=== PATIENT | male | born 2000 | race African-American/Black ===

== ENCOUNTER 2022-04-20 00:29 | Inpatient (IN) ==
[2022-04-20] MEDS ORDERED: ONDANSETRON INJ 2 MG/ML 2 ML VIAL IV STA (01:14)
[2022-04-20] MEDS ORDERED: SODIUM CHLORIDE 0.9% 1000ML 1,000 ML IV ONE (01:14)
[2022-04-20] MEDS ORDERED: MoRPHine SULFATE 4 MG/ML 1 ML CARP\\VIAL IV STA (01:14)
--- NOTE | 2022-04-20 01:20 | Emergency Department Note ---
Impression & Plan Sickle cell anemia with crisis Admit to the [facility] ED Provider Note NAME: SEAN RUVALCABA AGE: 21 SEX: M ARRIVES VIA: Walk-In INFORMANT: Patient ED PROVIDER(S): Radha Montgomery DO CHIEF COMPLAINT: Leg pain PLAN: Disposition: Admit to the [facility] Condition: Fair MEDICAL DECISION MAKING: This is a 21-year-old male patient with a history of sickle cell disease who presents to the emergency department with pain in his anterior thighs, back, and arms. Patient believes that he is having a sickle cell crisis. Patient tried t aking ibuprofen as well as his home morphine dose with no relief of his pain. The patient was drinking alcohol today but the pain seemed to worsen throughout the day. Patient is anemic with a hemoglobin of 8.8. He has no significant leukocytosis. He is afebrile. He does have an alcohol level greater than 75. Patient was given a dose of IV morphine and IV Zofran which did give him moderate relief of his discomfort. He was started on IV normal saline drip. Initially I was cautious with opioid administration because of the patient's alcohol use this evening and the oral morphine he had taken. The patient continued to complain of pain and he was given a dose of IV Dilaudid. I reevaluated and he was concerned he would not be able to go home because of his persistent pain. I discussed the case with the [facility] and they will evaluate for further management. Triage Nursing notes reviewed and agree with them. Vital Signs: reviewed and unremarkable Differential diagnosis: Sickle cell crisis, musculoskeletal pain, alcohol intoxication, dehydration ER treatment provided: IV morphine IV Zofran IV saline IV Dilaudid Diagnostics interpreted by me: Laboratory studies: See below HPI: 21/M arrives for evaluation of leg pain. Patient has a history of sickle cell disease who presents to the emergency department with pain in his legs, arms and back. His last sickle crisis was in the summer 2021. 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 He admits to drinking alcohol today at the [employer] football game. He tried taking his usual ibuprofen and oral morphine with no relief. He typically received IV morphine in the emergency department and gets relief. ROS: See above HPI for pertinent positives & negatives. A total of 10 systems reviewed and were otherwise negative. PAST MEDICAL HISTORY:Sickle cell disease; asthma PAST SURGICAL HISTORY:See Below FAMILY HISTORY:See Below SOCIAL HISTORY:Patient is a student at [employer]. He does admit to alcohol use. HOME MEDICATIONS:See list ALLERGIES:None VITALS:See Below PHYSICAL EXAMINATION: HEENT: Head - normocephalic and atraumatic Pupils are equal, round, and reactive to light. Extraocular eye muscles are intact, and sclera are anicteric. Nose - moist nasal mucosa without discharge. Mouth - moist buccal mucosa. Oropharynx is nonerythematous and there is no tonsillar exudate or edema noted. Neck: Supple; no cervical lymphadenopathy Heart: Regular rate and rhythm. There is a normal S1 and S2 with no murmurs, clicks, or gallops appreciated. Lungs: Clear to auscultation bilaterally with no wheezes, rales, or rhonchi. Abdomen: Soft, completely nontender, nondistended, with good bowel sounds. There are no palpable pulsatile masses or hepatosplenomegaly. There is no guarding, rigidity, or rebound noted. Extremities: No evidence of cyanosis, clubbing, or edema. There are easily palpable peripheral pulses. Skin: warm and dry with good turgor and no rashes. ED COURSE: Times/Reassessments: 0100: Patient was evaluated in room B7. A complete history and physical was performed. An IV lock was initiated and labs are drawn as above. Patient was given a liter normal saline solution wide open along with 4 mg of IV Zofran and 4 mg of IV m orphine. Upon reevaluation, the patient continued to complain of some discomfort and was given a dose of IV Dilaudid. Radha Montgomery DO Past Med/Surg History Social History Smoking Status: Never smoker Tobacco Type: E-cigarettes / Vaping Hx Alcohol Use: Yes Alcohol type: beer Hx Substance Use: Yes Last Used Substance: Days (ago) Last Used Substance Other:: yesterday Substance Use Type Other:: Vapes nicotine Preferred Language: Macedonian Communication Ability: Effective Data Analyst Etl Developer Required: No Current Living Situation: Other Current Living Situation Comment: Apartment with one roommate Other Information That Helps Us Care for You: No Feels Safe at Home: Yes Safety Concerns: Feels Safe At This Time Assistive Devices: None Allergies Allergies Allergy/AdvReac Type Severity Reaction Status Date / Time No Known Allergies Allergy Unverified 04/20/22 04:35 Results & Data (ED) Vital Signs Vital Signs - 24 hr 04/20/22 00:32 Temperature 36.8 C Temperature Source Temporal Artery Scan Pulse Rate 82 Respiratory Rate 18 Respiratory Effort / Characteristics Non-Labored Spontaneous Respiratory Depth Normal Respiratory Pattern Regular Blood Pressure 131/88 Blood Pressure Mean 102 Pulse Oximetry 99 Oxygen Delivery Method Room Air Sepsis Recent Fever Within 48 Hours No Sepsis New/Unexplained Change in Mental Status N/A Sepsis Action Taken by Nursing No Action Required Laboratory Data Result diagrams: 04/21/22 05:13 04/21/22 05:13 Lab Results 04/20/22 04/20/22 04/20/22 Range/Units 01:27 01:27 01:27 WBC 8.45 (4.8-10.8) K/ul RBC 2.78 L (4.63-6.08) M/uL Hgb 8.8 L (14.0-18.0) g/dl Hct 24.8 L (40.1-51.0) % MCV 89.2 (80.0-100.0) fL MCH 31.7 (25.0-34.0) pg MCHC 35.5 (32.0-36.0) g/dL RDW Std Deviation 71.5 H (36.4-46.3) fL RDW Coeff of Terrell 22.4 H (11.5-14.5) % Plt Count 338 (130-400) K/uL MPV 9.1 L (9.4-12.4) fL Immature Gran % (Auto) 7.7 % Neut % (Auto) 60.3 % Lymph % (Auto) 22.0 % [place] % (Auto) 9.3 % Eos % (Auto) 0.2 % Baso % (Auto) 0.5 % Reticulocyte % (Auto) (0.5-2.0) % Neut # (Auto) 5.09 (1.4-6.5) K/uL Lymph # (Auto) 1.86 (1.2-3.4) K/uL [place] # (Auto) 0.79 (0.24-0.82) K/uL Eos # (Auto) 0.02 (0-0.50) K/uL Baso # (Auto) 0.04 (0-0.2) K/uL Reticulocyte # (0.02-0.10) 10^6/uL Immature Gran # (Auto) 0.65 H (0.00-0.02) K/uL Absolute Nucleated RBC 0.29 H (0-0) K/uL Nucleated RBC % (auto) 3.4 % Anisocytosis Present Target Cells 2+ Tear Drop Cells 1+ Schistocytes 1+ Sodium 140 (136-145) mmol/L Potassium 3.9 (3.5-5.1) mmol/L Chloride 107 (98-107) mmol/L Carbon Dioxide 25 (21-32) mmol/L Anion Gap 8 (3-11) BUN 7 (6-23) mg/dl Creatinine 0.49 L (0.6-1.4) mg/dl Est Cr Clr Drug Dosing 231.2 ml/min Est GFR ( Amer) > 150.0 ml/min Est GFR (Non-Af Amer) > 150.0 ml/min BUN/Creatinine Ratio 14.3 (10-20) Glucose 101 H (70-99(Fasting)) mg/dl Calcium 8.8 (8.5-10.1) mg/dl Total Bilirubin 1.9 H (0.2-1.0) mg/dl AST 22 (13-39) U/L ALT 17 (7-52) U/L Alkaline Phosphatase 82 (34-104) U/L Total Creatine Kinase 66 (30-223) U/L Total Protein 7.4 (6.0-8.3) gm/dl Albumin 4.2 (3.4-5.0) gm/dl Globulin 3.2 (2.5-4.0) gm/dl Albumin/Globulin Ratio 1.3 (0.9-2) Ethyl Alcohol mg/dL 77.8 H (<10.0) mg/dl 04/20/22 Range/Units 01:27 WBC (4.8-10.8) K/ul RBC (4.63-6.08) M/uL Hgb (14.0-18.0) g/dl Hct (40.1-51.0) % MCV (80.0-100.0) fL MCH (25.0-34.0) pg MCHC (32.0-36.0) g/dL RDW Std Deviation (36.4-46.3) fL RDW Coeff of Terrell (11.5-14.5) % Plt Count (130-400) K/uL MPV (9.4-12.4) fL Immature Gran % (Auto) % Neut % (Auto) % Lymph % (Auto) % [place] % (Auto) % Eos % (Auto) % Baso % (Auto) % Reticulocyte % (Auto) 7.2 H (0.5-2.0) % Neut # (Auto) (1.4-6.5) K/uL Lymph # (Auto) (1.2-3.4) K/uL [place] # (Auto) (0.24-0.82) K/uL Eos # (Auto) (0-0.50) K/uL Baso # (Auto) (0-0.2) K/uL Reticulocyte # 0.20 H (0.02-0.10) 10^6/uL Immature Gran # (Auto) (0.00-0.02) K/uL Absolute Nucleated RBC (0-0) K/uL Nucleated RBC % (auto) % Anisocytosis Target Cells Tear Drop Cells Schistocytes Sodium (136-145) mmol/L Potassium (3.5-5.1) mmol/L Chloride (98-107) mmol/L Carbon Dioxide (21-32) mmol/L Anion Gap (3-11) BUN (6-23) mg/dl Creatinine (0.6-1.4) mg/dl Est Cr Clr Drug Dosing ml/min Est GFR ( Amer) ml/min Est GFR (Non-Af Amer) ml/min BUN/Creatinine Ratio (10-20) Glucose (70-99(Fasting)) mg/dl Calcium (8.5-10.1) mg/dl Total Bilirubin (0.2-1.0) mg/dl AST (13-39) U/L ALT (7-52) U/L Alkaline Phosphatase (34-104) U/L Total Creatine Kinase (30-223) U/L Total Protein (6.0-8.3) gm/dl Albumin (3.4-5.0) gm/dl Globulin (2.5-4.0) gm/dl Albumin/Globulin Ratio (0.9-2) Ethyl Alcohol mg/dL (<10.0) mg/dl Administered Medications Acetaminophen (Acetaminophen 500 Mg Tab) 1,000 mg PO Q8H [facility] Stop: 05/20/22 07:59 Last Admin: 04/21/22 10:35 Dose: 1,000 mg Documented By: [id number] Admin: 04/21/22 00:28 Dose: 1,000 mg Documented By: Admin: 04/20/22 17:07 Dose: 1,000 mg Documented By: Admin: 04/20/22 09:10 Dose: 1,000 mg Documented By: VISHAL Amoxicillin (Amoxicillin 250 Mg Cap) 250 mg PO BID [facility] Stop: 05/20/22 08:59 Last Admin: 04/20/22 09:10 Dose: 250 mg Documented By: VISHAL Folic Acid (Folic Acid 1 Mg Tab) 1 mg PO QAM [facility] Stop: 05/20/22 12:29 Last Admin: 04/21/22 10:35 Dose: 1 mg Documented By: [id number] Admin: 04/20/22 14:04 Dose: 1 mg Documented By: VISHAL Hydromorphone HCl (Hydromorphone Mechanical Engineering Draftsperson 30 Mg/30 Ml) 30 mg IV PRN PRN; Protocol PRN Reason: CABIN EQUIPMENT SUPERVISOR Pain Titration Stop: 05/04/22 11:46 Last Admin: 04/20/22 12:24 Dose: 30 mg Documented By: VISHAL Co-signed By: [facility] Hydroxyurea (Hydroxyurea 500 Mg Cap) 2,000 mg PO DAILY [facility] Stop: 05/20/22 08:59 Last Admin: 04/21/22 10:35 Dose: 2,000 mg Documented By: [id number] Co-signed By: SRIRAM Admin: 04/20/22 09:10 Dose: 2,000 mg Documented By: VISHAL Co-signed By: Chidi Sodium Chloride (1/2 Nss) 1,000 mls @ 150 mls/hr IV .Q6H40M [facility] Stop: 05/20/22 07:14 Last Admin: 04/21/22 10:40 Dose: 150 mls/hr Documented By: [id number] Infusion: 04/21/22 10:40 Dose: 150 mls/hr Documented By: [id number] Admin: 04/21/22 04:00 Dose: 150 mls/hr Documented By: Infusion: 04/21/22 04:00 Dose: 150 mls/hr Documented By: Admin: 04/20/22 21:53 Dose: 150 mls/hr Documented By: Infusion: 04/20/22 21:53 Dose: 150 mls/hr Documented By: Admin: 04/20/22 15:50 Dose: 150 mls/hr Documented By: Infusion: 04/20/22 15:50 Dose: 0 mls/hr Documented By: Admin: 04/20/22 09:09 Dose: 150 mls/hr Documented By: VISHAL Sodium Chloride (Nss 1000ml) 1,000 mls @ 15 mls/hr IV .Q24H [facility] Stop: 05/04/22 11:47 Last Admin: 04/21/22 10:46 Dose: Not Given Documented By: [id number] Admin: 04/20/22 12:35 Dose: Not Given Documented By: VISHAL Ceftriaxone Sodium 1,000 mg/ (Dextrose) 60 mls @ 100 mls/hr IV Q24H [facility]; Protocol Stop: 04/27/22 17:59 Last Infusion: 04/20/22 21:37 Dose: 0 mls/hr Documented By: Admin: 04/20/22 20:42 Dose: 100 mls/hr Documented By: LYRIC Sennosides (Senna 8.6 Mg Tab) 8.6 mg PO BID [facility] Stop: 05/20/22 08:59 Last Admin: 04/21/22 10:35 Dose: 8.6 mg Documented By: [id number] Admin: 04/20/22 20:44 Dose: 8.6 mg Documented By: Admin: 04/20/22 09:10 Dose: 8.6 mg Documented By: VISHAL Discontinued Medications Acetaminophen (Acetaminophen 1000 Mg/100 Ml Iv) Confirm Administered Dose 1,000 mg IV .STK-MED ONE Stop: 04/20/22 03:57 Last Admin: 04/20/22 04:01 Dose: Not Given Documented By: ADDY Hydromorphone HCl (Hydromorphone Inj 0.5 Mg/0.5 Ml Syr) 0.5 mg IV NOW STA Stop: 04/20/22 02:10 Last Admin: 04/20/22 02:13 Dose: 0.5 mg Documented By: ADDY Hydromorphone HCl (Hydromorphone Inj 0.5 Mg/0.5 Ml Syr) 0.5 mg IV NOW STA Stop: 04/20/22 04:08 Last Admin: 04/20/22 05:40 Dose: Not Given Documented By: LYRIC Hydromorphone HCl (Hydromorphone Inj 0.5 Mg/0.5 Ml Syr) 0.5 mg IV NOW STA Stop: 04/20/22 04:24 Last Admin: 04/20/22 04:43 Dose: 0.5 mg Documented By: ADDY Hydromorphone HCl (Hydromorphone Inj 0.5 Mg/0.5 Ml Syr) Confirm Administered Dose 0.5 mg .ROUTE .STK-MED ONE Stop: 04/20/22 04:38 Last Admin: 04/20/22 04:44 Dose: Not Given Documented By: ADDY Hydromorphone HCl (Hydromorphone Inj 0.5 Mg/0.5 Ml Syr) 0.5 mg IV NOW STA Stop: 04/20/22 06:09 Last Admin: 04/20/22 06:35 Dose: 0.5 mg Documented By: LYRIC Hydromorphone HCl (Hydromorphone Inj 1 Mg/Ml Syringe) 1 mg IV NOW STA Stop: 04/20/22 11:52 Last Admin: 04/20/22 11:59 Dose: 1 mg Documented By: VISHAL Hydromorphone HCl (Hydromorphone Inj 0.5 Mg/0.5 Ml Syr) 0.5 mg IV NOW STA Stop: 04/21/22 00:28 Last Admin: 04/21/22 00:32 Dose: 0.5 mg Documented By: LYRIC Sodium Chloride (Nss 1000ml) 1,000 mls @ 999 mls/hr IV .Q1H1M ONE Stop: 04/20/22 02:14 Last Infusion: 04/20/22 04:20 Dose: 0 mls/hr Documented By: Admin: 04/20/22 01:23 Dose: 999 mls/hr Documented By: ADDY Acetaminophen (Ofirmev) 1,000 mg in 100 mls @ 400 mls/hr IV NOW STA Stop: 04/20/22 04:14 Last Infusion: 04/20/22 04:20 Dose: 0 mls/hr Documented By: Admin: 04/20/22 04:01 Dose: 400 mls/hr Documented By: ADDY Sodium Chloride (Nss 1000ml) 1,000 mls @ 150 mls/hr IV .Q6H40M [facility] Stop: 04/20/22 18:57 Last Infusion: 04/20/22 19:01 Dose: 0 mls/hr Documented By: Infusion: 04/20/22 10:02 Dose: 0 mls/hr Documented By: Admin: 04/20/22 05:50 Dose: 125 mls/hr Documented By: LYRIC Azithromycin 500 mg/ Dextrose 255 mls @ 127.5 mls/hr IV NOW STA Stop: 04/20/22 19:34 Last Infusion: 04/20/22 20:38 Dose: 0 mls/hr Documented By: Admin: 04/20/22 18:23 Dose: 127.5 mls/hr Documented By: VISHAL Miscellaneous Information (Patient's Allergy Info Needs Entered) 1 each N/A NOW STA Stop: 04/20/22 04:29 Last Admin: 04/20/22 04:44 Dose: 1 each Documented By: ADDY Morphine Sulfate (Morphine Sulfate 4 Mg/Ml 1 Ml Carp\Vial) 4 mg IV NOW STA Stop: 04/20/22 01:15 Last Admin: 04/20/22 01:23 Dose: 4 mg Documented By: ADDY Morphine Sulfate (Morphine Sulfate Cr 15 Mg Tabcr) 15 mg PO Q12H [facility] Stop: 05/04/22 06:29 Last Admin: 04/20/22 08:09 Dose: 15 mg Documented By: VISHAL Morphine Sulfate (Morphine Sulfate 4 Mg/Ml 1 Ml Carp\Vial) 4 mg IV Q3H PRN PRN Reason: Pain Stop: 05/04/22 05:37 Last Admin: 04/20/22 09:09 Dose: 4 mg Documented By: VISHAL Ondansetron HCl (Ondansetron Inj 2 Mg/Ml 2 Ml Vial) 4 mg IV NOW STA Stop: 04/20/22 01:15 Last Admin: 04/20/22 01:23 Dose: 4 mg Documented By: ADDY Oxycodone HCl (Oxycodone Hcl Ir 5 Mg Tab (Immediate Release)) 5 mg PO Q6H [facility] Stop: 05/04/22 05:59 Last Admin: 04/20/22 05:50 Dose: 5 mg Documented By: LYRIC Discharge Plan Visit Data Chief Complaint: Pain (Generalized) Stated Complaint: SICKLE CELL PAIN CRISIS IN LEGS,BACK,ARMS ED Provider: Radha Montgomery Discharge Problem: Sickle cell anemia with crisis Patient Disposition: Admitted As Inpatient Discharge Instructions Interventions: ED Discharge Assessment Last Done: 04/20/22 05:20
[2022-04-20 01:35] LABS: Hematocrit (blood only) 24.8 % (40.1-51.0); Hemoglobin 8.8 g/dl (14.0-18.0); Mean Corpuscular Hemoglobin 31.7 pg (25.0-34.0); Mean Corpuscular Hgb Conc 35.5 g/dL (32.0-36.0); Mean Corpuscular Volume 89.2 fL (80.0-100.0); Mean Platelet Volume 9.1 fL (9.4-12.4); Nucleated RBC # (auto) 0.29 K/uL (0-0); Nucleated RBC % (auto) 3.4 %; Platelet Count 338 K/uL (130-400); RDW Coefficient of Variation 22.4 % (11.5-14.5); RDW Standard Deviation 71.5 fL (36.4-46.3); Red Blood Count 2.78 M/uL (4.63-6.08); White Blood Count 8.45 K/ul (4.8-10.8)
[2022-04-20 01:54] LABS: Alanine Aminotransferase 17 U/L (7-52); Albumin Globulin Ratio 1.3 (0.9-2); Albumin Level 4.2 gm/dl (3.4-5.0); Alkaline Phosphatase 82 U/L (34-104); Anion Gap 8 (3-11); Aspartate Aminotransferase 22 U/L (13-39); BUN Creatinine Ratio 14.3 (10-20); Bilirubin,Total 1.9 mg/dl (0.2-1.0); Blood Urea Nitrogen 7 mg/dl (6-23); Calcium 8.8 mg/dl (8.5-10.1); Carbon Dioxide 25 mmol/L (21-32); Chloride 107 mmol/L (98-107); Creatinine Clr Calc Pharmacy 231.2 ml/min; Est GFR (African American) > 150.0 ml/min; Est GFR (Non-African American) > 150.0 ml/min; Globulin 3.2 gm/dl (2.5-4.0); Glucose 101 mg/dl (70-99(Fasting)); Potassium 3.9 mmol/L (3.5-5.1); Sodium 140 mmol/L (136-145); Total Protein 7.4 gm/dl (6.0-8.3)
[2022-04-20 01:58] LABS: Anisocytosis Present; Basophils # (auto) 0.04 K/uL (0-0.2); Basophils % (auto) 0.5 %; Eosinophils # (auto) 0.02 K/uL (0-0.50); Eosinophils % (auto) 0.2 %; Immature Granulocytes # (auto) 0.65 K/uL (0.00-0.02); Immature Granulocytes % (auto) 7.7 %; Lymphocytes # (auto) 1.86 K/uL (1.2-3.4); Monocytes # (auto) 0.79 K/uL (0.24-0.82); Monocytes % (auto) 9.3 %; Neutrophils # (auto) 5.09 K/uL (1.4-6.5); Neutrophils % (auto) 60.3 %; Schistocytes 1+; Target Cells 2+; Tear Drop Cells 1+
[2022-04-20] MEDS ORDERED: HYDROmorphone INJ 0.5 MG/0.5 ML SYR IV STA ×4 (02:09→06:08)
--- NOTE | 2022-04-20 03:51 | History & Physical Report ---
Date of Service April 20, 2022 Assessment & Plan (1) Sickle cell crisis: Plan: Mat is a 21-year-old male with a history of sickle cell disease and intermittent asthma who presents to [facility] for generalized pain in his back, thighs, and arms - combined with his labs, his presentation is concerning for a sickle cell pain crisis. Sickle Cell Crisis - Patient with history of SCD requiring hospitalization at [facility] in Summer 2021 for similar pain in his arms/legs/back; no findings at present for acute chest syndrome - Admission labs demonstrating Hgb 8.8 (no baseline available) with +target, tear drop, and schistocyte cells - Pain management: Per patient's report, he did require escalation to GROUND SOURCE HEAT PUMP TECHNICIAN during his [facility] hospitalization in Summer 2021 -- Schedule APAP 1000mg q8h -- Schedule oxycodone 5mg q6h -- Dilaudid 0.5mg IV q2h PRN for breakthrough pain - Continue IVF @ 125cc/hr - Continue hydroxyurea (2000mg daily) - Will attempt to obtain [facility] files to see if he has a transfusion threshold / pain management plan set in place ; he denies knowing of either - Monitor CBC and obtain type and screen with next draw - Will check CPK given generalized pain - though no overt findings of rhabdo (2) Asthma: Plan: Intermittent Asthma - Stable. Not in exacerbation. Albuterol PRN Plan Code: Full Diet: regular PPX: SCDs Dispo: MS History of Present Illness Primary Care Provider: [facility] Mat is a 21-year-old male with a history of sickle cell disease and asthma who presents to [facility] for generalized pain in his back, thighs, and arms. Patient said that over the last 2 weeks, he was otherwise in his normal health but was having some vague left arm pain. He denies any injuries. Denies exercising on a regular basis. Then, [facility] he began experiencing bilateral upper arm pain, bilateral leg pain, and low back pain. At first it was moderate in character, so he continued tailgating. However, as the day went on, his pain progressively got worse. He did take one of his home 15 mg of morphine p.o., which did not help (he reports rarely ever having to take this). As such, he reported to the emergency room for further evaluation. He says that today he consumes around 6-9 drinks while tailgating. Denies other recreational substance use. Denies any recent fevers, chills, sweats. He denies any cough, shortness of breath, numbness tingling, motor weakness. He denies any new fitness/working out on a regular basis. Denies any new swelling in his arms or legs. Denies any discolored urine. He reports to me that he is followed at [facility] for his sickle cell disease, and takes hydroxyurea 500 mg q.i.d. His last crisis was in Summer 2021, he reports being hospitalized at [facility] for this and requiring a GROUND SOURCE HEAT PUMP TECHNICIAN of morphine, which worked well for him. On arrival in the ED, patient was found to have normal heart rate, blood pressure, and SaO2 over 99%.Labs demonstrated normocytic anemia at 8.8 with platelets 338, and 1+ schistocytes/1+ teardrop cells/2+ target cells. His chemistries noted BUN 7/creatinine 0.49, total bilirubin 1.9.He was given 1 L of normal saline, morphine, and hydromorphone. Medical alcohol level obtained given reports of >6 drinks today PHARMACY TECHNICIAN. Allergies Allergy/AdvReac Type Severity Reaction Status Date / Time No Known Allergies Allergy Unverified 04/20/22 04:35 Past Med/Surg History Social History Smoking Status: Never smoker Tobacco Type: E-cigarettes / Vaping Hx Alcohol Use: Yes Alcohol type: beer Hx Substance Use: Yes Last Used Substance: Days (ago) Last Used Substance Other:: yesterday Substance Use Type Other:: Vapes nicotine Preferred Language: Paraguayan Communication Ability: Effective Binder Operator Required: No Current Living Situation: Other Current Living Situation Comment: Apartment with one roommate Other Information That Helps Us Care for You: No Feels Safe at Home: Yes Safety Concerns: Feels Safe At This Time Assistive Devices: Glasses Review of Systems Review of Systems: as per HPI Physical Exam Physical Exam: General: 21-year old male who is alert, oriented, but appears in significant distress secondary to generalized pain HEENT: NCAT. - Eyes - Sclera are white, anicteric, and without injection. - Mouth - MMM - Neck - supple, no appreciable JVD Cardiac: Normal rate and regular rhythm; S1 and S2 present with no murmurs, rubs, or gallops. Pulmonary: Good respiratory effort with symmetric expansion of the chest. No use of accessory muscles. Lungs were clear to auscultation bilaterally with no crackles or wheezes. Abdominal: Normoactive bowel sounds. Abdomen was soft, nondistended, and non- tender to palpation. Extremities: Upper and lower extremities are warm and well perfused. No peripheral edema in the lower extremities bilaterally Back: No point tenderness along the spine. Generalized pain in the paraspinal muscles. Neuro: CN2-12 grossly intact. UE, LE strength 5/5 bilaterally. Psych: Well-developed, well-nourished, appropriately dressed for occasion. Behavior is cooperative and appropriate. Affect is distressed secondary to pain. Insight is appropriate. Results & Data Results & Data ([facility]) Vital Signs (Past 12 Hours) Vital Signs Temp Pulse Pulse Resp BP BP Pulse Ox 04/20/22 01:30 90 14 134/100 96 04/20/22 00:32 36.8 C 82 18 131/88 99 O2 Del Method 04/20/22 01:30 Room Air 04/20/22 00:32 Room Air Supervising Physician Co-Signing Physician Notes Attending addendum: I have physically seen this patient, have supervised the medical residents activities, and agree with the H&P unless as otherwise noted. Assessment and Plan: Sickle cell crisis- Patient received from the ED the following: Zofran 4 mg IV, NSS 1 L, morphine sulfate 4 mg IV, Dilaudid 0.5 mg IV Most recent hospitalization at [facility] was Summer 2021 Patient having similar pain in arms, legs and back today, without any direct precipitating symptoms at this time Lactated Ringer's at 125 mils per hour Continue hydroxyurea 2000 mg daily Attempt to get files from [facility] to verify his pain management protocol Asthma- No acute issues at this time Resident Activity Tracking Resident Involvement: Resident Care Provided Care Provided: Adult Hospital Medicine
[2022-04-20] MEDS ORDERED: ONDANSETRON INJ 2 MG/ML 2 ML VIAL IV PRN (03:53)
[2022-04-20] MEDS ORDERED: ACETAMINOPHEN 1000 MG/100 ML IV IV ONE (03:56)
[2022-04-20] MEDS ORDERED: ACETAMINOPHEN 1,000 MG/100 ML VIAL IV STA (04:00)
[2022-04-20 04:07] LABS: Creatine Kinase 66 U/L (30-223)
[2022-04-20] MEDS ORDERED: Patient's ALLERGY Info needs ENTERED STA (04:28)
[2022-04-20] MEDS ORDERED: HYDROmorphone INJ 0.5 MG/0.5 ML SYR ONE (04:37)
[2022-04-20] MEDS ORDERED: ALBUTEROL HFA 8 GM INHALER INH PRN (05:38)
[2022-04-20] MEDS ORDERED: MoRPHine SULFATE 4 MG/ML 1 ML CARP\\VIAL IV PRN ×2 (05:38→06:11)
[2022-04-20] MEDS ORDERED: SODIUM CHLORIDE 0.9% 1000ML 1,000 ML IV SCH (05:38)
[2022-04-20] MEDS ORDERED: oxyCODONE HCL IR 5 MG TAB (IMMEDIATE RELEASE) PO SCH (06:00)
[2022-04-20] MEDS ORDERED: MoRPHine SULFATE CR 15 MG TABCR PO SCH (06:30)
[2022-04-20 06:36] LABS: Reticulocyte % 7.2 % (0.5-2.0); Reticulocytes # 0.2 10^6/uL (0.02-0.10)
--- NOTE | 2022-04-20 08:12 | Hospitalist Progress Note ---
Date of Service April 20, 2022 Assessment & Plan (1) Sickle cell crisis: Plan: Mat is a 21-year-old male with a history of sickle cell disease and intermittent asthma who presents to [facility] for generalized pain in his back, thighs, and arms - combined with his labs, his presentation is concerning for a sickle cell pain crisis. Sickle Cell Crisis - Patient with h/o SCD requiring hospitalization at [facility] in Summer 2021 for similar pain in his arms/legs/back. - Limited records obtained from [facility]. One inpatient progress note reports following pain regimen: intermittent IV morphine 7mg q3h PRN, morphine ER 30mg b.i.d. Reportedly has h/o iron overload from chronic transfusions. He reports being on an "iron pill", which would seem consistent with chelation agent mentioned in files, though neither reports a specific drug name. Unable to locate in external files with pharmacy's help. Consider speaking with [facility] to clarify this information and if a plan exists for him should repeat crises occur. - Admission labs demonstrating Hgb 8.8 (no baseline available) with +target, tear drop, and schistocyte cells - Chest XR: linear left hilar/suprahilar airspace opacity - suggests pneumonia vs atelectasis vs acute chest; repeat XR later today, will consider abx - WBC on admission wnl. Repeat elevated 14. - Pain management: Per patient's report, he did require escalation to [employer] during his [facility] hospitalization in Summer 2021 -- Schedule APAP 1000mg q8h -- [employer] 0.3 mg dilaudid q15min --> pt appears more comfortable and no respiratory distress s/p [employer] initiation, denies chest pain/sob - Continue 1/2NSS IVF @ 150cc/hr - Continue hydroxyurea (2000mg daily), folic acid, incentive spirometer - consider heme consult - Monitor CBC Intermittent Asthma - Stable. Not in exacerbation. Albuterol PRN Code status: Full Diet: regular DVT ppx: SCDs Dispo: med surg (2) Asthma: Admission and Anticipated Discharge Date Admission Date: April 20, 2022 Supervising Physician Co-Signing Physician Notes I personally examined the patient and verified all worthy points of history and exam, discussed case, and agree with decision making with Dr Carpenter. Feeling better than this morningpain under better control, but still not quite good enough control. Notes that the [employer] helps, but probably wears off a little bit too soon, question if it helps enough. In discussing where his pain is, seems to be predominantly in his legs. I do note that his breathing appears shallowbut he clearly denies any chest pain or shortness of breath (I accidentally made the misunderstanding that he was splinting his breathing cathy use of chest painand when asking him to describe the chest pain he corrected me noting that he really does not have any chest pain, its more that even deep breathing affects the pain in his legsbut has no chest pain and no shortness of breath). He does note that things feel better than they did earlier, but still quite Bad. Vitals noted, in general he is awake and alert pleasant but does appear to be a bit uncomfortable. When he is awake he has rather shallow splinted breathingbut again he adamantly denies any chest pain or shortness of breathwhen I go to get him a drink and return, he has drifted off to sleepwhen he is asleep, his breathing is smooth, even, unlabored, and not at all tachypneic. Lungs show slightly diminished air entry on the right with a question of mild egophony left is clear. No adventitious soundsno rales rhonchi or wheezesand at rest no accessory muscle useagain he does show splinted breathing when he is awake but it goes away with rest. Skin shows no rashes no pallor or icterus. Neuro without any focal deficits/lateralizing signs Sickle cell disease with acute pain crisisescalated to Dilaudid [employer] with improvement in pain, but pain control still somewhat lackingincrease [employer] dosing, continue to titrate as needed. Continue Tylenol [id number]. Ongoing IV fluids, ongoing supportive care and reassessment Questionable infiltrate on chest x-raychest x-ray obtained due to splinted breathinginterestingly again, patient denies any chest pain shortness of breath cough etc.but his chest x-ray does have a bit of a linear density. His overall picture makes me suspicious for atelectasis, but his white count being a bit higher, while possibly demargination, does raise concern that he might be developing a pneumoniacovering with Zithromax and Rocephin until the situation becomes more clear, continue to trend inflammatory markers. Low threshold for chest CT if necessary. While maintaining vigilance, for now low likelihood for acute chest syndrome, given his lack of chest pain or shortness of breath, no fever, no rales/rhonchi/wheezes on exam, no cough, no tachypnea at rest, also has reassuring findings with normal renal function and normal LFTs. Obviously continue to follow closely though. Escalating pain control, but no clear indication for transfer for exchange transfusion etc. at this time. No overt indications for simple transfusion either, again continue to follow closely Subjective Seen at bedside this morning. Still in alot of pain despite current pain regim en. Breathing fast with visible sweat on forehead. States he increases his breathing to help with pain. Some sob. Denies N/V. Review of Systems Review of Systems: All systems reviewed & are unremarkable except as noted in HPI & below Physical Exam Physical Exam: General:AOx3, but appears in significant distress secondary to generalized pain HEENT: NCAT. Sclera anicteric. MMM. Supple. Cardiac: RRR; S1 and S2 present with no murmurs, rubs, or gallops. Pulmonary: Diminished lung sounds R>L. Tachypneic with visible retractions. No crackles or wheezes. Abdominal: soft, nondistended, and non-tender to palpation. Extremities: warm and well perfused. No peripheral edema in the lower extremities bilaterally Neuro: no focal deficits Psych: Behavior is cooperative and appropriate. Affect is distressed secondary to pain. Insight is appropriate. Results & Data Results & Data ([facility]) Vital Signs (Past 12 Hours) Vital Signs Temp Pulse Pulse Pulse Resp BP BP 04/20/22 07:49 36.5 C 70 16 127/77 04/20/22 06:13 36.5 C 81 16 04/20/22 05:00 68 16 04/20/22 03:34 88 16 04/20/22 01:30 90 14 04/20/22 00:32 36.8 C 82 18 131/88 BP Pulse Ox O2 Del Method 04/20/22 07:49 99 Room Air 04/20/22 06:13 147/98 H 98 Room Air 04/20/22 05:00 114/82 97 Room Air 04/20/22 03:34 140/100 97 04/20/22 01:30 134/100 96 Room Air 04/20/22 00:32 99 Room Air Laboratory Results 04/20/22 04/20/22 04/20/22 Range/Units 12:15 12:15 12:15 WBC 14.87 H (4.8-10.8) K/ul RBC 2.94 L (4.63-6.08) M/uL Hgb 9.3 L (14.0-18.0) g/dl Hct 25.9 L (40.1-51.0) % MCV 88.1 (80.0-100.0) fL MCH 31.6 (25.0-34.0) pg MCHC 35.9 (32.0-36.0) g/dL RDW Std Deviation 71.5 H (36.4-46.3) fL RDW Coeff of Terrell 22.7 H (11.5-14.5) % Plt Count 267 (130-400) K/uL MPV 9.3 L (9.4-12.4) fL Immature Gran % (Auto) 3.4 % Neut % (Auto) 73.4 % Lymph % (Auto) 9.8 % [place]att % (Auto) 13.0 % Eos % (Auto) 0.1 % Baso % (Auto) 0.3 % Reticulocyte % (Auto) (0.5-2.0) % Neut # (Auto) 10.93 H (1.4-6.5) K/uL Lymph # (Auto) 1.45 (1.2-3.4) K/uL [place] # (Auto) 1.93 H (0.24-0.82) K/uL Eos # (Auto) 0.01 (0-0.50) K/uL Baso # (Auto) 0.05 (0-0.2) K/uL Reticulocyte # (0.02-0.10) 10^6/uL Immature Gran # (Auto) 0.50 H (0.00-0.02) K/uL Absolute Nucleated RBC 1.14 H (0-0) K/uL Nucleated RBC % (auto) 7.7 % Polychromasia 1+ Anisocytosis Present Target Cells 1+ Tear Drop Cells Schistocytes Sodium (136-145) mmol/L Potassium (3.5-5.1) mmol/L Chloride (98-107) mmol/L Carbon Dioxide (21-32) mmol/L Anion Gap (3-11) BUN (6-23) mg/dl Creatinine (0.6-1.4) mg/dl Est Cr Clr Drug Dosing ml/min Est GFR ( Amer) ml/min Est GFR (Non-Af Amer) ml/min BUN/Creatinine Ratio (10-20) Glucose (70-99(Fasting)) mg/dl Calcium (8.5-10.1) mg/dl Total Bilirubin (0.2-1.0) mg/dl AST (13-39) U/L ALT (7-52) U/L Alkaline Phosphatase (34-104) U/L Total Creatine Kinase (30-223) U/L C-Reactive Protein 2.17 H (0-0.5) mg/dl Total Protein (6.0-8.3) gm/dl Albumin (3.4-5.0) gm/dl Globulin (2.5-4.0) gm/dl Albumin/Globulin Ratio (0.9-2) Procalcitonin 0.12 (0-0.5) ng/ml Ethyl Alcohol mg/dL (<10.0) mg/dl SARS-CoV-2, RNA, NAAT (NEGATIVE) 04/20/22 04/20/22 04/20/22 Range/Units 04:07 01:27 01:27 WBC (4.8-10.8) K/ul RBC (4.63-6.08) M/uL Hgb (14.0-18.0) g/dl Hct (40.1-51.0) % MCV (80.0-100.0) fL MCH (25.0-34.0) pg MCHC (32.0-36.0) g/dL RDW Std Deviation (36.4-46.3) fL RDW Coeff of Terrell (11.5-14.5) % Plt Count (130-400) K/uL MPV (9.4-12.4) fL Immature Gran % (Auto) % Neut % (Auto) % Lymph % (Auto) % [place]att % (Auto) % Eos % (Auto) % Baso % (Auto) % Reticulocyte % (Auto) 7.2 H (0.5-2.0) % Neut # (Auto) (1.4-6.5) K/uL Lymph # (Auto) (1.2-3.4) K/uL [place]att # (Auto) (0.24-0.82) K/uL Eos # (Auto) (0-0.50) K/uL Baso # (Auto) (0-0.2) K/uL Reticulocyte # 0.20 H (0.02-0.10) 10^6/uL Immature Gran # (Auto) (0.00-0.02) K/uL Absolute Nucleated RBC (0-0) K/uL Nucleated RBC % (auto) % Polychromasia Anisocytosis Target Cells Tear Drop Cells Schistocytes Sodium (136-145) mmol/L Potassium (3.5-5.1) mmol/L Chloride (98-107) mmol/L Carbon Dioxide (21-32) mmol/L Anion Gap (3-11) BUN (6-23) mg/dl Creatinine (0.6-1.4) mg/dl Est Cr Clr Drug Dosing ml/min Est GFR ( Amer) ml/min Est GFR (Non-Af Amer) ml/min BUN/Creatinine Ratio (10-20) Glucose (70-99(Fasting)) mg/dl Calcium (8.5-10.1) mg/dl Total Bilirubin (0.2-1.0) mg/dl AST (13-39) U/L ALT (7-52) U/L Alkaline Phosphatase (34-104) U/L Total Creatine Kinase (30-223) U/L C-Reactive Protein (0-0.5) mg/dl Total Protein (6.0-8.3) gm/dl Albumin (3.4-5.0) gm/dl Globulin (2.5-4.0) gm/dl Albumin/Globulin Ratio (0.9-2) Procalcitonin (0-0.5) ng/ml Ethyl Alcohol mg/dL 77.8 H (<10.0) mg/dl SARS-CoV-2, RNA, NAAT NEGATIVE (NEGATIVE) 04/20/22 04/20/22 Range/Units 01:27 01:27 WBC 8.45 (4.8-10.8) K/ul RBC 2.78 L (4.63-6.08) M/uL Hgb 8.8 L (14.0-18.0) g/dl Hct 24.8 L (40.1-51.0) % MCV 89.2 (80.0-100.0) fL MCH 31.7 (25.0-34.0) pg MCHC 35.5 (32.0-36.0) g/dL RDW Std Deviation 71.5 H (36.4-46.3) fL RDW Coeff of Terrell 22.4 H (11.5-14.5) % Plt Count 338 (130-400) K/uL MPV 9.1 L (9.4-12.4) fL Immature Gran % (Auto) 7.7 % Neut % (Auto) 60.3 % Lymph % (Auto) 22.0 % Piatt % (Auto) 9.3 % Eos % (Auto) 0.2 % Baso % (Auto) 0.5 % Reticulocyte % (Auto) (0.5-2.0) % Neut # (Auto) 5.09 (1.4-6.5) K/uL Lymph # (Auto) 1.86 (1.2-3.4) K/uL Piatt # (Auto) 0.79 (0.24-0.82) K/uL Eos # (Auto) 0.02 (0-0.50) K/uL Baso # (Auto) 0.04 (0-0.2) K/uL Reticulocyte # (0.02-0.10) 10^6/uL Immature Gran # (Auto) 0.65 H (0.00-0.02) K/uL Absolute Nucleated RBC 0.29 H (0-0) K/uL Nucleated RBC % (auto) 3.4 % Polychromasia Anisocytosis Present Target Cells 2+ Tear Drop Cells 1+ Schistocytes 1+ Sodium 140 (136-145) mmol/L Potassium 3.9 (3.5-5.1) mmol/L Chloride 107 (98-107) mmol/L Carbon Dioxide 25 (21-32) mmol/L Anion Gap 8 (3-11) BUN 7 (6-23) mg/dl Creatinine 0.49 L (0.6-1.4) mg/dl Est Cr Clr Drug Dosing 231.2 ml/min Est GFR ( Amer) > 150.0 ml/min Est GFR (Non-Af Amer) > 150.0 ml/min BUN/Creatinine Ratio 14.3 (10-20) Glucose 101 H (70-99(Fasting)) mg/dl Calcium 8.8 (8.5-10.1) mg/dl Total Bilirubin 1.9 H (0.2-1.0) mg/dl AST 22 (13-39) U/L ALT 17 (7-52) U/L Alkaline Phosphatase 82 (34-104) U/L Total Creatine Kinase 66 (30-223) U/L C-Reactive Protein (0-0.5) mg/dl Total Protein 7.4 (6.0-8.3) gm/dl Albumin 4.2 (3.4-5.0) gm/dl Globulin 3.2 (2.5-4.0) gm/dl Albumin/Globulin Ratio 1.3 (0.9-2) Procalcitonin (0-0.5) ng/ml Ethyl Alcohol mg/dL (<10.0) mg/dl SARS-CoV-2, RNA, NAAT (NEGATIVE) Resident Activity Tracking Resident Involvement: Resident Care Provided Care Provided: [facility]
[2022-04-20] MEDS ORDERED: AMOXICILLIN 250 MG CAP PO SCH (09:00)
[2022-04-20] MEDS: SODIUM CHLORIDE 0.45 % 1,000 ML IV SCH ×3 (09:09→21:53)
[2022-04-20] MEDS: SENNA 8.6 MG TAB PO SCH ×2 (09:10→20:44)
[2022-04-20] MEDS: ACETAMINOPHEN 500 MG TAB PO SCH ×2 (09:10→17:07)
[2022-04-20] MEDS: HYDROXYUREA 500 MG CAP PO SCH (09:10)
--- NOTE | 2022-04-20 11:31 | XRay Report ---
XR chest 1V portable HISTORY: 21 years-old Male r/o acute chest acute chest pain COMPARISON: None TECHNIQUE: AP view of the chest FINDINGS: Cardiac silhouette is upper limits of normal in size. No pneumothorax, pleural effusion or overt pulm onary edema. Surgical clips project over the upper abdomen. Small linear left hilar/suprahilar airspa ce opacity. H shaped vertebral bodies are suggestive of sickle cell disease. Possible avascular necro sis of the right humeral head without articular collapse. IMPRESSION: 1. Linear left hilar/suprahilar airspace opacity may represent pneumonia or atelectasis/scarring. 2. Evidence of sickle cell disease. ACT 112: Negative or not required by law. The above report was generated using voice recognition software. It may contain grammatical, syntax o r spelling errors. Electronically signed by: Sammy Garcia M.D. 04/20/2022 11:30 AM
[2022-04-20] MEDS ORDERED: NALOXONE HCL 0.4 MG/1 ML VIAL/CARP IV PRN (11:47)
[2022-04-20] MEDS ORDERED: HYDROmorphone INJ 1 MG/ML SYRINGE IV STA (11:51)
[2022-04-20] MEDS: HYDROmorphone PCA 30 MG/30 ML IV PRN (12:24)
[2022-04-20] MEDS: SODIUM CHLORIDE 0.9% 1000ML 1,000 ML IV SCH (12:35)
[2022-04-20 13:01] LABS: Hematocrit (blood only) 25.9 % (40.1-51.0); Hemoglobin 9.3 g/dl (14.0-18.0); Mean Corpuscular Hemoglobin 31.6 pg (25.0-34.0); Mean Corpuscular Hgb Conc 35.9 g/dL (32.0-36.0); Mean Corpuscular Volume 88.1 fL (80.0-100.0); Mean Platelet Volume 9.3 fL (9.4-12.4); Nucleated RBC # (auto) 1.14 K/uL (0-0); Nucleated RBC % (auto) 7.7 %; Platelet Count 267 K/uL (130-400); RDW Coefficient of Variation 22.7 % (11.5-14.5); RDW Standard Deviation 71.5 fL (36.4-46.3); Red Blood Count 2.94 M/uL (4.63-6.08); White Blood Count 14.87 K/ul (4.8-10.8)
[2022-04-20 13:02] LABS: Anisocytosis Present; Basophils # (auto) 0.05 K/uL (0-0.2); Basophils % (auto) 0.3 %; Eosinophils # (auto) 0.01 K/uL (0-0.50); Eosinophils % (auto) 0.1 %; Immature Granulocytes % (auto) 3.4 %; Lymphocytes # (auto) 1.45 K/uL (1.2-3.4); Lymphocytes % (auto) 9.8 %; Monocytes # (auto) 1.93 K/uL (0.24-0.82); Neutrophils # (auto) 10.93 K/uL (1.4-6.5); Neutrophils % (auto) 73.4 %; Polychromasia 1+; Target Cells 1+
[2022-04-20] MEDS: FOLIC ACID 1 MG TAB PO SCH (14:04)
--- NOTE | 2022-04-20 17:11 | XRay Report ---
XR chest 2V PA/lateral HISTORY: 21 years-old Male r/o acute chest chest pain COMPARISON: Chest radiographs of same day at 10:52 AM TECHNIQUE: PA and lateral views of the chest FINDINGS: Cardiac silhouette is upper limits of normal in size. No pneumothorax, pleural effusion or overt pulm onary edema. Surgical clips project over the upper abdomen. Mildly progressed left perihilar/superior segment left lower lobe airspace opacities. H shaped vertebral bodies are suggestive of sickle cell disease. 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 IMPRESSION: 1. Mildly progressed left hilar/superior segment left lower lobe airspace opacities. Correlate clinic ally to exclude pneumonia. 2. Evidence of sickle cell disease. ACT 112: Negative or not required by law. The above report was generated using voice recognition software. It may contain grammatical, syntax o r spelling errors. Electronically signed by: Sammy Garcia M.D. 04/20/2022 5:10 PM
[2022-04-20] MEDS ORDERED: AZITHROMYCIN 500 MG in DEXTROSE 5% 250 ML IV STA (17:35)
[2022-04-20] MEDS ORDERED: SODIUM CHLORIDE 0.9% 250 ML IV PRN (19:06)
[2022-04-20] MEDS: cefTRIAXone SODIUM 1,000 MG in DEXTROSE 5% 50 ML IV SCH (20:42)
--- NOTE | 2022-04-20 21:34 | Billing Data ---
Date of Service April 20, 2022 Coding Level of Care Code 18505 Initial Inpt Care Lvl 2
[2022-04-21] MEDS ORDERED: HYDROmorphone INJ 0.5 MG/0.5 ML SYR IV STA (00:27)
[2022-04-21] MEDS: ACETAMINOPHEN 500 MG TAB PO SCH ×4 (00:28→23:52)
[2022-04-21] MEDS: SODIUM CHLORIDE 0.45 % 1,000 ML IV SCH ×4 (04:00→23:52)
[2022-04-21 05:49] LABS: Basophils # (auto) 0.03 K/uL (0-0.2); Basophils % (auto) 0.2 %; Eosinophils # (auto) 0.01 K/uL (0-0.50); Eosinophils % (auto) 0.1 %; Hematocrit (blood only) 25.8 % (40.1-51.0); Hemoglobin 9.2 g/dl (14.0-18.0); Immature Granulocytes # (auto) 0.32 K/uL (0.00-0.02); Immature Granulocytes % (auto) 2.3 %; Lymphocytes # (auto) 1.14 K/uL (1.2-3.4); Lymphocytes % (auto) 8.2 %; Mean Corpuscular Hemoglobin 31.7 pg (25.0-34.0); Mean Corpuscular Hgb Conc 35.7 g/dL (32.0-36.0); Mean Platelet Volume 9.4 fL (9.4-12.4); Monocytes # (auto) 1.61 K/uL (0.24-0.82); Monocytes % (auto) 11.6 %; Neutrophils # (auto) 10.81 K/uL (1.4-6.5); Neutrophils % (auto) 77.6 %; Nucleated RBC # (auto) 1.74 K/uL (0-0); Nucleated RBC % (auto) 12.5 %; Platelet Count 259 K/uL (130-400); RDW Coefficient of Variation 22.3 % (11.5-14.5); RDW Standard Deviation 72.2 fL (36.4-46.3); White Blood Count 13.92 K/ul (4.8-10.8)
[2022-04-21 06:15] LABS: Anion Gap 8 (3-11); BUN Creatinine Ratio 21.7 (10-20); Blood Urea Nitrogen 10 mg/dl (6-23); C Reactive Protein 14.45 mg/dl (0-0.5); Calcium 9.3 mg/dl (8.5-10.1); Carbon Dioxide 26 mmol/L (21-32); Chloride 100 mmol/L (98-107); Creatinine Clr Calc Pharmacy 237.1 ml/min; Est GFR (African American) > 150.0 ml/min; Est GFR (Non-African American) > 150.0 ml/min; Glucose 108 mg/dl (70-99(Fasting)); Potassium 3.9 mmol/L (3.5-5.1); Sodium 134 mmol/L (136-145)
[2022-04-21 06:22] LABS: Polychromasia 1+; Target Cells 2+
--- NOTE | 2022-04-21 07:03 | Hospitalist Progress Note ---
Date of Service April 21, 2022 Assessment & Plan (1) Sickle cell crisis: Plan: Mat is a 21-year-old male with a history of sickle cell disease and intermittent asthma who presents to [facility] for generalized pain in his back, thighs, and arms - combined with his labs, his presentation is concerning for a sickle cell pain crisis. Sickle Cell Crisis - Patient with h/o SCD requiring hospitalization at [facility] in Summer 2021 for similar pain in his arms/legs/back. - Limited records obtained from [facility]. One inpatient progress note reports following pain regimen: intermittent IV morphine 7mg q3h PRN, morphine ER 30mg b.i.d. Reportedly has h/o iron overload from chronic transfusions. He reports being on an "iron pill", which would seem consistent with chelation agent mentioned in files, though neither reports a specific drug name. Unable to locate in external files with pharmacy's help. Consider speaking with [facility] to clarify this information and if a plan exists for him should repeat crises occur. - Admission labs demonstrating Hgb 8.8 (no baseline available) with +target, tear drop, and schistocyte cells - Chest XR: linear left hilar/suprahilar airspace opacity - suggests pneumonia vs atelectasis vs acute chest; repeat XR showed worsening findings, started on azithromycin and Rocephin for pneumonia coverage, cont. - WBC on admission wnl. Repeat elevated 14, now downtrending. - Pain management: Per patient's report, he did require escalation to [employer] during his [facility] hospitalization in Summer 2021 -- Schedule APAP 1000mg q8h -- [employer] 0.3 mg dilaudid q15min - Continue 1/2NSS IVF @ 150cc/hr - Continue hydroxyurea (2000mg daily), folic acid, incentive spirometer - consider heme consult outpatient - Monitor CBC Intermittent Asthma - Stable. Not in exacerbation. Albuterol PRN Code status: Full Diet: regular DVT ppx: SCDs Dispo: med surg (2) Asthma: Admission and Anticipated Discharge Date Admission Date: April 20, 2022 Supervising Physician Co-Signing Physician Notes Attending attestation Pt seen and examined in concert with Dr. Carpenter. In agreement with the documented findings as noted in the resident documentation with any exceptions or additions as noted here. Reports adequate pain control on present regimen now, though was having some issues earlier in admission. Sx predominantly back, thighs/legs. Reports no acute cough, chest pain, SOB, n/v/d/c, GARCÍA, vision/hearing changes. Has had 2 previous episodes of similar flare though he reports usually controlling any similar symptoms at home with available medication. VS, nursing notes, labs, imaging reviewed. On examination, S1/S2 nl RRR no MCG. CTAB. Abd NT/ND BS+ve Mat is a 21-year-old male with a history of sickle cell disease and intermittent asthma who presents to [facility] for generalized pain in his back, thighs, and arms - combined with his labs, his presentation is concerning for a sickle cell pain crisis. SCC with acute pain crisis - tolerating hydromorphone [employer] at present dose in addition to APAP. Continue hydroxyurea. Left hilar/superior segment LLL opacity - no clinical presentation of PNA, but elevated WBC, chronic abx use so may be atypical presentation. Continue azithromycin, consider repeat XR tomorrow based on clinical status. Else see resident documentation as noted. Subjective Seen at bedside this morning. Additional spot dose of dilaudid overnight on top of [employer]. Rates pain a 5/10, overall improved from prior. Denies chest pain, sob, N/V. Review of Systems Review of Systems: All systems reviewed & are unremarkable except as noted in HPI & below Physical Exam Physical Exam: General:AOx3, appears in no significant distress HEENT: NCAT. Sclera anicteric. MMM. Supple. Cardiac: RRR; S1 and S2 present with no murmurs, rubs, or gallops. Pulmonary: Diminished lung sounds R>L. No crackles or wheezes. Abdominal: soft, nondistended, and non-tender to palpation. Extremities: warm and well perfused. No peripheral edema in the lower extremities bilaterally Neuro: no focal deficits Psych: Behavior is cooperative and appropriate. Affect is distressed secondary to pain. Insight is appropriate. Results & Data Results & Data ([facility]) Vital Signs (Past 12 Hours) Vital Signs Temp Pulse Resp BP Pulse Ox O2 Del Method 04/21/22 06:11 95 Room Air 04/21/22 06:09 106 H 04/21/22 05:35 94 H 04/21/22 03:33 37.3 C 103 H 20 135/82 93 Room Air 04/20/22 21:53 36.9 C 97 H 18 130/87 97 Room Air 04/20/22 19:21 37.2 C 61 20 150/66 H 97 Room Air Laboratory Results 04/21/22 04/21/22 04/21/22 Range/Units 05:13 05:13 05:13 WBC 13.92 H (4.8-10.8) K/ul RBC 2.90 L (4.63-6.08) M/uL Hgb 9.2 L (14.0-18.0) g/dl Hct 25.8 L (40.1-51.0) % MCV 89.0 (80.0-100.0) fL MCH 31.7 (25.0-34.0) pg MCHC 35.7 (32.0-36.0) g/dL RDW Std Deviation 72.2 H (36.4-46.3) fL RDW Coeff of Terrell 22.3 H (11.5-14.5) % Plt Count 259 (130-400) K/uL MPV 9.4 (9.4-12.4) fL Immature Gran % (Auto) 2.3 % Neut % (Auto) 77.6 % Lymph % (Auto) 8.2 % [place] % (Auto) 11.6 % Eos % (Auto) 0.1 % Baso % (Auto) 0.2 % Neut # (Auto) 10.81 H (1.4-6.5) K/uL Lymph # (Auto) 1.14 L (1.2-3.4) K/uL [place] # (Auto) 1.61 H (0.24-0.82) K/uL Eos # (Auto) 0.01 (0-0.50) K/uL Baso # (Auto) 0.03 (0-0.2) K/uL Immature Gran # (Auto) 0.32 H (0.00-0.02) K/uL Absolute Nucleated RBC 1.74 H (0-0) K/uL Nucleated RBC % (auto) 12.5 % Polychromasia 1+ Target Cells 2+ Sodium 134 L (136-145) mmol/L Potassium 3.9 (3.5-5.1) mmol/L Chloride 100 (98-107) mmol/L Carbon Dioxide 26 (21-32) mmol/L Anion Gap 8 (3-11) BUN 10 (6-23) mg/dl Creatinine 0.46 L (0.6-1.4) mg/dl Est Cr Clr Drug Dosing 237.1 ml/min Est GFR ( Amer) > 150.0 ml/min Est GFR (Non-Af Amer) > 150.0 ml/min BUN/Creatinine Ratio 21.7 H (10-20) Glucose 108 H (70-99(Fasting)) mg/dl Calcium 9.3 (8.5-10.1) mg/dl C-Reactive Protein 14.45 H (0-0.5) mg/dl Procalcitonin 0.38 (0-0.5) ng/ml Blood Type Blood Type Recheck Antibody Screen Antigen Identification Crossmatch 04/21/22 04/20/22 Range/Units 05:13 12:15 WBC (4.8-10.8) K/ul RBC (4.63-6.08) M/uL Hgb (14.0-18.0) g/dl Hct (40.1-51.0) % MCV (80.0-100.0) fL MCH (25.0-34.0) pg MCHC (32.0-36.0) g/dL RDW Std Deviation (36.4-46.3) fL RDW Coeff of Terrell (11.5-14.5) % Plt Count (130-400) K/uL MPV (9.4-12.4) fL Immature Gran % (Auto) % Neut % (Auto) % Lymph % (Auto) % [place] % (Auto) % Eos % (Auto) % Baso % (Auto) % Neut # (Auto) (1.4-6.5) K/uL Lymph # (Auto) (1.2-3.4) K/uL [place] # (Auto) (0.24-0.82) K/uL Eos # (Auto) (0-0.50) K/uL Baso # (Auto) (0-0.2) K/uL Immature Gran # (Auto) (0.00-0.02) K/uL Absolute Nucleated RBC (0-0) K/uL Nucleated RBC % (auto) % Polychromasia Target Cells Sodium (136-145) mmol/L Potassium (3.5-5.1) mmol/L Chloride (98-107) mmol/L Carbon Dioxide (21-32) mmol/L Anion Gap (3-11) BUN (6-23) mg/dl Creatinine (0.6-1.4) mg/dl Est Cr Clr Drug Dosing ml/min Est GFR ( Amer) ml/min Est GFR (Non-Af Amer) ml/min BUN/Creatinine Ratio (10-20) Glucose (70-99(Fasting)) mg/dl Calcium (8.5-10.1) mg/dl C-Reactive Protein (0-0.5) mg/dl Procalcitonin (0-0.5) ng/ml Blood Type A Positive Blood Type Recheck A Positive Antibody Screen NEGATIVE Antigen Identification K Antigen - NEGATIVE Crossmatch See Detail Resident Activity Tracking Resident Involvement: Resident Care Provided Care Provided: Adult Hospital Medicine
[2022-04-21] MEDS: HYDROXYUREA 500 MG CAP PO SCH (10:35)
[2022-04-21] MEDS: SENNA 8.6 MG TAB PO SCH ×2 (10:35→21:43)
[2022-04-21] MEDS: FOLIC ACID 1 MG TAB PO SCH (10:35)
[2022-04-21] MEDS: SODIUM CHLORIDE 0.9% 1000ML 1,000 ML IV SCH (10:46)
[2022-04-21] MEDS: cefTRIAXone SODIUM 1,000 MG in DEXTROSE 5% 50 ML IV SCH (18:18)
[2022-04-21] MEDS: AZITHROMYCIN 250 MG in DEXTROSE 5% 250 ML IV SCH (19:18)
[2022-04-22] MEDS: SODIUM CHLORIDE 0.45 % 1,000 ML IV SCH ×3 (06:13→17:47)
--- NOTE | 2022-04-22 06:59 | Hospitalist Progress Note ---
Date of Service April 22, 2022 Assessment & Plan (1) Sickle cell crisis: Plan: Mat is a 21-year-old male with a history of sickle cell disease and intermittent asthma who presents to [facility] for generalized pain in his back, thighs, and arms - combined with his labs, his presentation is concerning for a sickle cell pain crisis. Sickle Cell Crisis - Patient with h/o SCD requiring hospitalization at [facility] in Summer 2021 for similar pain in his arms/legs/back. - Limited records obtained from [facility]. One inpatient progress note reports following pain regimen: intermittent IV morphine 7mg q3h PRN, morphine ER 30mg b.i.d. Reportedly has h/o iron overload from chronic transfusions. He reports being on an "iron pill", which would seem consistent with chelation agent mentioned in files, though neither reports a specific drug name. Unable to locate in external files with pharmacy's help. Consider speaking with [facility] to clarify this information and if a plan exists for him should repeat crises occur. - Admission labs demonstrating Hgb 8.8 (no baseline available) with +target, tear drop, and schistocyte cells - Chest XR: linear left hilar/suprahilar airspace opacity - suggests pneumonia vs atelectasis vs acute chest; repeat XR showed worsening findings, started on azithromycin and Rocephin for pneumonia coverage, cont. - WBC on admission wnl. Repeat elevated 14, now downtrending. - Pain management: Per patient's report, he did require escalation to ROLLED MATERIALS WORKER during his [facility] hospitalization in Summer 2021 -- Schedule APAP 1000mg q8h -- ROLLED MATERIALS WORKER 0.3 mg dilaudid q15min --> inc. to 0.35mg q15min - Continue 1/2NSS IVF @ 150cc/hr - Continue hydroxyurea (2000mg daily), folic acid, incentive spirometer - consider heme consult outpatient - Monitor cbc, bmp, crp Intermittent Asthma - Stable. Not in exacerbation. Albuterol PRN Asplenia, chronic -on amoxicillin bid for ppx Code status: Full Diet: regular DVT ppx: SCDs Dispo: med surg (2) Asthma: (3) Asplenia: Admission and Anticipated Discharge Date Admission Date: April 20, 2022 Supervising Physician Co-Signing Physician Notes Attending attestation Pt seen and examined in concert with Dr. Carpenter. In agreement with the documented findings as noted in the resident documentation with any exceptions or additions as noted here. Current pain reported at 5/10, but patient won't even move his arms (now the focus of his pain, along with back/shoulders) to check his phone. States that his pain is more significant than previously stated and on direct questioning would like better pain control. VS, nursing notes, labs, imaging reviewed. On examination, S1/S2 nl RRR no MCG. CTAB. Abd NT/ND BS+ve SCC with acute pain crisis - increase dose of hydromorphone ROLLED MATERIALS WORKER at present dose in addition to APAP. Continue hydroxyurea. Reassess in PM and consider further titration. Left hilar/superior segment LLL opacity - no clinical presentation of PNA, but elevated WBC, chronic abx use so may be atypical presentation. Continue azithromycin. Else see resident documentation as noted. Subjective Seen at bedside this morning. Rates pain a 5/10, not as controlled as he'd like. Pain has migrated from lower extremities to shoulders/neck region. Denies chest pain, sob, N/V. Review of Systems Review of Systems: All systems reviewed & are unremarkable except as noted in HPI & below Physical Exam Physical Exam: General:AOx3, appears in no significant distress HEENT: NCAT. Sclera anicteric. MMM. Supple. Cardiac: RRR; S1 and S2 present with no murmurs, rubs, or gallops. Pulmonary: CTAB. No crackles or wheezes. Abdominal: soft, nondistended, and non-tender to palpation. Extremities: warm and well perfused. No peripheral edema in the lower extremities bilaterally Neuro: no focal deficits Psych: Behavior is cooperative and appropriate. Affect is distressed secondary to pain. Insight is appropriate. Results & Data Results & Data ([facility]) Vital Signs (Past 12 Hours) Vital Signs Temp Pulse Resp BP BP Pulse Ox O2 Del Method 04/22/22 03:01 37.2 C 102 H 17 135/86 99 Room Air 04/21/22 21:43 Room Air 04/21/22 23:17 37.2 C 105 H 16 145/93 H 100 Room Air 04/21/22 20:00 37.0 C 101 H 16 116/76 99 Room Air Laboratory Results 04/22/22 04/22/22 04/21/22 Range/Units 09:57 09:57 05:13 WBC 11.71 H (4.8-10.8) K/ul RBC 2.90 L (4.63-6.08) M/uL Hgb 9.1 L (14.0-18.0) g/dl Hct 25.2 L (40.1-51.0) % MCV 86.9 (80.0-100.0) fL MCH 31.4 (25.0-34.0) pg MCHC 36.1 H (32.0-36.0) g/dL RDW Std Deviation 68.6 H (36.4-46.3) fL RDW Coeff of Terrell 21.9 H (11.5-14.5) % Plt Count 186 (130-400) K/uL MPV 9.6 (9.4-12.4) fL Immature Gran % (Auto) 1.1 % Neut % (Auto) 78.1 % Lymph % (Auto) 10.5 % [place] % (Auto) 9.8 % Eos % (Auto) 0.3 % Baso % (Auto) 0.2 % Neut # (Auto) 9.14 H (1.4-6.5) K/uL Lymph # (Auto) 1.23 (1.2-3.4) K/uL [place] # (Auto) 1.15 H (0.24-0.82) K/uL Eos # (Auto) 0.04 (0-0.50) K/uL Baso # (Auto) 0.02 (0-0.2) K/uL Immature Gran # (Auto) 0.13 H (0.00-0.02) K/uL Absolute Nucleated RBC 1.22 H (0-0) K/uL Nucleated RBC % (auto) 10.4 % Polychromasia 2+ Anisocytosis Present Target Cells 2+ Sodium 133 L (136-145) mmol/L Potassium 4.3 (3.5-5.1) mmol/L Chloride 98 (98-107) mmol/L Carbon Dioxide 27 (21-32) mmol/L Anion Gap 8 (3-11) BUN 10 (6-23) mg/dl Creatinine 0.44 L (0.6-1.4) mg/dl Est Cr Clr Drug Dosing 247.9 ml/min Est GFR ( Amer) > 150.0 ml/min Est GFR (Non-Af Amer) > 150.0 ml/min BUN/Creatinine Ratio 22.7 H (10-20) Glucose 97 (70-99(Fasting)) mg/dl Calcium 9.3 (8.5-10.1) mg/dl C-Reactive Protein 32.06 H (0-0.5) mg/dl Blood Type A Positive Antibody Screen NEGATIVE Antigen Identification K Antigen - NEGATIVE Crossmatch See Detail Resident Activity Tracking Resident Involvement: Resident Care Provided Care Provided: Adult [facility]
[2022-04-22] MEDS: HYDROmorphone PCA 30 MG/30 ML IV PRN ×2 (07:02→11:55)
[2022-04-22] MEDS: ACETAMINOPHEN 500 MG TAB PO SCH ×3 (08:01→23:38)
[2022-04-22] MEDS: SENNA 8.6 MG TAB PO SCH ×2 (08:01→19:54)
[2022-04-22] MEDS: HYDROXYUREA 500 MG CAP PO SCH (08:02)
[2022-04-22] MEDS: FOLIC ACID 1 MG TAB PO SCH (08:02)
[2022-04-22 10:18] LABS: Basophils # (auto) 0.02 K/uL (0-0.2); Basophils % (auto) 0.2 %; Eosinophils # (auto) 0.04 K/uL (0-0.50); Eosinophils % (auto) 0.3 %; Hematocrit (blood only) 25.2 % (40.1-51.0); Hemoglobin 9.1 g/dl (14.0-18.0); Immature Granulocytes # (auto) 0.13 K/uL (0.00-0.02); Immature Granulocytes % (auto) 1.1 %; Lymphocytes # (auto) 1.23 K/uL (1.2-3.4); Lymphocytes % (auto) 10.5 %; Mean Corpuscular Hemoglobin 31.4 pg (25.0-34.0); Mean Corpuscular Hgb Conc 36.1 g/dL (32.0-36.0); Mean Corpuscular Volume 86.9 fL (80.0-100.0); Mean Platelet Volume 9.6 fL (9.4-12.4); Monocytes # (auto) 1.15 K/uL (0.24-0.82); Monocytes % (auto) 9.8 %; Neutrophils # (auto) 9.14 K/uL (1.4-6.5); Neutrophils % (auto) 78.1 %; Nucleated RBC # (auto) 1.22 K/uL (0-0); Nucleated RBC % (auto) 10.4 %; Platelet Count 186 K/uL (130-400); RDW Coefficient of Variation 21.9 % (11.5-14.5); RDW Standard Deviation 68.6 fL (36.4-46.3); White Blood Count 11.71 K/ul (4.8-10.8)
[2022-04-22 10:40] LABS: Anion Gap 8 (3-11); BUN Creatinine Ratio 22.7 (10-20); Blood Urea Nitrogen 10 mg/dl (6-23); Calcium 9.3 mg/dl (8.5-10.1); Carbon Dioxide 27 mmol/L (21-32); Chloride 98 mmol/L (98-107); Creatinine Clr Calc Pharmacy 247.9 ml/min; Est GFR (African American) > 150.0 ml/min; Est GFR (Non-African American) > 150.0 ml/min; Glucose 97 mg/dl (70-99(Fasting)); Potassium 4.3 mmol/L (3.5-5.1); Sodium 133 mmol/L (136-145)
[2022-04-22 10:49] LABS: Anisocytosis Present; Polychromasia 2+; Target Cells 2+
[2022-04-22 10:57] LABS: C Reactive Protein 32.06 mg/dl (0-0.5)
[2022-04-22] MEDS: SODIUM CHLORIDE 0.9% 1000ML 1,000 ML IV SCH (12:06)
[2022-04-22] MEDS: POLYETHYLENE (MIRALAX) 17 GM PACK PO SCH (12:36)
[2022-04-22] MEDS: cefTRIAXone SODIUM 1,000 MG in DEXTROSE 5% 50 ML IV SCH (16:58)
[2022-04-22] MEDS: AZITHROMYCIN 250 MG in DEXTROSE 5% 250 ML IV SCH (17:48)
[2022-04-23] MEDS: SODIUM CHLORIDE 0.45 % 1,000 ML IV SCH ×4 (00:59→21:44)
[2022-04-23 07:12] LABS: Basophils # (auto) 0.02 K/uL (0-0.2); Basophils % (auto) 0.2 %; Eosinophils % (auto) 0.9 %; Hematocrit (blood only) 22.2 % (40.1-51.0); Immature Granulocytes % (auto) 0.9 %; Lymphocytes # (auto) 0.91 K/uL (1.2-3.4); Lymphocytes % (auto) 7.9 %; Mean Corpuscular Hemoglobin 31.7 pg (25.0-34.0); Mean Corpuscular Volume 88.1 fL (80.0-100.0); Mean Platelet Volume 9.4 fL (9.4-12.4); Monocytes # (auto) 0.98 K/uL (0.24-0.82); Monocytes % (auto) 8.5 %; Neutrophils # (auto) 9.38 K/uL (1.4-6.5); Neutrophils % (auto) 81.6 %; Nucleated RBC # (auto) 1.21 K/uL (0-0); Nucleated RBC % (auto) 10.5 %; Platelet Count 191 K/uL (130-400); RDW Coefficient of Variation 21.5 % (11.5-14.5); RDW Standard Deviation 67.7 fL (36.4-46.3); Red Blood Count 2.52 M/uL (4.63-6.08); White Blood Count 11.49 K/ul (4.8-10.8)
[2022-04-23 07:38] LABS: Anion Gap 8 (3-11); BUN Creatinine Ratio 28.6 (10-20); Blood Urea Nitrogen 12 mg/dl (6-23); Calcium 8.9 mg/dl (8.5-10.1); Carbon Dioxide 28 mmol/L (21-32); Chloride 96 mmol/L (98-107); Creatinine Clr Calc Pharmacy 259.7 ml/min; Est GFR (African American) > 150.0 ml/min; Est GFR (Non-African American) > 150.0 ml/min; Glucose 98 mg/dl (70-99(Fasting)); Potassium 3.8 mmol/L (3.5-5.1); Sodium 132 mmol/L (136-145)
--- NOTE | 2022-04-23 07:50 | Hospitalist Progress Note ---
Date of Service April 23, 2022 Assessment & Plan (1) Sickle cell crisis: Plan: Mat is a 21-year-old male with a history of sickle cell disease and intermittent asthma who presents to [facility] for generalized pain in his back, thighs, and arms - combined with his labs, his presentation is concerning for a sickle cell pain crisis. Sickle Cell Crisis - Patient with h/o SCD requiring hospitalization at [facility] in Summer 2021 for similar pain in his arms/legs/back. - Limited records obtained from [facility]. One inpatient progress note reports following pain regimen: intermittent IV morphine 7mg q3h PRN, morphine ER 30mg b.i.d. Reportedly has h/o iron overload from chronic transfusions. He reports being on an "iron pill", which would seem consistent with chelation agent mentioned in files, though neither reports a specific drug name. Unable to locate in external files with pharmacy's help. Consider speaking with [facility] to clarify this information and if a plan exists for him should repeat crises occur. - Admission labs demonstrating Hgb 8.8 (no baseline available) with +target, tear drop, and schistocyte cells - Pain management: Per patient's report, he did require escalation to HR ANALYST during his [facility] hospitalization in Summer 2021 -- Scheduled APAP 1000mg q8h -- HR ANALYST 0.3 mg dilaudid q15min --> inc. to 0.4mg q15min - Continue 1/2NSS IVF @ 150cc/hr - Continue hydroxyurea (2000mg daily), folic acid, incentive spirometer - consider heme consult outpatient - Monitor cbc, bmp, crp ?RUL pneumonia - Chest XR: linear left hilar/suprahilar airspace opacity - suggests pneumonia vs atelectasis vs acute chest; repeat XR showed worsening findings, started on azithromycin and Rocephin for pneumonia coverage, cont. - WBC on admission wnl. Repeat elevated 14, downtrending. Intermittent Asthma - Stable. Not in exacerbation. Albuterol PRN Asplenia, chronic -on amoxicillin bid for ppx, holding for now Code status: Full Diet: regular DVT ppx: SCDs Dispo: med surg (2) Asthma: (3) Asplenia: Admission and Anticipated Discharge Date Admission Date: April 20, 2022 Supervising Physician Co-Signing Physician Notes Attending attestation Pt seen and examined in concert with Dr. Carpenter. In agreement with the documented findings as noted in the resident documentation with any exceptions or additions as noted here. Current pain reported at 4/10, improved function in the bed and appetite. Still in back and shoulders. Does request increased pain control on active inquiry only. VS, nursing notes, labs, imaging reviewed. On examination, S1/S2 nl RRR no MCG. CTAB. Abd NT/ND BS+ve SCD with acute pain crisis - increase dose of hydromorphone HR ANALYST at present dose in addition to APAP. Continue hydroxyurea. Monitor closely Acute on chronic anemia in the setting of SCD - continue daily CBC and consider txf with symptoms or with continued downtrending Left hilar/superior segment LLL opacity - community acquired pneumonia - no symptoms, stably improved elevated WBC, Continue azithromycin to complete course. Repeat XR tomorrow Else see resident documentation as noted. Subjective Seen at bedside this morning. Rates pain a 4/10, better but still not as controlled as he'd like. Pain primarily still at shoulders/neck region but able to move more. Starting to eat more. Denies chest pain, sob, N/V. Review of Systems Review of Systems: All systems reviewed & are unremarkable except as noted in HPI & below Physical Exam Physical Exam: General:AOx3, appears in no significant distress HEENT: NCAT. Sclera anicteric. MMM. Supple. Cardiac: RRR; S1 and S2 present with no murmurs, rubs, or gallops. Pulmonary: CTAB. No crackles or wheezes. Abdominal: soft, nondistended, and non-tender to palpation. Extremities: warm and well perfused. No peripheral edema in the lower extremities bilaterally Neuro: no focal deficits Psych: Cooperative. Insight is appropriate. Results & Data Results & Data ([facility]) Vital Signs (Past 12 Hours) Vital Signs Temp Pulse Resp BP Pulse Ox O2 Del Method 04/23/22 02:59 37.2 C 96 H 16 110/73 95 Room Air 04/22/22 22:22 37.3 C 112 H 18 123/81 98 Room Air Laboratory Results 04/23/22 04/23/22 Range/Units 06:59 06:59 WBC 11.49 H (4.8-10.8) K/ul RBC 2.52 L (4.63-6.08) M/uL Hgb 8.0 L (14.0-18.0) g/dl Hct 22.2 L (40.1-51.0) % MCV 88.1 (80.0-100.0) fL MCH 31.7 (25.0-34.0) pg MCHC 36.0 (32.0-36.0) g/dL RDW Std Deviation 67.7 H (36.4-46.3) fL RDW Coeff of Terrell 21.5 H (11.5-14.5) % Plt Count 191 (130-400) K/uL MPV 9.4 (9.4-12.4) fL Immature Gran % (Auto) 0.9 % Neut % (Auto) 81.6 % Lymph % (Auto) 7.9 % [place] % (Auto) 8.5 % Eos % (Auto) 0.9 % Baso % (Auto) 0.2 % Neut # (Auto) 9.38 H (1.4-6.5) K/uL Lymph # (Auto) 0.91 L (1.2-3.4) K/uL [place] # (Auto) 0.98 H (0.24-0.82) K/uL Eos # (Auto) 0.10 (0-0.50) K/uL Baso # (Auto) 0.02 (0-0.2) K/uL Immature Gran # (Auto) 0.10 H (0.00-0.02) K/uL Absolute Nucleated RBC 1.21 H (0-0) K/uL Nucleated RBC % (auto) 10.5 % Polychromasia 1+ Target Cells 2+ Sodium 132 L (136-145) mmol/L Potassium 3.8 (3.5-5.1) mmol/L Chloride 96 L (98-107) mmol/L Carbon Dioxide 28 (21-32) mmol/L Anion Gap 8 (3-11) BUN 12 (6-23) mg/dl Creatinine 0.42 L (0.6-1.4) mg/dl Est Cr Clr Drug Dosing 259.7 ml/min Est GFR ( Amer) > 150.0 ml/min Est GFR (Non-Af Amer) > 150.0 ml/min BUN/Creatinine Ratio 28.6 H (10-20) Glucose 98 (70-99(Fasting)) mg/dl Calcium 8.9 (8.5-10.1) mg/dl C-Reactive Protein 26.10 H (0-0.5) mg/dl Resident Activity Tracking Resident Involvement: Resident Care Provided Care Provided: Adult [facility]
[2022-04-23 08:03] LABS: Polychromasia 1+; Target Cells 2+
[2022-04-23] MEDS: FOLIC ACID 1 MG TAB PO SCH ×2 (08:12→20:10)
[2022-04-23] MEDS: SENNA 8.6 MG TAB PO SCH ×2 (08:12→20:08)
[2022-04-23] MEDS: ACETAMINOPHEN 500 MG TAB PO SCH ×3 (08:12→23:15)
[2022-04-23] MEDS: HYDROXYUREA 500 MG CAP PO SCH ×2 (08:12→20:10)
[2022-04-23] MEDS: POLYETHYLENE (MIRALAX) 17 GM PACK PO SCH (08:13)
[2022-04-23] MEDS: SODIUM CHLORIDE 0.9% 1000ML 1,000 ML IV SCH (12:56)
[2022-04-23] MEDS: cefTRIAXone SODIUM 1,000 MG in DEXTROSE 5% 50 ML IV SCH (17:46)
[2022-04-23] MEDS: AZITHROMYCIN 250 MG in DEXTROSE 5% 250 ML IV SCH (18:24)
[2022-04-23] MEDS: HYDROmorphone PCA 30 MG/30 ML IV PRN (19:19)
[2022-04-24] MEDS: SODIUM CHLORIDE 0.45 % 1,000 ML IV SCH ×3 (04:19→17:36)
--- NOTE | 2022-04-24 06:55 | Hospitalist Progress Note ---
Date of Service April 24, 2022 Assessment & Plan (1) Sickle cell crisis: Plan: Mat is a 21-year-old male with a history of sickle cell disease and intermittent asthma who presents to [facility] for generalized pain in his back, thighs, and arms - combined with his labs, his presentation is concerning for a sickle cell pain crisis. Sickle Cell Crisis - Patient with h/o SCD requiring hospitalization at [facility] in Summer 2021 for similar pain in his arms/legs/back. - Limited records obtained from [facility]. One inpatient progress note reports following pain regimen: intermittent IV morphine 7mg q3h PRN, morphine ER 30mg b .i.d. Reportedly has h/o iron overload from chronic transfusions. He reports being on an "iron pill", which would seem consistent with chelation agent mentioned in files, though neither reports a specific drug name. Unable to locate in external files with pharmacy's help. Consider speaking with [facility] to clarify this information and if a plan exists for him should repeat crises occur. - Admission labs demonstrating Hgb 8.8 (no baseline available) with +target, tear drop, and schistocyte cells - Pain management: Per patient's report, he did require escalation to CARE COORDINATOR during his [facility] hospitalization in Summer 2021 -- Scheduled APAP 1000mg q8h -- Initially CARE COORDINATOR 0.3 mg dilaudid q15min --> inc. to 0.45mg q15min - Hgb (04/23) 7.3 am, 7.2 afternoon; will repeat in am, pt hesitant for blood transfusion; transfusion threshold of 7 - Continue 1/2NSS IVF @ 150cc/hr - Continue hydroxyurea (2000mg daily), folic acid, incentive spirometer - consider heme consult outpatient - Monitor cbc, bmp, crp ?RUL pneumonia - Chest XR: linear left hilar/suprahilar airspace opacity - suggests pneumonia vs atelectasis vs acute chest; repeat XR showed worsening findings, started on azithromycin and Rocephin for pneumonia coverage, cont. - repeat CXR (04/24): no changes - WBC on admission wnl. Initial repeat elevated 14, downtrending, now wnl. Intermittent Asthma - Stable. Not in exacerbation. Albuterol PRN Asplenia, chronic -on amoxicillin bid for ppx, holding for now Code status: Full Diet: regular DVT ppx: SCDs Dispo: med surg (2) Asthma: (3) Asplenia: Admission and Anticipated Discharge Date Admission Date: April 20, 2022 Supervising Physician Co-Signing Physician Notes Attending attestation Pt seen and examined in concert with Dr. Carpenter. In agreement with the documented findings as noted in the resident documentation with any exceptions or additions as noted here. Reports pain at 6/10, but continues to have improved function in the bed with upper extremity movement and improved appetite. Still in back and shoulders. Does request increased pain control on active inquiry only. VS, nursing notes, labs, imaging reviewed. On examination, S1/S2 nl RRR no MCG. CTAB. Abd NT/ND BS+ve SCD with acute pain crisis - again increase dose of hydromorphone CARE COORDINATOR by 0.05 at present dose in addition to APAP. Continue hydroxyurea. Monitor closely Acute on chronic anemia in the setting of SCD - continue daily CBC and consider txf with symptoms or with continued downtrending. h/o chronic transfusion w/ iron overload, patient hesitant to agree to transfusion. Left hilar/superior segment LLL opacity - community acquired pneumonia - no symptoms, stably improved elevated WBC, Continue azithromycin to complete course. Repeat XR stable today. Else see resident documentation as noted. Subjective Seen at bedside this morning. Rates pain a 6/10, better but still could be cont rolled better. Pain primarily still at shoulders/neck region but able to move more. Starting to eat more. Denies chest pain, sob, N/V. Review of Systems Review of Systems: All systems reviewed & are unremarkable except as noted in HPI & below Physical Exam Physical Exam: General:AOx3, appears in no significant distress HEENT: NCAT. Sclera anicteric. MMM. Supple. Cardiac: RRR; S1 and S2 present with no murmurs, rubs, or gallops. Pulmonary: CTAB. No crackles or wheezes. Abdominal: soft, nondistended, and non-tender to palpation. Extremities: warm and well perfused. No peripheral edema in the lower extremities bilaterally Neuro: no focal deficits Psych: Cooperative. Insight is appropriate. Results & Data Results & Data ([facility]) Vital Signs (Past 12 Hours) Vital Signs Temp Pulse Resp BP Pulse Ox O2 Del Method 04/24/22 03:05 36.6 C 104 H 16 119/70 96 Room Air 04/23/22 23:51 37.0 C 101 H 16 109/65 99 Room Air 04/23/22 19:07 37.8 C H 106 H 14 109/67 96 Room Air Laboratory Results 04/24/22 04/24/22 04/24/22 Range/Units 13:49 08:44 06:51 WBC (4.8-10.8) K/ul RBC (4.63-6.08) M/uL Hgb 7.2 L (14.0-18.0) g/dl Hct 20.5 L* (40.1-51.0) % MCV (80.0-100.0) fL MCH (25.0-34.0) pg MCHC (32.0-36.0) g/dL RDW Std Deviation (36.4-46.3) fL RDW Coeff of Terrell (11.5-14.5) % Plt Count (130-400) K/uL MPV (9.4-12.4) fL Immature Gran % (Auto) % Neut % (Auto) % Lymph % (Auto) % [place] % (Auto) % Eos % (Auto) % Baso % (Auto) % Neut # (Auto) (1.4-6.5) K/uL Lymph # (Auto) (1.2-3.4) K/uL [place] # (Auto) (0.24-0.82) K/uL Eos # (Auto) (0-0.50) K/uL Baso # (Auto) (0-0.2) K/uL Immature Gran # (Auto) (0.00-0.02) K/uL Absolute Nucleated RBC (0-0) K/uL Nucleated RBC % (auto) % Polychromasia Target Cells Sodium 132 L (136-145) mmol/L Potassium 3.6 (3.5-5.1) mmol/L Chloride 97 L (98-107) mmol/L Carbon Dioxide 29 (21-32) mmol/L Anion Gap 6 (3-11) BUN 12 (6-23) mg/dl Creatinine 0.36 L (0.6-1.4) mg/dl Est Cr Clr Drug Dosing 303.0 ml/min Est GFR ( Amer) > 150.0 ml/min Est GFR (Non-Af Amer) > 150.0 ml/min BUN/Creatinine Ratio 33.3 H (10-20) Glucose 97 (70-99(Fasting)) mg/dl Calcium 8.9 (8.5-10.1) mg/dl C-Reactive Protein 23.81 H (0-0.5) mg/dl Blood Type A Positive Antibody Screen NEGATIVE Crossmatch 04/24/22 04/21/22 Range/Units 06:51 05:13 WBC 9.65 (4.8-10.8) K/ul RBC 2.31 L (4.63-6.08) M/uL Hgb 7.3 L (14.0-18.0) g/dl Hct 20.3 L* (40.1-51.0) % MCV 87.9 (80.0-100.0) fL MCH 31.6 (25.0-34.0) pg MCHC 36.0 (32.0-36.0) g/dL RDW Std Deviation 67.1 H (36.4-46.3) fL RDW Coeff of Terrell 21.2 H (11.5-14.5) % Plt Count 246 (130-400) K/uL MPV 9.9 (9.4-12.4) fL Immature Gran % (Auto) 1.0 % Neut % (Auto) 74.4 % Lymph % (Auto) 10.7 % [place] % (Auto) 12.3 % Eos % (Auto) 1.3 % Baso % (Auto) 0.3 % Neut # (Auto) 7.17 H (1.4-6.5) K/uL Lymph # (Auto) 1.03 L (1.2-3.4) K/uL [place] # (Auto) 1.19 H (0.24-0.82) K/uL Eos # (Auto) 0.13 (0-0.50) K/uL Baso # (Auto) 0.03 (0-0.2) K/uL Immature Gran # (Auto) 0.10 H (0.00-0.02) K/uL Absolute Nucleated RBC 2.14 H (0-0) K/uL Nucleated RBC % (auto) 22.2 % Polychromasia 1+ Target Cells 2+ Sodium (136-145) mmol/L Potassium (3.5-5.1) mmol/L Chloride (98-107) mmol/L Carbon Dioxide (21-32) mmol/L Anion Gap (3-11) BUN (6-23) mg/dl Creatinine (0.6-1.4) mg/dl Est Cr Clr Drug Dosing ml/min Est GFR ( Amer) ml/min Est GFR (Non-Af Amer) ml/min BUN/Creatinine Ratio (10-20) Glucose (70-99(Fasting)) mg/dl Calcium (8.5-10.1) mg/dl C-Reactive Protein (0-0.5) mg/dl Blood Type Antibody Screen Crossmatch See Detail Resident Activity Tracking Resident Involvement: Resident Care Provided Care Provided: Adult Hospital Medicine
[2022-04-24 07:44] LABS: Hematocrit (blood only) 20.3 % (40.1-51.0); Hemoglobin 7.3 g/dl (14.0-18.0); Mean Corpuscular Hemoglobin 31.6 pg (25.0-34.0); Mean Corpuscular Volume 87.9 fL (80.0-100.0); Mean Platelet Volume 9.9 fL (9.4-12.4); Nucleated RBC # (auto) 2.14 K/uL (0-0); Nucleated RBC % (auto) 22.2 %; Platelet Count 246 K/uL (130-400); RDW Coefficient of Variation 21.2 % (11.5-14.5); RDW Standard Deviation 67.1 fL (36.4-46.3); Red Blood Count 2.31 M/uL (4.63-6.08); White Blood Count 9.65 K/ul (4.8-10.8)
[2022-04-24] MEDS: HYDROmorphone PCA 30 MG/30 ML IV PRN (07:51)
[2022-04-24 07:53] LABS: Anion Gap 6 (3-11); BUN Creatinine Ratio 33.3 (10-20); Blood Urea Nitrogen 12 mg/dl (6-23); C Reactive Protein 23.81 mg/dl (0-0.5); Calcium 8.9 mg/dl (8.5-10.1); Carbon Dioxide 29 mmol/L (21-32); Chloride 97 mmol/L (98-107); Est GFR (African American) > 150.0 ml/min; Est GFR (Non-African American) > 150.0 ml/min; Glucose 97 mg/dl (70-99(Fasting)); Potassium 3.6 mmol/L (3.5-5.1); Sodium 132 mmol/L (136-145)
[2022-04-24 07:57] LABS: Basophils # (auto) 0.03 K/uL (0-0.2); Basophils % (auto) 0.3 %; Eosinophils # (auto) 0.13 K/uL (0-0.50); Eosinophils % (auto) 1.3 %; Lymphocytes # (auto) 1.03 K/uL (1.2-3.4); Lymphocytes % (auto) 10.7 %; Monocytes # (auto) 1.19 K/uL (0.24-0.82); Monocytes % (auto) 12.3 %; Neutrophils # (auto) 7.17 K/uL (1.4-6.5); Neutrophils % (auto) 74.4 %; Polychromasia 1+; Target Cells 2+
[2022-04-24] MEDS: POLYETHYLENE (MIRALAX) 17 GM PACK PO SCH (09:34)
[2022-04-24] MEDS: HYDROXYUREA 500 MG CAP PO SCH (09:34)
[2022-04-24] MEDS: ACETAMINOPHEN 500 MG TAB PO SCH ×3 (09:34→23:23)
[2022-04-24] MEDS: FOLIC ACID 1 MG TAB PO SCH (09:34)
[2022-04-24] MEDS: SENNA 8.6 MG TAB PO SCH ×2 (10:51→20:26)
[2022-04-24] MEDS: SODIUM CHLORIDE 0.9% 1000ML 1,000 ML IV SCH (12:43)
--- NOTE | 2022-04-24 14:36 | XRay Report ---
TWO VIEW CHEST CLINICAL HISTORY: Pneumonia. FINDINGS: PA and lateral chest radiographs are compared to study dated 04/20/2022. The cardiomediasti nal silhouette is unremarkable. Airspace consolidation is again seen within the superior segment of t he left lower lobe. The right lung appears clear. No pleural effusion is identified. Surgical clips a re noted in the left upper quadrant. There is no pneumothorax. The bony thorax appears intact. IMPRESSION: Left lower lobe pneumonia is unchanged. ACT 112: Negative or not required by law. Electronically signed by: Po Franco M.D. 04/24/2022 2:35 PM
[2022-04-24 14:57] LABS: Hematocrit (blood only) 20.5 % (40.1-51.0); Hemoglobin 7.2 g/dl (14.0-18.0)
[2022-04-24] MEDS: cefTRIAXone SODIUM 1,000 MG in DEXTROSE 5% 50 ML IV SCH (17:32)
[2022-04-25] MEDS: SODIUM CHLORIDE 0.45 % 1,000 ML IV SCH ×4 (00:39→19:34)
--- NOTE | 2022-04-25 07:22 | Hospitalist Progress Note ---
Date of Service April 25, 2022 Assessment & Plan (1) Sickle cell crisis: Plan: Mat is a 21-year-old male with a history of sickle cell disease and intermittent asthma who presents to [facility] for generalized pain in his back, thighs, and arms - combined with his labs, his presentation is concerning for a sickle cell pain crisis. Sickle Cell Crisis - Patient with h/o SCD requiring hospitalization at [facility] in Summer 2021 for similar pain in his arms/legs/back. - Limited records obtained from [facility]. One inpatient progress note reports following pain regimen: intermittent IV morphine 7mg q3h PRN, morphine ER 30mg b .i.d. Reportedly has h/o iron overload from chronic transfusions. He reports being on an "iron pill", which would seem consistent with chelation agent mentioned in files, though neither reports a specific drug name. Unable to locate in external files with pharmacy's help. Consider speaking with [facility] to clarify this information and if a plan exists for him should repeat crises occur. - Admission labs demonstrating Hgb 8.8 (no baseline available) with +target, tear drop, and schistocyte cells - Pain management: Per patient's report, he did require escalation to CLINICAL PRODUCT SPECIALIST during his [facility] hospitalization in Summer 2021 -- Scheduled APAP 1000mg q8h -- Initially CLINICAL PRODUCT SPECIALIST 0.3 mg dilaudid q15min --> inc. 0.45mg q15min, cont. - Hgb (04/25) 7.0; will cont. to monitor, pt hesitant for blood transfusion at this time; transfusion threshold of 7 - Continue 1/2NSS IVF @ 150cc/hr - Continue hydroxyurea (2000mg daily), folic acid, incentive spirometer - consider heme consult outpatient - Monitor cbc, bmp, crp ?RUL pneumonia - Chest XR: linear left hilar/suprahilar airspace opacity - suggests pneumonia vs atelectasis vs acute chest; repeat XR showed worsening findings. Abx treatment for suspected pneumonia. Azithromycin course completed (04/25). Rocephin x7 days complete on 04/26. - repeat CXR (04/24): no changes - WBC on admission wnl. Initial repeat elevated 14, downtrending, now wnl. Intermittent Asthma - Stable. Not in exacerbation. Albuterol PRN Asplenia, chronic -on amoxicillin bid for ppx, holding for now Code status: Full Diet: regular DVT ppx: SCDs Dispo: med surg (2) Asthma: (3) Asplenia: Admission and Anticipated Discharge Date Admission Date: April 20, 2022 Supervising Physician Co-Signing Physician Notes Attending Attestation Also saw the patient along with the resident physician and confirmed worthy portions of the history and physical examination. Agree the impression and plan as noted the resident documentation. Upon our midmorning exam, patient is sleeping but awakens to voice. Pain is improved, but still present. Patient reports that he was hospitalized in [place] for a sickle cell crisis over the summer; he reports that this current crisis is not as bad as the one over the summer. We discussed the idea of a blood transfusion -he thinks he had received a blood transfusion when he is in [place], but he was can review his online records to confirm. He was somewhat hesitant today to consent to a transfusion, and we discussed that since he is clinically improving, would also be reasonable to continue to trend his hemoglobin and hold off on a transfusion today. If he would have clinically worse, or is hemoglobin would be lower tomorrow, would then proceed with transfusion. Exam 113/69, 98, 18, 37.2, 100% on room air Heart regular Respirations nonlabored Abdomen generally soft and nontender Data Hemoglobin 7, this is down from 7.2 yesterday Sodium 132, potassium 3.8, BUN 11, creatinine 0.33 CRP 20.57, down from 23.81 Imaging Chest x-ray dated 04/24/2022 shows a left lower lobe pneumonia, unchanged when compared to 04/20/2022 Impression and plan SCD with acute pain crisis Continue hydromorphone CLINICAL PRODUCT SPECIALIST Continue hydroxyurea Consider transfusion if hemoglobin less than 7 tomorrow or clinically worsening otherwise (see discussion above) Left lower lobe pneumonia Continue azithromycin Else see resident documentation as noted. Subjective Seen at bedside this morning. Pain same as yesterday but appears to be getting more sleep. Pain still primarily at shoulders/neck region, able to move more. Continues to eat more. Denies chest pain, sob, N/V, abdominal pain. Review of Systems Review of Systems: All systems reviewed & are unremarkable except as noted in HPI & below Physical Exam Physical Exam: General: AOx3, appears in no significant distress HEENT: NCAT. Sclera anicteric. MMM. Supple. Cardiac: RRR; S1 and S2 present with no murmurs, rubs, or gallops. Pulmonary: CTAB. No crackles or wheezes. Abdominal: soft, nondistended, and non-tender to palpation. Extremities: warm and well perfused. No peripheral edema in the lower extremities bilaterally Neuro: no focal deficits Psych: Cooperative. Insight is appropriate. Results & Data Results & Data ([facility]) Vital Signs (Past 12 Hours) Vital Signs Temp Pulse Resp BP Pulse Ox O2 Del Method 04/25/22 07:10 37.0 C 94 H 18 111/64 97 Room Air 04/25/22 06:38 37.0 C 98 H 18 118/68 97 Room Air 04/25/22 02:27 37.0 C 89 16 113/65 96 Room Air 04/24/22 23:27 37.2 C 105 H 18 118/69 98 Room Air 04/24/22 19:45 36.9 C 100 H 16 116/72 96 Room Air Laboratory Results 04/25/22 04/25/22 04/24/22 Range/Units 07:32 07:32 13:49 WBC 7.79 (4.8-10.8) K/ul RBC 2.29 L (4.63-6.08) M/uL Hgb 7.0 L 7.2 L (14.0-18.0) g/dl Hct 20.1 L* 20.5 L* (40.1-51.0) % MCV 87.8 (80.0-100.0) fL MCH 30.6 (25.0-34.0) pg MCHC 34.8 (32.0-36.0) g/dL RDW Std Deviation 67.0 H (36.4-46.3) fL RDW Coeff of Terrell 21.4 H (11.5-14.5) % Plt Count 277 (130-400) K/uL MPV 10.0 (9.4-12.4) fL Immature Gran % (Auto) 0.6 % Neut % (Auto) 63.7 % Lymph % (Auto) 22.5 % [place] % (Auto) 11.2 % Eos % (Auto) 1.7 % Baso % (Auto) 0.3 % Neut # (Auto) 4.97 (1.4-6.5) K/uL Lymph # (Auto) 1.75 (1.2-3.4) K/uL [place] # (Auto) 0.87 H (0.24-0.82) K/uL Eos # (Auto) 0.13 (0-0.50) K/uL Baso # (Auto) 0.02 (0-0.2) K/uL Immature Gran # (Auto) 0.05 H (0.00-0.02) K/uL Absolute Nucleated RBC 1.90 H (0-0) K/uL Nucleated RBC % (auto) 24.4 % Polychromasia 1+ Target Cells 2+ Sodium 132 L (136-145) mmol/L Potassium 3.8 (3.5-5.1) mmol/L Chloride 98 (98-107) mmol/L Carbon Dioxide 28 (21-32) mmol/L Anion Gap 6 (3-11) BUN 11 (6-23) mg/dl Creatinine 0.33 L (0.6-1.4) mg/dl Est Cr Clr Drug Dosing 330.5 ml/min Est GFR ( Amer) > 150.0 ml/min Est GFR (Non-Af Amer) > 150.0 ml/min BUN/Creatinine Ratio 33.3 H (10-20) Glucose 93 (70-99(Fasting)) mg/dl Calcium 9.1 (8.5-10.1) mg/dl C-Reactive Protein 20.57 H (0-0.5) mg/dl Resident Activity Tracking Resident Involvement: Resident Care Provided Care Provided: Adult [place] [facility]
[2022-04-25 08:24] LABS: Hematocrit (blood only) 20.1 % (40.1-51.0); Mean Corpuscular Hemoglobin 30.6 pg (25.0-34.0); Mean Corpuscular Hgb Conc 34.8 g/dL (32.0-36.0); Mean Corpuscular Volume 87.8 fL (80.0-100.0); Nucleated RBC % (auto) 24.4 %; Platelet Count 277 K/uL (130-400); RDW Coefficient of Variation 21.4 % (11.5-14.5); Red Blood Count 2.29 M/uL (4.63-6.08); White Blood Count 7.79 K/ul (4.8-10.8)
[2022-04-25 08:45] LABS: Basophils # (auto) 0.02 K/uL (0-0.2); Basophils % (auto) 0.3 %; Eosinophils # (auto) 0.13 K/uL (0-0.50); Eosinophils % (auto) 1.7 %; Immature Granulocytes # (auto) 0.05 K/uL (0.00-0.02); Immature Granulocytes % (auto) 0.6 %; Lymphocytes # (auto) 1.75 K/uL (1.2-3.4); Lymphocytes % (auto) 22.5 %; Monocytes # (auto) 0.87 K/uL (0.24-0.82); Monocytes % (auto) 11.2 %; Neutrophils # (auto) 4.97 K/uL (1.4-6.5); Neutrophils % (auto) 63.7 %; Polychromasia 1+; Target Cells 2+
[2022-04-25 08:54] LABS: Anion Gap 6 (3-11); BUN Creatinine Ratio 33.3 (10-20); Blood Urea Nitrogen 11 mg/dl (6-23); C Reactive Protein 20.57 mg/dl (0-0.5); Calcium 9.1 mg/dl (8.5-10.1); Carbon Dioxide 28 mmol/L (21-32); Chloride 98 mmol/L (98-107); Creatinine Clr Calc Pharmacy 330.5 ml/min; Est GFR (African American) > 150.0 ml/min; Est GFR (Non-African American) > 150.0 ml/min; Glucose 93 mg/dl (70-99(Fasting)); Potassium 3.8 mmol/L (3.5-5.1); Sodium 132 mmol/L (136-145)
[2022-04-25] MEDS: POLYETHYLENE (MIRALAX) 17 GM PACK PO SCH (09:13)
[2022-04-25] MEDS: ACETAMINOPHEN 500 MG TAB PO SCH ×2 (09:14→16:05)
[2022-04-25] MEDS: HYDROXYUREA 500 MG CAP PO SCH (09:14)
[2022-04-25] MEDS: FOLIC ACID 1 MG TAB PO SCH (09:14)
[2022-04-25] MEDS: SENNA 8.6 MG TAB PO SCH ×2 (09:14→19:36)
[2022-04-25] MEDS: SODIUM CHLORIDE 0.9% 1000ML 1,000 ML IV SCH (10:51)
[2022-04-25] MEDS ORDERED: AZITHROMYCIN 250 MG in DEXTROSE 5% 250 ML IV ONE (14:00)
[2022-04-25] MEDS ORDERED: AZITHROMYCIN 250 MG TAB PO ONE (15:45)
[2022-04-25] MEDS: cefTRIAXone SODIUM 1,000 MG in DEXTROSE 5% 50 ML IV SCH (16:02)
[2022-04-25] MEDS: HYDROmorphone PCA 30 MG/30 ML IV PRN ×2 (17:25→19:40)
[2022-04-26] MEDS: ACETAMINOPHEN 500 MG TAB PO SCH ×3 (00:01→15:47)
[2022-04-26] MEDS: SODIUM CHLORIDE 0.45 % 1,000 ML IV SCH ×4 (02:08→21:50)
[2022-04-26 06:51] LABS: Hematocrit (blood only) 19.9 % (40.1-51.0); Mean Corpuscular Hemoglobin 30.6 pg (25.0-34.0); Mean Corpuscular Hgb Conc 35.2 g/dL (32.0-36.0); Mean Corpuscular Volume 86.9 fL (80.0-100.0); Mean Platelet Volume 10.2 fL (9.4-12.4); Nucleated RBC # (auto) 1.06 K/uL (0-0); Nucleated RBC % (auto) 14.9 %; Platelet Count 316 K/uL (130-400); RDW Coefficient of Variation 21.5 % (11.5-14.5); RDW Standard Deviation 67.3 fL (36.4-46.3); Red Blood Count 2.29 M/uL (4.63-6.08); White Blood Count 7.12 K/ul (4.8-10.8)
[2022-04-26 07:02] LABS: Anisocytosis Present; Basophils # (auto) 0.02 K/uL (0-0.2); Basophils % (auto) 0.3 %; Eosinophils # (auto) 0.13 K/uL (0-0.50); Eosinophils % (auto) 1.8 %; Immature Granulocytes # (auto) 0.05 K/uL (0.00-0.02); Immature Granulocytes % (auto) 0.7 %; Lymphocytes # (auto) 1.76 K/uL (1.2-3.4); Lymphocytes % (auto) 24.7 %; Monocytes # (auto) 0.87 K/uL (0.24-0.82); Monocytes % (auto) 12.2 %; Neutrophils # (auto) 4.29 K/uL (1.4-6.5); Neutrophils % (auto) 60.3 %; Polychromasia 2+; Target Cells 2+
[2022-04-26 07:13] LABS: Anion Gap 5 (3-11); Blood Urea Nitrogen 9 mg/dl (6-23); Carbon Dioxide 30 mmol/L (21-32); Chloride 99 mmol/L (98-107); Est GFR (African American) > 150.0 ml/min; Est GFR (Non-African American) > 150.0 ml/min; Potassium 4.3 mmol/L (3.5-5.1); Sodium 134 mmol/L (136-145)
[2022-04-26 07:14] LABS: C Reactive Protein 16.51 mg/dl (0-0.5); Calcium 9.5 mg/dl (8.5-10.1); Glucose 87 mg/dl (70-99(Fasting))
[2022-04-26] MEDS: HYDROXYUREA 500 MG CAP PO SCH (09:10)
[2022-04-26] MEDS: FOLIC ACID 1 MG TAB PO SCH (09:10)
[2022-04-26] MEDS: SENNA 8.6 MG TAB PO SCH ×2 (09:11→21:51)
[2022-04-26] MEDS: POLYETHYLENE (MIRALAX) 17 GM PACK PO SCH (09:11)
--- NOTE | 2022-04-26 09:48 | Hospitalist Progress Note ---
Date of Service April 26, 2022 Assessment & Plan (1) Sickle cell crisis: Plan: Mat is a 21-year-old male with a history of sickle cell disease and intermittent asthma who presents to [facility] for generalized pain in his back, thighs, and arms - combined with his labs, his presentation is concerning for a sickle cell pain crisis. Sickle Cell Crisis - Patient with h/o SCD requiring hospitalization at [facility] in Summer 2021 for similar pain in his arms/legs/back. - Limited records obtained from [facility]. One inpatient progress note reports following pain regimen: intermittent IV morphine 7mg q3h PRN, morphine ER 30mg b .i.d. Reportedly has h/o iron overload from chronic transfusions. He reports being on an "iron pill", which would seem consistent with chelation agent mentioned in files, though neither reports a specific drug name. Unable to locate in external files with pharmacy's help. Consider speaking with [facility] to clarify this information and if a plan exists for him should repeat crises occur. - Admission labs demonstrating Hgb 8.8 (no baseline available) with +target, tear drop, and schistocyte cells - Pain management: Per patient's report, he did require escalation to CLINICAL PROJECT MANAGER during his [facility] hospitalization in Summer 2021 -- Scheduled APAP 1000mg q8h -- Initially CLINICAL PROJECT MANAGER dilaudid continuous pump, 0.45mg q15min PRN. -- Plan to transition to oral tomorrow possibly per patient. - Hgb (04/25) 7.0; stable 7.0 this AM will cont. to monitor, pt hesitant for blood transfusion at this time; transfusion threshold of 7 - Continue 1/2NSS IVF @ 150cc/hr - Continue hydroxyurea (2000mg daily), folic acid, incentive spirometer - consider heme consult outpatient - Monitor cbc, bmp, crp ?RUL pneumonia - Chest XR: linear left hilar/suprahilar airspace opacity - suggests pneumonia vs atelectasis vs acute chest; repeat XR showed worsening findings. Abx treatment for suspected pneumonia. Azithromycin course completed (04/25). Rocephin x7 days complete on 04/26. - repeat CXR (04/24): no changes - WBC on admission wnl. Initial repeat elevated 14, downtrending, now wnl. Intermittent Asthma - Stable. Not in exacerbation. Albuterol PRN Asplenia, chronic -on amoxicillin bid for ppx, holding for now Code status: Full Diet: regular DVT ppx: SCDs Dispo: med surg (2) Asthma: (3) Asplenia: Admission and Anticipated Discharge Date Admission Date: April 20, 2022 Supervising Physician Co-Signing Physician Notes Attending Attestation I also saw the patient with the resident physician and confirmed worthy portions of the history and physical examination. Agree with the impression and plan as noted in the resident documentation. Upon our morning exam, the patient was lying in bed watching the [employer] soccer match; he states that his pain is better controlled since we switched to the continuous infusion yesterday. Exam 125/75, 79, 18, 36.6, 90% room air Heart regular Respirations nonlabored Abdomen generally soft and nontender Data Hemoglobin remains at 7.0. Sodium 134, potassium 4.3, BUN 9, creatinine 0.36 CRP 16.51, down from 20.57 yesterday Imaging Chest x-ray dated 04/24/2022 shows a left lower lobe pneumonia, unchanged when compared to 04/20/2022 Impression and plan SCD with acute pain crisis Continue hydromorphone CLINICAL PROJECT MANAGER Continue hydroxyurea Discussed transfusion, he has concerns due to previous history of iron overload. Clinically, he is improving so we will continue to monitor. If continues to improve, consider switching from IV pain pump to oral opioid based on his preceding 24-hour opioid use If he can maintain adequate analgesia on oral regimen, may be ready for discharge early next week We will discuss establishing with a local carbon paper coating machine setter given that he will be here at [facility] for at least 4 years. Left lower lobe pneumonia Clinically improving Continue azithromycin Else see resident documentation as noted. Subjective Patient states that his pain is more controlled today and yesterday since starting the continuous pump for pain. He states when he had to click he would fall asleep and wake up with 6/10 pain most prominently at the shoulders, however since having the continuous pain has been at about a 2/10. Denies nausea, vomiting, chest pain, shortness of breath. He states he has not had a bowel movement in a week or since last thursday but is still passing gas. Review of Systems Review of Systems: as per HPI Physical Exam Constitutional: WD/WN, vitals as above Eyes: PERRL, conjunctivae normal, anicteric sclerae Respiratory: normal respiratory effort, lungs clear to auscultation Cardiovascular: RRR, no murmur, no edema Gastrointestinal (Abdomen): normal bowel sounds, soft, nontender, no hepatosplenomegaly Psychiatric: A+Ox3, euthymic affect Results & Data Results & Data ([facility]) Vital Signs (Past 12 Hours) Vital Signs Temp Pulse Resp BP Pulse Ox O2 Del Method 04/26/22 03:19 36.6 C 79 18 125/75 99 Room Air 04/25/22 23:04 37.3 C 95 H 18 118/71 98 Room Air Resident Activity Tracking Resident Involvement: Resident Care Provided Care Provided: Adult Hospital Medicine
[2022-04-26] MEDS: SODIUM CHLORIDE 0.9% 1000ML 1,000 ML IV SCH (10:42)
[2022-04-26] MEDS: cefTRIAXone SODIUM 1,000 MG in DEXTROSE 5% 50 ML IV SCH (15:46)
[2022-04-26] MEDS ORDERED: cefTRIAXone SODIUM 1,000 MG in DEXTROSE 5% AD-VAN 50 ML IV SCH (16:00)
[2022-04-26] MEDS: HYDROmorphone PCA 30 MG/30 ML IV PRN (22:18)
[2022-04-27] MEDS: ACETAMINOPHEN 500 MG TAB PO SCH ×3 (02:11→16:07)
[2022-04-27] MEDS: SODIUM CHLORIDE 0.45 % 1,000 ML IV SCH ×2 (04:36→14:51)
--- NOTE | 2022-04-27 06:57 | Hospitalist Progress Note ---
Date of Service April 27, 2022 Assessment & Plan (1) Sickle cell crisis: Plan: Mat is a 21-year-old male with a history of sickle cell disease and intermittent asthma who presents to [facility] for generalized pain in his back, thighs, and arms - combined with his labs, his presentation is concerning for a sickle cell pain crisis. Sickle Cell Crisis - Patient with h/o SCD requiring hospitalization at [facility] in Summer 2021 for similar pain in his arms/legs/back. - Limited records obtained from [facility]. One inpatient progress note reports following pain regimen: intermittent IV morphine 7mg q3h PRN, morphine ER 30mg b .i.d. Reportedly has h/o iron overload from chronic transfusions. He reports being on an "iron pill", which would seem consistent with chelation agent mentioned in files, though neither reports a specific drug name. Unable to locate in external files with pharmacy's help. Consider speaking with [facility] to clarify this information and if a plan exists for him should repeat crises occur. - Admission labs demonstrating Hgb 8.8 (no baseline available) with +target, tear drop, and schistocyte cells - Pain management: Per patient's report, he did require escalation to ARABIC TEACHER during his [facility] hospitalization in Summer 2021 -- Scheduled APAP 1000mg q8h -- Initially on ARABIC TEACHER dilaudid continuous pump, 0.45mg q15min PRN. -- Transitioned to Ms Contin 30mg Q12h, morphine sulfate IR 15mg q6h PRN. - Hgb (04/25) 7.0; stable 7.2 this AM will cont. to monitor, pt hesitant for blood transfusion at this time; transfusion threshold of 7 - IV went bad 04/27, patient would declined another IV as he is transitioning to oral pain medications. IV fluids stopped. - Continue hydroxyurea (2000mg daily), folic acid, incentive spirometer - consider heme consult outpatient since patient staying for 4 years. - Monitor cbc, bmp. ?RUL pneumonia - Chest XR: linear left hilar/suprahilar airspace opacity - suggests pneumonia vs atelectasis vs acute chest; repeat XR showed worsening findings. Abx treatment for suspected pneumonia. Azithromycin course completed (04/25). Rocephin x7 days complete on 04/26. - repeat CXR (04/24): no changes - WBC on admission wnl. Initial repeat elevated 14, downtrending, now wnl. Intermittent Asthma - Stable. Not in exacerbation. Albuterol PRN Asplenia, chronic -on amoxicillin bid for ppx, holding for now Code status: Full Diet: regular DVT ppx: SCDs Dispo: med surg (2) Asthma: (3) Asplenia: Admission and Anticipated Discharge Date Admission Date: April 20, 2022 Supervising Physician Co-Signing Physician Notes Attending Attestation I also saw the patient with the resident physician and confirmed worthy portions of the history and physical examination. Agree with the impression and plan as noted in the resident documentation. He is feeling better overall. We discussed his previous admissions for sickle cell crisis and how his pain was managed post discharge. He feels that he is at the point where we can transition from IV pain medications to an oral trial. Hopefully, should be able to control his pain on oral opiates, he may be ready for discharge tomorrow. Exam 102/62, 84, 16, 37.1, 90% room air Heart regular Respirations nonlabored Abdomen generally soft and nontender Data Hemoglobin remains at 7.2. Sodium 134, potassium 4.2, BUN 10, creatinine 0.44 Imaging Chest x-ray dated 04/24/2022 shows a left lower lobe pneumonia, unchanged when compared to 04/20/2022 Impression and plan SCD with acute pain crisis Discontinue ARABIC TEACHER MS Contin 30 mg p.o. every 12 MS IR 15 p.o. every 6 prn Continue hydroxyurea If he can maintain adequate analgesia on oral regimen, may be ready for discharge tomorrow We discussed establishing with a local PCP ([facility] would be reasonable given convenience of on campus location); also discussed establishing with a local engineering technology instructor given that he will be here at [facility] for at least 4 years. Left lower lobe pneumonia Clinically improving Complete 5-day course of azithromycin Else see resident documentation as noted. Subjective Patient seen at the bedside this morning saying he feels he is ready to transition onto the oral pain medications. He states that in times of sickle cell crisis prior to this he was transitioned and discharged on 30mg BID of MS contin, and 15mg q4h of morphine sulfate IR. He denies any chest pain, shortness of breath, fevers, chills. No overnight events. Patient states he will need excuse for his school for the time he was in the hospital due to him not being ready for final exams in a week or two given he has been in the hospital. Review of Systems Review of Systems: as per HPI Physical Exam Constitutional: WD/WN, vitals as above Eyes: PERRL, conjunctivae normal, anicteric sclerae Respiratory: normal respiratory effort, lungs clear to auscultation Cardiovascular: RRR, no murmur, no edema Gastrointestinal (Abdomen): normal bowel sounds, soft, nontender, no hepatosplenomegaly Psychiatric: A+Ox3, euthymic affect Results & Data Results & Data ([facility]) Vital Signs (Past 12 Hours) Vital Signs Temp Pulse Resp BP Pulse Ox O2 Del Method 04/27/22 06:38 37.1 C 89 18 105/62 99 Room Air 04/27/22 03:23 37.4 C 94 H 16 106/62 100 Room Air 04/26/22 22:57 36.8 C 96 H 18 123/75 99 Room Air 04/26/22 19:13 37.0 C 79 18 112/69 99 Room Air Resident Activity Tracking Resident Involvement: Resident Care Provided Care Provided: Adult Hospital Medicine
[2022-04-27] MEDS: HYDROXYUREA 500 MG CAP PO SCH (08:04)
[2022-04-27] MEDS: FOLIC ACID 1 MG TAB PO SCH (08:05)
[2022-04-27] MEDS: POLYETHYLENE (MIRALAX) 17 GM PACK PO SCH (08:06)
[2022-04-27 08:40] LABS: Anion Gap 8 (3-11); BUN Creatinine Ratio 22.7 (10-20); Blood Urea Nitrogen 10 mg/dl (6-23); C Reactive Protein 16.28 mg/dl (0-0.5); Calcium 9.8 mg/dl (8.5-10.1); Carbon Dioxide 30 mmol/L (21-32); Chloride 96 mmol/L (98-107); Creatinine Clr Calc Pharmacy 247.9 ml/min; Est GFR (African American) > 150.0 ml/min; Est GFR (Non-African American) > 150.0 ml/min; Glucose 89 mg/dl (70-99(Fasting)); Potassium 4.2 mmol/L (3.5-5.1); Sodium 134 mmol/L (136-145)
[2022-04-27 08:43] LABS: Basophils # (auto) 0.03 K/uL (0-0.2); Basophils % (auto) 0.4 %; Eosinophils # (auto) 0.09 K/uL (0-0.50); Eosinophils % (auto) 1.2 %; Hematocrit (blood only) 21.3 % (40.1-51.0); Hemoglobin 7.2 g/dl (14.0-18.0); Howell-Jolly Bodies 1+; Immature Granulocytes # (auto) 0.04 K/uL (0.00-0.02); Immature Granulocytes % (auto) 0.5 %; Lymphocytes # (auto) 2.34 K/uL (1.2-3.4); Lymphocytes % (auto) 31.3 %; Mean Corpuscular Hemoglobin 30.3 pg (25.0-34.0); Mean Corpuscular Hgb Conc 33.8 g/dL (32.0-36.0); Mean Corpuscular Volume 89.5 fL (80.0-100.0); Monocytes # (auto) 0.87 K/uL (0.24-0.82); Monocytes % (auto) 11.6 %; Nucleated RBC # (auto) 1.26 K/uL (0-0); Nucleated RBC % (auto) 16.9 %; Pappenheimer Bodies 1+; Platelet Count 430 K/uL (130-400); Polychromasia 2+; RDW Coefficient of Variation 22.4 % (11.5-14.5); RDW Standard Deviation 69.6 fL (36.4-46.3); Red Blood Count 2.38 M/uL (4.63-6.08); Target Cells 2+; White Blood Count 7.47 K/ul (4.8-10.8)
[2022-04-27] MEDS: SENNA 8.6 MG TAB PO SCH ×2 (09:22→20:23)
[2022-04-27] MEDS: SODIUM CHLORIDE 0.9% 1000ML 1,000 ML IV SCH (11:29)
[2022-04-27] MEDS ORDERED: POLYETHYLENE (MIRALAX) 17 GM PACK PO ONE (13:46)
[2022-04-27] MEDS: MoRPHine SULFATE IR 15 MG TAB (IMMEDIATE RELEASE) PO PRN ×2 (14:45→20:46)
[2022-04-27] MEDS ORDERED: MoRPHine SULFATE CR 15 MG TABCR PO SCH (18:00)
[2022-04-27] MEDS: MoRPHine SULFATE CR 15 MG TABCR PO SCH (18:03)
[2022-04-28] MEDS: ACETAMINOPHEN 500 MG TAB PO SCH ×2 (00:09→08:19)
[2022-04-28] MEDS: MoRPHine SULFATE IR 15 MG TAB (IMMEDIATE RELEASE) PO PRN ×3 (04:30→16:04)
[2022-04-28] MEDS: MoRPHine SULFATE CR 15 MG TABCR PO SCH (05:48)
[2022-04-28 06:40] LABS: Anion Gap 5 (3-11); BUN Creatinine Ratio 29.5 (10-20); Basophils # (auto) 0.03 K/uL (0-0.2); Basophils % (auto) 0.4 %; Blood Urea Nitrogen 13 mg/dl (6-23); C Reactive Protein 13.52 mg/dl (0-0.5); Calcium 10.1 mg/dl (8.5-10.1); Carbon Dioxide 32 mmol/L (21-32); Chloride 97 mmol/L (98-107); Creatinine Clr Calc Pharmacy 247.9 ml/min; Eosinophils # (auto) 0.06 K/uL (0-0.50); Eosinophils % (auto) 0.8 %; Est GFR (African American) > 150.0 ml/min; Est GFR (Non-African American) > 150.0 ml/min; Glucose 106 mg/dl (70-99(Fasting)); Hematocrit (blood only) 22.2 % (40.1-51.0); Hemoglobin 7.7 g/dl (14.0-18.0); Immature Granulocytes # (auto) 0.03 K/uL (0.00-0.02); Immature Granulocytes % (auto) 0.4 %; Lymphocytes # (auto) 2.23 K/uL (1.2-3.4); Lymphocytes % (auto) 31.6 %; Mean Corpuscular Hemoglobin 30.7 pg (25.0-34.0); Mean Corpuscular Hgb Conc 34.7 g/dL (32.0-36.0); Mean Corpuscular Volume 88.4 fL (80.0-100.0); Mean Platelet Volume 9.7 fL (9.4-12.4); Monocytes # (auto) 0.64 K/uL (0.24-0.82); Monocytes % (auto) 9.1 %; Neutrophils # (auto) 4.07 K/uL (1.4-6.5); Neutrophils % (auto) 57.7 %; Nucleated RBC # (auto) 1.41 K/uL (0-0); Platelet Count 493 K/uL (130-400); Polychromasia 1+; Potassium 4.3 mmol/L (3.5-5.1); RDW Coefficient of Variation 22.1 % (11.5-14.5); RDW Standard Deviation 69.9 fL (36.4-46.3); Red Blood Count 2.51 M/uL (4.63-6.08); Sodium 134 mmol/L (136-145); Stomatocytes 1+; Target Cells 2+; White Blood Count 7.06 K/ul (4.8-10.8)
[2022-04-28] MEDS: SODIUM CHLORIDE 0.45 % 1,000 ML IV SCH (07:45)
[2022-04-28] MEDS: HYDROXYUREA 500 MG CAP PO SCH (08:18)
[2022-04-28] MEDS: SENNA 8.6 MG TAB PO SCH (08:18)
[2022-04-28] MEDS: FOLIC ACID 1 MG TAB PO SCH (08:19)
[2022-04-28] MEDS ORDERED: POLYETHYLENE (MIRALAX) 17 GM PACK PO SCH (09:00)
--- NOTE | 2022-04-28 14:17 | Discharge Summary ---
Date of Service April 28, 2022 Admission HPI Per Admitting Provider Mat is a 21-year-old male with a history of sickle cell disease and asthma who presents to [facility] for generalized pain in his back, thighs, and arms. Patient said that over the last 2 weeks, he was otherwise in his normal health but was having some vague left arm pain. He denies any injuries. Denies exercising on a regular basis. Then, [facility] he began experiencing bilateral upper arm pain, bilateral leg pain, and low back pain. At first it was moderate in character, so he continued tailgating. However, as the day went on, his pain progressively got worse. He did take one of his home 15 mg of morphine p.o., which did not help (he reports rarely ever having to take this). As such, he reported to the emergency room for further evaluation. He says that today he consumes around 6-9 drinks while tailgating. Denies other recreational substance use. Denies any recent fevers, chills, sweats. He denies any cough, shortness of breath, numbness tingling, motor weakness. He denies any new fitness/working out on a regular basis. Denies any new swelling in his arms or legs. Denies any discolored urine. He reports to me that he is followed at [facility] for his sickle cell disease, and takes hydroxyurea 500 mg q.i.d. His last crisis was in Summer 2021, he reports being hospitalized at [facility] for this and requiring a [facility] of morphine, which worked well for him. On arrival in the ED, patient was found to have normal heart rate, blood pressure, and SaO2 over 99%.Labs demonstrated normocytic anemia at 8.8 with platelets 338, and 1+ schistocytes/1+ teardrop cells/2+ target cells. His chemistries noted BUN 7/creatinine 0.49, total bilirubin 1.9.He was given 1 L of normal saline, morphine, and hydromorphone. Medical alcohol level obtained given reports of >6 drinks today [employer]. Admission Exam Per Admitting Provider General: 21-year old male who is alert, oriented, but appears in significant distress secondary to generalized pain HEENT: NCAT. - Eyes - Sclera are white, anicteric, and without injection. - Mouth - MMM - Neck - supple, no appreciable JVD Cardiac: Normal rate and regular rhythm; S1 and S2 present with no murmurs, rubs, or gallops. Pulmonary: Good respiratory effort with symmetric expansion of the chest. No use of accessory muscles. Lungs were clear to auscultation bilaterally with no crackles or wheezes. Abdominal: Normoactive bowel sounds. Abdomen was soft, nondistended, and non- tender to palpation. Extremities: Upper and lower extremities are warm and well perfused. No peripheral edema in the lower extremities bilaterally Back: No point tenderness along the spine. Generalized pain in the paraspinal muscles. Neuro: CN2-12 grossly intact. UE, LE strength 5/5 bilaterally. Psych: Well-developed, well-nourished, appropriately dressed for occasion. Behavior is cooperative and appropriate. Affect is distressed secondary to pain. Insight is appropriate. Principal Diagnosis Sickle cell crisis Discharge Exam General: Well-appearing, alert, interactive, and in no acute distress. HEENT: Normocephalic, atraumatic. EOM intact. Good conjugate gaze. Nares patent. Moist mucosal membranes. Neck: Supple. No lymphadenopathy. Normal ROM. CV: Regular rate and rhythm. Normal S1 and S2. No murmurs gallops or rubs. Respiratory: Normal respiratory effort. Lungs clear to auscultation bilaterally. No crackles, rhonchi, or wheezes. Abdomen: Soft, nondistended abdomen. No bruits heard on auscultation. No tenderness to deep palpation. No guarding or rebound. Extremities: Capillary refill <2 sec. 2+ dp equal bilaterally. No pedal edema. Neuro: Alert and oriented x3. Skin: Clean, dry, and intact. No rashes, bruises, or erythema. Discharge Data Allergies Allergy/AdvReac Type Severity Reaction Status Date / Time No Known Allergies Allergy Unverified 04/20/22 04:35 Consultations 04/20/22 03:51 ED Decision to Admit Stat Hospital Course (1) Sickle cell crisis: Mat is a 21-year-old male with a history of sickle cell disease and intermittent asthma who presents to [facility] for generalized pain in his back, thighs, and arms - combined with his labs, his presentation is concerning for a sickle cell pain crisis. Sickle Cell Crisis - Patient with h/o SCD requiring hospitalization at [facility] in Summer 2021 for similar pain in his arms/legs/back. - Limited records obtained from [facility]. One inpatient progress note reports following pain regimen: intermittent IV morphine 7mg q3h PRN, morphine ER 30mg b.i.d. Reportedly has h/o iron overload from chronic transfusions. He reports being on an "iron pill", which would seem consistent with chelation agent mentioned in files, though neither reports a specific drug name. Unable to locate in external files with pharmacy's help. Consider speaking with [facility] to clarify this information and if a plan exists for him should repeat crises occur. - Admission labs demonstrating Hgb 8.8 (no baseline available) with +target, tear drop, and schistocyte cells - Pain management: Per patient's report, he did require escalation to [facility] during his [facility] hospitalization in Summer 2021 -- Scheduled APAP 1000mg q8h -- Initially on [facility] Dilaudid continuous pump, 0.45mg q15min PRN. -- Transitioned to MS Contin 30mg Q12h, morphine sulfate IR 15mg q6h PRN. - Hgb (04/25) 7.0; stable 7.2 this AM will cont. to monitor, pt hesitant for blood transfusion at this time; transfusion threshold of 7 - IV went bad 04/27, patient would declined another IV as he is transitioning to oral pain medications. IV fluids stopped. - Continue hydroxyurea (2000mg daily), folic acid, incentive spirometer - consider heme consult outpatient since patient staying for 4 years. RUL consolidation - Chest XR: linear left hilar/suprahilar airspace opacity - suggests pneumonia vs atelectasis vs acute chest; repeat XR showed worsening findings. Abx treatment for suspected pneumonia. Azithromycin course completed (04/25). Rocephin x7 days complete on 04/26. - repeat CXR (04/24): no changes - WBC on admission wnl. Initial repeat elevated 14, downtrending, now wnl. Intermittent Asthma - Stable. Not in exacerbation. Albuterol PRN Asplenia, chronic -on amoxicillin bid for prophylaxis, holding for now (2) Asthma: (3) Asplenia: Total Time Total Time Spent Total Time Spent (In Minutes): <30 Discharge Plan Discharge Items Patient Disposition: Home - Self-Care Reason For Visit: SICKLE CELL CRISIS Discharge Diagnosis: Sickle cell crisis Activity: Per Instructions section Non-emergency contact: Primary Care Provider Call non-emergency contact if: you have any medication questions, your symptoms worsen, your pain is not controlled, your pain is worsening, your pain is concerning for you and your temperature is above 101.5 Follow-up/Referrals: [facility] [Primary Care Provider] - Mustapha Lim DO [Resident] - 05/02/22 1:45 pm (Patient scheduled for Wednesday 05/02, at 1:45 PM.) Diet: Regular Addtl Attending Provider Instructions: Dear Mat, You came to the hospital with worsening pain, typical of sickle cell crisis. You were admitted to the hospital and treated with IV fluids to control the root cause of your symptoms and IV analgesics to control your pain. Over the following days, your pain improved to the point until you are able to tolerate oral pain medicines. We also monitored your hemoglobin levels, which remained stable enough to not require transfusion. Therefore, we feel that you are ready to be safely discharged home. We are sending the following medications to your pharmacy: * Morphine immediate release 15 mg, to be taken every 4 hours as needed for pain. * Polyethylene glycol, also known as MiraLAX 34 mg daily as needed for constipation. Otherwise, continue taking your home medicines as prescribed. Do not stop taking them unless otherwise instructed to by your primary care physician. We scheduled you for outpatient follow-up with Dr. Lim, of [facility], on May 02 at 1:45 PM. We strongly recommend that you attend this appointment. If you are unable to, please call the clinic at [phone]. In the meantime, we recommend the following for optimal care while at home: * Drink plenty of fluids, especially when exercising * Avoid swimming in cold water * Limit alcohol intake and stop smoking If you experience the following, please contact primary care provider: * Swollen hands and/or swollen feet * Sudden chest pain, stomach pain, joint pain, or muscle pain * Fever * Headache that does not improve with pain medicine * Swelling in your belly It has been a pleasure caring for you here at [facility]. If you have any questions or concerns about your care, please do not hesitate to reach out to us ([phone]). We wish you all the best in your recovery. Obviously take your time and get better, but once you're feeling up to it, we love to have pre-medical students come shadow on our residency teaching service. it takes a little bit of bureaucracy to clear hurdles as far as HIPPA and the medical staff office, but typically that only takes a month or so as far as getting things rolling with the med-staff office - email [email or web address], and to keep me in the loop Pavan Welch DO [email or web address] P.S. use me - Pavan Welch DO - as the "contact/puttying and calking supervisor" for shadowing. Pending Studies at Discharge: No Stand-Alone Forms: [facility] [employer], Pain - Opioid Pain Management, Smoking Cessation Medications and DC Order Prescriptions: New polyethylene glycol 3350 17 gram/dose powder 34 g PO DAILY 4 Days Qty: 136 0RF morphine 15 mg tablet 15 mg PO Q4H PRN (Reason: pain) Qty: 20 0RF morphine 15 mg tablet extended release 15 mg PO Q12H Qty: 10 0RF Discharge Orders: Discharge Order (Routine); Ordered 04/28/22 Ordered By: Brian Hale Admission Data Admit Date/Time: 04/20/22 03:52 Attending Provider: Pavan Welch Admit Provider: Pavan Genao Primary Care Provider: [facility] Other Providers: Ray Zaidi ; Kevin Rodriguez Other Interventions: Discharge Summary Assessment (RN) Last Done: 04/28/22 15:23 Supervising Physician Co-Signing Physician Notes I personally examined the patient and verified all worthy points of history and exam, discussed case, and agree with decision making with Dr Hale Feeling better enough to go home. Definitely still needs ongoing pain medicinesfamiliar with the usage. Had to send prescription/cancel prescription a few times until finding a pharmacy that had it. In the ER and sent prescriptions for long-acting morphine twice daily and short acting morphine every 4 hours as needed to [facility]. Set up for close follow-up locally. Discussed stress management/lifestyle considerations in addition to medications. Wrote letter for him to give to professoravila noted he needed 1 with detail (discussed that we are only obligated to do that if he wanted me to give and havethat he is under no obligation to disclose PHI to a professor, but he was okay with this so I put a good bit of detail in outlining his hospitalization and sickle cell). Vitals noted, in general he is awake and alert pleasant no distress. HEENT normocephalic atraumatic mucous membranes moist. Breathing unlabored no accessory muscle use good effort. Skin shows no rashes no pallor or icterus. Neuro without focal deficits. Impression and plan SCD with acute pain crisis Safe for hometitrate pain regimen slowly down as an outpatient as tolerated, for now continue: MS Contin 30 mg p.o. every 12 MS IR 15 p.o. every 6 prn Continue hydroxyurea Set up with local PCP, working on setting up local hematology as well Left lower lobe pneumonia Clinically improving Completed a course of antibiotics Else see resident documentation as noted. Resident Activity Tracking Resident Involvement: Resident Care Provided Care Provided: Adult Hospital Medicine
--- NOTE | 2022-04-28 20:01 | Billing Data ---
Date of Service April 28, 2022 Coding Level of Care Code D/C DAY MANAGEMENT <30 MINS
== END 2022-04-28 18:54 | disposition home or self-care (01) | DRG 811 ==
LOC: ED 00:29 → 3N 03:52 → SUATTDRO 03:52 → 3N 05:20

== ENCOUNTER 2022-07-20 18:37 | Observation (INO) ==
[2022-07-20] MEDS ORDERED: SODIUM CHLORIDE 0.9% 1000ML 1,000 ML IV SCH ×2 (19:00→19:15)
[2022-07-20] MEDS ORDERED: HYDROmorphone INJ 0.5 MG/0.5 ML SYR IV PRN (19:00)
[2022-07-20] MEDS ORDERED: cefTRIAXone SODIUM 2,000 MG/70 ML BAG IV STA (19:01)
[2022-07-20] MEDS ORDERED: ACETAMINOPHEN 500 MG TAB PO STA (19:01)
[2022-07-20] MEDS: HYDROmorphone INJ 1 MG/ML SYRINGE IV PRN ×3 (19:08→20:07)
--- NOTE | 2022-07-20 19:10 | Emergency Department Note ---
Impression & Plan Fever, Productive cough, History of sickle cell disease, Right-sided chest pain, Pneumonia ED Provider Note INFORMANT: Patient ED PROVIDER(S): Kavon Oquendo MD CHIEF COMPLAINT: Chest pain PLAN: Disposition: Admitted Condition: Good Outpatient prescription management: none Referral: None MEDICAL DECISION MAKING: Patient presented to emergency room because of right-sided chest pain. He has a history of sickle cell. Prior records reviewed. The patient was started on IV hydration with normal saline and ordered IV Dilaudid for pain control. Blood cultures and IV Rocephin ordered as the patient has a history of asplenia and is febrile. The patient was given oral Tylenol. Chest imaging was concerning for right middle lobe infiltrate. This is concerning given the fever for pneumonia versus acute chest. Patient was feeling better after several doses of IV Dil audid. His labs showed a significant leukocytosis. Remainder of labs unremarkable. He has a stable anemia. Good reticulocyte count. The patient's case was discussed with Dr. Smith of hematology. She agreed with the treatment of IV antibiotics and hydration and pain control. She felt that this was more likely related to the pneumonia issue as opposed to true acute chest. No transfusion recommended. Patient is acceptable for admission here and she will follow. Consultation was made with Dr. Mcgrath of the [facility] service. Case was discussed and diagnostics were reviewed. Patient was evaluated in the hospital for further management Discussed with complex manager. After review of the information above and other included data, I feel the patient requires admission and further treatment in the hospital. Triage Nursing notes reviewed and agree them. Vital Signs: reviewed and remarkable for tachycardia Prior /Outside records reviewed: Prior hospitalization record reviewed. Patient was admitted for sickle cell crisis. Treated with Dilaudid and morphine. H emoglobin was 8.8 at the time. Differential diagnosis: Acute chest syndrome, sickle cell crisis, viral syndrome, bacteremia, cardiac ischemia, aortic dissection, pulmonary embolism, pneumothorax, pneumonia, pericarditis, myocarditis, esophageal rupture, cholecystitis, pancreatitis, musculoskeletal, as well as other pathologies. Diagnostics, as interpreted by me: EC Lead ECG performed and revealed sinus tachycardic rhythm at 120 bpm, rig ht [place], QRS normal. No elevation or depression. No PACs or PVCs Cardiac Monitoring: Cardiac monitoring ordered by me: The patient was placed on continuous cardiac monitoring and observed. It revealed a normal sinus rhythm at 113 beats per minute without ectopy or evidence of dysrhythmia. Medical decision rules: none Imaging studies: Chest x-ray concerning for right lower lobe infiltrate. Scarri ng versus atelectasis in the left upper lobe noted. I refer you to the EMR for further details. HPI: The patient is a 21 year old male with history of sickle cell disease who presents to the Emergency Room with complaints of right-sided chest pain. This started yesterday morning and is worsening. The patient also notes the following associated symptoms, shortness of breath, fever and productive cough. The patient has tried ibuprofen for relieving factors. Current pain is rated as 5/10. Patient notes last sickle cell crisis was in March 2022. He was admitted here. Pt denies LOC, headache, fevers, chills, diaphoresis, visual changes, neck pain, nausea, vomiting, abdominal pain, back pain, melena, hematochezia, urinary symptoms, numbness, weakness, lymphadenopathy, rash, or other complaints. PAST MEDICAL HISTORY: See Below, sickle cell disease, asplenia PAST SURGICAL HISTORY: See Below, SOCIAL HISTORY: See Below, [employer] student. Vapes. HOME MEDICATIONS: See Below ALLERGIES: See Below VITALS: See Below PHYSICAL EXAMINATION: GENERAL: Awake, alert, mildly uncomfortable-appearing, in no distress HENT: Normocephalic, atraumatic. Oropharynx unremarkable. EYES: Normal conjunctiva. Sclera non-icteric. NECK: Inspection normal. Non-tender. Supple. No nuchal rigidity. FROM. No masses. RESPIRATORY: Clear to auscultation. No wheezes. No rales. Normal respiratory effort. CARDIAC: Tachycardic rate. Normal rhythm. No murmurs. No rubs. Extremities warm and well perfused. Pulses equal. No JVD. GI: Soft, non-distended. No tenderness to palpation. No rebound or guarding. No masses. MUSCULOSKELETAL: Atraumatic. Chest examination reveals no tenderness. The back is symmetrical on inspection without obvious abnormality. There is no CVA tenderness to palpation. No joint edema. LOWER EXTREMITIES: Calves are equal size bilaterally and non-tender. No edema. No discoloration. NEURO: Normal sensorium. No sensory or motor deficits noted. SKIN: No rash or jaundice noted. Past Med/Surg History Medical History (Updated 07/21/22 @ 00:32 by Kavon Oquendo MD) Asplenia Asthma History of sickle cell disease Surgical History (Updated 07/20/22 @ 21:00 by Marti Mcgrath DO) History of appendectomy History of cholecystectomy History of splenectomy History of tonsillectomy Family History (Updated 07/20/22 @ 21:00 by Marti Mcgrath DO) Other Hypertension Social History Smoking Status: Current every day smoker Tobacco Type: E-cigarettes / Vaping Hx Alcohol Use: Yes Alcohol type: beer Hx Substance Use: Yes Last Used Substance: Days (ago) Last Used Substance Other:: 07/11/22 Substance Use Type Other:: vapes nicotine Preferred Language: Bhutanese Communication Ability: Effective Video Arcade Manager Required: No Beliefs That Will Affect Care: None marital status: Single Current Living Situation: Other Current Living Situation Comment: Apartment with one roomate Feels Safe at Home: Yes Assistive Devices: Glasses Allergies Allergies Allergy/AdvReac Type Severity Reaction Status Date / Time No Known Allergies Allergy Unverified 04/20/22 04:35 Home Meds Previous Rx's Medication Instructions Recorded morphine 15 mg immediate release 15 mg PO Q4H PRN pain #20 tabs 04/28/22 tablet morphine 15 mg tablet,extended 15 mg PO Q12H #10 tabs 04/28/22 release Results & Data (ED) Vital Signs Vital Signs - 24 hr 07/20/22 18:41 07/20/22 18:50 07/20/22 19:10 Temperature 38.1 C H Temperature Source Temporal Artery Scan Pulse Rate 124 H 115 H Pulse Rate from SpO2 Sensor Pulse Rhythm Regular Pulse Strength Normal Respiratory Rate 24 Respiratory Effort / Characteristics Labored Non-Labored Spontaneous Respiratory Depth Normal Normal Respiratory Pattern Regular Regular Blood Pressure 127/72 Blood Pressure Mean 90 Blood Pressure Position Sitting Pulse Oximetry 96 Oxygen Delivery Method Room Air Room Air Oxygen Flow Rate Sepsis Recent Fever Within 48 Hours No Sepsis New/Unexplained Change in Mental Status No Sepsis Action Taken by Nursing No Action Required 07/20/22 20:00 07/20/22 19:48 07/20/22 20:00 Temperature Temperature Source Pulse Rate 107 H 107 H Pulse Rate from SpO2 Sensor 107 H 107 H Pulse Rhythm Pulse Strength Respiratory Rate 29 H 24 Respiratory Effort / Characteristics Respiratory Depth Respiratory Pattern Blood Pressure 108/59 L 122/64 Blood Pressure Mean 75 83 Blood Pressure Position Pulse Oximetry 98 97 Oxygen Delivery Method Nasal Cannula Nasal Cannula Nasal Cannula Oxygen Flow Rate 2 2 2 Sepsis Recent Fever Within 48 Hours Sepsis New/Unexplained Change in Mental Status Sepsis Action Taken by Nursing 07/20/22 20:30 Temperature Temperature Source Pulse Rate 105 H Pulse Rate from SpO2 Sensor 103 H Pulse Rhythm Pulse Strength Respiratory Rate 24 Respiratory Effort / Characteristics Respiratory Depth Respiratory Pattern Blood Pressure 126/64 Blood Pressure Mean 84 Blood Pressure Position Pulse Oximetry 98 Oxygen Delivery Method Nasal Cannula Oxygen Flow Rate 2 Sepsis Recent Fever Within 48 Hours Sepsis New/Unexplained Change in Mental Status Sepsis Action Taken by Nursing Laboratory Data 07/20/22 18:56 07/20/22 18:56 Lab Results 07/20/22 07/20/22 07/20/22 Range/Units 18:11 18:56 18:56 WBC 24.14 H (4.8-10.8) K/ul RBC 2.61 L (4.70-6.10) M/uL Hgb 8.9 L (14.0-18.0) g/dl Hct 24.6 L (42.0-52.0) % MCV 94.3 (80.0-100.0) fL MCH 34.1 H (25.0-34.0) pg MCHC 36.2 H (32.0-36.0) g/dL RDW Std Deviation 63.1 H (36.4-46.3) fL RDW Coeff of Terrell 18.6 H (11.5-14.5) % Plt Count 465 H (130-400) K/uL MPV 9.8 (9.4-12.4) fL Immature Gran % (Auto) 1.0 % Neut % (Auto) 81.2 % Lymph % (Auto) 5.5 % Rooks % (Auto) 12.1 % Eos % (Auto) 0.0 % Baso % (Auto) 0.2 % Reticulocyte % (Auto) 9.7 H (0.5-2.0) % Neut # (Auto) 19.58 H (1.40-6.50) K/uL Lymph # (Auto) 1.32 (1.2-3.4) K/uL Rooks # (Auto) 2.93 H (0.11-0.59) K/uL Eos # (Auto) 0.01 (0-0.50) K/uL Baso # (Auto) 0.06 (0-0.2) K/uL Reticulocyte # 0.25 H (0.02-0.10) 10^6/uL Immature Gran # (Auto) 0.24 H (0.01-0.20) K/uL Absolute Nucleated RBC 0.32 H (0-0.12) K/uL Nucleated RBC % (auto) 1.3 % Sodium 129 L (136-145) mmol/L Potassium 4.0 (3.5-5.1) mmol/L Chloride 96 L (98-107) mmol/L Carbon Dioxide 24 (21-32) mmol/L Anion Gap 9 (3-11) BUN 8 (6-23) mg/dl Creatinine 0.64 (0.6-1.4) mg/dl Est Cr Clr Drug Dosing 169.9 ml/min Est GFR ( Amer) > 150.0 ml/min Est GFR (Non-Af Amer) 141.9 ml/min BUN/Creatinine Ratio 12.5 (10-20) Glucose 102 H (70-99(Fasting)) mg/dl Calcium 9.4 (8.5-10.1) mg/dl Total Bilirubin 4.3 H (0.2-1.0) mg/dl AST 17 (13-39) U/L ALT 10 (7-52) U/L Alkaline Phosphatase 89 (34-104) U/L Troponin I High Sens 9.6 (0-20) pg/ml Total Protein 7.9 (6.0-8.3) gm/dl Albumin 4.3 (3.4-5.0) gm/dl Globulin 3.6 (2.5-4.0) gm/dl Albumin/Globulin Ratio 1.2 (0.9-2) Procalcitonin (0-0.5) ng/ml SARS-CoV-2 (PCR) NEGATIVE (Negative) Influenza Type A (PCR) Negative (Neg) Influenza Type B (PCR) Negative (Neg) RSV (RT-PCR) Negative (Neg) 07/20/22 07/20/22 Range/Units 18:56 18:56 WBC (4.8-10.8) K/ul RBC (4.70-6.10) M/uL Hgb (14.0-18.0) g/dl Hct (42.0-52.0) % MCV (80.0-100.0) fL MCH (25.0-34.0) pg MCHC (32.0-36.0) g/dL RDW Std Deviation (36.4-46.3) fL RDW Coeff of Terrell (11.5-14.5) % Plt Count (130-400) K/uL MPV (9.4-12.4) fL Immature Gran % (Auto) % Neut % (Auto) % Lymph % (Auto) % Rooks % (Auto) % Eos % (Auto) % Baso % (Auto) % Reticulocyte % (Auto) Cancelled (0.5-2.0) % Neut # (Auto) (1.40-6.50) K/uL Lymph # (Auto) (1.2-3.4) K/uL Rooks # (Auto) (0.11-0.59) K/uL Eos # (Auto) (0-0.50) K/uL Baso # (Auto) (0-0.2) K/uL Reticulocyte # Cancelled (0.02-0.10) 10^6/uL Immature Gran # (Auto) (0.01-0.20) K/uL Absolute Nucleated RBC (0-0.12) K/uL Nucleated RBC % (auto) % Sodium (136-145) mmol/L Potassium (3.5-5.1) mmol/L Chloride (98-107) mmol/L Carbon Dioxide (21-32) mmol/L Anion Gap (3-11) BUN (6-23) mg/dl Creatinine (0.6-1.4) mg/dl Est Cr Clr Drug Dosing ml/min Est GFR ( Amer) ml/min Est GFR (Non-Af Amer) ml/min BUN/Creatinine Ratio (10-20) Glucose (70-99(Fasting)) mg/dl Calcium (8.5-10.1) mg/dl Total Bilirubin (0.2-1.0) mg/dl AST (13-39) U/L ALT (7-52) U/L Alkaline Phosphatase (34-104) U/L Troponin I High Sens (0-20) pg/ml Total Protein (6.0-8.3) gm/dl Albumin (3.4-5.0) gm/dl Globulin (2.5-4.0) gm/dl Albumin/Globulin Ratio (0.9-2) Procalcitonin 1.90 H (0-0.5) ng/ml SARS-CoV-2 (PCR) (Negative) Influenza Type A (PCR) (Neg) Influenza Type B (PCR) (Neg) RSV (RT-PCR) (Neg) Administered Medications Hydromorphone HCl (Hydromorphone Inj 0.5 Mg/0.5 Ml Syr) 0.5 mg IV Q3H PRN PRN Reason: Pain (1,2,3,4,5) & Pre PT Stop: 08/03/22 21:51 Last Admin: 07/20/22 22:36 Dose: 0.5 mg Documented By: ABIEL Sodium Chloride (1/2 Nss) 1,000 mls @ 80 mls/hr IV .[id number] KHURRAM Stop: 07/21/22 22:51 Last Admin: 07/20/22 22:26 Dose: 80 mls/hr Documented By: ABIEL Ondansetron HCl (Ondansetron Inj 2 Mg/Ml 2 Ml Vial) 4 mg IV Q6H PRN PRN Reason: Nausea And Vomiting Stop: 08/19/22 21:58 Last Admin: 07/20/22 22:25 Dose: 4 mg Documented By: ABIEL Discontinued Medications Acetaminophen (Acetaminophen 500 Mg Tab) 1,000 mg PO NOW STA Stop: 07/20/22 19:02 Last Admin: 07/20/22 19:08 Dose: 1,000 mg Documented By: NAA Hydromorphone HCl (Hydromorphone Inj 1 Mg/Ml Syringe) 1 mg IV Q15M PRN PRN Reason: Pain Stop: 08/03/22 19:02 Last Admin: 07/20/22 20:07 Dose: 1 mg Documented By: Admin: 07/20/22 19:45 Dose: 1 mg Documented By: Admin: 07/20/22 19:08 Dose: 1 mg Documented By: NAA Sodium Chloride (Nss 1000ml) 1,000 mls @ 999 mls/hr IV .[id number] KHURRAM Stop: 07/20/22 20:00 Last Infusion: 07/20/22 20:11 Dose: 0 mls/hr Documented By: Admin: 07/20/22 19:07 Dose: 999 mls/hr Documented By: NAA Sodium Chloride (Nss 1000ml) 1,000 mls @ 150 mls/hr IV .[id number] KHURRAM Stop: 08/19/22 19:14 Last Infusion: 07/20/22 21:54 Dose: 0 mls/hr Documented By: Admin: 07/20/22 20:07 Dose: 150 mls/hr Documented By: NAA Ceftriaxone Sodium (Rocephin) 2,000 mg in 70 mls @ 140 mls/hr IV NOW STA Stop: 07/20/22 19:30 Last Infusion: 07/20/22 20:15 Dose: 0 mls/hr Documented By: Admin: 07/20/22 19:45 Dose: 140 mls/hr Documented By: NAA Doxycycline Hyclate 100 mg/ (Dextrose) 110 mls @ 50 mls/hr IV NOW STA Stop: 07/20/22 21:34 Last Infusion: 07/20/22 22:28 Dose: 0 mls/hr Documented By: Admin: 07/20/22 20:15 Dose: 50 mls/hr Documented By: NAA Imaging Data Radiologist's Impression: Chest X-Ray 07/20/22 18:48 XR chest 1V portable HISTORY: fever, sob, Sickle cell COMPARISON: Chest 04/24/2022. FINDINGS: No pneumothorax. No pleural effusions. The cardiac silhouette remains mildly enlarged. Left midlung zone airspace opacity has improved. There is a new right middle lobe airspace opacity. There are surgical clips within the left upper quadrant. Patchy sclerotic areas within the bones likely due to the patient's history of sickle cell disease. IMPRESSION: 1. Interval development of right middle lobe airspace opacity. This favors a pneumonia. 2. The left midlung zone airspace opacity has improved in the interval. ACT 112: Negative or not required by law. Electronically signed by: Andrew Mendoza M.D. 07/20/2022 7:22 PM Discharge Plan Visit Data Chief Complaint: Shortness of Breath/Dyspnea Stated Complaint: CHEST PAIN, COUGH ED Provider: Kavon Oquendo Discharge Problem: Fever, Productive cough, History of sickle cell disease, Right-sided chest pain, Pneumonia Patient Disposition: Admitted As Inpatient Discharge Instructions Interventions: ED Discharge Assessment Last Done: 07/20/22 21:30
[2022-07-20 19:21] LABS: Basophils # (auto) 0.06 K/uL (0-0.2); Basophils % (auto) 0.2 %; Eosinophils # (auto) 0.01 K/uL (0-0.50); Hematocrit (blood only) 24.6 % (42.0-52.0); Hemoglobin 8.9 g/dl (14.0-18.0); Immature Granulocytes # (auto) 0.24 K/uL (0.01-0.20); Lymphocytes # (auto) 1.32 K/uL (1.2-3.4); Lymphocytes % (auto) 5.5 %; Mean Corpuscular Hemoglobin 34.1 pg (25.0-34.0); Mean Corpuscular Hgb Conc 36.2 g/dL (32.0-36.0); Mean Corpuscular Volume 94.3 fL (80.0-100.0); Mean Platelet Volume 9.8 fL (9.4-12.4); Monocytes # (auto) 2.93 K/uL (0.11-0.59); Monocytes % (auto) 12.1 %; Neutrophils # (auto) 19.58 K/uL (1.40-6.50); Neutrophils % (auto) 81.2 %; Nucleated RBC # (auto) 0.32 K/uL (0-0.12); Nucleated RBC % (auto) 1.3 %; Platelet Count 465 K/uL (130-400); RDW Coefficient of Variation 18.6 % (11.5-14.5); RDW Standard Deviation 63.1 fL (36.4-46.3); Red Blood Count 2.61 M/uL (4.70-6.10); Reticulocyte % 9.7 % (0.5-2.0); Reticulocytes # 0.25 10^6/uL (0.02-0.10); White Blood Count 24.14 K/ul (4.8-10.8)
[2022-07-20] MEDS ORDERED: DOXYCYCLINE HYCLATE 100 MG in DEXTROSE 5% 100 ML IV STA (19:23)
--- NOTE | 2022-07-20 19:23 | XRay Report ---
XR chest 1V portable HISTORY: fever, sob, Sickle cell COMPARISON: Chest 04/24/2022. FINDINGS: No pneumothorax. No pleural effusions. The cardiac silhouette remains mildly enlarged. Left midlung zone airspace opacity has improved. There is a new right middle lobe airspace opacity. There are surgical clips within the left upper quadrant. Patchy sclerotic areas within the bones likely du e to the patient's history of sickle cell disease. IMPRESSION: 1. Interval development of right middle lobe airspace opacity. This favors a pneumonia. 2. The left midlung zone airspace opacity has improved in the interval. ACT 112: Negative or not required by law. Electronically signed by: Andrew Mendoza M.D. 07/20/2022 7:22 PM
[2022-07-20 19:41] LABS: Alanine Aminotransferase 10 U/L (7-52); Albumin Globulin Ratio 1.2 (0.9-2); Albumin Level 4.3 gm/dl (3.4-5.0); Alkaline Phosphatase 89 U/L (34-104); Anion Gap 9 (3-11); Aspartate Aminotransferase 17 U/L (13-39); BUN Creatinine Ratio 12.5 (10-20); Bilirubin,Total 4.3 mg/dl (0.2-1.0); Blood Urea Nitrogen 8 mg/dl (6-23); Calcium 9.4 mg/dl (8.5-10.1); Carbon Dioxide 24 mmol/L (21-32); Chloride 96 mmol/L (98-107); Creatinine Clr Calc Pharmacy 169.9 ml/min; Est GFR (African American) > 150.0 ml/min; Est GFR (Non-African American) 141.9 ml/min; Globulin 3.6 gm/dl (2.5-4.0); Glucose 102 mg/dl (70-99(Fasting)); Sodium 129 mmol/L (136-145); Total Protein 7.9 gm/dl (6.0-8.3)
[2022-07-20 19:46] LABS: Troponin I High Sensitivity 9.6 pg/ml (0-20)
[2022-07-20 20:02] LABS: Influenza A virus by PCR Negative (Neg); Influenza B virus by PCR Negative (Neg); RSV by PCR Negative (Neg); SARS CoV2 RNA(COVID-19) Ceph NEGATIVE (Negative)
--- NOTE | 2022-07-20 20:43 | History & Physical Report ---
Date of Service July 20, 2022 Assessment & Plan (1) Pneumonia: Plan: 21-year-old male with history of sickle cell anemia presenting with 2 days of cough, shortness of breath and right-sided pleuritic chest pain. Patient is febrile, tachycardic, leukocytosis with WBC = 24.14. Chest x-ray with right middle lobe airspace opacity favoring pneumonia. Viral panel to include COVID- 19/influenza AMB/RSV is negative. Concern for pneumonia versus acute chest syndrome. Patient with history of acute chest syndrome, last episode several years ago. He is presently in no respiratory distress. Tachypneic with ongoing pleuritic pain he is speaking in complete sentences. Adequate oxygenation on room air. Admit to medical with telemetry Follow blood cultures sent from the ER Check procalcitonin Ceftriaxone 1 g IV daily, doxycycline 1 g IV twice daily for community- acquired pneumonia. Robitussin as needed for cough Tylenol as needed for fever Incentive spirometry every hour while awake Chest x-ray PA and lateral ordered for tomorrow morning to assess for progression of infiltrates Supplemental oxygen as needed. Patient with adequate oxygenation on room air. He was placed on 2 L of nasal cannula in the ER after receiving IV Dilaudid. However, was never hypoxic. Should patient develop worsening respiratory distress or oxygen demand will need to transfer to a tertiary care center for management of acute chest syndrome with possible exchange transfusion. (2) History of sickle cell disease: Plan: Patient with history of sickle cell disease. Presently he does not feel that he is in acute sickle cell pain crisis. Hemoglobin = 8.9, hematocrit = 24.6. Near baseline values. He does have elevated reticulocytes = 9.7% as well as elevated total bilirubin = 4.3 which suggests at least some degree of sickling Repeat CBC and LFTs in the morning As needed pain medication available. Dilaudid 0.5 to 1 mg as needed, adjust as needed Colace and MiraLAX as needed for bowel management Hematology consultation appreciated (3) Asplenia: Plan: Patient status post splenectomy. He reports he is up-to-date on all his age- appropriate vaccinations. Presumed pneumonia as above with sepsis (fever, tachycardia, elevated heart rate) Ceftriaxone and doxycycline for treatment of presumed community-acquired pneumonia Low threshold to broaden antibiotics should patient worsen or fail to improve F/E/Nhalf-normal saline at 80 mL/h x 2 L, monitor electrolytes and replete as needed, regular diet as tolerated Prophylaxislow risk for DVT. 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 Patient reports early Thursday morning 07/19/2022 patient began developing right anterior pleuritic chest pain. He has had a cough productive for dark green/yellow mucus. He reports feeling short of breath and needing to take fast, shallow breaths due to the pain. He has had an elevated heart rate at home. Fever yesterday to 100.4. Patient continued to feel poorly today. With worsening chest discomfort which prompted him to come to the ER. Patient denies viral prodrome, sick contacts or recent travel. He does not feel as though he is in sickle cell pain crisis at this time. During his typical crises and he will have pain in the legs and arms as well as in his back. He does report some slight arm pain at this time but again, does not feel that he is in an acute pain crisis. Patient is s/p splenectomy. Reports that he is up-to-date on all appropriate immunizations. He is seen at [facility] for his sickle cell disease. He has prescriptions for hydroxyurea and folic acid at home but does not typically take these medications. He does have a history of acute chest syndrome, more frequently during childhood. He believes his last episode of ACS was several years ago. He has had transfusion therapy as well as chelation therapy in the past. In the ER patient is febrile with Tmax = 38.1, sinus tachycardia with heart rate of 124 bpm, blood pressure stable. He is tachypneic with respiratory rate of 24. Adequate oxygenation on room air. He was placed on 2 L of oxygen by nasal cannula after administration of IV Dilaudid. No hypoxia. ER course: Doxycycline 100 mg IV Ceftriaxone 2 g IV Normal saline x2 L Tylenol x1 g Dilaudid 1 mg IV +1 mg IV +1 mg IV l Allergies Allergy/AdvReac Type Severity Reaction Status Date / Time No Known Allergies Allergy Unverified 04/20/22 04:35 Home Medications Medication Instructions Recorded Confirmed Type morphine 15 mg immediate release 15 mg PO Q4H PRN pain #20 tabs 04/28/22 Rx tablet morphine 15 mg tablet,extended 15 mg PO Q12H #10 tabs 04/28/22 Rx release Past Med/Surg History Medical History (Updated 07/20/22 @ 20:59 by Marti Mcgrath DO) Asplenia Asthma History of sickle cell disease Surgical History (Updated 07/20/22 @ 21:00 by Marti Mcgrath DO) History of appendectomy History of cholecystectomy History of splenectomy History of tonsillectomy Family History (Updated 07/20/22 @ 21:00 by Marti Mcgrath DO) Other Hypertension Social History Smoking Status: Current every day smoker Tobacco Type: E-cigarettes / Vaping Hx Alcohol Use: Yes Alcohol type: beer Hx Substance Use: Yes Last Used Substance: Days (ago) Last Used Substance Other:: yesterday Substance Use Type Other:: Vapes nicotine Preferred Language: Trinidadian Communication Ability: Effective Utilization Review Rn Required: No marital status: Single Current Living Situation: Other Current Living Situation Comment: Apartment with one roommate Feels Safe at Home: Yes Assistive Devices: None Review of Systems Review of Systems: All systems reviewed & are unremarkable except as noted in HPI & below Physical Exam Physical Exam: General: patient resting comfortably, NAD, non-toxic in appearance, AA&O x 4 Skin: warm, dry, intact, no rashes or lesions HEENT: NC/AT, PERRL, EOMI, anicteric sclera, conjunctiva without injection, e xternal ear normal to inspection and nontender, nares patent, moist mucus membranes, dentition intact, no oropharyngeal lesions, neck supple, trachea midline, no LAD, no thyromegaly, no JVD Heart: +S1/S2, regular, tachycardic, no m/r/g Lungs: equal air entry bilaterally, patient mildly tachypneic with shallow breaths, pleuritic pain elicited with deep breaths, end inspiratory crackles appreciated right anterior lung field, no rhonchi/wheezes Abd: +BS, soft, NT/ND, no masses/organomegaly/ascites Ext: warm, 2+ pulses in UE/LE bilaterally, no clubbing/cyanosis or edema Neuro: nonfocal, patient AA&O x 4, speech intact, no facial droop, moving all extremities on command with equal strength 5/5 Results & Data Results & Data ([facility]) Vital Signs (Past 12 Hours) Vital Signs Temp Pulse Resp BP Pulse Ox O2 Del Method O2 Flow Rate 07/20/22 20:00 Nasal Cannula 2 07/20/22 19:10 115 H 07/20/22 18:50 Room Air 07/20/22 18:41 38.1 C H 124 H 24 127/72 96 Room Air Laboratory Results Laboratory Results WBC 24.14 K/ul (4.8-10.8) H 07/20/22 18:56 RBC 2.61 M/uL (4.70-6.10) L 07/20/22 18:56 Hgb 8.9 g/dl (14.0-18.0) L 07/20/22 18:56 Hct 24.6 % (42.0-52.0) L 07/20/22 18:56 MCV 94.3 fL (80.0-100.0) 07/20/22 18:56 MCH 34.1 pg (25.0-34.0) H 07/20/22 18:56 MCHC 36.2 g/dL (32.0-36.0) H 07/20/22 18:56 RDW Std Deviation 63.1 fL (36.4-46.3) H 07/20/22 18:56 RDW Coeff of Terrell 18.6 % (11.5-14.5) H 07/20/22 18:56 Plt Count 465 K/uL (130-400) H 07/20/22 18:56 MPV 9.8 fL (9.4-12.4) 07/20/22 18:56 Immature Gran % (Auto) 1.0 % 07/20/22 18:56 Neut % (Auto) 81.2 % 07/20/22 18:56 Lymph % (Auto) 5.5 % 07/20/22 18:56 Pershing % (Auto) 12.1 % 07/20/22 18:56 Eos % (Auto) 0.0 % 07/20/22 18:56 Baso % (Auto) 0.2 % 07/20/22 18:56 Reticulocyte % (Auto) 9.7 % (0.5-2.0) H 07/20/22 18:56 Reticulocyte % (Auto) Cancelled 07/20/22 18:56 Neut # (Auto) 19.58 K/uL (1.40-6.50) H 07/20/22 18:56 Lymph # (Auto) 1.32 K/uL (1.2-3.4) 07/20/22 18:56 Pershing # (Auto) 2.93 K/uL (0.11-0.59) H 07/20/22 18:56 Eos # (Auto) 0.01 K/uL (0-0.50) 07/20/22 18:56 Baso # (Auto) 0.06 K/uL (0-0.2) 07/20/22 18:56 Reticulocyte # 0.25 10^6/uL (0.02-0.10) H 07/20/22 18:56 Reticulocyte # Cancelled 07/20/22 18:56 Immature Gran # (Auto) 0.24 K/uL (0.01-0.20) H 07/20/22 18:56 Absolute Nucleated RBC 0.32 K/uL (0-0.12) H 07/20/22 18:56 Nucleated RBC % (auto) 1.3 % 07/20/22 18:56 Sodium 129 mmol/L (136-145) L 07/20/22 18:56 Potassium 4.0 mmol/L (3.5-5.1) 07/20/22 18:56 Chloride 96 mmol/L (98-107) L 07/20/22 18:56 Carbon Dioxide 24 mmol/L (21-32) 07/20/22 18:56 Anion Gap 9 (3-11) 07/20/22 18:56 BUN 8 mg/dl (6-23) 07/20/22 18:56 Creatinine 0.64 mg/dl (0.6-1.4) 07/20/22 18:56 Est Cr Clr Drug Dosing 169.9 ml/min 07/20/22 18:56 Est GFR ( Amer) > 150.0 ml/min 07/20/22 18:56 Est GFR (Non-Af Amer) 141.9 ml/min 07/20/22 18:56 BUN/Creatinine Ratio 12.5 (10-20) 07/20/22 18:56 Glucose 102 mg/dl (70-99(Fasting)) H 07/20/22 18:56 Calcium 9.4 mg/dl (8.5-10.1) 07/20/22 18:56 Total Bilirubin 4.3 mg/dl (0.2-1.0) H 07/20/22 18:56 AST 17 U/L (13-39) 07/20/22 18:56 ALT 10 U/L (7-52) 07/20/22 18:56 Alkaline Phosphatase 89 U/L (34-104) 07/20/22 18:56 Troponin I High Sens 9.6 pg/ml (0-20) 07/20/22 18:56 Total Protein 7.9 gm/dl (6.0-8.3) 07/20/22 18:56 Albumin 4.3 gm/dl (3.4-5.0) 07/20/22 18:56 Globulin 3.6 gm/dl (2.5-4.0) 07/20/22 18:56 Albumin/Globulin Ratio 1.2 (0.9-2) 07/20/22 18:56 SARS-CoV-2 (PCR) NEGATIVE (Negative) 07/20/22 18:11 Influenza Type A (PCR) Negative (Neg) 07/20/22 18:11 Influenza Type B (PCR) Negative (Neg) 07/20/22 18:11 RSV (RT-PCR) Negative (Neg) 07/20/22 18:11 Impressions Chest X-Ray 07/20/22 18:48 XR chest 1V portable HISTORY: fever, sob, Sickle cell COMPARISON: Chest 04/24/2022. FINDINGS: No pneumothorax. No pleural effusions. The cardiac silhouette remains mildly enlarged. Left midlung zone airspace opacity has improved. There is a new right middle lobe airspace opacity. There are surgical clips within the left upper quadrant. Patchy sclerotic areas within the bones likely due to the patient's history of sickle cell disease. IMPRESSION: 1. Interval development of right middle lobe airspace opacity. This favors a pneumonia. 2. The left midlung zone airspace opacity has improved in the interval. ACT 112: Negative or not required by law. Electronically signed by: Andrew Mendoza M.D. 07/20/2022 7:22 PM PG Care Time/CCT Total # of Minutes Spent Total Time Spent with Patient: Total time spent is greater than 50% in coordination of care (as documented) at patient's floor/unit and/or counseling patient: Coding Level of Care Code 73705 INT INP/OBS CARE 2/55MIN Diagnoses Pneumonia J18.9 History of sickle cell disease Z86.2 Asplenia Q89.01
[2022-07-20] MEDS ORDERED: POLYETHYLENE (MIRALAX) 17 GM PACK PO PRN (21:52)
[2022-07-20] MEDS ORDERED: guaiFENesin/DEXTROM SYRUP 100MG/10MG 5ML UDC PO PRN (21:52)
[2022-07-20] MEDS ORDERED: DOCUSATE SODIUM 100 MG CAP PO PRN (21:52)
[2022-07-20] MEDS ORDERED: ONDANSETRON INJ 2 MG/ML 2 ML VIAL IV PRN (21:59)
[2022-07-20] MEDS: SODIUM CHLORIDE 0.45 % 1,000 ML IV SCH (22:26)
[2022-07-20] MEDS: HYDROmorphone INJ 0.5 MG/0.5 ML SYR IV PRN (22:36)
[2022-07-21] MEDS: HYDROmorphone INJ 1 MG/ML SYRINGE IV PRN ×3 (01:14→16:58)
[2022-07-21] MEDS: ACETAMINOPHEN 325 MG TAB PO PRN ×3 (01:14→13:06)
[2022-07-21 01:21] LABS: Appearance Urine Clear (Clear); Bacteria Urine Automated Negative (Negative); Bilirubin Urine Negative (Negative); Blood Urine Negative (Negative); Color Urine Orange; Glucose Urine UA Negative (Negative); Ketones Urine 3+ (Negative); Leukocyte Esterase Urine Trace (Negative); Nitrite Urine Positive (Negative); Protein Urine 1+ (Negative); RBC Urine Automated 0-4 /hpf (0-4); Specific Gravity Urine 1.015 (1.000-1.030); Urobilinogen Urine Negative (Negative); pH Urine 5.5 (4.5-7.5)
[2022-07-21] MEDS: HYDROmorphone INJ 0.5 MG/0.5 ML SYR IV PRN ×3 (04:47→09:36)
[2022-07-21 06:19] LABS: Hematocrit (blood only) 21.5 % (42.0-52.0); Hemoglobin 7.8 g/dl (14.0-18.0); Mean Corpuscular Hemoglobin 33.9 pg (25.0-34.0); Mean Corpuscular Hgb Conc 36.3 g/dL (32.0-36.0); Mean Corpuscular Volume 93.5 fL (80.0-100.0); Mean Platelet Volume 9.5 fL (9.4-12.4); Nucleated RBC # (auto) 0.32 K/uL (0-0.12); Nucleated RBC % (auto) 1.4 %; Platelet Count 391 K/uL (130-400); RDW Coefficient of Variation 18.6 % (11.5-14.5); RDW Standard Deviation 62.5 fL (36.4-46.3); White Blood Count 22.13 K/ul (4.8-10.8)
[2022-07-21 06:34] LABS: Alanine Aminotransferase 8 U/L (7-52); Albumin Level 3.6 gm/dl (3.4-5.0); Alkaline Phosphatase 77 U/L (34-104); Anion Gap 6 (3-11); Aspartate Aminotransferase 15 U/L (13-39); BUN Creatinine Ratio 12.3 (10-20); Bilirubin Direct 1.8 mg/dl (0-0.2); Bilirubin,Total 5.8 mg/dl (0.2-1.0); Blood Urea Nitrogen 7 mg/dl (6-23); Calcium 8.9 mg/dl (8.5-10.1); Carbon Dioxide 26 mmol/L (21-32); Chloride 97 mmol/L (98-107); Creatinine Clr Calc Pharmacy 191.9 ml/min; Est GFR (African American) > 150.0 ml/min; Est GFR (Non-African American) 148.9 ml/min; Glucose 96 mg/dl (70-99(Fasting)); Potassium 4.1 mmol/L (3.5-5.1); Sodium 129 mmol/L (136-145); Total Protein 6.8 gm/dl (6.0-8.3)
[2022-07-21] MEDS: SODIUM CHLORIDE 0.45 % 1,000 ML IV SCH (07:58)
[2022-07-21] MEDS ORDERED: DOXYCYCLINE HYCLATE 100 MG in DEXTROSE 5% 100 ML IV SCH (08:00)
--- NOTE | 2022-07-21 11:06 | XRay Report ---
XR chest 2V PA/lateral CLINICAL HISTORY: Pneumonia. COMPARISON STUDY: Chest radiograph July 20, 2022. FINDINGS: There is no pneumothorax. A right pleural effusion has developed since chest radiograph of July 20, 2022. This is likely moderate in size. Extensive right middle lobe consolidation has pro gressed. There may also be right lower lobe airspace opacity. Left upper lung opacity favors scarring . There is no left pleural fusion. Left upper quadrant surgical clips are noted. H-shaped vertebrae a re noted as well as increased sclerosis of visualized skeletal structures consistent with known sickl e cell. IMPRESSION: 1. Significant progression since prior chest radiograph with extensive right middle lobe and possible right lower lobe consolidation. This is highly suggestive of pneumonia. Acute chest syndrome is cons idered less likely. 2. Interval development of a right pleural effusion, likely moderate in size. ACT 112: Negative or not required by law. Electronically signed by: Rico Buckner M.D. 07/21/2022 11:03 AM
--- NOTE | 2022-07-21 12:11 | Oncology Consultation ---
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 Based on clinical symptoms, laboratory testing and imaging, he appears to have sickle cell crisis likely triggered by pneumonia and UTI. His respiratory status appears to have worsened since yesterday with worsening tachypnea, productive cough and worsening chest x-ray findings. Clinically, it is always pretty difficult to differentiate between pneumonia and acute chest syndrome. However, given patient's past history of acute chest syndrome x4 would recommend he be evaluated at tertiary center where exchange b lood transfusion is available. I will discuss with his administrative associate at [facility] to see if he can be transferred there. If he cannot, would recommend evaluation at [facility] at [facility]. He was given the opportunity to ask questions which indicated were answered to his satisfaction. 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 Symptoms were initially noted a day prior to presentation and progressively worsened. On arrival to the ER, he was noted to have a temperature of 38.1, was tachycardic with heart rate in the 120s, tachypneic with respiratory rate in the high 20s with oxygen saturations ranging from. Labs revealed leukocytosis with white cell count of 24,000, hemoglobin of 8.9, hematocrit of 24.6, platelet count of 4 65,000. Bilirubin was noted to be 5.8. While in the ER, chest x-ray was obtained which interval development of right middle lobe airspace opacity favoring pneumonia.Urinalysis was positive for nitrites, protein and acetone. He was started on antibiotics with ceftriaxone/doxycycline, IV antibiotics, IV Dilaudid every 6 hours as needed. Repeat chest x-ray obtained today revealed significant progression with extensive right middle lobe and possible right lower lobe consolidation highly suggestive of pneumonia He states that [facility]. States that he was on hydroxyurea 2000 mg p.o. daily which he was compliant with as well as daily folic acid. Continues to endorse worsening shortness of breath, chest pain, difficulty breathing and cough productive of orange sputum Allergies Allergy/AdvReac Type Severity Reaction Status Date / Time No Known Allergies Allergy Unverified 04/20/22 04:35 Home Medications Medication Instructions Recorded Confirmed Type morphine 15 mg immediate release 15 mg PO Q4H PRN pain #20 tabs 04/28/22 Rx tablet morphine 15 mg tablet,extended 15 mg PO Q12H #10 tabs 04/28/22 Rx release Patient History Medical History (Updated 07/21/22 @ 14:07 by Marybel Smith MD) Asplenia Asthma History of sickle cell disease Surgical History (Updated 07/20/22 @ 21:00 by Marti Mcgrath DO) History of appendectomy History of cholecystectomy History of splenectomy History of tonsillectomy Family History (Updated 07/20/22 @ 21:00 by Marti Mcgrath DO) Other Hypertension Social History Smoking Status: Current every day smoker Tobacco Type: E-cigarettes / Vaping Hx Alcohol Use: Yes Alcohol type: beer Hx Substance Use: Yes Last Used Substance: Days (ago) Last Used Substance Other:: 07/11/22 Substance Use Type Other:: vapes nicotine Preferred Language: Nepali Communication Ability: Effective Family Service Worker Required: No Beliefs That Will Affect Care: None marital status: Single Current Living Situation: Other Current Living Situation Comment: Apartment with one roomate Feels Safe at Home: Yes Assistive Devices: None Review of Systems Review of Systems: All systems reviewed & are unremarkable except as noted in HPI & below Physical Exam Constitutional: WD/WN, vitals as above Eyes: Icteric Respiratory: + uses accessory muscles, + cough and + tachypneic Cardiovascular: Rate/Rhythm: + tachycardic Gastrointestinal (Abdomen): normal bowel sounds, soft, nontender, no hepatosplenomegaly Results & Data ([facility]) Vital Signs (Past 12 Hours) Vital Signs Temp Pulse Resp BP Pulse Ox O2 Del Method O2 Flow Rate 07/21/22 10:59 37.5 C 97 H 20 97/59 L 97 Room Air 07/21/22 08:03 38.9 C H 113 H 18 114/75 95 Room Air 07/21/22 03:40 37.8 C H 95 H 16 112/68 97 Nasal Cannula 2 07/21/22 01:00 38.0 C H 98 H 20 120/74 99 Nasal Cannula 2
--- NOTE | 2022-07-21 12:34 | Electrocardiogram Report ---
Test Reason : Blood Pressure : / mmHG Vent. Rate : 120 BPM Atrial Rate : 120 BPM P-R Int : 182 ms QRS Dur : 088 ms QT Int : 306 ms P-R-T Axes : 009 177 047 degrees QTc Int : 432 ms Suspect arm lead reversal, interpretation assumes no reversal Sinus tachycardia Left atrial enlargement Right axis deviation Abnormal ECG No previous ECGs available Confirmed by Nawaf Iglesias ([id number]) on 07/21/2022 12:34:07 PM Referred By: REFERRED SELF Confirmed By:Nawaf Iglesias
[2022-07-21] MEDS ORDERED: AZITHROMYCIN 500 MG in DEXTROSE 5% 250 ML IV SCH (14:00)
[2022-07-21] MEDS ORDERED: AMPICILLIN 1,000 MG in SODIUM CHLOR 0.9% AD-VAN 50 ML IV SCH (14:30)
--- NOTE | 2022-07-21 15:29 | Hospitalist Progress Note ---
Date of Service July 21, 2022 Assessment & Plan (1) 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: Plan: Patient with a history of SS, non compliant with hydroxyuria and folate, admitted on account of pleuritic chest pain WBC was elevated, 24K Chest x ray showed evidence of Lobar PNA He was started on IV fluids and empiric antibiotics However, repeat chest x ray showed worsening consolidation Hematology consulted and recommend transfer to a higher center on account of acute chest syndrom and possible need for exchange transfusion He has been accepted at [facility], where he has his regular assistant scientist Antibiotics changed to Ampiccilin and Azithromycin at the recommendation of [facility] assistant scientist (2) Pneumonia: Plan: see 1 jake (3) History of sickle cell disease: Plan: Patient with history of sickle cell disease. Presently he does not feel that he is in acute sickle cell pain crisis. Hemoglobin = 8.9, hematocrit = 24.6. Near baseline values. He does have elevated reticulocytes = 9.7% as well as elevated total bilirubin = 4.3 which suggests at least some degree of sickling Repeat CBC and LFTs in the morning As needed pain medication available. Dilaudid 0.5 to 1 mg as needed, adjust as needed Colace and MiraLAX as needed for bowel management Hematology consultation appreciated (4) Asplenia: Plan: Patient status post splenectomy. He reports he is up-to-date on all his age- appropriate vaccinations. Presumed pneumonia as above with sepsis (fever, tachycardia, elevated heart rate) Ceftriaxone and doxycycline for treatment of presumed community-acquired pneumonia Low threshold to broaden antibiotics should patient worsen or fail to improve F/E/Nhalf-normal saline at 80 mL/h x 2 L, monitor electrolytes and replete as needed, regular diet as tolerated Prophylaxislow risk for DVT. Encourage ambulation as tolerated Codefull Dispositionadmit to medical telemetry Plan Has been accepted at [facility] Admission and Anticipated Discharge Date Admission Date: July 20, 2022 Subjective patient seen and examined, worsening chest pain Review of Systems Review of Systems: All systems reviewed are negative, apart from the ones contained in the history. Physical Exam Physical Exam: The patient is awake, alert and oriented 3, well developed and well nourished, normocephalic and atraumatic, lying in bed and in no acute distress. HEENT--PERRL, EOMI, mucous membranes and oropharynx mildly dry Neck--supple. No JVD. No bruits. Thyroid normal, trachea midline, no adenopathy. Heart--normal S1 and S2. No murmurs, rubs or gallops. Lungs--Reduced air entry Abdomen--normal bowel sounds and soft. Mild epigastric and left sided abdominal pain Extremities--no cyanosis or clubbing. No edema. Dermatologic--normal skin turgor, normal color, no abnormal lymph nodes, no rash. Neurologic--cranial nerves II through XII grossly intact. Rheumatologic--normal range of motion. Psychiatric--normal affect. Results & Data Results & Data ([facility]) Vital Signs (Past 12 Hours) Vital Signs Temp Pulse Resp BP Pulse Ox O2 Del Method O2 Flow Rate 07/21/22 15:17 98.4 F 105 H 18 118/71 95 Nasal Cannula 2 07/21/22 13:06 99.5 F 07/21/22 10:59 99.5 F 97 H 20 97/59 L 97 Room Air 07/21/22 08:03 102.0 F H 113 H 18 114/75 95 Room Air 07/21/22 03:40 100.0 F H 95 H 16 112/68 97 Nasal Cannula 2 PG Care Time/CCT Total # of Minutes Spent Total Time Spent with Patient: Total time spent is greater than 50% in coordination of care (as documented) at patient's floor/unit and/or counseling patient: Coding Level of Care Code 60993 SUB INP/OBS CARE 235MIN Diagnoses 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
[2022-07-21] MEDS ORDERED: HYDROmorphone INJ 1 MG/ML SYRINGE IV STA (18:44)
[2022-07-21] MEDS ORDERED: cefTRIAXone SODIUM 1,000 MG in DEXTROSE 5% AD-VAN 50 ML IV SCH (19:00)
--- NOTE | 2022-07-22 07:51 | Discharge Summary ---
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 Patient reports early Thursday morning 07/19/2022 patient began developing right anterior pleuritic chest pain. He has had a cough productive for dark green/yellow mucus. He reports feeling short of breath and needing to take fast, shallow breaths due to the pain. He has had an elevated heart rate at home. Fever yesterday to 100.4. Patient continued to feel poorly today. With worsening chest discomfort which prompted him to come to the ER. Patient denies viral prodrome, sick contacts or recent travel. He does not feel as though he is in sickle cell pain crisis at this time. During his typical crises and he will have pain in the legs and arms as well as in his back. He does report some slight arm pain at this time but again, does not feel that he is in an acute pain crisis. Patient is s/p splenectomy. Reports that he is up-to-date on all appropriate immunizations. He is seen at [facility] for his sickle cell disease. He has prescriptions for hydroxyurea and folic acid at home but does not typically take these medications. He does have a history of acute chest syndrome, more frequently during childhood. He believes his last episode of ACS was several years ago. He has had transfusion therapy as well as chelation therapy in the past. In the ER patient is febrile with Tmax = 38.1, sinus tachycardia with heart rate of 124 bpm, blood pressure stable. He is tachypneic with respiratory rate of 24. Adequate oxygenation on room air. He was placed on 2 L of oxygen by nasal cannula after administration of IV Dilaudid. No hypoxia. ER course: Doxycycline 100 mg IV Ceftriaxone 2 g IV Normal saline x2 L Tylenol x1 g Dilaudid 1 mg IV +1 mg IV +1 mg IV l Principal Diagnosis acute chest syndrome Discharge Exam The patient is awake, alert and oriented 3, well developed and well nourished, normocephalic and atraumatic, lying in bed and in no acute distress. HEENT--PERRL, EOMI, mucous membranes and oropharynx mildly dry Neck--supple. No JVD. No bruits. Thyroid normal, trachea midline, no adenopathy. Heart--normal S1 and S2. No murmurs, rubs or gallops. Lungs--Reduced air entry Abdomen--normal bowel sounds and soft. Mild epigastric and left sided abdominal pain Extremities--no cyanosis or clubbing. No edema. Dermatologic--normal skin turgor, normal color, no abnormal lymph nodes, no rash. Neurologic--cranial nerves II through XII grossly intact. Rheumatologic--normal range of motion. Psychiatric--normal affect. 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: Patient with a history of SS, non compliant with hydroxyuria and folate, admitted on account of pleuritic chest pain WBC was elevated, 24K Chest x ray showed evidence of Lobar PNA He was started on IV fluids and empiric antibiotics However, repeat chest x ray showed worsening consolidation Hematology consulted and recommend transfer to a higher center on account of acute chest syndrom and possible need for exchange transfusion He has been accepted at [facility], where he has his regular sports physiologist Antibiotics changed to Ampiccilin and Azithromycin at the recommendation of [facility] sports physiologist (2) Pneumonia: see 1 jake (3) History of sickle cell disease: Patient with history of sickle cell disease. Presently he does not feel that he is in acute sickle cell pain crisis. Hemoglobin = 8.9, hematocrit = 24.6. Near baseline values. He does have elevated reticulocytes = 9.7% as well as elevated total bilirubin = 4.3 which suggests at least some degree of sickling Repeat CBC and LFTs in the morning As needed pain medication available. Dilaudid 0.5 to 1 mg as needed, adjust as needed Colace and MiraLAX as needed for bowel management Hematology consultation appreciated (4) Asplenia: Patient status post splenectomy. He reports he is up-to-date on all his age- appropriate vaccinations. Presumed pneumonia as above with sepsis (fever, tachycardia, elevated heart rate) Ceftriaxone and doxycycline for treatment of presumed community-acquired pneumonia Low threshold to broaden antibiotics should patient worsen or fail to improve F/E/Nhalf-normal saline at 80 mL/h x 2 L, monitor electrolytes and replete as needed, regular diet as tolerated Prophylaxislow risk for DVT. Encourage ambulation as tolerated Codefull Dispositionadmit to medical telemetry Plan Has been accepted at [facility] Total Time Total Time Spent Total Time Spent (In Minutes): 35 Discharge Plan Discharge Items Patient Disposition: Transfer Acute Care Hospital Reason For Visit: PNEUMONIA Discharge Diagnosis: acute chest syndrome Activity: Resume your previous activity Non-emergency contact: Primary Care Provider and Oncologist Call non-emergency contact if: you have any medication questions Follow-up/Referrals: [facility] [Primary Care Provider] - Diet: Regular Addtl Attending Provider Instructions: 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 (1) 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: Plan: Patient with a history of SS, non compliant with hydroxyuria and folate, admitted on account of pleuritic chest pain WBC was elevated, 24K Chest x ray showed evidence of Lobar PNA He was started on IV fluids and empiric antibiotics However, repeat chest x ray showed worsening consolidation Hematology consulted and recommend transfer to a higher center on account of acute chest syndrom and possible need for exchange transfusion He has been accepted at [facility], where he has his regular sports physiologist Antibiotics changed to Ampiccilin and Azithromycin at the recommendation of [facility] sports physiologist (2) Pneumonia: Plan: see 1 jake (3) History of sickle cell disease: Plan: Patient with history of sickle cell disease. Presently he does not feel that he is in acute sickle cell pain crisis. Hemoglobin = 8.9, hematocrit = 24.6. Near baseline values. He does have elevated reticulocytes = 9.7% as well as elevated total bilirubin = 4.3 which suggests at least some degree of sickling Repeat CBC and LFTs in the morning As needed pain medication available. Dilaudid 0.5 to 1 mg as needed, adjust as needed Colace and MiraLAX as needed for bowel management Hematology consultation appreciated (4) Asplenia: Plan: Patient status post splenectomy. He reports he is up-to-date on all his age- appropriate vaccinations. Presumed pneumonia as above with sepsis (fever, tachycardia, elevated heart rate) Ceftriaxone and doxycycline for treatment of presumed community-acquired pneumonia Low threshold to broaden antibiotics should patient worsen or fail to improve F/E/Nhalf-normal saline at 80 mL/h x 2 L, monitor electrolytes and replete as needed, regular diet as tolerated Prophylaxislow risk for DVT. Encourage ambulation as tolerated Codefull Dispositionadmit to medical telemetry Plan Has been accepted at [facility] Pending Studies at Discharge: No Stand-Alone Forms: My [facility] Skilled Items Patient informed of condition?: Yes DNR: No Discharge Level of Care: Other Communicable Disease: No Discharge Prognosis: Stable Lines: None Urinary Catheter: No Medications and DC Order Prescriptions: Continued morphine 15 mg tablet 15 mg PO Q4H PRN (Reason: pain) Qty: 20 0RF morphine 15 mg tablet extended release 15 mg PO Q12H Qty: 10 0RF Discharge Orders: Discharge Order (Routine); Ordered 07/21/22 Ordered By: Gary Ellington Admission Data Admit Date/Time: 07/20/22 20:42 Attending Provider: Ellie Foote Admit Provider: Marti Mcgrath Primary Care Provider: [place] Other Providers: Marti Mcgrath ; Marybel Smith Other Interventions: Discharge Summary Assessment (RN) Last Done: 07/21/22 19:37 Coding Level of Care Code HOSP INP/OBS DISCH >30 MIN Diagnoses 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
== END 2022-07-21 20:37 | disposition short-term general hospital (02) | DRG 193 ==
LOC: ED 18:37 → SUATTDRO 20:42 → INTOOBSV 20:42 → 2W 20:42

== ENCOUNTER 2023-06-08 10:03 | Inpatient (IN) ==
[2023-06-08] MEDS ORDERED: ONDANSETRON INJ 2 MG/ML 2 ML VIAL IV STA (10:41)
[2023-06-08] MEDS ORDERED: HYDROmorphone INJ 1 MG/ML SYRINGE IV STA ×2 (10:41→11:39)
[2023-06-08] MEDS ORDERED: SODIUM CHLORIDE 0.9% 500 ML IV ONE (10:41)
--- NOTE | 2023-06-08 11:07 | Emergency Department Note ---
Impression & Plan Generalized pain, Sickle cell crisis, Leukocytosis ED Provider Note NAME: SEAN RUVALCABA AGE: 22 SEX: M : 2000 ARRIVES VIA: Walk-In INFORMANT: [Patient] ED PROVIDER(S): [Po Graham MD] CHIEF COMPLAINT: Pain HISTORY OF PRESENT ILLNESS: The patient is a 22-year-old male with a history of sickle cell disease. He presents to the ER with complaints of back, neck and jaw pain that has been ongoing since earlier this morning despite using oxycodone. He states this is a typical flare of his sickle cell disease. He believes he is having a sickle cell crisis. There has been no cough or congestion. No fever. He has not fallen or suffered trauma. PMHx/PSHx/Social Hx: See Below PHYSICAL EXAM: GENERAL: Patient is in significant distress from pain, having a hard time talking because of pain. HEENT: No acute trauma, normocephalic atraumatic, mucous membranes moist, no nasal congestion. NECK: No stridor, no adenopathy, no meningismus, trachea is midline. LUNGS: Clear to auscultation bilaterally, no wheeze, no rhonchi, breath sounds equal. HEART: Subtle systolic murmur, regular rate and rhythm. ABDOMEN: Soft, nontender, no peritonitis. EXTREMITIES: No cyanosis, full range of motion of all the joints without pain or difficulty. NEUROLOGIC: Oriented x 3, no acute motor or sensory deficits, no focal weakness. SKIN: No jaundice, no diaphoresis. DIFFERENTIAL DIAGNOSIS: Sickle cell crisis, dehydration, acute chest syndrome, infection, pneumonia, among others. EMERGENCY DEPARTMENT PROCEDURES: MEDICAL DECISION MAKING: There is a moderate leukocytosis, this could be consistent with infection or just his pain and presentation. The patient is anemic but this is baseline looking back at previous testing. There is a normal platelet count. Reticulocyte count is elevated and at baseline looking back at previous testing. No renal failure or significant electrolyte abnormality. No concerning liver enzyme elevation. Chest film does not show mediastinal widening, pneumonia or pneumothorax. On exam, the patient was clearly uncomfortable. He described pain primarily in his back, neck and teeth. He has a history of similar presentations from sickle cell flares. The patient received IV Dilaudid as needed for pain control. He was given 500 cc of IV saline. He received IV Tylenol and IV Zofran. The patient requested Toradol, he was given 15 mg IV. He received additional IV fluid, 1 L. The patient is requiring more medication for pain than can be provided as an outpatient. I do think a hospital stay is warranted. He appears to be having a severe sickle cell crisis/flare. The patient has been hospitalized before for similar complaints. He does feel somewhat improved though since treatment here in the ED. I did speak with case management, the on-call hospitalist was consulted. Prior/Outside records/notes reviewed: ED visit note from 05/04/2023 discussing his presentation for a sickle cell crisis and discussing the treatment provided Imaging/x-ray results per my interpretation: Chest x-ray does not show mediastinal widening, pneumonia or pneumothorax. Chronic Medical/Social conditions affecting care: Sickle cell disease. Care/Management discussed with: Case management, the on-call hospitalist. Level of care consideration(s): After review of the information above and other included data: --I believe the patient requires escalation of care to admission DISPOSITION: Admission Past Med/Surg History Medical History History of sickle cell disease Asplenia Asthma Surgical History History of tonsillectomy History of appendectomy History of splenectomy History of cholecystectomy Family History Other Hypertension Social History Smoking Status: Never smoker Tobacco Type: E-cigarettes / Vaping Hx Alcohol Use: Yes Alcohol type: beer Hx Substance Use: Yes Last Used Substance: Days (ago) Last Used Substance Other:: 07/11/22 Substance Use Type Other:: vapes nicotine Preferred Language: Frisian Communication Ability: Effective 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: No Beliefs That Will Affect Care: None marital status: Single Current Living Situation: Other Current Living Situation Comment: Apartment with one roomate Feels Safe at Home: Yes Assistive Devices: None Allergies Allergies Allergy/AdvReac Type Severity Reaction Status Date / Time No Known Allergies Allergy Unverified 06/08/23 13:01 Home Meds Home Medications Medication Instructions Recorded Confirmed folic acid 1 mg tablet 1 mg PO QAM 02/08/23 06/08/23 ibuprofen 600 mg tablet 600 mg PO Q6 PRN Pain 02/08/23 06/08/23 hydroxyurea 500 mg capsule 2,000 mg PO QAM 03/16/23 06/08/23 oxycodone 5 mg tablet 5 mg PO Q4H PRN Pain 06/08/23 06/08/23 Results & Data (ED) Vital Signs Vital Signs - 24 hr 06/08/23 10:20 06/08/23 12:04 Temperature 36.7 C Temperature Source Temporal Artery Scan Pulse Rate 91 H Pulse Rate [Right Finger] 65 Pulse Rhythm [Right Finger] Regular Pulse Strength [Right Finger] Normal Respiratory Rate 20 17 Respiratory Effort / Characteristics Non-Labored Spontaneous Non-Labored Spontaneous Respiratory Depth Normal Normal Respiratory Pattern Regular Blood Pressure 114/78 Blood Pressure [Right Arm] 117/67 Blood Pressure Mean 90 Blood Pressure Mean [Right Arm] 83 Blood Pressure Position Sitting Blood Pressure Position [Right Arm] Lying Pulse Oximetry 98 95 Oxygen Delivery Method Room Air Room Air Sepsis Recent Fever Within 48 Hours No Sepsis New/Unexplained Change in Mental Status No Sepsis Action Taken by Nursing No Action Required Home Medications Current Medication List: was personally reviewed by me Laboratory Data Attestation: I reviewed the patient's lab results. 06/08/23 11:30 06/08/23 11:30 Lab Results 06/08/23 Range/Units 11:30 WBC 16.99 H (4.8-10.8) K/ul RBC 2.81 L (4.70-6.10) M/uL Hgb 9.6 L (14.0-18.0) g/dl Hct 26.1 L (42.0-52.0) % MCV 92.9 (80.0-100.0) fL MCH 34.2 H (25.0-34.0) pg MCHC 36.8 H (32.0-36.0) g/dL RDW Std Deviation 65.4 H (36.4-46.3) fL RDW Coeff of Terrell 20.6 H (11.5-14.5) % Plt Count 365 (130-400) K/uL MPV 10.1 (9.4-12.4) fL Immature Gran % (Auto) 3.8 % Neut % (Auto) 79.2 % Lymph % (Auto) 9.4 % [place] % (Auto) 6.7 % Eos % (Auto) 0.4 % Baso % (Auto) 0.5 % Reticulocyte % (Auto) 13.50 H (0.50-2.00) % Neut # (Auto) 13.46 H (1.40-6.50) K/uL Lymph # (Auto) 1.59 (1.20-3.40) K/uL [place] # (Auto) 1.14 H (0.11-0.59) K/uL Eos # (Auto) 0.06 (0.00-0.50) K/uL Baso # (Auto) 0.09 (0.00-0.20) K/uL Reticulocyte # 0.380 H (0.020-0.100) 10^6/uL Immature Gran # (Auto) 0.65 H (0.01-0.20) K/uL Absolute Nucleated RBC 0.57 H (0.00-0.12) K/uL Nucleated RBC % (auto) 3.4 % Polychromasia 2+ Basophilic Stippling 1+ Anisocytosis Present Pappenheimer Bodies 1+ Target Cells 2+ Sodium 140 (136-145) mmol/L Potassium 3.8 (3.5-5.1) mmol/L Chloride 108 H (98-107) mmol/L Carbon Dioxide 24 (21-32) mmol/L Anion Gap 8 (3-11) BUN 9 (6-23) mg/dl Creatinine 0.57 L (0.6-1.4) mg/dl Est Cr Clr Drug Dosing Not Reportable Est GFR ( Amer) > 150.0 ml/min Est GFR (Non-Af Amer) 147.8 ml/min BUN/Creatinine Ratio 15.8 (10-20) Glucose 106 H (70-99(Fasting)) mg/dl Calcium 8.7 (8.6-10.3) mg/dl Magnesium 1.9 (1.7-2.4) mg/dl Total Bilirubin 4.3 H (0.2-1.0) mg/dl AST 15 (13-39) U/L ALT 8 (7-52) U/L Alkaline Phosphatase 87 (34-104) U/L Total Protein 7.6 (6.0-8.3) gm/dl Albumin 4.7 (3.4-5.0) gm/dl Globulin 2.9 (2.5-4.0) gm/dl Albumin/Globulin Ratio 1.6 (0.9-2) Administered Medications Acetaminophen (Acetaminophen 500 Mg Tab) 1,000 mg PO TID KHURRAM Stop: 07/08/23 13:59 Last Admin: 06/08/23 14:13 Dose: Not Given Documented By: ROBERT Sodium Chloride (Nss) 1,000 mls @ 15 mls/hr IV .Q24H KHURRAM Stop: 06/22/23 13:30 Last Admin: 06/08/23 15:01 Dose: 15 mls/hr Documented By: AICHA Ketorolac Tromethamine (Ketorolac 30 Mg/Ml Vial) 30 mg IV Q6H KHURRAM Stop: 06/10/23 13:30 Last Admin: 06/08/23 14:19 Dose: 30 mg Documented By: ROBERT Morphine Sulfate (Morphine Sulfate Hand Packager 30 Mg/30 Ml) 30 mg IV PRN PRN; Protocol PRN Reason: LEGUILLON DEBEADER Pain Titration Stop: 06/22/23 13:29 Last Admin: 06/08/23 15:00 Dose: 30 mg Documented By: AICHA Co-signed By: DAVINA Discontinued Medications Hydromorphone HCl (Hydromorphone Inj 1 Mg/Ml Syringe) 1 mg IV NOW STA Stop: 06/08/23 10:42 Last Admin: 06/08/23 10:48 Dose: 1 mg Documented By: BERT Hydromorphone HCl (Hydromorphone Inj 1 Mg/Ml Syringe) 1 mg IV NOW STA Stop: 06/08/23 11:40 Last Admin: 06/08/23 11:47 Dose: 1 mg Documented By: BERT Sodium Chloride (Nss) 500 mls @ 999 mls/hr IV .Q31M ONE Stop: 06/08/23 11:11 Last Infusion: 06/08/23 11:52 Dose: Infused Documented By: Admin: 06/08/23 10:50 Dose: 999 mls/hr Documented By: BERT Acetaminophen (Ofirmev) 1,000 mg in 100 mls @ 400 mls/hr IV NOW STA Stop: 06/08/23 11:53 Last Infusion: 06/08/23 13:01 Dose: Infused Documented By: Admin: 06/08/23 11:47 Dose: 400 mls/hr Documented By: BERT Sodium Chloride (Nss) 1,000 mls @ 999 mls/hr IV .Q1H1M ONE Stop: 06/08/23 13:49 Last Infusion: 06/08/23 14:12 Dose: Infused Documented By: Admin: 06/08/23 12:55 Dose: 999 mls/hr Documented By: BERT Lactated Ringer's (Lr) 1,000 mls @ 999 mls/hr IV .Q1H1M ONE Stop: 06/08/23 14:24 Last Admin: 06/08/23 14:19 Dose: 999 mls/hr Documented By: ROBERT Ketorolac Tromethamine (Ketorolac Tromethamine 15 Mg/Ml Vial) 15 mg IV NOW STA Stop: 06/08/23 12:50 Last Admin: 06/08/23 12:59 Dose: 15 mg Documented By: BERT Morphine Sulfate (Morphine Sulfate 10 Mg/Ml Carp/Vial) 6 mg IV NOW STA Stop: 06/08/23 13:30 Last Admin: 06/08/23 13:42 Dose: 6 mg Documented By: BERT Ondansetron HCl (Ondansetron Inj 2 Mg/Ml 2 Ml Vial) 4 mg IV NOW STA Stop: 06/08/23 10:42 Last Admin: 06/08/23 10:48 Dose: 4 mg Documented By: BERT Polyethylene Glycol (Polyethylene (Miralax) 17 Gm Pack) 17 gm PO DAILY KHURRAM Stop: 07/08/23 13:44 Last Admin: 06/08/23 14:45 Dose: Not Given Documented By: ROBERT Imaging Data Radiologist's Impression: Chest X-Ray 06/08/23 10:42 XR chest 1V portable HISTORY: Chest pain. History of sickle cell disease. COMPARISON: Chest 04/20/2022 and 07/21/2022. FINDINGS: Stable linear scar like density within the left upper lobe. Otherwise, lungs are clear. Surgical clips within the right upper quadrant. The heart is mildly enlarged. No pleural effusions. No pneumothorax. H shaped vertebral bodies again noted consistent with patient's history of sickle cell disease. IMPRESSION: 1. Stable linear scarlike density within the left upper lobe. No new focal lung consolidations. 2. Stable mild cardiomegaly. ACT 112: Negative or not required by law. Electronically signed by: Andrew Mendoza M.D. 06/08/2023 11:12 AM Discharge Plan Visit Data Chief Complaint: Pain (Generalized) Stated Complaint: SICKEL CELL ED Provider: Po Graham Discharge Problem: Generalized pain, Sickle cell crisis, Leukocytosis Patient Disposition: Admitted As Inpatient Condition: Fair Discharge Instructions Interventions: ED Discharge Assessment Last Done: 06/08/23 13:32 Discharge Problem: Leukocytosis Qualifiers: Leukocytosis type: unspecified Qualified Code(s): D72.829 - Elevated white blood cell count, unspecified
--- NOTE | 2023-06-08 11:13 | XRay Report ---
XR chest 1V portable HISTORY: Chest pain. History of sickle cell disease. COMPARISON: Chest 04/20/2022 and 07/21/2022. FINDINGS: Stable linear scar like density within the left upper lobe. Otherwise, lungs are clear. Levi gical clips within the right upper quadrant. The heart is mildly enlarged. No pleural effusions. No p neumothorax. H shaped vertebral bodies again noted consistent with patient's history of sickle cell d isease. IMPRESSION: 1. Stable linear scarlike density within the left upper lobe. No new focal lung consolidations. 2. Stable mild cardiomegaly. ACT 112: Negative or not required by law. Electronically signed by: Andrew Mendoza M.D. 06/08/2023 11:12 AM
[2023-06-08] MEDS ORDERED: ACETAMINOPHEN 1,000 MG/100 ML VIAL IV STA (11:39)
[2023-06-08] MEDS ORDERED: HYDROmorphone INJ 0.5 MG/0.5 ML SYR IV PRN (11:39)
[2023-06-08 11:59] LABS: Basophils # (auto) 0.09 K/uL (0.00-0.20); Basophils % (auto) 0.5 %; Eosinophils # (auto) 0.06 K/uL (0.00-0.50); Eosinophils % (auto) 0.4 %; Hematocrit (blood only) 26.1 % (42.0-52.0); Hemoglobin 9.6 g/dl (14.0-18.0); Immature Granulocytes # (auto) 0.65 K/uL (0.01-0.20); Immature Granulocytes % (auto) 3.8 %; Lymphocytes # (auto) 1.59 K/uL (1.20-3.40); Lymphocytes % (auto) 9.4 %; Mean Corpuscular Hemoglobin 34.2 pg (25.0-34.0); Mean Corpuscular Hgb Conc 36.8 g/dL (32.0-36.0); Mean Corpuscular Volume 92.9 fL (80.0-100.0); Mean Platelet Volume 10.1 fL (9.4-12.4); Monocytes # (auto) 1.14 K/uL (0.11-0.59); Monocytes % (auto) 6.7 %; Neutrophils # (auto) 13.46 K/uL (1.40-6.50); Neutrophils % (auto) 79.2 %; Nucleated RBC # (auto) 0.57 K/uL (0.00-0.12); Nucleated RBC % (auto) 3.4 %; Platelet Count 365 K/uL (130-400); RDW Coefficient of Variation 20.6 % (11.5-14.5); RDW Standard Deviation 65.4 fL (36.4-46.3); Red Blood Count 2.81 M/uL (4.70-6.10); White Blood Count 16.99 K/ul (4.8-10.8)
[2023-06-08 12:11] LABS: Alanine Aminotransferase 8 U/L (7-52); Albumin Globulin Ratio 1.6 (0.9-2); Albumin Level 4.7 gm/dl (3.4-5.0); Alkaline Phosphatase 87 U/L (34-104); Anion Gap 8 (3-11); Aspartate Aminotransferase 15 U/L (13-39); BUN Creatinine Ratio 15.8 (10-20); Bilirubin,Total 4.3 mg/dl (0.2-1.0); Blood Urea Nitrogen 9 mg/dl (6-23); Calcium 8.7 mg/dl (8.6-10.3); Carbon Dioxide 24 mmol/L (21-32); Chloride 108 mmol/L (98-107); Est GFR (African American) > 150.0 ml/min; Est GFR (Non-African American) 147.8 ml/min; Globulin 2.9 gm/dl (2.5-4.0); Glucose 106 mg/dl (70-99(Fasting)); Magnesium 1.9 mg/dl (1.7-2.4); Potassium 3.8 mmol/L (3.5-5.1); Sodium 140 mmol/L (136-145); Total Protein 7.6 gm/dl (6.0-8.3)
[2023-06-08 12:43] LABS: Anisocytosis Present; Basophilic Stippling 1+; Pappenheimer Bodies 1+; Polychromasia 2+; Target Cells 2+
[2023-06-08] MEDS ORDERED: KETOROLAC TROMETHAMINE 15 MG/ML VIAL IV STA (12:49)
[2023-06-08] MEDS ORDERED: SODIUM CHLORIDE 0.9% 1,000 ML IV ONE (12:49)
--- NOTE | 2023-06-08 13:00 | History & Physical Report ---
Date of Service June 08, 2023 Assessment & Plan (1) Sickle cell crisis: Plan: Pain in back, neck, teeth. Feels similar to her previous sickle cell crisis. Acetaminophen 1 g p.o. TID, Toradol 30 mg IV q.6 hourly for 2 days, PASTRY FINISHER pump morphine 2 mg IV with 20-minute lockout, will add continuous dose depending on how much of this he uses. Incentive spirometer Heating pad as needed Will use docusate plus Senna while on higher dose opiates Aim O2 sats greater than 94% (2) Leukocytosis: Plan: No current symptoms/signs of infection. Empiric treatment recommended with blood cultures if febrile. (3) Asplenia: Plan VTE Prophylaxis - deferred pending stability in hemoglobin Diet - regular Disposition - admit to med/tele Admission and Anticipated Discharge Date Admission Date: June 08, 2023 History of Present Illness Chief Complaint: Generalized pain Primary Care Provider: NO PCP Mat Keith is a 22-year-old male with who presents to the ER with severe back, neck pain starting this morning. Multiple previous similar episodes due to sickle cell crisis. No recent tooth surgery on infection suspected. No fever or chills. No respiratory, gastrointestinal or urinary symptoms concerning for infection. Current pain severity 8/10 despite x2 Dialudid 1mg IV. No chest pain. Allergies Allergy/AdvReac Type Severity Reaction Status Date / Time No Known Allergies Allergy Unverified 06/08/23 13:01 Home Medications Medication Instructions Recorded Confirmed Type folic acid 1 mg tablet 1 mg PO QAM 02/08/23 06/08/23 History ibuprofen 600 mg tablet 600 mg PO Q6 PRN Pain 02/08/23 06/08/23 History hydroxyurea 500 mg capsule 2,000 mg PO QAM 03/16/23 06/08/23 History oxycodone 5 mg tablet 5 mg PO Q4H PRN Pain 06/08/23 06/08/23 History Past Med/Surg History Medical History History of sickle cell disease Asplenia Asthma Surgical History History of tonsillectomy History of appendectomy History of splenectomy History of cholecystectomy Family History Other Hypertension Social History Smoking Status: Current every day smoker Tobacco Type: E-cigarettes / Vaping Hx Alcohol Use: Yes Alcohol type: beer Hx Substance Use: Yes Last Used Substance: Days (ago) Last Used Substance Other:: 07/11/22 Substance Use Type Other:: vapes nicotine Preferred Language: Mongolian Communication Ability: Effective Postage Machine Operator Required: No Beliefs That Will Affect Care: None marital status: Single Current Living Situation: Alone Current Living Situation Comment: Apartment with one roomate Feels Safe at Home: Yes Safety Concerns: Feels Safe At This Time Assistive Devices: None Review of Systems Review of Systems: All systems reviewed & are unremarkable except as noted in HPI & below Physical Exam Constitutional: + acute distress (severe 8/10 pain) Eyes: PERRL, conjunctivae normal, anicteric sclerae ENMT: Mouth: + dry oral mucous membranes Respiratory: normal respiratory effort, lungs clear to auscultation Cardiovascular: RRR, no murmur, no edema Gastrointestinal (Abdomen): normal bowel sounds, soft, nontender, no hepatosplenomegaly Musculoskeletal: no cyanosis or clubbing, extremities motor strength 5/5 Skin: no rashes, warm and dry (no areas of cellulitis seen) Neurologic: moves all extremities and awake; not confused Psychiatric: A+Ox3, euthymic affect Results & Data Results & Data Vital Signs (Past 12 Hours) Vital Signs Temp Pulse Pulse Resp BP BP Pulse Ox 06/08/23 12:04 65 17 117/67 95 06/08/23 10:20 36.7 C 91 H 20 114/78 98 O2 Del Method 06/08/23 12:04 Room Air 06/08/23 10:20 Room Air Laboratory Results Abnormal lab results 06/08/23 Range/Units 11:30 WBC 16.99 H (4.8-10.8) K/ul RBC 2.81 L (4.70-6.10) M/uL Hgb 9.6 L (14.0-18.0) g/dl Hct 26.1 L (42.0-52.0) % MCH 34.2 H (25.0-34.0) pg MCHC 36.8 H (32.0-36.0) g/dL RDW Std Deviation 65.4 H (36.4-46.3) fL RDW Coeff of [place]rell 20.6 H (11.5-14.5) % Reticulocyte % (Auto) 13.50 H (0.50-2.00) % Neut # (Auto) 13.46 H (1.40-6.50) K/uL [place] # (Auto) 1.14 H (0.11-0.59) K/uL Reticulocyte # 0.380 H (0.020-0.100) 10^6/uL Immature Gran # (Auto) 0.65 H (0.01-0.20) K/uL Absolute Nucleated RBC 0.57 H (0.00-0.12) K/uL Chloride 108 H (98-107) mmol/L Creatinine 0.57 L (0.6-1.4) mg/dl Glucose 106 H (70-99(Fasting)) mg/dl Total Bilirubin 4.3 H (0.2-1.0) mg/dl Diagnostic Findings XR chest 1V portable HISTORY: Chest pain. History of sickle cell disease. COMPARISON: Chest 04/20/2022 and 07/21/2022. FINDINGS: Stable linear scar like density within the left upper lobe. Otherwise, lungs are clear. Surgical clips within the right upper quadrant. The heart is mildly enlarged. No pleural effusions. No pneumothorax. H shaped vertebral bodies again noted consistent with patient's history of sickle cell disease. IMPRESSION: 1. Stable linear scarlike density within the left upper lobe. No new focal lung consolidations. 2. Stable mild cardiomegaly. Medications Administered ER medications given: Normal saline 500 mL bolus Dilaudid 1 mg IV Ondansetron 4 mg IV Dilaudid 1 mg IV Acetaminophen 1 g IV Toradol 15 mg IV Code Status & VTE Plan Code Status Full VTE Prophylaxis Plan VTE Prophylaxis will be ordered: No PG Care Time/CCT Total # of Minutes Spent Total Time Spent with Patient: Total time spent is greater than 50% in coordination of care (as documented) at patient's floor/unit and/or counseling patient: Coding Level of Care Code 85264 INT INP/OBS CARE 3/75MIN Diagnoses Sickle cell crisis D57.00 Leukocytosis D72.829 Leukocytosis type: unspecified Asplenia Q89.01 (2) Leukocytosis Leukocytosis type: unspecified Qualified Code(s): D72.829 - Elevated white blood cell count, unspecified
[2023-06-08] MEDS ORDERED: LACTATED RINGER'S 1,000 ML IV ONE (13:24)
[2023-06-08] MEDS ORDERED: MoRPHine SULFATE 10 MG/ML CARP/VIAL IV STA (13:29)
[2023-06-08] MEDS ORDERED: NALOXONE HCL 0.4 MG/1 ML VIAL/CARP IV PRN (13:30)
[2023-06-08] MEDS ORDERED: POLYETHYLENE (MIRALAX) 17 GM PACK PO SCH (13:45)
[2023-06-08] MEDS: ACETAMINOPHEN 500 MG TAB PO SCH ×2 (14:13→20:36)
[2023-06-08] MEDS: KETOROLAC 30 MG/ML VIAL IV SCH ×2 (14:19→20:35)
[2023-06-08] MEDS: MoRPHine SULFATE PCA 30 MG/30 ML IV PRN ×3 (15:00→20:50)
[2023-06-08] MEDS: SODIUM CHLORIDE 0.9% 1,000 ML IV SCH (15:01)
[2023-06-08] MEDS: LACTATED RINGER'S 1,000 ML IV SCH ×2 (18:15→21:36)
[2023-06-08] MEDS: ONDANSETRON INJ 2 MG/ML 2 ML VIAL IV PRN (18:53)
[2023-06-08] MEDS: DOCUSATE SODIUM 100 MG CAP PO SCH (20:35)
[2023-06-08] MEDS: DOCUSATE SODIUM/SENNA 50/8.6MG TAB PO SCH (21:03)
[2023-06-08 21:12] LABS: Appearance Urine Clear (Clear); Bilirubin Urine Negative (Negative); Blood Urine Negative (Negative); Color Urine Orange; Glucose Urine UA Negative (Negative); Ketones Urine 1+ (Negative); Leukocyte Esterase Urine Negative (Negative); Nitrite Urine Negative (Negative); Protein Urine Negative (Negative); Specific Gravity Urine 1.013 (1.000-1.030); Urobilinogen Urine Negative (Negative)
[2023-06-09] MEDS: KETOROLAC 30 MG/ML VIAL IV SCH ×4 (02:05→20:42)
[2023-06-09] MEDS: MoRPHine SULFATE PCA 30 MG/30 ML IV PRN ×5 (03:56→21:31)
[2023-06-09] MEDS: LACTATED RINGER'S 1,000 ML IV SCH ×3 (04:12→22:49)
--- NOTE | 2023-06-09 07:55 | Hospitalist Progress Note ---
Date of Service June 09, 2023 Assessment & Plan (1) Sickle cell crisis: (2) Leukocytosis: (3) Asplenia: Plan Sickle cell crisis: Pain in back, neck, teeth Pain: 7/10 Pain control: -Acetaminophen 1 g p.o. TID, -Toradol 30 mg IV q.6 hourly for 2 days, - Continuous AMMONIUM HYDROXIDE OPERATOR pump morphine 4 mg/ hr Incentive spirometer Heating pad as needed docusate plus Senna IVF LR 125 ml/hr Hypoxia Keep O saturation above 94% Low concern of pneumonia, no fever low concern of acute chest syndrome- No chest pain, no fever CXR: negative Will follow Leukocytosis: No current symptoms/signs of infection. Decreasing down. No fever Follow am cbc Asplenia: splenectomy Plan VTE Prophylaxis - Lovenox 40 mg sq Diet - regular Disposition - med/tele Admission and Anticipated Discharge Date Admission Date: June 08, 2023 Supervising Physician Co-Signing Physician Notes I personally examined the patient and verified all worthy points of history and exam, discussed case, and agree with decision making with Dr Fitz Seals feeling better pain under better control - especially chest and back pain improving. tooth and jaw still fairly bad. AMMONIUM HYDROXIDE OPERATOR click helping some but not enough. vitals noted nad heent mmm lungs cta b/l no r/r/w good effort skin no rashes no pallor or icterus neuro no focal deficits sickle cell acute pain crisis -likely precipitated by cold weather (no other clear precipitating factors/infections/etc identified) -IV fluids -pain control (with pain improving will stop continuous portion of AMMONIUM HYDROXIDE OPERATOR to prevent against sedation, but will increase patient controlled "click dose" to 4mg) -serial exams otherwise as above Subjective 22 y/o male here due to sickle cell crisis. Evaluated this morning, found resting. He refers still back pain, neck pain and mouth pain. Not much appetite this morning. Refers he's more comfortable but the pain still is around 6-7/10. Encouraged to drink plenty of fluids. Denied chest pain, nausea, vomiting or abdominal pain. Review of Systems Review of Systems: as per HPI Physical Exam Constitutional: well developed Respiratory: normal respiratory effort, lungs clear to auscultation Cardiovascular: RRR, no murmur, no edema Musculoskeletal: no cyanosis or clubbing, extremities motor strength 5/5 Results & Data Results & Data Vital Signs (Past 12 Hours) Vital Signs Temp Pulse Pulse Resp BP Pulse Ox O2 Del Method 06/09/23 07:14 36.8 C 58 L 18 108/56 L 94 Nasal Cannula 06/09/23 04:00 36.3 C L 45 L 17 107/50 L 98 Room Air 06/09/23 00:00 58 L 17 99 Room Air 06/08/23 23:52 36.4 C L 57 L 20 129/71 100 Nasal Cannula 06/08/23 23:25 42 L 06/08/23 22:29 61 19 129/66 99 Room Air O2 Flow Rate 06/09/23 07:14 4 06/09/23 04:00 06/09/23 00:00 06/08/23 23:52 2 06/08/23 23:25 06/08/23 22:29 Resident Activity Tracking Resident Involvement: Resident Care Provided Care Provided: Adult Hospital Medicine (2) Leukocytosis Leukocytosis type: unspecified Qualified Code(s): D72.829 - Elevated white blood cell count, unspecified
[2023-06-09 08:05] LABS: Basophils # (auto) 0.05 K/uL (0.00-0.20); Basophils % (auto) 0.4 %; Eosinophils # (auto) 0.17 K/uL (0.00-0.50); Eosinophils % (auto) 1.5 %; Hematocrit (blood only) 25.1 % (42.0-52.0); Hemoglobin 8.8 g/dl (14.0-18.0); Immature Granulocytes % (auto) 1.8 %; Lymphocytes # (auto) 2.22 K/uL (1.20-3.40); Lymphocytes % (auto) 19.7 %; Mean Corpuscular Hemoglobin 33.1 pg (25.0-34.0); Mean Corpuscular Hgb Conc 35.1 g/dL (32.0-36.0); Mean Corpuscular Volume 94.4 fL (80.0-100.0); Mean Platelet Volume 10.6 fL (9.4-12.4); Monocytes # (auto) 1.44 K/uL (0.11-0.59); Monocytes % (auto) 12.8 %; Neutrophils # (auto) 7.21 K/uL (1.40-6.50); Neutrophils % (auto) 63.8 %; Nucleated RBC # (auto) 1.05 K/uL (0.00-0.12); Nucleated RBC % (auto) 9.3 %; Platelet Count 291 K/uL (130-400); RDW Coefficient of Variation 20.4 % (11.5-14.5); RDW Standard Deviation 68.2 fL (36.4-46.3); Red Blood Count 2.66 M/uL (4.70-6.10); White Blood Count 11.29 K/ul (4.8-10.8)
[2023-06-09 08:23] LABS: Alanine Aminotransferase 8 U/L (7-52); Albumin Globulin Ratio 1.5 (0.9-2); Alkaline Phosphatase 76 U/L (34-104); Anion Gap 6 (3-11); Aspartate Aminotransferase 20 U/L (13-39); BUN Creatinine Ratio 17.6 (10-20); Bilirubin,Total 5.6 mg/dl (0.2-1.0); Blood Urea Nitrogen 9 mg/dl (6-23); Carbon Dioxide 28 mmol/L (21-32); Chloride 103 mmol/L (98-107); Est GFR (African American) > 150.0 ml/min; Est GFR (Non-African American) > 150.0 ml/min; Globulin 2.7 gm/dl (2.5-4.0); Glucose 86 mg/dl (70-99(Fasting)); Potassium 4.1 mmol/L (3.5-5.1); Sodium 137 mmol/L (136-145); Total Protein 6.7 gm/dl (6.0-8.3)
[2023-06-09 08:42] LABS: Polychromasia 2+; Sickle Cells 1+; Target Cells 2+
[2023-06-09] MEDS: DOCUSATE SODIUM 100 MG CAP PO SCH ×2 (10:09→20:46)
[2023-06-09] MEDS: ACETAMINOPHEN 500 MG TAB PO SCH ×3 (10:09→20:43)
[2023-06-09] MEDS: SODIUM CHLORIDE 0.9% 1,000 ML IV SCH (13:47)
[2023-06-09] MEDS: ENOXAPARIN INJ 40 MG/0.4 ML SYR SQ ONE ×2 (14:52→14:54)
--- NOTE | 2023-06-09 16:25 | Billing Data ---
Date of Service June 09, 2023 Coding Level of Care Code 12593 SUB INP/OBS CARE MIN
[2023-06-09] MEDS: DOCUSATE SODIUM/SENNA 50/8.6MG TAB PO SCH (20:43)
[2023-06-09] MEDS: ONDANSETRON INJ 2 MG/ML 2 ML VIAL IV PRN (20:51)
[2023-06-10] MEDS: KETOROLAC 30 MG/ML VIAL IV SCH ×2 (01:11→09:14)
[2023-06-10] MEDS: MoRPHine SULFATE PCA 30 MG/30 ML IV PRN ×6 (03:26→19:28)
[2023-06-10] MEDS: LACTATED RINGER'S 1,000 ML IV SCH ×3 (06:45→20:15)
[2023-06-10] MEDS: ONDANSETRON INJ 2 MG/ML 2 ML VIAL IV PRN (08:08)
--- NOTE | 2023-06-10 08:08 | Hospitalist Progress Note ---
Date of Service June 10, 2023 Assessment & Plan (1) Sickle cell crisis: (2) Leukocytosis: (3) Asplenia: Plan Sickle cell crisis: Pain in back, neck, teeth Pain: 7/10 HGB: 8.9 Pain control: -Acetaminophen 1 g p.o. TID, -Toradol 30 mg IV q.6 hourly for 2 days, - Continuous APPRAISAL MANAGER pump morphine 2 mg/ hr. APPRAISAL MANAGER dose prn 2 mg - Morphine IV 6 mg twice Incentive spirometer Heating pad as needed docusate plus Senna IVF LR 150 ml/hr Hypoxia- Resolved Back on room air Low concern of pneumonia, no fever low concern of acute chest syndrome- No chest pain, no fever CXR: negative Will follow Leukocytosis: No current symptoms/signs of infection. Decreasing down. No fever Follow am cbc Asplenia: splenectomy Plan VTE Prophylaxis - Lovenox 40 mg sq Diet - regular Disposition - med/tele Admission and Anticipated Discharge Date Admission Date: June 08, 2023 Supervising Physician Co-Signing Physician Notes I personally examined the patient and verified all worthy points of history and exam, discussed case, and agree with decision making with Dr Fitz Seals pain a little worse - mostly in jaw and teeth. back pain better overall. some nausea vitals noted nad heent mmm no dental/gum/jaw lesions visualized; L sided pain somewhat reproducible along masseter muscle but not at bone or TMJ joint. breathing unlabored no accessory muscles godo effort abd soft nd nt skin no rashes no pallor or icterus neuro no focal deficits sickle cell acute pain crisis -likely precipitated by cold weather (no other clear precipitating factors/infections/etc identified) -continue IV fluids -pain control (had stopped continuous gtt yesterday; increased APPRAISAL MANAGER dose to 4mg (up from 2) but with pain a little worse today - additional morphine to catch back up, then resume yesterday's APPRAISAL MANAGER settings for now) -serial exams -scheduled zofran for nausea otherwise as above Subjective 22 y/o male here due to sickle cell crisis. Evaluated this am. Poor appetite with nausea due to pain. He refers still back pain, neck pain and mouth pain. After change on APPRAISAL MANAGER, pain is worse. Encouraged to drink plenty of fluids. Denied chest pain,, vomiting or abdominal pain. Review of Systems Review of Systems: as per HPI Physical Exam Constitutional: well developed Respiratory: normal respiratory effort, lungs clear to auscultation Cardiovascular: RRR, no murmur, no edema Musculoskeletal: no cyanosis or clubbing, extremities motor strength 5/5 Resident Activity Tracking Resident Involvement: Resident Care Provided Care Provided: Adult Hospital Medicine (2) Leukocytosis Leukocytosis type: unspecified Qualified Code(s): D72.829 - Elevated white blood cell count, unspecified
[2023-06-10 08:51] LABS: Basophils # (auto) 0.03 K/uL (0.00-0.20); Basophils % (auto) 0.2 %; Eosinophils # (auto) 0.11 K/uL (0.00-0.50); Eosinophils % (auto) 0.9 %; Hematocrit (blood only) 24.4 % (42.0-52.0); Hemoglobin 8.9 g/dl (14.0-18.0); Immature Granulocytes # (auto) 0.12 K/uL (0.01-0.20); Lymphocytes # (auto) 1.12 K/uL (1.20-3.40); Lymphocytes % (auto) 9.2 %; Mean Corpuscular Hgb Conc 36.5 g/dL (32.0-36.0); Mean Corpuscular Volume 93.1 fL (80.0-100.0); Mean Platelet Volume 9.6 fL (9.4-12.4); Monocytes # (auto) 1.79 K/uL (0.11-0.59); Monocytes % (auto) 14.6 %; Neutrophils # (auto) 9.06 K/uL (1.40-6.50); Neutrophils % (auto) 74.1 %; Platelet Count 301 K/uL (130-400); RDW Coefficient of Variation 20.3 % (11.5-14.5); RDW Standard Deviation 67.3 fL (36.4-46.3); Red Blood Count 2.62 M/uL (4.70-6.10)
[2023-06-10] MEDS: ACETAMINOPHEN 500 MG TAB PO SCH ×3 (09:14→21:14)
[2023-06-10] MEDS: DOCUSATE SODIUM 100 MG CAP PO SCH ×2 (09:14→21:14)
[2023-06-10] MEDS: ENOXAPARIN INJ 40 MG/0.4 ML SYR SQ SCH (09:15)
[2023-06-10 09:25] LABS: Alanine Aminotransferase 7 U/L (7-52); Albumin Globulin Ratio 1.4 (0.9-2); Alkaline Phosphatase 108 U/L (34-104); Anion Gap 6 (3-11); Aspartate Aminotransferase 18 U/L (13-39); Bilirubin,Total 5.1 mg/dl (0.2-1.0); Blood Urea Nitrogen 7 mg/dl (6-23); Calcium 8.9 mg/dl (8.6-10.3); Carbon Dioxide 31 mmol/L (21-32); Chloride 99 mmol/L (98-107); Creatinine Clr Calc Pharmacy 241.7 ml/min; Est GFR (African American) > 150.0 ml/min; Est GFR (Non-African American) > 150.0 ml/min; Globulin 2.9 gm/dl (2.5-4.0); Glucose Fasting 109 mg/dl (70-99); Potassium 3.7 mmol/L (3.5-5.1); Sodium 136 mmol/L (136-145); Total Protein 6.9 gm/dl (6.0-8.3)
[2023-06-10 09:33] LABS: Nucleated RBC # (auto) 1.48 K/uL (0.00-0.12); Nucleated RBC % (auto) 12.1 %; White Blood Count 12.23 K/ul (4.8-10.8)
[2023-06-10 09:34] LABS: Pappenheimer Bodies 1+; Polychromasia 2+; Sickle Cells 1+; Target Cells 2+
[2023-06-10] MEDS ORDERED: MoRPHine SULFATE 10 MG/ML CARP/VIAL IV STA ×3 (10:17→17:18)
[2023-06-10] MEDS ORDERED: MoRPHine Bolus from PCA IV STA ×3 (10:39→17:30)
[2023-06-10] MEDS ORDERED: Nursing to Pharmacy Communication SCH (11:30)
[2023-06-10] MEDS: ONDANSETRON INJ 2 MG/ML 2 ML VIAL IV SCH ×2 (11:55→17:32)
--- NOTE | 2023-06-10 12:36 | Billing Data ---
Date of Service June 10, 2023 Coding Level of Care Code 21454 SUB INP/OBS CARE MIN
[2023-06-10] MEDS: SODIUM CHLORIDE 0.9% 1,000 ML IV SCH (13:29)
[2023-06-10] MEDS ORDERED: KETOROLAC TROMETHAMINE 15 MG/ML VIAL IV ONE (20:37)
[2023-06-10] MEDS: DOCUSATE SODIUM/SENNA 50/8.6MG TAB PO SCH (21:14)
[2023-06-11] MEDS: MoRPHine SULFATE PCA 30 MG/30 ML IV PRN ×3 (00:54→11:02)
[2023-06-11] MEDS: ONDANSETRON INJ 2 MG/ML 2 ML VIAL IV SCH ×5 (00:59→22:57)
[2023-06-11] MEDS: LACTATED RINGER'S 1,000 ML IV SCH ×4 (02:33→22:55)
--- NOTE | 2023-06-11 07:41 | Hospitalist Progress Note ---
Date of Service June 11, 2023 Assessment & Plan (1) Sickle cell crisis: (2) Leukocytosis: (3) Asplenia: Plan Sickle cell crisis: Pain in back, neck, teeth Pain: 7/10 HGB: 8.3 Pain control: -Acetaminophen 1 g p.o. TID, - Continuous ACCOUNTS PAYABLE ADMINISTRATOR pump hydromorphone 0.3 mg/ hr. ACCOUNTS PAYABLE ADMINISTRATOR click 1 mg -Plan to transition to PO oxycontin 30 PO BID and Oxycodone 10 mg PO Q4 prn -Dilaudid 1 mg IV Q6H prn Incentive spirometer Heating pad as needed -docusate, Senna, Miralax IVF LR 150 ml/hr JAW pain/Osteonecrosis? FACE MRI: Marrow edema within the right greater than left mandibular condyles with mild subchondral sclerosis. Findings are nonspecific and considering the patient's history of sickle cell disease, findings may represent developing osteonecrosis with reactive marrow edema. [place] Consult Pain management as above Hypoxia-resolved Back on room air Low concern of pneumonia, no fever low concern of acute chest syndrome- No chest pain, no fever CXR: negative Will follow Leukocytosis: No current symptoms/signs of infection. Decreasing down. No fever Follow am cbc Asplenia: splenectomy Plan VTE Prophylaxis - Lovenox 40 mg sq Diet - regular Disposition - med/tele Admission and Anticipated Discharge Date Admission Date: June 08, 2023 Supervising Physician Co-Signing Physician Notes I personally examined the patient and verified all worthy points of history and exam, discussed case, and agree with decision making with Dr Fitz Seals Overall pain is better except for an straw. Notes this has actually happened before, and heat seems to help as much is anything. vitals noted nad heent mmm breathing unlabored no accessory muscles godo effort abd soft nd nt skin no rashes no pallor or icterus neuro no focal deficits sickle cell acute pain crisis -likely precipitated by cold weather (no other clear precipitating factors/infections/etc identified) -continue IV fluids -pain control ( Patient would very much like to get back to class tomorrow if at all possiblewe discussed the risk/benefit of this versus ongoing pain control, tonight will give trial to switching from ACCOUNTS PAYABLE ADMINISTRATOR to long/short acting narcotic regimen and if his pain is reasonably controlled, likely home with outpatient follow-up tomorrow) - ongoing jaw painMRI with findings concerning for osteonecrosis, discussed with maxillofacial who will see the patient as well. otherwise as above Subjective 22 y/o male here due to sickle cell crisis. Evaluated this am. Poor appetite with nausea due to pain. Pain on jaw has not improved Review of Systems Review of Systems: as per HPI Physical Exam Constitutional: well developed Respiratory: normal respiratory effort, lungs clear to auscultation Cardiovascular: RRR, no murmur, no edema Musculoskeletal: no cyanosis or clubbing, extremities motor strength 5/5 Results & Data Results & Data Vital Signs (Past 12 Hours) Vital Signs Temp Pulse Pulse BP O2 Del Method 06/11/23 04:31 36.9 C 78 114/68 Room Air 06/11/23 00:00 88 (2) Leukocytosis Leukocytosis type: unspecified Qualified Code(s): D72.829 - Elevated white blood cell count, unspecified
[2023-06-11 08:27] LABS: Basophils # (auto) 0.03 K/uL (0.00-0.20); Basophils % (auto) 0.3 %; Eosinophils # (auto) 0.16 K/uL (0.00-0.50); Eosinophils % (auto) 1.4 %; Hematocrit (blood only) 22.9 % (42.0-52.0); Hemoglobin 8.3 g/dl (14.0-18.0); Immature Granulocytes # (auto) 0.09 K/uL (0.01-0.20); Immature Granulocytes % (auto) 0.8 %; Lymphocytes # (auto) 0.54 K/uL (1.20-3.40); Lymphocytes % (auto) 4.8 %; Mean Corpuscular Hemoglobin 33.3 pg (25.0-34.0); Mean Corpuscular Hgb Conc 36.2 g/dL (32.0-36.0); Monocytes # (auto) 1.47 K/uL (0.11-0.59); Monocytes % (auto) 13.2 %; Neutrophils # (auto) 8.85 K/uL (1.40-6.50); Neutrophils % (auto) 79.5 %; Platelet Count 303 K/uL (130-400); RDW Coefficient of Variation 19.6 % (11.5-14.5); RDW Standard Deviation 65.1 fL (36.4-46.3); Red Blood Count 2.49 M/uL (4.70-6.10)
[2023-06-11 08:39] LABS: Anion Gap 7 (3-11); BUN Creatinine Ratio 15.2 (10-20); Blood Urea Nitrogen 7 mg/dl (6-23); Calcium 8.8 mg/dl (8.6-10.3); Carbon Dioxide 29 mmol/L (21-32); Chloride 101 mmol/L (98-107); Creatinine Clr Calc Pharmacy 241.7 ml/min; Est GFR (African American) > 150.0 ml/min; Est GFR (Non-African American) > 150.0 ml/min; Glucose 91 mg/dl (70-99(Fasting)); Potassium 3.9 mmol/L (3.5-5.1); Sodium 137 mmol/L (136-145)
[2023-06-11 08:48] LABS: Nucleated RBC # (auto) 1.32 K/uL (0.00-0.12); Nucleated RBC % (auto) 11.8 %; White Blood Count 11.14 K/ul (4.8-10.8)
[2023-06-11 08:56] LABS: Pappenheimer Bodies 1+; Polychromasia 2+; Target Cells 2+
[2023-06-11] MEDS: ENOXAPARIN INJ 40 MG/0.4 ML SYR SQ SCH (10:14)
[2023-06-11] MEDS: ACETAMINOPHEN 500 MG TAB PO SCH ×3 (10:14→21:08)
[2023-06-11] MEDS: DOCUSATE SODIUM 100 MG CAP PO SCH ×2 (10:14→21:08)
[2023-06-11] MEDS ORDERED: HYDROmorphone PCA 30 MG/30 ML IV PRN (11:33)
[2023-06-11] MEDS ORDERED: HYDROmorphone Bolus from PCA IV STA (11:33)
[2023-06-11] MEDS ORDERED: NALOXONE HCL 0.4 MG/1 ML VIAL/CARP IV PRN (11:33)
[2023-06-11] MEDS ORDERED: SODIUM CHLORIDE 0.9% 1,000 ML IV SCH (11:45)
[2023-06-11] MEDS: SODIUM CHLORIDE 0.9% 1,000 ML IV SCH ×2 (13:43→14:56)
--- NOTE | 2023-06-11 15:14 | Magnetic Resonance Report ---
MR face wo con HISTORY: 22 years-old Male r/o jaw osteonecrosis Patient presents with reported sickle cell disease and left jaw pain with possible osteonecrosis. COMPARISON: None. TECHNIQUE: Multiplanar and multisequence MRI of the face was obtained without the use of IV contrast. FINDINGS: Motion degraded exam. The temporomandibular joints are suboptimally evaluated on this study secondary to the image. There is moderate marrow edema within the right protocol for a face MRI rather than a TMJ MRI. Moderate right and mild left mandibular condylar marrow edema with mild subchondral scleros is. Additionally, there is edema within the periosteal tissues adjacent to the left mandibular ramus. No acute fracture is identified. Mild additional marrow edema within the bilateral mandibular body. Vrup-[id number]-[id number] edema within the left greater than right pterygoid and masseter musculature. The imaged intracranial structures demonstrate no acute abnormality. The orbits are within normal holland its. Mild mucosal thickening of the paranasal sinuses. No sellar mass is identified. Mastoid air cell s are clear. IMPRESSION: 1. Motion degraded exam. 2. Marrow edema within the right greater than left mandibular condyles with mild subchondral sclerosi s. Findings are nonspecific and considering the patient's history of sickle cell disease, findings ma y represent developing osteonecrosis with reactive marrow edema. 3. Likely reactive edema within the soft tissues of the batch tester spaces, left greater than right. 4. No acute fracture is identified. 5. Mild paranasal sinus disease. ACT 112: Negative or not required by law. The above report was generated using voice recognition software. It may contain grammatical, syntax o r spelling errors. Dictated: 06/11/2023 2:01 PM Transcribed: 06/11/2023 2:29 PM Raúl [id number] [email or web address] Electronically signed by: Sammy Garcia M.D. 06/11/2023 3:13 PM
--- NOTE | 2023-06-11 17:40 | Oral/Maxillofacial Consult ---
Date of Consultation June 11, 2023 Assessment & Plan (1) Generalized pain: (2) Sickle cell crisis: (3) Sickle cell crisis: History of Present Illness Reason for Consultation: jaw pain Attending Physician: Pavan Welch DO History of Present Illness HISTORY OF PRESENT ILLNESS: The patient is a 22-year-old male with a history of sickle cell disease. He presented on ThursdayJune 08 to the ER with complaints of back, neck and jaw pain that has been ongoing since earlier this morning despite using oxycodone. He states this is a typical flare of his sickle cell disease. He was diagnosed with having a sickle cell crisis. He was admitted and given the standard protocol for a flare up of SSC--fluid, pain management. Improvement of his pain is ongoing except his face, TMJ, lower jaw -inferiore lower left and teeth. I was asked to consult on his oral/facial symptoms. A MRI was obtained and showed no evidence of infection only non specific changes --see below [place] has no swelling. no abscess or dental/periodontal issues. He has a limited opening of about 20-25 mm secondary to pain in the facial muscles and left TMJ No pain on the right side despite the MRI findings. He is using a heat compress which is helping the most to control the pain and improve the oral opening. MR face with contrast HISTORY: 22 years-old Male r/o jaw osteonecrosis Patient presents with reported sickle cell disease and left jaw pain with possible osteonecrosis. FINDINGS: Motion degraded exam. The temporomandibular joints are suboptimally evaluated on this study secondary to the image. There is moderate marrow edema within the right protocol for a face MRI rather than a TMJ MRI. Moderate right and mild left mandibular condylar marrow edema with mild subchondral sclerosis. Additionally, there is edema within the periosteal tissues adjacent to the left mandibular ramus. No acute fracture is identified. Mild additional marrow edema within the bilateral mandibular body. Tosq-[id number]-[id number] edema within the left greater than right pterygoid and masseter musculature. The imaged intracranial structures demonstrate no acute abnormality. The orbits are within normal limits. Mild mucosal thickening of the paranasal sinuses. No sellar mass is identified. Mastoid air cells are clear. IMPRESSION: 1. Motion degraded exam. 2. Marrow edema within the right greater than left mandibular condyles with mild subchondral sclerosis. Findings are nonspecific and considering the patient's history of sickle cell disease, findings may represent developing osteonecrosis with reactive marrow edema. 3. Likely reactive edema within the soft tissues of the hay baler spaces, left greater than right. 4. No acute fracture is identified. 5. Mild paranasal sinus disease. Plan I reviewed with Mat that the SSC in my experiences affects about 50 % of the patients. The treatment is soft diet, pain control, rehydration, heat, massage, and jaw excessive. The pain is secondary to some areas of avascular necrosis without infection. His symptoms should slowly improve over the next few days. He has my card and will call me if his symptoms do not improve by early next week. He will call my office if Jaw symptoms kalyn worse or swelling develops. From my point of view he may be discharged as per medicine and can be followed as an outpatient in my office as needed. Allergies Allergy/AdvReac Type Severity Reaction Status Date / Time No Known Allergies Allergy Unverified 06/08/23 13:01 Home Medications Medication Instructions Recorded Confirmed Type folic acid 1 mg tablet 1 mg PO QAM 02/08/23 06/08/23 History ibuprofen 600 mg tablet 600 mg PO Q6 PRN Pain 02/08/23 06/08/23 History hydroxyurea 500 mg capsule 2,000 mg PO QAM 03/16/23 06/08/23 History oxycodone 5 mg tablet 5 mg PO Q4H PRN Pain 06/08/23 06/08/23 History Patient History Medical History History of sickle cell disease Asplenia Asthma Surgical History History of tonsillectomy History of appendectomy History of splenectomy History of cholecystectomy Family History Other Hypertension Social History Smoking Status: Current every day smoker Tobacco Type: E-cigarettes / Vaping Hx Alcohol Use: Yes Alcohol type: beer Hx Substance Use: Yes Last Used Substance: Days (ago) Last Used Substance Other:: 07/11/22 Substance Use Type Other:: vapes nicotine Preferred Language: Ethiopian Communication Ability: Effective Cement Handler Required: No Beliefs That Will Affect Care: None marital status: Single Current Living Situation: Alone Current Living Situation Comment: Apartment with one roomate Feels Safe at Home: Yes Safety Concerns: Feels Safe At This Time Assistive Devices: None Results & Data Vital Signs (Past 12 Hours) Vital Signs Temp Pulse Resp BP Pulse Ox O2 Del Method 06/11/23 15:31 36.9 C 79 18 116/64 97 Room Air 06/11/23 11:16 36.8 C 74 20 119/66 Room Air 06/11/23 08:15 36.9 C 87 22 122/73 99 Room Air PG Care Time/CCT Total # of Minutes Spent Total Time Spent with Patient: Total time spent is greater than 50% in coordination of care (as documented) at patient's floor/unit and/or counseling patient: Coding Level of Care Code 08052 OFFICE CONSULT LVL 08/21M Diagnoses Generalized pain R52 Sickle cell crisis D57.00
--- NOTE | 2023-06-11 17:51 | Billing Data ---
Date of Service June 11, 2023 Coding Level of Care Code 41377 SUB INP/OBS CARE MIN
[2023-06-11] MEDS ORDERED: HYDROmorphone INJ 1 MG/ML SYRINGE IV PRN (21:00)
[2023-06-11] MEDS: oxyCODONE HCL 15 MG TABCR (OxyCONTIN) PO SCH (21:08)
[2023-06-11] MEDS: DOCUSATE SODIUM/SENNA 50/8.6MG TAB PO SCH (21:09)
[2023-06-11] MEDS: POLYETHYLENE (MIRALAX) 17 GM PACK PO SCH (21:10)
[2023-06-12] MEDS: oxyCODONE HCL IR 5 MG TAB (IMMEDIATE RELEASE) PO PRN ×4 (01:11→13:33)
[2023-06-12] MEDS: ONDANSETRON INJ 2 MG/ML 2 ML VIAL IV SCH ×2 (05:03→11:44)
[2023-06-12] MEDS: LACTATED RINGER'S 1,000 ML IV SCH (05:04)
[2023-06-12] MEDS: ACETAMINOPHEN 500 MG TAB PO SCH (08:10)
[2023-06-12] MEDS: ENOXAPARIN INJ 40 MG/0.4 ML SYR SQ SCH (08:11)
[2023-06-12] MEDS: DOCUSATE SODIUM 100 MG CAP PO SCH (08:11)
[2023-06-12] MEDS: POLYETHYLENE (MIRALAX) 17 GM PACK PO SCH (08:17)
[2023-06-12] MEDS: oxyCODONE HCL 15 MG TABCR (OxyCONTIN) PO SCH (08:17)
[2023-06-12 09:18] LABS: Basophils # (auto) 0.03 K/uL (0.00-0.20); Basophils % (auto) 0.3 %; Eosinophils # (auto) 0.19 K/uL (0.00-0.50); Eosinophils % (auto) 1.7 %; Hematocrit (blood only) 22.3 % (42.0-52.0); Hemoglobin 7.8 g/dl (14.0-18.0); Immature Granulocytes % (auto) 0.9 %; Lymphocytes # (auto) 1.66 K/uL (1.20-3.40); Lymphocytes % (auto) 14.4 %; Mean Corpuscular Hemoglobin 32.5 pg (25.0-34.0); Mean Corpuscular Volume 92.9 fL (80.0-100.0); Mean Platelet Volume 10.6 fL (9.4-12.4); Monocytes # (auto) 2.04 K/uL (0.11-0.59); Monocytes % (auto) 17.8 %; Neutrophils # (auto) 7.47 K/uL (1.40-6.50); Neutrophils % (auto) 64.9 %; Nucleated RBC # (auto) 0.63 K/uL (0.00-0.12); Nucleated RBC % (auto) 5.5 %; Platelet Count 326 K/uL (130-400); RDW Coefficient of Variation 18.4 % (11.5-14.5); RDW Standard Deviation 62.1 fL (36.4-46.3); White Blood Count 11.49 K/ul (4.8-10.8)
[2023-06-12 09:37] LABS: Alanine Aminotransferase 7 U/L (7-52); Albumin Globulin Ratio 1.3 (0.9-2); Albumin Level 3.9 gm/dl (3.4-5.0); Alkaline Phosphatase 94 U/L (34-104); Anion Gap 7 (3-11); Aspartate Aminotransferase 12 U/L (13-39); BUN Creatinine Ratio 12.8 (10-20); Blood Urea Nitrogen 6 mg/dl (6-23); Calcium 8.9 mg/dl (8.6-10.3); Carbon Dioxide 29 mmol/L (21-32); Chloride 99 mmol/L (98-107); Creatinine Clr Calc Pharmacy 236.5 ml/min; Est GFR (African American) > 150.0 ml/min; Est GFR (Non-African American) > 150.0 ml/min; Globulin 2.9 gm/dl (2.5-4.0); Glucose 82 mg/dl (70-99(Fasting)); Potassium 3.9 mmol/L (3.5-5.1); Sodium 135 mmol/L (136-145); Total Protein 6.8 gm/dl (6.0-8.3)
--- NOTE | 2023-06-12 09:54 | Discharge Summary ---
Date of Service June 12, 2023 Admission HPI Per Admitting Provider Mat Keith is a 22-year-old male with who presents to the ER with severe back, neck pain starting this morning. Multiple previous similar episodes due to sickle cell crisis. No recent tooth surgery on infection suspected. No fever or chills. No respiratory, gastrointestinal or urinary symptoms concerning for infection. Current pain severity 8/10 despite x2 Dialudid 1mg IV. No chest pain. Admission Exam Per Admitting Provider Constitutional: + acute distress (severe 8/10 pain) Eyes: PERRL, conjunctivae normal, anicteric sclerae ENMT: Mouth: + dry oral mucous membranes Respiratory: normal respiratory effort, lungs clear to auscultation Cardiovascular: RRR, no murmur, no edema Gastrointestinal (Abdomen): normal bowel sounds, soft, nontender, no hepatosplenomegaly Musculoskeletal: no cyanosis or clubbing, extremities motor strength 5/5 Skin: no rashes, warm and dry (no areas of cellulitis seen) Neurologic: moves all extremities and awake; not confused Psychiatric: A+Ox3, euthymic affect Principal Diagnosis 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 Discharge Exam Constitutional well developed Respiratory normal respiratory effort, lungs clear to auscultation Cardiovascular RRR, no murmur, no edema Musculoskeletal no cyanosis or clubbing, extremities motor strength 5/5 Discharge Data Allergies Allergy/AdvReac Type Severity Reaction Status Date / Time No Known Allergies Allergy Unverified 06/08/23 13:01 Consultations 06/08/23 12:58 ED Decision to Admit Stat 06/11/23 13:35 Consult Oromaxillofacial Surgery Routine Ordered Studies 06/11/23 10:44 MRI face [MR face wo con] Routine Hospital Course (1) Sickle cell crisis: (2) Asplenia: (3) Generalized pain: (4) Sickle cell crisis: Plan 22 y/o male with PMH of sickle cell disease. Sickle cell crisis: Admitted due to ongoing pain in back, neck, teeth HGB: 8.3 Pain control with CHEMISTRY SPECIALIST with Dilaudid Will be sent home with OxyContin 30 mg BID, Oxycodone 10 mg for breakthrough pain Heating pad as needed -Continue miralax Follow up with [facility] JAW pain/Avascular necrosis FACE MRI: Marrow edema within the right greater than left mandibular condyles with mild subchondral sclerosis. Findings are nonspecific and considering the patient's history of sickle cell disease, findings may represent developing osteonecrosis with reactive marrow edema. Oromaxillary Consulted: recommended soft diet, pain control, rehydration, heat, massage and jaw exercise. Call the office for a follow up appointment and if symptoms don't improved by early next week. Pain management as above Hypoxia-resolved Back on room air Low concern of pneumonia and no fever low concern of acute chest syndrome- No chest pain, no fever CXR: negative Will follow Leukocytosis: No current symptoms/signs of infection. Decreasing down. No fever Asplenia: splenectomy Total Time Total Time Spent Total Time Spent (In Minutes): <30 Discharge Plan Discharge Items Patient Disposition: Home - Self-Care Reason For Visit: SICKEL CELL CRISIS Discharge Diagnosis: Sickle cell crisis Avascular necrosis Condition on Discharge: Fair Activity: Resume your previous activity Non-emergency contact: Primary Care Provider Call non-emergency contact if: you have any medication questions, your symptoms worsen, your pain is unusual for you and you have a fever Follow-up/Referrals: PCP,NO [Primary Care Provider] - Diet: Regular Addtl Attending Provider Instructions: You were admitted due to a sickle cell crisis. We treat you with fluids and pain medication. You were found with Avascular necrosis on your jaw. Maxillofacial recommended soft diet, pain control, rehydration, heat, massage and jaw exercise. Call the office for a follow up appointment and if symptoms don't improved by early next week. Pain medication will be sent to your pharmacy Medications: Your medication list has been reviewed and reconciled upon discharge to ensure accuracy and continuity of care. An updated list of all your medications is included with your hospital discharge paperwork. Please review this list closely, and make note of any changes. Take your medications as instructed; do not skip a dose of your medicines. Make sure all of your doctors know every medicine you are taking (including ztry-sux-roaxmma medicines, vitamins, and supplements). Call your primary care provider before taking any new medicines (including oyag-nwd-ysqsykq medicines, vitamins, and supplements), because some of these may interact with your current medications, or may make your symptoms worse. Tell your primary care provider if you cannot afford your medications. Follow-up appointments: Make a follow-up appointment with your PCP within the next week. It is very important that you follow up with them shortly after discharge from the hospital. Keep all your follow-up appointments as already scheduled. If you cannot make an appointment, notify your provider. CONTACT YOUR PRIMARY CARE PROVIDER if you experience any of the following: Difficulty following your treatment plan, or difficulty taking medications CALL 911 OR GO TO THE EMERGENCY DEPARTMENT if you experience any of the following: Sudden, severe abdominal pain or nausea/vomiting Severe chest pain, or chest pain that radiates (moves) to your jaw or arm Sudden, severe shortness of breath or difficulty breathing Thank you for allowing us to participate in your care. Pending Studies at Discharge: No Stand-Alone Forms: My [facility], Smoking Cessation Medications and DC Order Prescriptions: New oxycodone [OxyContin] 30 mg tablet,oral only,ext.rel.12 hr 30 mg PO BID Qty: 20 0RF Rx Instructions: BID currently, will follow w PCP for ongoing directions on weaning oxycodone 10 mg tablet 10 mg PO Q6H PRN (Reason: pain) Qty: 30 0RF Rx Instructions: qid prn breakthrough pain Continued folic acid 1 mg tablet 1 mg PO QAM ibuprofen 600 mg tablet 600 mg PO Q6 PRN (Reason: Pain) hydroxyurea 500 mg capsule 2,000 mg PO QAM Discontinued oxycodone 5 mg Tablet 5 mg PO Q4H PRN (Reason: Pain) Discharge Orders: Discharge Order (Routine); Ordered 06/12/23 Ordered By: Luz Elena Seals Admission Data Admit Date/Time: 06/08/23 13:00 Attending Provider: Pavan Welch Admit Provider: Catalino Tucker Primary Care Provider: PCP,NO Other Providers: Catalino Tucker; Dakota Rucker Other Interventions: Discharge Summary Assessment (RN) Last Done: 06/12/23 12:06 Supervising Physician Co-Signing Physician Notes I personally examined the patient and verified all worthy points of history and exam, discussed case, and agree with decision making with Dr Fitz Seals jaw painbut moist heat helps. Feels like he did well enough on oral pain meds to be on to go home today. Discussed local outpatient follow-up to help guide him on titrating down on pain meds. Had a low-grade temp but has no focal findings/focal symptoms and did not feel the temperature at alloverall feels better and feels good to go home. vitals noted nad heent mmm breathing unlabored no accessory muscles good effort abd soft nd nt skin no rashes no pallor or icterus neuro no focal deficits sickle cell acute pain crisis -likely precipitated by cold weather (no other clear precipitating factors/infections/etc identified)encouraged to dress extremely warm when out in the cold after discharge - Did unfortunately suffer a degree of osteonecrosis of his jawfortunately maxillofacial feels that with time essentially symptoms should resolve; also reassuring that the patient has had the symptoms before with complete resolution - home on p.o. pain medsfor now is stable on OxyContin 30 mg p.o. twice daily, oxycodone 10 mg as needed breakthroughsent a prescription for both, with anticipation with his prior track record that he will likely be able to wean over the coming weeksasked resident physician to ensure he has clinic follow-up locally to help guide him on titrating down the pain meds, or to reassess obviously if he is still having significant pain - stable for home otherwise as above Resident Activity Tracking Resident Involvement: Resident Care Provided Care Provided: Adult Hospital Medicine
[2023-06-12 10:01] LABS: Howell-Jolly Bodies 1+; Pappenheimer Bodies 1+; Polychromasia 2+; Target Cells 2+
--- NOTE | 2023-06-12 16:08 | Billing Data ---
Date of Service June 12, 2023 Coding Level of Care Code 24637 IN/OBS DISCH 30 MIN/LESS
== END 2023-06-12 15:10 | disposition home or self-care (01) | DRG 812 ==
LOC: ED 10:03 → SUATTDRO 13:00 → EDINP 13:00 → 2S 13:32

== ENCOUNTER 2023-09-12 05:48 | Inpatient (IN) ==
[2023-09-12] MEDS: KETOROLAC TROMETHAMINE 60 MG/2 ML VIAL ONE (06:57)
[2023-09-12] MEDS: KETOROLAC TROMETHAMINE 15 MG/ML VIAL IV STA (06:58)
--- NOTE | 2023-09-12 07:10 | Emergency Department Note ---
History of Present Illness General Chief complaint: Pain (Generalized) Stated complaint: PAIN CRISIS, SICKLE CELL DISEASE Time Seen by Provider: 09/12/23 06:58 Source: patient, RN notes reviewed and old records reviewed (06/12/23-discharge summary for when he was in for sickle cell crisis) Mode of arrival: ambulatory Limitations: no limitations History of Present Illness Maximum Pain Intensity: 8 This patient is a 23-year-old male has history of sickle cell disease comes in after having a pain crisis. He has been controlling as an outpatient with oxycodone he took 1 around 230 he says he has pain in his jaw and teeth also in his head his right knee and his elbows this does feel like a previous pain crisis. 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 denies chest pain or shortness of breath .no numbness or weakness. no recent illness. no fever chills. no cough. Home Medications Medication Instructions Recorded Confirmed Type folic acid 1 mg tablet 1 mg PO QAM 02/08/23 09/12/23 History ibuprofen 600 mg tablet 600 mg PO Q6 PRN Pain 02/08/23 09/12/23 History hydroxyurea 500 mg capsule 2,000 mg PO QAM 03/16/23 09/12/23 History oxycodone 10 mg tablet 10 mg PO Q6H PRN pain #30 tabs 06/12/23 09/12/23 Rx Allergies Allergy/AdvReac Type Severity Reaction Status Date / Time No Known Allergies Allergy Unverified 06/08/23 13:01 Past Med/Surg History Medical History Leukocytosis History of sickle cell disease Asplenia Asthma Surgical History History of tonsillectomy History of appendectomy History of splenectomy History of cholecystectomy Family History Other Hypertension Social History Smoking Status: Current every day smoker Tobacco Type: E-cigarettes / Vaping Hx Alcohol Use: Yes Alcohol type: beer Hx Substance Use: Yes Last Used Substance: Days (ago) Last Used Substance Other:: 07/11/22 Substance Use Type Other:: vapes nicotine Preferred Language: Swiss Communication Ability: Effective Software Testing Specialist Required: No Beliefs That Will Affect Care: None marital status: Single Current Living Situation: Alone Current Living Situation Comment: Apartment with one roomate Feels Safe at Home: Yes Assistive Devices: None Review of Systems A total of 10 systems reviewed and were otherwise negative Physical Exam Vital Signs Vital Signs - 24 hr 09/12/23 05:50 09/12/23 07:00 09/12/23 07:02 Temperature 36.9 C Temperature Source Temporal Artery Scan Pulse Rate 89 89 Pulse Rate [Left Finger] 60 Pulse Rate from SpO2 Sensor Pulse Rhythm Regular Pulse Rhythm [Left Finger] Pulse Strength Normal Pulse Strength [Left Finger] Respiratory Rate 17 18 Respiratory Effort / Characteristics Non-Labored Spontaneous Respiratory Depth Normal Respiratory Pattern Regular Blood Pressure 135/81 Blood Pressure [Left Arm] 117/53 L Blood Pressure Mean 99 Blood Pressure Mean [Left Arm] 74 Blood Pressure Position Sitting Blood Pressure Position [Left Arm] Lying Pulse Oximetry 96 98 Oxygen Delivery Method Room Air Room Air Sepsis Recent Fever Within 48 Hours No Sepsis New/Unexplained Change in Mental Status N/A Sepsis Action Taken by Nursing No Action Required 09/12/23 07:02 09/12/23 07:10 09/12/23 07:17 Temperature Temperature Source Pulse Rate 85 57 L 71 Pulse Rate [Left Finger] Pulse Rate from SpO2 Sensor 85 Pulse Rhythm Pulse Rhythm [Left Finger] Pulse Strength Pulse Strength [Left Finger] Respiratory Rate 18 25 H 25 H Respiratory Effort / Characteristics Respiratory Depth Respiratory Pattern Blood Pressure Blood Pressure [Left Arm] Blood Pressure Mean Blood Pressure Mean [Left Arm] Blood Pressure Position Blood Pressure Position [Left Arm] Pulse Oximetry 98 Oxygen Delivery Method Sepsis Recent Fever Within 48 Hours Sepsis New/Unexplained Change in Mental Status Sepsis Action Taken by Nursing 09/12/23 07:17 09/12/23 07:20 09/12/23 07:30 Temperature Temperature Source Pulse Rate 53 L 63 Pulse Rate [Left Finger] Pulse Rate from SpO2 Sensor 69 Pulse Rhythm Pulse Rhythm [Left Finger] Pulse Strength Pulse Strength [Left Finger] Respiratory Rate 29 H 31 H Respiratory Effort / Characteristics Respiratory Depth Respiratory Pattern Blood Pressure 117/53 L Blood Pressure [Left Arm] Blood Pressure Mean 69 Blood Pressure Mean [Left Arm] Blood Pressure Position Blood Pressure Position [Left Arm] Pulse Oximetry 94 Oxygen Delivery Method Sepsis Recent Fever Within 48 Hours Sepsis New/Unexplained Change in Mental Status Sepsis Action Taken by Nursing 09/12/23 07:40 09/12/23 07:50 09/12/23 08:00 Temperature Temperature Source Pulse Rate 61 69 Pulse Rate [Left Finger] 89 Pulse Rate from SpO2 Sensor 63 77 Pulse Rhythm Pulse Rhythm [Left Finger] Regular Pulse Strength Pulse Strength [Left Finger] Normal Respiratory Rate 23 21 20 Respiratory Effort / Characteristics Non-Labored Spontaneous Respiratory Depth Normal Respiratory Pattern Regular Blood Pressure Blood Pressure [Left Arm] 114/57 L Blood Pressure Mean Blood Pressure Mean [Left Arm] 76 Blood Pressure Position Blood Pressure Position [Left Arm] Sitting Pulse Oximetry 95 95 96 Oxygen Delivery Method Room Air Sepsis Recent Fever Within 48 Hours Sepsis New/Unexplained Change in Mental Status Sepsis Action Taken by Nursing 09/12/23 08:00 09/12/23 08:00 09/12/23 08:10 Temperature Temperature Source Pulse Rate 75 97 H Pulse Rate [Left Finger] Pulse Rate from SpO2 Sensor 72 97 H Pulse Rhythm Pulse Rhythm [Left Finger] Pulse Strength Pulse Strength [Left Finger] Respiratory Rate 25 H 23 Respiratory Effort / Characteristics Respiratory Depth Respiratory Pattern Blood Pressure 114/57 L Blood Pressure [Left Arm] Blood Pressure Mean 88 Blood Pressure Mean [Left Arm] Blood Pressure Position Blood Pressure Position [Left Arm] Pulse Oximetry 96 96 Oxygen Delivery Method Sepsis Recent Fever Within 48 Hours Sepsis New/Unexplained Change in Mental Status Sepsis Action Taken by Nursing 09/12/23 08:20 09/12/23 08:30 09/12/23 08:40 Temperature Temperature Source Pulse Rate 92 H 106 H 86 Pulse Rate [Left Finger] Pulse Rate from SpO2 Sensor 93 H 96 H 83 Pulse Rhythm Pulse Rhythm [Left Finger] Pulse Strength Pulse Strength [Left Finger] Respiratory Rate 20 19 18 Respiratory Effort / Characteristics Respiratory Depth Respiratory Pattern Blood Pressure Blood Pressure [Left Arm] Blood Pressure Mean Blood Pressure Mean [Left Arm] Blood Pressure Position Blood Pressure Position [Left Arm] Pulse Oximetry 96 94 95 Oxygen Delivery Method Sepsis Recent Fever Within 48 Hours Sepsis New/Unexplained Change in Mental Status Sepsis Action Taken by Nursing 09/12/23 08:50 09/12/23 09:00 09/12/23 09:00 Temperature Temperature Source Pulse Rate 67 66 Pulse Rate [Left Finger] Pulse Rate from SpO2 Sensor 72 73 Pulse Rhythm Pulse Rhythm [Left Finger] Pulse Strength Pulse Strength [Left Finger] Respiratory Rate 26 H 24 Respiratory Effort / Characteristics Respiratory Depth Respiratory Pattern Blood Pressure 102/56 L Blood Pressure [Left Arm] Blood Pressure Mean 76 Blood Pressure Mean [Left Arm] Blood Pressure Position Blood Pressure Position [Left Arm] Pulse Oximetry 95 96 Oxygen Delivery Method Sepsis Recent Fever Within 48 Hours Sepsis New/Unexplained Change in Mental Status Sepsis Action Taken by Nursing 09/12/23 09:10 09/12/23 09:20 09/12/23 09:30 Temperature Temperature Source Pulse Rate 74 60 96 H Pulse Rate [Left Finger] Pulse Rate from SpO2 Sensor 68 57 L 98 H Pulse Rhythm Pulse Rhythm [Left Finger] Pulse Strength Pulse Strength [Left Finger] Respiratory Rate 20 15 22 Respiratory Effort / Characteristics Respiratory Depth Respiratory Pattern Blood Pressure Blood Pressure [Left Arm] Blood Pressure Mean Blood Pressure Mean [Left Arm] Blood Pressure Position Blood Pressure Position [Left Arm] Pulse Oximetry 95 95 95 Oxygen Delivery Method Sepsis Recent Fever Within 48 Hours Sepsis New/Unexplained Change in Mental Status Sepsis Action Taken by Nursing 09/12/23 09:40 09/12/23 09:50 09/12/23 10:00 Temperature Temperature Source Pulse Rate 93 H 90 Pulse Rate [Left Finger] 77 Pulse Rate from SpO2 Sensor 90 92 H Pulse Rhythm Pulse Rhythm [Left Finger] Regular Pulse Strength Pulse Strength [Left Finger] Normal Respiratory Rate 24 16 20 Respiratory Effort / Characteristics Non-Labored Spontaneous Respiratory Depth Normal Respiratory Pattern Regular Blood Pressure Blood Pressure [Left Arm] 125/71 Blood Pressure Mean Blood Pressure Mean [Left Arm] 89 Blood Pressure Position Blood Pressure Position [Left Arm] Lying Pulse Oximetry 97 96 96 Oxygen Delivery Method Room Air Sepsis Recent Fever Within 48 Hours Sepsis New/Unexplained Change in Mental Status Sepsis Action Taken by Nursing 09/12/23 10:00 09/12/23 10:00 09/12/23 10:10 Temperature Temperature Source Pulse Rate 67 97 H Pulse Rate [Left Finger] Pulse Rate from SpO2 Sensor 65 89 Pulse Rhythm Pulse Rhythm [Left Finger] Pulse Strength Pulse Strength [Left Finger] Respiratory Rate 20 18 Respiratory Effort / Characteristics Respiratory Depth Respiratory Pattern Blood Pressure 125/71 Blood Pressure [Left Arm] Blood Pressure Mean 87 Blood Pressure Mean [Left Arm] Blood Pressure Position Blood Pressure Position [Left Arm] Pulse Oximetry 96 95 Oxygen Delivery Method Sepsis Recent Fever Within 48 Hours Sepsis New/Unexplained Change in Mental Status Sepsis Action Taken by Nursing 09/12/23 10:20 09/12/23 10:30 09/12/23 10:40 Temperature Temperature Source Pulse Rate 62 75 63 Pulse Rate [Left Finger] Pulse Rate from SpO2 Sensor 63 77 70 Pulse Rhythm Pulse Rhythm [Left Finger] Pulse Strength Pulse Strength [Left Finger] Respiratory Rate 21 16 23 Respiratory Effort / Characteristics Respiratory Depth Respiratory Pattern Blood Pressure Blood Pressure [Left Arm] Blood Pressure Mean Blood Pressure Mean [Left Arm] Blood Pressure Position Blood Pressure Position [Left Arm] Pulse Oximetry 95 95 95 Oxygen Delivery Method Sepsis Recent Fever Within 48 Hours Sepsis New/Unexplained Change in Mental Status Sepsis Action Taken by Nursing 09/12/23 10:50 09/12/23 11:00 09/12/23 11:10 Temperature Temperature Source Pulse Rate 67 95 H 92 H Pulse Rate [Left Finger] Pulse Rate from SpO2 Sensor 70 67 Pulse Rhythm Pulse Rhythm [Left Finger] Pulse Strength Pulse Strength [Left Finger] Respiratory Rate 35 H 15 36 H Respiratory Effort / Characteristics Respiratory Depth Respiratory Pattern Blood Pressure Blood Pressure [Left Arm] Blood Pressure Mean Blood Pressure Mean [Left Arm] Blood Pressure Position Blood Pressure Position [Left Arm] Pulse Oximetry 95 85 L Oxygen Delivery Method Sepsis Recent Fever Within 48 Hours Sepsis New/Unexplained Change in Mental Status Sepsis Action Taken by Nursing 09/12/23 11:20 09/12/23 11:30 09/12/23 11:34 Temperature Temperature Source Pulse Rate 103 H 56 L 85 Pulse Rate [Left Finger] Pulse Rate from SpO2 Sensor 58 L 81 Pulse Rhythm Pulse Rhythm [Left Finger] Pulse Strength Pulse Strength [Left Finger] Respiratory Rate 26 H 20 26 H Respiratory Effort / Characteristics Respiratory Depth Respiratory Pattern Blood Pressure Blood Pressure [Left Arm] Blood Pressure Mean Blood Pressure Mean [Left Arm] Blood Pressure Position Blood Pressure Position [Left Arm] Pulse Oximetry 95 92 Oxygen Delivery Method Sepsis Recent Fever Within 48 Hours Sepsis New/Unexplained Change in Mental Status Sepsis Action Taken by Nursing 09/12/23 11:34 09/12/23 11:40 09/12/23 11:50 Temperature Temperature Source Pulse Rate 46 L 87 Pulse Rate [Left Finger] Pulse Rate from SpO2 Sensor 47 L 83 Pulse Rhythm Pulse Rhythm [Left Finger] Pulse Strength Pulse Strength [Left Finger] Respiratory Rate 16 20 Respiratory Effort / Characteristics Respiratory Depth Respiratory Pattern Blood Pressure 138/85 Blood Pressure [Left Arm] Blood Pressure Mean 100 Blood Pressure Mean [Left Arm] Blood Pressure Position Blood Pressure Position [Left Arm] Pulse Oximetry 93 93 Oxygen Delivery Method Sepsis Recent Fever Within 48 Hours Sepsis New/Unexplained Change in Mental Status Sepsis Action Taken by Nursing 09/12/23 12:00 09/12/23 12:00 09/12/23 12:10 Temperature Temperature Source Pulse Rate 44 L 49 L Pulse Rate [Left Finger] Pulse Rate from SpO2 Sensor 51 L Pulse Rhythm Pulse Rhythm [Left Finger] Pulse Strength Pulse Strength [Left Finger] Respiratory Rate 18 16 Respiratory Effort / Characteristics Respiratory Depth Respiratory Pattern Blood Pressure 124/74 Blood Pressure [Left Arm] Blood Pressure Mean 89 Blood Pressure Mean [Left Arm] Blood Pressure Position Blood Pressure Position [Left Arm] Pulse Oximetry 97 Oxygen Delivery Method Sepsis Recent Fever Within 48 Hours Sepsis New/Unexplained Change in Mental Status Sepsis Action Taken by Nursing 09/12/23 12:20 09/12/23 12:30 09/12/23 12:40 Temperature Temperature Source Pulse Rate 60 53 L 76 Pulse Rate [Left Finger] Pulse Rate from SpO2 Sensor 73 56 L 55 L Pulse Rhythm Pulse Rhythm [Left Finger] Pulse Strength Pulse Strength [Left Finger] Respiratory Rate 16 22 16 Respiratory Effort / Characteristics Respiratory Depth Respiratory Pattern Blood Pressure Blood Pressure [Left Arm] Blood Pressure Mean Blood Pressure Mean [Left Arm] Blood Pressure Position Blood Pressure Position [Left Arm] Pulse Oximetry 94 97 95 Oxygen Delivery Method Sepsis Recent Fever Within 48 Hours Sepsis New/Unexplained Change in Mental Status Sepsis Action Taken by Nursing General: Well developed well nourished uncomfortable appearing young male who appears in no acute respiratory distress, breathing comfortably on room air. Normal speech. Nontoxic in HEENT: Normal cephalic atraumatic. Pupils are equal round and reactive to light. Extraocular movements are intact. Oropharynx is pink with moist mucous membranes. No swelling of the mouth lips or tongue. Neck: Supple with a midline trachea. No meningeal signs or stiffness, no JVD or bruits. No Stridor. No meningeal signs or stiffness Chest: Clear to auscultation bilaterally. No wheezes or rhonchi. No increased work of breathing. Heart: Regular rate and rhythm without murmurs or gallops. Abdomen: Soft nontender, nondistended without rebound guarding or rigidity. Extremities: No cyanosis clubbing or edema. No calf tenderness or assymetry Spine/Back. Non tender to palpation. No CVA tenderness Skin: Good turgor without rashes. Neurologic exam: Cranial nerves two through 12 are intact. Motor and sensation are intact and symmetrical throughout. Course Administered Medications Discontinued Medications Acetaminophen (Acetaminophen 325 Mg Tab) 650 mg PO NOW ONE Stop: 09/12/23 12:01 Last Admin: 09/12/23 12:40 Dose: 650 mg Documented By: AVELINO Sodium Chloride (Nss) 1,000 mls @ 999 mls/hr IV .Q1H1M ONE Stop: 09/12/23 07:58 Last Infusion: 09/12/23 10:53 Dose: Infused Documented By: Admin: 09/12/23 07:19 Dose: 999 mls/hr Documented By: HECTOR Sodium Chloride (Nss) 500 mls @ 999 mls/hr IV .Q31M ONE Stop: 09/12/23 11:59 Last Admin: 09/12/23 11:36 Dose: 999 mls/hr Documented By: AVELINO Lactated Ringer's (Lr) 1,000 mls @ 999 mls/hr IV .Q1H1M ONE Stop: 09/12/23 12:43 Last Admin: 09/12/23 12:40 Dose: 999 mls/hr Documented By: AVELINO Ketorolac Tromethamine (Ketorolac Tromethamine 15 Mg/Ml Vial) 60 mg IV NOW STA Stop: 09/12/23 06:55 Last Admin: 09/12/23 06:58 Dose: 60 mg Documented By: HECTOR Ketorolac Tromethamine (Ketorolac Tromethamine 60 Mg/2 Ml Vial) Confirm Administered Dose 60 mg .ROUTE .STK-MED ONE Stop: 09/12/23 06:56 Last Admin: 09/12/23 06:57 Dose: Not Given Documented By: HECTOR Morphine Sulfate (Morphine Sulfate 10 Mg/Ml Carp/Vial) 6 mg IV NOW STA Stop: 09/12/23 07:07 Last Admin: 09/12/23 07:18 Dose: 6 mg Documented By: HECTOR Morphine Sulfate (Morphine Sulfate 4 Mg/Ml 1 Ml Carp\Vial) Confirm Administered Dose 4 mg .ROUTE .STK-MED ONE Stop: 09/12/23 07:15 Last Admin: 09/12/23 07:18 Dose: Not Given Documented By: HECTOR Morphine Sulfate (Morphine Sulfate 2 Mg/Ml Carp) Confirm Administered Dose 2 mg .ROUTE .STK-MED ONE Stop: 09/12/23 07:15 Last Admin: 09/12/23 07:18 Dose: Not Given Documented By: HECTOR Morphine Sulfate (Morphine Sulfate 4 Mg/Ml 1 Ml Carp\Vial) 4 mg IV NOW STA Stop: 09/12/23 08:16 Last Admin: 09/12/23 08:20 Dose: 4 mg Documented By: HECTOR Morphine Sulfate (Morphine Sulfate 10 Mg/Ml Carp/Vial) 8 mg IV NOW STA Stop: 09/12/23 09:34 Last Admin: 09/12/23 09:59 Dose: 8 mg Documented By: HECTOR Ondansetron HCl (Ondansetron Inj 2 Mg/Ml 2 Ml Vial) 4 mg IV NOW STA Stop: 09/12/23 11:12 Last Admin: 09/12/23 11:35 Dose: 4 mg Documented By: VIET Medical Decision Making Differential Diagnosis Sickle cell crisis, infection, electrolyte or metabolic abnormality, cardiac disease, neurologic disease Medical Records Attestation: I reviewed the patient's medical records. Home Medications Current Medication List: was personally reviewed by me Laboratory Data Attestation: I reviewed the patient's lab results. 09/12/23 06:11 09/12/23 06:11 Lab Results 09/12/23 09/12/23 09/12/23 Range/Units 06:11 06:11 06:11 WBC 16.18 H (4.8-10.8) K/ul RBC 2.72 L (4.70-6.10) M/uL Hgb 9.7 L (14.0-18.0) g/dl Hct 26.4 L (42.0-52.0) % MCV 97.1 (80.0-100.0) fL MCH 35.7 H (25.0-34.0) pg MCHC 36.7 H (32.0-36.0) g/dL RDW Std Deviation 68.9 H (36.4-46.3) fL RDW Coeff of [place]rell 20.3 H (11.5-14.5) % Plt Count 435 H (130-400) K/uL MPV 9.9 (9.4-12.4) fL Immature Gran % (Auto) 1.5 % Neut % (Auto) 85.2 % Lymph % (Auto) 6.7 % [place] % (Auto) 6.1 % Eos % (Auto) 0.1 % Baso % (Auto) 0.4 % Reticulocyte % (Auto) 11.77 H Cancelled (0.50-2.00) % Neut # (Auto) 13.78 H (1.40-6.50) K/uL Lymph # (Auto) 1.09 L (1.20-3.40) K/uL [place] # (Auto) 0.99 H (0.11-0.59) K/uL Eos # (Auto) 0.01 (0.00-0.50) K/uL Baso # (Auto) 0.07 (0.00-0.20) K/uL Reticulocyte # 0.300 H Cancelled (0.020-0.100) 10^6/uL Immature Gran # (Auto) 0.24 H (0.01-0.20) K/uL Absolute Nucleated RBC 0.79 H (0.00-0.12) K/uL Nucleated RBC % (auto) 4.9 % Polychromasia 2+ Sickle Cells 1+ Target Cells 2+ [place] Bodies 1+ Sodium 139 (136-145) mmol/L Potassium 4.0 (3.5-5.1) mmol/L Chloride 104 (98-107) mmol/L Carbon Dioxide 22 (21-32) mmol/L Anion Gap 13 H (3-11) BUN 11 (6-23) mg/dl Creatinine 0.71 (0.6-1.4) mg/dl Est Cr Clr Drug Dosing 155.7 ml/min Est GFR ( Amer) > 150.0 ml/min Est GFR (Non-Af Amer) 134.1 ml/min BUN/Creatinine Ratio 15.5 (10-20) Glucose 87 (70-99(Fasting)) mg/dl Calcium 9.6 (8.6-10.3) mg/dl Total Bilirubin 5.4 H (0.2-1.0) mg/dl AST 38 (13-39) U/L ALT 20 (7-52) U/L Alkaline Phosphatase 88 (34-104) U/L Troponin I High Sens 7.5 (0-20) pg/ml Total Protein 7.8 (6.0-8.3) gm/dl Albumin 4.8 (3.4-5.0) gm/dl Globulin 3.0 (2.5-4.0) gm/dl Albumin/Globulin Ratio 1.6 (0.9-2) Imaging Data Attestation: I personally reviewed and interpreted this imaging study as follows: My Impression: Chest x-rayno acute infiltrate, failure, pneumothorax seen. Questionable patchy opacity in the right middle Radiologist's Impression: Chest X-Ray 09/12/23 11:37 SINGLE VIEW CHEST CLINICAL HISTORY: Sickle cell crisis. FINDINGS: 2 AP, portable, upright chest radiographs are compared to study dated 06/08/2023 and 04/24/2022. The cardiomediastinal silhouette is top normal for projection. Linear scarring in the left upper lung is similar to previous. Mild patchy airspace opacities in the right upper and right lower lobes are new from previously No large pleural effusion or pneumothorax is seen. Mild sclerotic changes suggested throughout the bony structures. The bony thorax is grossly intact. A surgical clip projects over the left upper abdomen. IMPRESSION: 1. Mild patchy opacities in the right upper and right lower lobes are new from previous. Correlate clinically for evidence of a mild pneumonitis. Radiographic follow-up to resolution is recommended. 2. Linear scarring in the left upper lung is similar to previous.. ACT 112: Negative or not required by law. Electronically signed by: Po Franco M.D. 09/12/2023 12:34 PM ECG Data Attestation: I personally reviewed and interpreted this ECG as follows: Indication: + other (Jaw pain) Rate (beats per minute): 79 Rhythm: + sinus with SA ECG Intervals/blocks: + First degree AV block, + Normal QRS and + Normal QT ECG [place]: + Normal ECG ST segments: + Normal ST segments ECG Findings: no PACs or no PVCs Comparison ECG Date: from (02/08/23) Change: no significant change MDM Narrative This patient comes in described above. Placed on manager of quality room A4. He is having symptoms that are consistent with his sickle cell pain crisis. I reviewed his old records has been here several times for this he did not drive. He had received IV Toradol prior to me evaluating him. Blood work was obtained including reticulocyte count. EKG does not show any ischemic changes. I did order some IV hydration as well as IV morphine he says that typically helps him. He was reassessed frequently and placed on a manager of quality. His white count is mildly elevated. he is afebrile here. he has no chest pain or shortness of breath to suggest acute chest syndrome. His EKG is nonischemic appearing. his troponin is negative. He does have elevated reticulocyte counts therefore is not likely in an aplastic crisis. He did require multiple dosages of IV morphine. I talked him at length and he feels that at this point he needs to be admitted for pain management he did have an episode nausea and vomiting was treated with Zofran and is now feeling better. Looking back to the chart he was diagnosed with avascular necrosis of his jaw which may be causing some of his pain on top of the sickle cell crisis. He has a normal neurologic exam he has nothing to chest infection or neurologic process at this point. He will be admitted/observed. I discussed the case at length with the [facility] hospitalist I saw him in the ER will admit him for these measures Continuous manager of quality: Orders placed in EMR for continuous manager of quality call upon my evaluation patient noted to be in normal sinus rhythm with a rate of 80 Impression & Plan Sickle cell crisis, Generalized pain Discharge Plan Visit Data Chief Complaint: Pain (Generalized) Stated Complaint: PAIN CRISIS, SICKLE CELL DISEASE ED Provider: Luca Holt Discharge Problem: Sickle cell crisis, Generalized pain
[2023-09-12 07:12] LABS: Basophils # (auto) 0.07 K/uL (0.00-0.20); Basophils % (auto) 0.4 %; Eosinophils # (auto) 0.01 K/uL (0.00-0.50); Eosinophils % (auto) 0.1 %; Hematocrit (blood only) 26.4 % (42.0-52.0); Hemoglobin 9.7 g/dl (14.0-18.0); Immature Granulocytes # (auto) 0.24 K/uL (0.01-0.20); Immature Granulocytes % (auto) 1.5 %; Lymphocytes # (auto) 1.09 K/uL (1.20-3.40); Lymphocytes % (auto) 6.7 %; Mean Corpuscular Hemoglobin 35.7 pg (25.0-34.0); Mean Corpuscular Hgb Conc 36.7 g/dL (32.0-36.0); Mean Corpuscular Volume 97.1 fL (80.0-100.0); Mean Platelet Volume 9.9 fL (9.4-12.4); Monocytes # (auto) 0.99 K/uL (0.11-0.59); Monocytes % (auto) 6.1 %; Neutrophils # (auto) 13.78 K/uL (1.40-6.50); Neutrophils % (auto) 85.2 %; Nucleated RBC # (auto) 0.79 K/uL (0.00-0.12); Nucleated RBC % (auto) 4.9 %; Platelet Count 435 K/uL (130-400); RDW Coefficient of Variation 20.3 % (11.5-14.5); RDW Standard Deviation 68.9 fL (36.4-46.3); Red Blood Count 2.72 M/uL (4.70-6.10); White Blood Count 16.18 K/ul (4.8-10.8)
[2023-09-12] MEDS: MoRPHine SULFATE 4 MG/ML 1 ML CARP\\VIAL ONE (07:18)
[2023-09-12] MEDS: MoRPHine SULFATE 2 MG/ML CARP ONE (07:18)
[2023-09-12] MEDS: MoRPHine SULFATE 10 MG/ML CARP/VIAL IV STA ×2 (07:18→09:59)
[2023-09-12] MEDS: SODIUM CHLORIDE 0.9% 1,000 ML IV ONE (07:19)
[2023-09-12 07:30] LABS: Reticulocyte % 11.77 % (0.50-2.00)
[2023-09-12 07:36] LABS: Alanine Aminotransferase 20 U/L (7-52); Albumin Globulin Ratio 1.6 (0.9-2); Albumin Level 4.8 gm/dl (3.4-5.0); Alkaline Phosphatase 88 U/L (34-104); Anion Gap 13 (3-11); Aspartate Aminotransferase 38 U/L (13-39); BUN Creatinine Ratio 15.5 (10-20); Bilirubin,Total 5.4 mg/dl (0.2-1.0); Blood Urea Nitrogen 11 mg/dl (6-23); Calcium 9.6 mg/dl (8.6-10.3); Carbon Dioxide 22 mmol/L (21-32); Chloride 104 mmol/L (98-107); Creatinine Clr Calc Pharmacy 155.7 ml/min; Est GFR (African American) > 150.0 ml/min; Est GFR (Non-African American) 134.1 ml/min; Glucose 87 mg/dl (70-99(Fasting)); Sodium 139 mmol/L (136-145); Total Protein 7.8 gm/dl (6.0-8.3)
[2023-09-12 07:42] LABS: Howell-Jolly Bodies 1+; Polychromasia 2+; Sickle Cells 1+; Target Cells 2+
[2023-09-12 08:12] LABS: Troponin I High Sensitivity 7.5 pg/ml (0-20)
[2023-09-12] MEDS: MoRPHine SULFATE 4 MG/ML 1 ML CARP\\VIAL IV STA (08:20)
[2023-09-12] MEDS: ONDANSETRON INJ 2 MG/ML 2 ML VIAL IV STA (11:35)
[2023-09-12] MEDS: SODIUM CHLORIDE 0.9% 500 ML IV ONE (11:36)
[2023-09-12] MEDS ORDERED: MoRPHine Bolus from PCA IV STA (11:38)
[2023-09-12] MEDS ORDERED: NALOXONE HCL 0.4 MG/1 ML VIAL/CARP IV PRN (11:38)
--- NOTE | 2023-09-12 11:45 | History & Physical Report ---
Date of Service September 12, 2023 Assessment & Plan (1) Sickle cell crisis: Plan: -Admit to med/tele on pulse oximetry -Currently stable, non-toxic appearing, and with pain a 10/01 -Presented to the ED this am with his typical sickle cell crisis pain in the joints, jaw, and back -Denies current chest pain/SOB, does not appear to be in acute chest syndrome at this time >Will obtain CXR for further evaluation -Likely in a crisis today due to dehydration from drinking during an all day [employer] yesterday -S/P 1L NSS in the ED, will give an additional 1L LR bolus on admission -Will start maintenance LR after bolus is complete -We will start a Morphine MERCHANDISING MANAGER Pump on admission as he has required them on previous admissions -Start scheduled tylenol and prn heating pad as well -SQ lovenox for DVT PPX -Regular diet with soft, bite-sized texture due to hx of jaw avascular necrosis -AM CBC, CMP, mag, PT/INR (2) Asplenia: Plan: -No signs of acute infection -Continue to monitor (3) Dehydration: Plan: -Continue hydration per sickle cell crisis plan Plan The patient was discussed with Dr. Tucker at the time of the admission History of Present Illness Chief Complaint: Generalized pain Primary Care Provider: NO PCP Mat is a 23 year old male with a PMH significant for Sickle Cell disease with multiple previous admissions for sickle cell crisis, avascular necrosis of the jaw, and previous splenectomy who presented to the [facility] ED on 09/12/23 with complaints of progressive BL knee, shoulder, and jaw pain. He remained stable in the ED. Labs were significant for a WBC of 16, Hgb of 9.7, reticulocyte % of 11, AG of 13 with bicarb WNL. The patient was given 1L NSS, 2 doses of 60 mg IV toradol, and a total of 18 mg IV morphine without significant improvement in symptoms. Patient was lying in bed in no acute distress at the time of the exam. States that he is experiencing his typical site of pain with sickle cell crisis including joints and back. Symptoms start around 0100 this am. Took a dose of his prn Oxycodone but pain continued to increase. No recent symptoms to suggest acute illness. He was at a [employer] yesterday and was drinking beer most of the day. Denies current chest pain, SOB, abd pain, dysuria, hematuria, diarrhea, melena, or recent trauma. Is still following with his home Sickle Cell Specialist, last visit was in May. Joint/back pain is currently a 10/01. Please refer to Dr. Tucker's attestation for any changes to the treatment plan Allergies Allergy/AdvReac Type Severity Reaction Status Date / Time No Known Allergies Allergy Unverified 06/08/23 13:01 Home Medications Medication Instructions Recorded Confirmed Type folic acid 1 mg tablet 1 mg PO QAM 02/08/23 09/12/23 History ibuprofen 600 mg tablet 600 mg PO Q6 PRN Pain 02/08/23 09/12/23 History hydroxyurea 500 mg capsule 2,000 mg PO QAM 03/16/23 09/12/23 History oxycodone 10 mg tablet 10 mg PO Q6H PRN pain #30 tabs 06/12/23 09/12/23 Rx naloxone 4 mg/actuation nasal 1 spray intranasal ONCE #2 ea 09/13/23 Rx spray (Narcan) oxycodone 20 mg tablet,crush 20 mg PO Q12H 5 days #10 tabs 09/13/23 Rx resistant,extended release 12 hr (OxyContin) Past Med/Surg History Medical History Leukocytosis History of sickle cell disease Asplenia Asthma Surgical History History of tonsillectomy History of appendectomy History of splenectomy History of cholecystectomy Family History Other Hypertension Social History Smoking Status: Current every day smoker Tobacco Type: E-cigarettes / Vaping Hx Alcohol Use: Yes Alcohol type: beer and hard liquor Hx Substance Use: Yes Last Used Substance: Days (ago) Last Used Substance Other:: 07/11/22 Substance Use Type Other:: vapes nicotine Preferred Language: [place] Communication Ability: Effective Route Rider Supervisor Required: No Beliefs That Will Affect Care: None marital status: Single Current Living Situation: Alone Current Living Situation Comment: Apartment with one roomate Other Information That Helps Us Care for You: No Feels Safe at Home: Yes Safety Concerns: Feels Safe At This Time Assistive Devices: None Physical Exam Physical Exam: Physical Exam: General: In no acute distress, stated age, well-nourished, non-toxic appearing HEENT: Normocephalic, atraumatic, no scleral icterus, pupils around round, symmetrical, and reactive to light, dry mucus membranes, trachea midline, no thyromegaly Chest/Pulm: No respiratory distress, symmetrical chest expansion, clear breath sounds throughout Cardiac: RRR, no murmurs noted Abdomen: Negative for ascites and bruising, normoactive bowel sounds, soft, non-tender to palpation throughout Musculoskeletal: No acute trauma, pain with palpation of the BL knees and wrists Extremities: Radial, dorsalis pedis, and posterior tibial pulses are intact and symmetrical, no edema noted in the BL LE's Skin: Warm, dry, no rashes , lesions, or scars noted Neuro: Alert and oriented to person, place, month, year, and president, no focal defects, no tremors noted Psych: No acute distress, calm and cooperative during the exam Results & Data Results & Data Vital Signs (Past 12 Hours) Vital Signs Temp Pulse Pulse Resp BP BP Pulse Ox 09/12/23 10:00 77 20 125/71 96 09/12/23 08:00 89 20 114/57 L 96 09/12/23 07:02 89 09/12/23 07:00 60 18 117/53 L 98 09/12/23 05:50 36.9 C 89 17 135/81 96 O2 Del Method 09/12/23 10:00 Room Air 09/12/23 08:00 Room Air 09/12/23 07:02 09/12/23 07:00 Room Air 09/12/23 05:50 Room Air Laboratory Results Abnormal lab results 09/12/23 Range/Units 06:11 WBC 16.18 H (4.8-10.8) K/ul RBC 2.72 L (4.70-6.10) M/uL Hgb 9.7 L (14.0-18.0) g/dl Hct 26.4 L (42.0-52.0) % MCH 35.7 H (25.0-34.0) pg MCHC 36.7 H (32.0-36.0) g/dL RDW Std Deviation 68.9 H (36.4-46.3) fL RDW Coeff of Terrell 20.3 H (11.5-14.5) % Plt Count 435 H (130-400) K/uL Reticulocyte % (Auto) 11.77 H (0.50-2.00) % Neut # (Auto) 13.78 H (1.40-6.50) K/uL Lymph # (Auto) 1.09 L (1.20-3.40) K/uL [place] # (Auto) 0.99 H (0.11-0.59) K/uL Reticulocyte # 0.300 H (0.020-0.100) 10^6/uL Immature Gran # (Auto) 0.24 H (0.01-0.20) K/uL Absolute Nucleated RBC 0.79 H (0.00-0.12) K/uL Anion Gap 13 H (3-11) Total Bilirubin 5.4 H (0.2-1.0) mg/dl ECG Additional Comments: Sinus rhythm with marked sinus arrhythmia with 1st degree A-V block Right axis deviation Abnormal ECG When compared with ECG of 08-FEB-2023 04:50, CA interval has increased Code Status & VTE Plan Code Status Full code VTE Prophylaxis Plan VTE Prophylaxis will be ordered: Yes Supervising Physician Co-Signing Physician Notes I personally saw and examined the patient. I verified all worthy points and agree with Danny Lares PA-C with the following exceptions and/or additions: 23 year old male with sickle cell disease presents with similar symptoms to prior sickle cell crisis, mainly jaw/back, started 1am. O/E HS RRR, no murmurs, Chest CTAB, Abdo SNT A/P Sickle cell crisis - morphine IV drip with 2mg IV q20 minute lock out, up titrate as necessary, increase LR to 150ml/hr rather than maintenance. Otherwise as above PG Care Time/CCT Total # of Minutes Spent Total Time Spent with Patient: Total time spent is greater than 50% in coordination of care (as documented) at patient's floor/unit and/or counseling patient: C[place] [address] INT INP/OBS CARE 2/55MIN Patient Type Established Medical Decision Making High Complexity Diagnoses Sickle cell crisis D57.00 Asplenia Q89.01 Dehydration E86.0
--- NOTE | 2023-09-12 12:35 | XRay Report ---
SINGLE VIEW CHEST CLINICAL HISTORY: Sickle cell crisis. FINDINGS: 2 AP, portable, upright chest radiographs are compared to study dated 06/08/2023 and 04/24/20 22. The cardiomediastinal silhouette is top normal for projection. Linear scarring in the left upper lung is similar to previous. Mild patchy airspace opacities in the right upper and right lower lobes are new from previously No large pleural effusion or pneumothorax is seen. Mild sclerotic changes sug gested throughout the bony structures. The bony thorax is grossly intact. A surgical clip projects ov er the left upper abdomen. IMPRESSION: 1. Mild patchy opacities in the right upper and right lower lobes are new from previous. Correlate cl inically for evidence of a mild pneumonitis. Radiographic follow-up to resolution is recommended. 2. Linear scarring in the left upper lung is similar to previous.. ACT 112: Negative or not required by law. Electronically signed by: Po Franco M.D. 09/12/2023 12:34 PM
[2023-09-12] MEDS: ACETAMINOPHEN 325 MG TAB PO ONE (12:40)
[2023-09-12] MEDS: LACTATED RINGER'S 1,000 ML IV ONE (12:40)
[2023-09-12] MEDS: MoRPHine SULFATE PCA 30 MG/30 ML IV PRN (13:27)
[2023-09-12] MEDS: SODIUM CHLORIDE 0.9% 1,000 ML IV SCH (14:05)
[2023-09-12] MEDS: LACTATED RINGER'S 1,000 ML IV SCH (14:09)
[2023-09-12] MEDS: KETOROLAC 30 MG/ML VIAL IV SCH (17:54)
[2023-09-12] MEDS: ACETAMINOPHEN 325 MG TAB PO SCH (17:55)
[2023-09-12] MEDS: ONDANSETRON INJ 2 MG/ML 2 ML VIAL IV ONE (20:41)
[2023-09-12] MEDS: DOCUSATE SODIUM 100 MG CAP PO SCH (20:42)
[2023-09-12] MEDS: DOCUSATE SODIUM/SENNA 50/8.6MG TAB PO SCH (20:42)
[2023-09-12] MEDS: ENOXAPARIN INJ 40 MG/0.4 ML SYR SQ SCH (20:43)
[2023-09-13] MEDS ORDERED: Nursing to Pharmacy Communication SCH (03:30)
[2023-09-13] MEDS: SODIUM CHLORIDE 0.9% 1,000 ML IV SCH (04:29)
[2023-09-13 06:04] LABS: Basophils # (auto) 0.04 K/uL (0.00-0.20); Basophils % (auto) 0.4 %; Eosinophils # (auto) 0.12 K/uL (0.00-0.50); Eosinophils % (auto) 1.2 %; Hematocrit (blood only) 25.9 % (42.0-52.0); Hemoglobin 9.5 g/dl (14.0-18.0); Immature Granulocytes # (auto) 0.06 K/uL (0.01-0.20); Immature Granulocytes % (auto) 0.6 %; Lymphocytes # (auto) 1.96 K/uL (1.20-3.40); Lymphocytes % (auto) 18.9 %; Mean Corpuscular Hemoglobin 35.7 pg (25.0-34.0); Mean Corpuscular Hgb Conc 36.7 g/dL (32.0-36.0); Mean Corpuscular Volume 97.4 fL (80.0-100.0); Mean Platelet Volume 9.8 fL (9.4-12.4); Monocytes # (auto) 1.28 K/uL (0.11-0.59); Monocytes % (auto) 12.3 %; Neutrophils # (auto) 6.91 K/uL (1.40-6.50); Neutrophils % (auto) 66.6 %; Platelet Count 396 K/uL (130-400); RDW Coefficient of Variation 20.9 % (11.5-14.5); RDW Standard Deviation 73.4 fL (36.4-46.3); Red Blood Count 2.66 M/uL (4.70-6.10)
[2023-09-13 06:22] LABS: Alanine Aminotransferase 17 U/L (7-52); Albumin Globulin Ratio 1.5 (0.9-2); Alkaline Phosphatase 72 U/L (34-104); Anion Gap 6 (3-11); Aspartate Aminotransferase 35 U/L (13-39); BUN Creatinine Ratio 8.6 (10-20); Bilirubin,Total 5.1 mg/dl (0.2-1.0); Blood Urea Nitrogen 5 mg/dl (6-23); Carbon Dioxide 27 mmol/L (21-32); Chloride 101 mmol/L (98-107); Est GFR (African American) > 150.0 ml/min; Est GFR (Non-African American) 145.7 ml/min; Globulin 2.6 gm/dl (2.5-4.0); Glucose 119 mg/dl (70-99(Fasting)); Magnesium 1.6 mg/dl (1.7-2.4); Potassium 4.1 mmol/L (3.5-5.1); Sodium 134 mmol/L (136-145); Total Protein 6.6 gm/dl (6.0-8.3)
[2023-09-13 06:30] LABS: Anisocytosis Present; Nucleated RBC % (auto) 17.4 %; Polychromasia 3+; Target Cells 2+; White Blood Count 10.37 K/ul (4.8-10.8)
[2023-09-13 06:35] LABS: INR 1.1 (0.9-1.1)
[2023-09-13 06:47] LABS: Howell-Jolly Bodies 1+; Sickle Cells Occasional
[2023-09-13] MEDS: HYDROXYUREA 500 MG CAP PO SCH (09:00)
[2023-09-13] MEDS: FOLIC ACID 1 MG TAB PO SCH (09:00)
--- NOTE | 2023-09-13 14:29 | Discharge Summary ---
Date of Service September 13, 2023 Admission HPI Per Admitting Provider Mat is a 23 year old male with a PMH significant for Sickle Cell disease with multiple previous admissions for sickle cell crisis, avascular necrosis of the jaw, and previous splenectomy who presented to the [facility] ED on 09/12/23 with complaints of progressive BL knee, shoulder, and jaw pain. He remained stable in the ED. Labs were significant for a WBC of 16, Hgb of 9.7, reticulocyte % of 11, AG of 13 with bicarb WNL. The patient was given 1L NSS, 2 doses of 60 mg IV toradol, and a total of 18 mg IV morphine without significant improvement in symptoms. Patient was lying in bed in no acute distress at the time of the exam. States that he is experiencing his typical site of pain with sickle cell crisis including joints and back. Symptoms start around 0100 this am. Took a dose of his prn Oxycodone but pain continued to increase. No recent symptoms to suggest acute illness. He was at a [employer] tournament yesterday and was drinking beer most of the day. Denies current chest pain, SOB, abd pain, dysuria, hematuria, diarrhea, melena, or recent trauma. Is still following with his home Sickle Cell Specialist, last visit was in May. Joint/back pain is currently a 5/10. Please refer to Dr. Tucker's attestation for any changes to the treatment plan Principal Diagnosis Sickle Cell Crisis Discharge Exam Constitutional WD/WN, vitals as above Eyes + anicteric sclerae Respiratory normal respiratory effort, lungs clear to auscultation Cardiovascular RRR, no murmur, no edema Gastrointestinal (Abdomen) normal bowel sounds, soft, nontender, no hepatosplenomegaly Musculoskeletal Head/Neck/Chest: normocephalic and head atraumatic Skin no rashes, warm and dry Psychiatric A+Ox3, euthymic affect Discharge Data Allergies Allergy/AdvReac Type Severity Reaction Status Date / Time No Known Allergies Allergy Unverified 06/08/23 13:01 Consultations 09/12/23 11:39 ED Decision to Admit Stat Hospital Course (1) Sickle cell crisis: Admission plan: -Admit to med/tele on pulse oximetry -Currently stable, non-toxic appearing, and with pain a 5/10 -Presented to the ED this am with his typical sickle cell crisis pain in the joints, jaw, and back -Denies current chest pain/SOB, does not appear to be in acute chest syndrome at this time >Will obtain CXR for further evaluation -Likely in a crisis today due to dehydration from drinking during an all day [employer] tournament yesterday -S/P 1L NSS in the ED, will give an additional 1L LR bolus on admission -Will start maintenance LR after bolus is complete -We will start a Morphine 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 Patient started on IV hydration as well as pain control with PACKAGE DELIVERY ROOM SERVICE RUNNER pump which patient's frequency had decreased on the day of discharge. Sickle cell crisis likely secondary to a day of alcohol consumption resulting in transient dehydration and increased sickling. On the day of discharge, patient was reporting improved pain control and patient felt ready to return home. No nausea or vomiting and was able to have good p.o. intake on the day of discharge. Patient was sent home with OxyContin 20 mg twice daily on top of his home as needed oxycodone for pain control. Patient was also given Narcan in case of accidental overdose. Dr. Dewitt of [facility] was placed as PCP follow-up as patient does not have a primary care provider. (2) Asplenia: -No signs of acute infection -Continue to monitor (3) Dehydration: -Continue hydration per sickle cell crisis plan Total Time Total Time Spent Total Time Spent (In Minutes): I spent 30 minutes seeing the patient, sending in a prescription, reviewing lab work and notes, and documenting Discharge Plan Discharge Items Patient Disposition: Home - Self-Care Reason For Visit: sickle cell crisis Discharge Diagnosis: Sickle Cell Crisis Activity: Per Instructions section Non-emergency contact: Primary Care Provider Call non-emergency contact if: you have any medication questions Follow-up/Referrals: Sherman Dewitt DO [Resident] - (PLEASE CALL YOUR PRIMARY CARE PROVIDER TO SCHEDULE A HOSPITAL DISCHARGE FOLLOW-UP APPOINTMENT WITHIN 7-10 DAYS) Diet: Regular Addtl Attending Provider Instructions: You were seen in the hospital for concern of diffuse body pain associated with the sickle cell crisis. While you were here, you were given IV fluids and pain medications which seem to improve your symptoms. We feel that your symptoms came on due to the day of consuming alcohol which transiently caused a state of dehydration which can exacerbate sickle cell disease. For discharge, we are sending you with a prescription of OxyContin for 5 days after discharge. Follow the instructions on the bottle. If you have breakthrough pain in between doses, you may take your home oxycodone as needed every 6 hours. I am also going to send you a reversal agent for opiates called naloxone (Narcan) as this is a substantial amount of opiate medication in case there is an accidental overdose, you have this available to you. I have put myself as the follow-up from this hospitalization. We will make an appointment for you for you to follow-up. Otherwise continue all your other home medications without change. It has been a pleasure to be a part of your care and we wish you the best in both your health and your recovery. Pending Studies at Discharge: No Stand-Alone Forms: My [facility], Smoking Cessation Medications and DC Order Prescriptions: New oxycodone [OxyContin] 20 mg tablet,oral only,ext.rel.12 hr 20 mg PO Q12H 5 Days Qty: 10 0RF naloxone [Narcan] 4 mg/actuation spray,non-aerosol 1 spray intranasal ONCE Qty: 2 1RF Continued folic acid 1 mg tablet 1 mg PO QAM ibuprofen 600 mg tablet 600 mg PO Q6 PRN (Reason: Pain) hydroxyurea 500 mg capsule 2,000 mg PO QAM oxycodone 10 mg tablet 10 mg PO Q6H PRN (Reason: pain) Qty: 30 0RF Rx Instructions: qid prn breakthrough pain Discharge Orders: Discharge Order (Routine); Ordered 09/13/23 Ordered By: Sherman Dewitt Admission Data Admit Date/Time: 09/12/23 13:02 Attending Provider: Kevin Rodriguez Admit Provider: Catalino Tucker Primary Care Provider: PCP,NO Other Providers: Catalino Tucker Other Interventions: Discharge Summary Assessment (RN) Last Done: 09/13/23 14:14 Supervising Physician Co-Signing Physician Notes ATTESTATION I also saw the patient and confirmed worthy portions of the history and exam. I agree with the impression and plan in the resident documentation, and as summarized below. He is feeling better this morning. He tells us that this episode is similar to previous although some more teeth/dental pain than he had previous. He does feel well enough and desires to return home today. He denies having chest pain. No shortness of breath. He has been ambulatory in the room without difficulty. EXAM 121/55, 65, 16, 36.6, 97% room air Heart regular rate and rhythm Lungs clear with nonlabored respirations DATA Labs Hemoglobin stable this morning at 9.5. White blood cell count 10.37 Sodium 134, potassium 4.1, BUN 5, creatinine 0.58 Total bilirubin 5.1 Imaging Chest x-ray completed 09/12/2023 shows linear scarring the left upper lobe, similar to previous. There is also description of mild patchy opacities in the right upper and right lower lobes, which were not seen previously. Suggestion is made of a mild pneumonitis. IMPRESSION & PLAN Sickle cell crisis, improving Patient desires discharge. I think we can control his pain with oral medica tions. Instructions as delineated in the resident note. Results of chest x-ray appreciated; clinically, pulmonary exam and pulmonary review of systems are negative. Will defer follow-up to his outpatient team. Additional per resident documentation
--- NOTE | 2023-09-13 22:09 | Electrocardiogram Report ---
Test Reason : Blood Pressure : / mmHG Vent. Rate : 079 BPM Atrial Rate : 079 BPM P-R Int : 230 ms QRS Dur : 080 ms QT Int : 368 ms P-R-T Axes : 055 125 051 degrees QTc Int : 421 ms Sinus rhythm with marked sinus arrhythmia with 1st degree A-V block Right axis deviation Abnormal ECG When compared with ECG of 08-FEB-2023 04:50, MS interval has increased Confirmed by Hema Doss ([id number]) on 09/13/2023 10:08:57 PM Referred By: REFERRED SELF Confirmed By:Hema Doss
== END 2023-09-13 15:15 | disposition home or self-care (01) | DRG 812 ==
LOC: ED 05:48 → 2N 13:02 → SUATTDRO 13:02 → 2N 14:09

== ENCOUNTER 2024-02-21 09:07 | Inpatient (IN) ==
--- NOTE | 2024-02-21 09:50 | Emergency Department Note ---
Impression & Plan Sickle cell pain crisis ED Provider Note HISTORY OF PRESENT ILLNESS: Patient is a 23-year-old male presenting with bilateral upper leg pain. Patient states that he awoke this morning with pain in his upper legs. He states that this feels similar to his previous sickle cell crisis. He reports he took an ibuprofen around 7 AM with little relief in his symptoms. He denies any recent medication changes. Denies any recent fever. Denies any chest pain, shortness of breath or abdominal pain. He states that he is normally prescribed oxycodone, but "did not have any on hand for this." Reports he has been eating and drinking well. ROS: as above PHYSICAL EXAM: Constitutional: Patient appears in no acute distress. HENT: Head: Normocephalic and atraumatic. Eyes: EOMI, PERRL Mouth/Throat: Mucous membranes moist. Neck: Trachea midline. Neck supple. Abdominal: Abdomen soft, no tenderness, rebound or guarding. Musculoskeletal: No edema, tenderness or deformity noted. Skin: Warm and dry. No rash, erythema, pallor or cyanosis Psychiatric: Appropriate mood and affect for situation. Neurological: Alert and keenly responsive. CN II-XII grossly intact, moving all extremities equally and fully. MDM: - Vitals signs showed tachycardia - History obtained via patient. History as above. - Chronic conditions affecting care: Sickle cell disease; asplenic - Differential diagnoses include, but are not limited to: Sickle cell crisis; dehydration; anemia; musculoskeletal pain - Order placed for continuous cardiac monitoring. At this time, monitor showed rate of 85 bpm with normal sinus rhythm, per my interpretation. - External medical records reviewed. Discharge summary dated 09/13/2023 was reviewed. Patient was admitted at that time for sickle cell crisis. - Laboratory workup interpreted by myself showed leukocytosis (WBC 13.76); anemia (Hgb 10.1); normal PT/INR; elevated reticulocyte count; stable electrolytes - CXR negative for pneumonia, per my interpretation. - Paient initially given 1L NS, 4 mg IV morphine and 4 mg IV zofran. On reassessment, he reports pain has returned and he was given 4 mg of IV morphine. However, he states the pain returned after about 10 minutes. He was given 1 mg of IV Dilaudid. - Patient reports that the symptoms are similar to his history of sickle cell pain crisis. He was agreeable to admission for further pain control, as he has oxycodone at home but is almost out and it was not helping with his symptoms previously. - Discussion was had with briefcase sewer about patient's case and need for admission - Hospitalist consulted for admission - [facility] for further evaluation and management. 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 Acute chest syndrome UTI (urinary tract infection) Fever (Acute) Productive cough (Acute) Right-sided chest pain (Acute) Pneumonia (Acute) History of sickle cell disease (Acute) Asplenia Medical History Leukocytosis History of sickle cell disease Asplenia Asthma Surgical History History of tonsillectomy History of appendectomy History of splenectomy History of cholecystectomy Family History Other Hypertension Social History Smoking Status: Never smoker Tobacco Type: E-cigarettes / Vaping Hx Alcohol Use: Yes Alcohol type: beer and hard liquor Hx Substance Use: Yes Last Used Substance: Days (ago) Last Used Substance Other:: 07/11/22 Substance Use Type Other:: vapes nicotine Preferred Language: Kenyan Communication Ability: Effective Paving Rammer Required: No Beliefs That Will Affect Care: None marital status: Single Current Living Situation: Alone Current Living Situation Comment: Apartment with one roomate Feels Safe at Home: Yes Assistive Devices: None Allergies Allergies Allergy/AdvReac Type Severity Reaction Status Date / Time No Known Allergies Allergy Unverified 06/08/23 13:01 Home Meds Home Medications Medication Instructions Recorded Confirmed folic acid 1 mg tablet 1 mg PO QAM 02/08/23 09/12/23 ibuprofen 600 mg tablet 600 mg PO Q6 PRN Pain 02/08/23 09/12/23 hydroxyurea 500 mg capsule 2,000 mg PO QAM 03/16/23 09/12/23 Previous Rx's Medication Instructions Recorded oxycodone 10 mg tablet 10 mg PO Q6H PRN pain #30 tabs 06/12/23 naloxone 4 mg/actuation nasal 1 spray intranasal ONCE #2 ea 09/13/23 spray (Narcan) Results & Data (ED) Vital Signs Vital Signs - 24 hr 02/21/24 09:11 02/21/24 10:08 02/21/24 10:41 Temperature 36.5 C Temperature Source Temporal Artery Scan Pulse Rate 100 H 68 Pulse Rate [Apical] 79 Pulse Rhythm [Apical] Pulse Strength [Apical] Respiratory Rate 18 17 17 Respiratory Effort / Characteristics Non-Labored Spontaneous Non-Labored Spontaneous Respiratory Depth Normal Normal Respiratory Pattern Regular Blood Pressure 116/73 Blood Pressure [Right Arm] 120/64 Blood Pressure Mean 87 Blood Pressure Mean [Right Arm] 82 Blood Pressure Position Sitting Blood Pressure Position [Right Arm] Semi-fowlers Pulse Oximetry 100 94 94 Oxygen Delivery Method Room Air Room Air Room Air Sepsis Recent Fever Within 48 Hours No Sepsis New/Unexplained Change in Mental Status No Sepsis Action Taken by Nursing No Action Required 02/21/24 12:00 02/21/24 12:05 Temperature Temperature Source Pulse Rate 85 Pulse Rate [Apical] 75 Pulse Rhythm [Apical] Regular Pulse Strength [Apical] Normal Respiratory Rate 17 Respiratory Effort / Characteristics Non-Labored Spontaneous Respiratory Depth Normal Respiratory Pattern Blood Pressure Blood Pressure [Right Arm] 107/64 Blood Pressure Mean Blood Pressure Mean [Right Arm] 78 Blood Pressure Position Blood Pressure Position [Right Arm] Pulse Oximetry 97 Oxygen Delivery Method Room Air Sepsis Recent Fever Within 48 Hours Sepsis New/Unexplained Change in Mental Status Sepsis Action Taken by Nursing Laboratory Data 02/21/24 10:25 02/21/24 10:25 Lab Results 02/21/24 02/21/24 Range/Units 10:25 10:57 WBC 13.76 H (4.8-10.8) K/ul RBC 2.87 L (4.70-6.10) M/uL Hgb 10.1 L (14.0-18.0) g/dl Hct 27.5 L (42.0-52.0) % MCV 95.8 (80.0-100.0) fL MCH 35.2 H (25.0-34.0) pg MCHC 36.7 H (32.0-36.0) g/dL RDW Std Deviation 58.5 H (36.4-46.3) fL RDW Coeff of Terrell 17.1 H (11.5-14.5) % Plt Count 276 (130-400) K/uL MPV 10.5 (9.4-12.4) fL Immature Gran % (Auto) 2.6 % Neut % (Auto) 77.0 % Lymph % (Auto) 9.8 % Hanson % (Auto) 8.6 % Eos % (Auto) 1.5 % Baso % (Auto) 0.5 % Reticulocyte % (Auto) 9.84 H (0.50-2.00) % Neut # (Auto) 10.59 H (1.40-6.50) K/uL Lymph # (Auto) 1.35 (1.20-3.40) K/uL Hanson # (Auto) 1.18 H (0.11-0.59) K/uL Eos # (Auto) 0.21 (0.00-0.50) K/uL Baso # (Auto) 0.07 (0.00-0.20) K/uL Reticulocyte # 0.280 H (0.020-0.100) 10^6/uL Immature Gran # (Auto) 0.36 H (0.01-0.20) K/uL Absolute Nucleated RBC 0.40 H (0.00-0.12) K/uL Nucleated RBC % (auto) 2.9 % Polychromasia 2+ Pappenheimer Bodies 1+ Sickle Cells 1+ Target Cells 1+ PT Cancelled 10.8 INR Cancelled 1.0 Sodium 138 (136-145) mmol/L Potassium 4.4 (3.5-5.1) mmol/L Chloride 104 (98-107) mmol/L Carbon Dioxide 29 (21-32) mmol/L Anion Gap 5 (3-11) BUN 13 (6-23) mg/dl Creatinine 0.83 (0.6-1.4) mg/dl Est Cr Clr Drug Dosing Not Reportable Est GFR ( Amer) 145.8 ml/min Est GFR (Non-Af Amer) 125.8 ml/min BUN/Creatinine Ratio 15.7 (10-20) Glucose 98 (70-99(Fasting)) mg/dl Calcium 9.2 (8.6-10.3) mg/dl Total Bilirubin 5.5 H (0.2-1.0) mg/dl AST 32 (13-39) U/L ALT 22 (7-52) U/L Alkaline Phosphatase 81 (34-104) U/L Total Protein 7.2 (6.0-8.3) gm/dl Albumin 4.8 (3.4-5.0) gm/dl Globulin 2.4 L (2.5-4.0) gm/dl Albumin/Globulin Ratio 2.0 (0.9-2) Administered Medications Discontinued Medications Hydromorphone HCl (Hydromorphone Inj 1 Mg/Ml Syringe) 1 mg IV NOW STA Stop: 02/21/24 12:58 Last Admin: 02/21/24 13:07 Dose: 1 mg Documented By: FREDY Sodium Chloride (Nss) 1,000 mls @ 999 mls/hr IV .Q1H1M ONE Stop: 02/21/24 10:25 Last Infusion: 02/21/24 13:07 Dose: Infused Documented By: Admin: 02/21/24 10:29 Dose: 999 mls/hr Documented By: BERT Morphine Sulfate (Morphine Sulfate 4 Mg/Ml 1 Ml Carp\\Vial) 4 mg IV NOW STA Stop: 02/21/24 09:26 Last Admin: 02/21/24 10:29 Dose: 4 mg Documented By: BERT Morphine Sulfate (Morphine Sulfate 4 Mg/Ml 1 Ml Carp\\Vial) 4 mg IV NOW STA Stop: 02/21/24 12:27 Last Admin: 02/21/24 12:34 Dose: 4 mg Documented By: LION Ondansetron HCl (Ondansetron Inj 2 Mg/Ml 2 Ml Vial) 4 mg IV NOW STA Stop: 02/21/24 10:41 Last Admin: 02/21/24 10:45 Dose: 4 mg Documented By: BERT Imaging Data Radiologist's Impression: Chest X-Ray 02/21/24 09:24 SINGLE VIEW CHEST CLINICAL HISTORY: Atypical chest pain FINDINGS: An AP, portable, upright chest radiograph is compared to study dated 09/12/2023. The cardiomediastinal silhouette is unremarkable. Linear scarring/atelectasis is seen in the left upper lung. No airspace consolidation or large pleural effusion is identified. No pneumothorax is seen. The bony thorax is grossly intact. Surgical clips project over the left upper quadrant of the abdomen. IMPRESSION: No acute cardiopulmonary abnormality. ACT 112: Negative or not required by law. Electronically signed by: Po Franco M.D. 02/21/2024 9:55 AM Discharge Plan Visit Data Chief Complaint: Pain (Generalized) Stated Complaint: SICKLE CELL PAIN CRISIS ED Provider: Jaycee Martinez Discharge Problem: Sickle cell pain crisis Forms Stand Alone Forms: [facility] Prescriptions Prescriptions: No Action folic acid 1 mg tablet 1 mg PO QAM ibuprofen 600 mg tablet 600 mg PO Q6 PRN (Reason: Pain) hydroxyurea 500 mg capsule 2,000 mg PO QAM oxycodone 10 mg tablet 10 mg PO Q6H PRN (Reason: pain) Qty: 30 0RF Rx Instructions: qid prn breakthrough pain naloxone [Narcan] 4 mg/actuation spray,non-aerosol 1 spray intranasal ONCE Qty: 2 1RF Referrals Referrals: [facility] [Primary Care Provider] -
--- NOTE | 2024-02-21 09:57 | XRay Report ---
SINGLE VIEW CHEST CLINICAL HISTORY: Atypical chest pain FINDINGS: An AP, portable, upright chest radiograph is compared to study dated 09/12/2023. The cardiom ediastinal silhouette is unremarkable. Linear scarring/atelectasis is seen in the left upper lung. No airspace consolidation or large pleural effusion is identified. No pneumothorax is seen. The bony th orax is grossly intact. Surgical clips project over the left upper quadrant of the abdomen. IMPRESSION: No acute cardiopulmonary abnormality. ACT 112: Negative or not required by law. Electronically signed by: Po Franco M.D. 02/21/2024 9:55 AM
[2024-02-21] MEDS: MoRPHine SULFATE 4 MG/ML 1 ML CARP\\VIAL IV STA ×2 (10:29→12:34)
[2024-02-21] MEDS: SODIUM CHLORIDE 0.9% 1,000 ML IV ONE (10:29)
[2024-02-21] MEDS: ONDANSETRON INJ 2 MG/ML 2 ML VIAL IV STA (10:45)
[2024-02-21 11:09] LABS: Alanine Aminotransferase 22 U/L (7-52); Albumin Level 4.8 gm/dl (3.4-5.0); Alkaline Phosphatase 81 U/L (34-104); BUN Creatinine Ratio 15.7 (10-20); Bilirubin,Total 5.5 mg/dl (0.2-1.0); Blood Urea Nitrogen 13 mg/dl (6-23); Calcium 9.2 mg/dl (8.6-10.3); Carbon Dioxide 29 mmol/L (21-32); Chloride 104 mmol/L (98-107); Est GFR (African American) 145.8 ml/min; Est GFR (Non-African American) 125.8 ml/min; Glucose 98 mg/dl (70-99(Fasting)); Sodium 138 mmol/L (136-145); Total Protein 7.2 gm/dl (6.0-8.3)
[2024-02-21 11:13] LABS: Potassium 4.4 mmol/L (3.5-5.1)
[2024-02-21 11:14] LABS: Anion Gap 5 (3-11); Globulin 2.4 gm/dl (2.5-4.0)
[2024-02-21 11:21] LABS: Aspartate Aminotransferase 32 U/L (13-39)
[2024-02-21 11:29] LABS: Hematocrit (blood only) 27.5 % (42.0-52.0); Hemoglobin 10.1 g/dl (14.0-18.0); Mean Corpuscular Hemoglobin 35.2 pg (25.0-34.0); Mean Corpuscular Hgb Conc 36.7 g/dL (32.0-36.0); Mean Corpuscular Volume 95.8 fL (80.0-100.0); Mean Platelet Volume 10.5 fL (9.4-12.4); Nucleated RBC % (auto) 2.9 %; Platelet Count 276 K/uL (130-400); RDW Coefficient of Variation 17.1 % (11.5-14.5); RDW Standard Deviation 58.5 fL (36.4-46.3); Red Blood Count 2.87 M/uL (4.70-6.10); White Blood Count 13.76 K/ul (4.8-10.8)
[2024-02-21 11:43] LABS: Prothrombin Time 10.8 Seconds (9.0-12.0)
[2024-02-21 11:43] LABS: Basophils # (auto) 0.07 K/uL (0.00-0.20); Basophils % (auto) 0.5 %; Eosinophils # (auto) 0.21 K/uL (0.00-0.50); Eosinophils % (auto) 1.5 %; Immature Granulocytes # (auto) 0.36 K/uL (0.01-0.20); Immature Granulocytes % (auto) 2.6 %; Lymphocytes # (auto) 1.35 K/uL (1.20-3.40); Lymphocytes % (auto) 9.8 %; Monocytes # (auto) 1.18 K/uL (0.11-0.59); Monocytes % (auto) 8.6 %; Neutrophils # (auto) 10.59 K/uL (1.40-6.50); Pappenheimer Bodies 1+; Polychromasia 2+; Reticulocyte % 9.84 % (0.50-2.00); Sickle Cells 1+; Target Cells 1+
[2024-02-21] MEDS: HYDROmorphone INJ 1 MG/ML SYRINGE IV STA (13:07)
--- NOTE | 2024-02-21 13:23 | History & Physical Report ---
Date of Service February 21, 2024 Assessment & Plan (1) Sickle cell pain crisis: Plan: Admit to med/tele on pulse oximetry Currently stable and nontoxic-appearing Presented to the ED after waking this morning with severe bilateral upper leg pain consistent with previous sickle cell crisis episodes. 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 Tylenol now followed by 650 mg every 6 hours scheduled > 0.5 mg IV Dilaudid every 3 hours as needed pain 5+ > Can increase dose of Dilaudid to 1 mg if needed > As needed Narcan for oversedation/respiratory depression Status post IV, will give 1 L LR now and continue with maintenance LR at night Bilateral SCDs for DVT prophylaxis Regular diet AM CBC, CMP, mag (2) Leg pain: Plan: Bilateral upper thigh pain likely due to sickle cell crisis as he is experienced this before with previous episodes No acute trauma on exam, pain is improving with hydration as needed analgesics Rest of care per sickle cell crisis plan Plan The patient was discussed with Dr. Krishna at time of admission History of Present Illness Chief Complaint: Generalized pain Primary Care Provider: [facility] Mat is a 23 year old male with a PMH significant for Sickle Cell disease with multiple previous admissions for sickle cell crisis, avascular necrosis of the jaw, and previous splenectomy who presented to the [facility] ED on 02/21/2024 with a chief complaint of generalized pain consistent with previous sickle cell exacerbations. On arrival to the ED he was noted to be tachycardic with heart rate of 100 but was otherwise stable. Labs were significant for a leukocytosis of 13 with neutrophil predominance of 10, hemoglobin of 10, reticulocyte percentage of 9.4, total bili of 5.5 (up from 5.1 as of 09/13/2023). Chest x-ray was read as negative for acute findings. Prior to admission the patient was given 1 L normal saline, 2 doses of 4 mg IV morphine, 4 mg IV Zofran, and 1 mg IV Dilaudid. Patient was sitting in bed in no acute distress at time of exam, currently stable on room air. 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 When asked, he confirms that he did not hydrate enough yesterday. Woke up this morning with significant bilateral upper thigh pain but denies other pain/discomfort at this time. No recent fever, chills, chest pain, shortness of, abdominal pain, nausea/vomiting, dysuria/hematuria, diarrhea, melena, recent trauma. Feels slightly improved compared to arrival but pain is not yet resolved. States he did try to use 2 doses of his home oxycodone without improvement of pain which is why he presented to the ED. Please refer to Dr. Krishna's attestation for any changes to the treatment plan Allergies Allergy/AdvReac Type Severity Reaction Status Date / Time No Known Allergies Allergy Unverified 06/08/23 13:01 Home Medications Medication Instructions Recorded Confirmed Type folic acid 1 mg tablet 1 mg PO QAM 02/08/23 09/12/23 History ibuprofen 600 mg tablet 600 mg PO Q6 PRN Pain 02/08/23 09/12/23 History hydroxyurea 500 mg capsule 2,000 mg PO QAM 03/16/23 09/12/23 History oxycodone 10 mg tablet 10 mg PO Q6H PRN pain #30 tabs 06/12/23 09/12/23 Rx naloxone 4 mg/actuation nasal 1 spray intranasal ONCE #2 ea 09/13/23 Rx spray (Narcan) Past Med/Surg History Problem List (Updated 02/21/24 @ 13:42 by Danny Lares PA-C) Leg pain Sickle cell pain crisis (Acute) Sickle cell crisis (Acute) Generalized pain (Acute) Sickle cell crisis 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 Acute chest syndrome UTI (urinary tract infection) Fever (Acute) Productive cough (Acute) Right-sided chest pain (Acute) Pneumonia (Acute) History of sickle cell disease (Acute) Asplenia Medical History Leukocytosis History of sickle cell disease Asplenia Asthma Surgical History History of tonsillectomy History of appendectomy History of splenectomy History of cholecystectomy Family History Other Hypertension Social History Smoking Status: Never smoker Tobacco Type: E-cigarettes / Vaping Hx Alcohol Use: Yes Alcohol type: beer and hard liquor Hx Substance Use: Yes Last Used Substance: Days (ago) Last Used Substance Other:: 07/11/22 Substance Use Type Other:: vapes nicotine Preferred Language: Nepalese Communication Ability: Effective Facetor Required: No Beliefs That Will Affect Care: None marital status: Single Current Living Situation: Alone Current Living Situation Comment: Apartment with one roomate Feels Safe at Home: Yes Assistive Devices: None Physical Exam Physical Exam: Physical Exam: General: In no acute distress, stated age, fatigued but nontoxic-appearing HEENT: Normocephalic, atraumatic, no scleral icterus, pupils around round, symmetrical, and reactive to light, dry mucus membranes, trachea midline, no thyromegaly Chest/Pulm: No respiratory distress, symmetrical chest expansion, clear breath sounds throughout Cardiac: RRR, no murmurs noted Abdomen: Negative for ascites and bruising, normoactive bowel sounds, soft, non-tender to palpation throughout Musculoskeletal: Symmetrical and without signs of acute trauma, upper and lower extremities with full ROM, no atrophy, spasticity, or flaccidity Extremities: Radial, dorsalis pedis, and posterior tibial pulses are intact and symmetrical, no edema noted in the BL LE's Skin: Warm, dry, no rashes , lesions, or scars noted Neuro: Alert and oriented to person, place, month, year, and president, no focal defects, no tremors noted Psych: Fatigued, no acute distress, calm and cooperative during the exam Results & Data Results & Data Vital Signs (Past 12 Hours) Vital Signs Temp Pulse Pulse Resp BP BP Pulse Ox 02/21/24 12:05 85 02/21/24 12:00 75 17 107/64 97 02/21/24 10:41 79 17 120/64 94 02/21/24 10:08 68 17 94 02/21/24 09:11 36.5 C 100 H 18 116/73 100 O2 Del Method 02/21/24 12:05 02/21/24 12:00 Room Air 02/21/24 10:41 Room Air 02/21/24 10:08 Room Air 02/21/24 09:11 Room Air Laboratory Results Abnormal lab results 02/21/24 Range/Units 10:25 WBC 13.76 H (4.8-10.8) K/ul RBC 2.87 L (4.70-6.10) M/uL Hgb 10.1 L (14.0-18.0) g/dl Hct 27.5 L (42.0-52.0) % MCH 35.2 H (25.0-34.0) pg MCHC 36.7 H (32.0-36.0) g/dL RDW Std Deviation 58.5 H (36.4-46.3) fL RDW Coeff of Terrell 17.1 H (11.5-14.5) % Reticulocyte % (Auto) 9.84 H (0.50-2.00) % Neut # (Auto) 10.59 H (1.40-6.50) K/uL Wilkin # (Auto) 1.18 H (0.11-0.59) K/uL Reticulocyte # 0.280 H (0.020-0.100) 10^6/uL Immature Gran # (Auto) 0.36 H (0.01-0.20) K/uL Absolute Nucleated RBC 0.40 H (0.00-0.12) K/uL Total Bilirubin 5.5 H (0.2-1.0) mg/dl Globulin 2.4 L (2.5-4.0) gm/dl Diagnostic Findings Chest X-Ray 02/21/24 09:24 SINGLE VIEW CHEST CLINICAL HISTORY: Atypical chest pain FINDINGS: An AP, portable, upright chest radiograph is compared to study dated 09/12/2023. The cardiomediastinal silhouette is unremarkable. Linear scarring/atelectasis is seen in the left upper lung. No airspace consolidation or large pleural effusion is identified. No pneumothorax is seen. The bony thorax is grossly intact. Surgical clips project over the left upper quadrant of the abdomen. IMPRESSION: No acute cardiopulmonary abnormality. ACT 112: Negative or not required by law. Electronically signed by: Po Franco M.D. 02/21/2024 9:55 AM Code Status & VTE Plan Code Status Full code VTE Prophylaxis Plan VTE Prophylaxis will be ordered: Yes Supervising Physician Co-Signing Physician Notes Patient seen and examined, chart reviewed, case discussed with Danny Lares PA-C and I agree with the assessment and plan as above except as otherwise noted Labs and images reviewed Mat is a 23-year-old male -[place] patient with a history of sickle cell disease who presents to the ER with bilateral upper leg pain consistent with prior sickle cell crisis episodes. He does not have chest pain. No recent fever chills or sweats. 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 Suspect. Precipitated by combination of being active all day with alcohol use and dehydration. Agree with multimodal pain control, Tylenol with Dilaudid every 3 hours as needed for breakthrough pain. 1 L LR given and continue maintenance fluids overnight. Hemoglobin is 10.1 with reticulocyte count of 9, no indication for transfusion at time of admission. Chest x-ray is clear, no evidence of chest syndrome. RRR, CTAB at bedside. Agree w/ above. PG Care Time/CCT Total # of Minutes Spent Total Time Spent with Patient: Total time spent is greater than 50% in coordination of care (as documented) at patient's floor/unit and/or counseling patient: [place] [address] INT INP/OBS CARE 3/75MIN Patient Type Established Medical Decision Making High Complexity Diagnoses Sickle cell pain crisis D57.00 Leg pain M79.606
[2024-02-21] MEDS ORDERED: HYDROmorphone INJ 0.5 MG/0.5 ML SYR IV PRN (13:35)
[2024-02-21] MEDS ORDERED: NALOXONE HCL 0.4 MG/1 ML VIAL/CARP IV PRN ×2 (13:36→14:52)
[2024-02-21] MEDS: ACETAMINOPHEN 500 MG TAB PO STA (14:04)
[2024-02-21] MEDS: LACTATED RINGER'S 1,000 ML IV ONE ×2 (14:05→19:32)
[2024-02-21] MEDS: MoRPHine Bolus from PCA IV STA (15:05)
[2024-02-21] MEDS: MoRPHine SULFATE PCA 30 MG/30 ML IV PRN (15:48)
[2024-02-21] MEDS: SODIUM CHLORIDE 0.9% 1,000 ML IV SCH (15:54)
[2024-02-21] MEDS: LACTATED RINGER'S 1,000 ML IV SCH (16:03)
[2024-02-21] MEDS: ACETAMINOPHEN 325 MG TAB PO SCH (17:43)
[2024-02-21] MEDS: MoRPHine SULFATE 2 MG/ML CARP IV STA (19:27)
[2024-02-21] MEDS: ONDANSETRON INJ 2 MG/ML 2 ML VIAL IV PRN (19:29)
[2024-02-22 07:45] LABS: Alanine Aminotransferase 19 U/L (7-52); Albumin Level 4.4 gm/dl (3.4-5.0); Alkaline Phosphatase 75 U/L (34-104); Anion Gap 7 (3-11); Aspartate Aminotransferase 34 U/L (13-39); BUN Creatinine Ratio 14.7 (10-20); Bilirubin,Total 5.9 mg/dl (0.2-1.0); Blood Urea Nitrogen 10 mg/dl (6-23); Calcium 9.3 mg/dl (8.6-10.3); Carbon Dioxide 28 mmol/L (21-32); Chloride 102 mmol/L (98-107); Creatinine Clr Calc Pharmacy 178.9 ml/min; Est GFR (African American) > 150.0 ml/min; Est GFR (Non-African American) 136.5 ml/min; Globulin 2.2 gm/dl (2.5-4.0); Glucose 94 mg/dl (70-99(Fasting)); Magnesium 1.8 mg/dl (1.7-2.4); Potassium 4.1 mmol/L (3.5-5.1); Sodium 137 mmol/L (136-145); Total Protein 6.6 gm/dl (6.0-8.3)
[2024-02-22 08:00] LABS: Eosinophils % (auto) 0.7 %; Immature Granulocytes % (auto) 1.4 %; Lymphocytes # (auto) 2.05 K/uL (1.20-3.40); Lymphocytes % (auto) 14.6 %; Mean Corpuscular Volume 94.3 fL (80.0-100.0); Mean Platelet Volume 10.2 fL (9.4-12.4); Monocytes % (auto) 12.9 %; Neutrophils # (auto) 9.85 K/uL (1.40-6.50); Neutrophils % (auto) 70.4 %; Nucleated RBC # (auto) 1.05 K/uL (0.00-0.12); Nucleated RBC % (auto) 7.5 %; Pappenheimer Bodies 1+; Platelet Count 250 K/uL (130-400); Polychromasia 2+; RDW Coefficient of Variation 16.9 % (11.5-14.5); Red Blood Count 2.65 M/uL (4.70-6.10); Sickle Cells 1+; Target Cells 2+
[2024-02-22] MEDS: SODIUM CHLORIDE 0.9% 1,000 ML IV SCH (11:28)
--- NOTE | 2024-02-22 17:10 | Hospitalist Progress Note ---
Date of Service February 22, 2024 Assessment & Plan (1) Sickle cell pain crisis: (2) Leg pain: Plan - pain improved w hydration and morphine - continue IVF, SEWING TRIMMER morphine, and prn morphine for added pain control Admission and Anticipated Discharge Date Admission Date: February 21, 2024 Supervising Physician Co-Signing Physician Notes Attending attestation Pt seen and examined in concert with Dr. Sunshine. In agreement with the documented findings as noted in the resident documentation with any exceptions or additions as noted here. Resting in bed, pain gradually improving in control following SEWING TRIMMER and hydration. Did run out of outpatient oxycodone prior to admission (which contributed to initial presentation) On examination, S1/S2 nl RRR no MCG. CTAB. Abd NT/ND BS+ve Sickle Cell with Crisis - continue IVF with LR and pain control with adjustment Else see resident documentation as noted. Subjective He reports this crisis was "not that painful" at first but he had run out of outpatient oxy and so came to the ED. Pain is better today, but still 5/10 in his thighs. He was tired and not very talkative during interview, but alert/responsive and denied SOB, CP, other joint aches. Physical Exam 2 Physical Exam: Constitutional: NAD, appears tired HEENT: NCAT, PERRL CV: RRR, no m/r/g, S1/S2 normal, Resp: CTAB, symmetrical chest rise, breathing non-labored Skin: Warm, dry, no rashes or lesions Neuro: AOx3, CN II-XII grossly intact Psych: Mood-affect congruent. Speech pace and content normal. Results & Data Results & Data Vital Signs (Past 12 Hours) Vital Signs Temp Pulse Pulse Resp BP Pulse Ox O2 Del Method 02/22/24 13:00 109 H 02/22/24 11:22 37.1 C 95 H 18 125/75 92 Room Air 02/22/24 08:42 36.9 C 86 18 115/70 90 Room Air 02/22/24 07:36 Nasal Cannula 02/22/24 07:17 80 02/22/24 03:54 36.5 C 86 20 140/76 91 Room Air Laboratory Results 02/22/24 06:29 02/22/24 06:29 Resident Activity Tracking Resident Involvement: Resident Care Provided Care Provided: Adult Hospital Medicine
[2024-02-22] MEDS ORDERED: MoRPHine SULFATE 2 MG/ML CARP IV PRN (19:00)
[2024-02-23 06:43] LABS: Alanine Aminotransferase 18 U/L (7-52); Albumin Globulin Ratio 1.5 (0.9-2); Albumin Level 4.5 gm/dl (3.4-5.0); Alkaline Phosphatase 92 U/L (34-104); Anion Gap 10 (3-11); Aspartate Aminotransferase 24 U/L (13-39); BUN Creatinine Ratio 11.8 (10-20); Blood Urea Nitrogen 8 mg/dl (6-23); Calcium 9.5 mg/dl (8.6-10.3); Carbon Dioxide 26 mmol/L (21-32); Chloride 98 mmol/L (98-107); Creatinine Clr Calc Pharmacy 176.2 ml/min; Est GFR (African American) > 150.0 ml/min; Est GFR (Non-African American) 136.5 ml/min; Glucose 92 mg/dl (70-99(Fasting)); Magnesium 1.8 mg/dl (1.7-2.4); Potassium 4.1 mmol/L (3.5-5.1); Sodium 134 mmol/L (136-145); Total Protein 7.5 gm/dl (6.0-8.3)
[2024-02-23 06:59] LABS: Hemoglobin 9.5 g/dl (14.0-18.0); Mean Corpuscular Hemoglobin 32.8 pg (25.0-34.0); Mean Corpuscular Hgb Conc 33.9 g/dL (32.0-36.0); Mean Corpuscular Volume 96.6 fL (80.0-100.0); Mean Platelet Volume 10.1 fL (9.4-12.4); Nucleated RBC % (auto) 9.5 %; Platelet Count 250 K/uL (130-400); RDW Coefficient of Variation 17.2 % (11.5-14.5); RDW Standard Deviation 58.4 fL (36.4-46.3)
[2024-02-23 07:00] LABS: Eosinophils % (auto) 0.9 %; Immature Granulocytes # (auto) 0.05 K/uL (0.01-0.20); Immature Granulocytes % (auto) 0.4 %; Lymphocytes # (auto) 1.35 K/uL (1.20-3.40); Lymphocytes % (auto) 11.6 %; Monocytes # (auto) 1.65 K/uL (0.11-0.59); Monocytes % (auto) 14.2 %; Neutrophils # (auto) 8.45 K/uL (1.40-6.50); Neutrophils % (auto) 72.9 %; Pappenheimer Bodies 1+; Poikilocytosis Present; Polychromasia 1+; Sickle Cells 1+; Target Cells 2+
--- NOTE | 2024-02-23 07:31 | Hospitalist Progress Note ---
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 Speech pace and content normal. Results & Data Results & Data Vital Signs (Past 12 Hours) Vital Signs Temp Pulse Pulse Resp BP Pulse Ox O2 Del Method 02/23/24 03:55 36.7 C 102 H 20 118/71 93 Room Air 02/22/24 23:28 37.3 C 100 H 20 125/84 94 Room Air 02/22/24 22:14 99 H 02/22/24 19:58 36.9 C 86 20 114/72 94 Room Air
[2024-02-23 08:20] VITALS: RESP 18
[2024-02-23] MEDS ORDERED: ACETAMINOPHEN 500 MG TAB PO PRN (08:27)
[2024-02-23] MEDS: SODIUM CHLORIDE 0.9% 1,000 ML IV SCH (08:28)
[2024-02-23] MEDS: oxyCODONE HCL IR 5 MG TAB (IMMEDIATE RELEASE) PO PRN (10:42)
[2024-02-23 11:34] VITALS: BP 114/72; PULSE 83; TEMP 98.4; O2SAT 96
--- NOTE | 2024-02-23 12:54 | Discharge Summary ---
Date of Service February 23, 2024 Admission HPI Per Admitting Provider Mat is a 23 year old male with a PMH significant for Sickle Cell disease with multiple previous admissions for sickle cell crisis, avascular necrosis of the jaw, and previous splenectomy who presented to the [facility] ED on 02/21/2024 with a chief complaint of generalized pain consistent with previous sickle cell exacerbations. On arrival to the ED he was noted to be tachycardic with heart rate of 100 but was otherwise stable. Labs were significant for a leukocytosis of 13 with neutrophil predominance of 10, hemoglobin of 10, reticulocyte percentage of 9.4, total bili of 5.5 (up from 5.1 as of 09/13/2023). Chest x-ray was read as negative for acute findings. Prior to admission the patient was given 1 L normal saline, 2 doses of 4 mg IV morphine, 4 mg IV Zofran, and 1 mg IV Dilaudid. Patient was sitting in bed in no acute distress at time of exam, currently stable on room air. 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 When asked, he confirms that he did not hydrate enough yesterday. Woke up this morning with significant bilateral upper thigh pain but denies other pain/discomfort at this time. No recent fever, chills, chest pain, shortness of, abdominal pain, nausea/vomiting, dysuria/hematuria, diarrhea, melena, recent trauma. Feels slightly improved compared to arrival but pain is not yet resolved. States he did try to use 2 doses of his home oxycodone without improvement of pain which is why he presented to the ED. Please refer to Dr. Krishna's attestation for any changes to the treatment plan Admission Exam Per Admitting Provider General: In no acute distress, stated age, fatigued but nontoxic-appearing HEENT: Normocephalic, atraumatic, no scleral icterus, pupils around round, symmetrical, and reactive to light, dry mucus membranes, trachea midline, no thyromegaly Chest/Pulm: No respiratory distress, symmetrical chest expansion, clear breath sounds throughout Cardiac: RRR, no murmurs noted Abdomen: Negative for ascites and bruising, normoactive bowel sounds, soft, non- tender to palpation throughout Musculoskeletal: Symmetrical and without signs of acute trauma, upper and lower extremities with full ROM, no atrophy, spasticity, or flaccidity Extremities: Radial, dorsalis pedis, and posterior tibial pulses are intact and symmetrical, no edema noted in the BL LE's Skin: Warm, dry, no rashes , lesions, or scars noted Neuro: Alert and oriented to person, place, month, year, and president, no focal defects, no tremors noted Psych: Fatigued, no acute distress, calm and cooperative during the exam Principal Diagnosis Sickle cell pain crisis Discharge Exam Gen: alert, oriented, soft-spoken, NAD HEENT: NCAT, EOMI CV: RRR, no m/r/g Resp: CTAB, non-labored MSK: Full ROM, no gross deformities Skin: No rashes or lesions Psych: Mood-affect congruent. Speech pace and content normal. Good insight into his condition. Discharge Data Allergies Allergy/AdvReac Type Severity Reaction Status Date / Time No Known Allergies Allergy Unverified 06/08/23 13:01 Consultations 02/21/24 13:28 ED Decision to Admit Stat Ordered Studies 02/23/24 05:40 02/23/24 05:40 Hospital Course (1) Sickle cell pain crisis: (2) Leg pain: Plan - initially given IV morphine 4mg x 2 doses & IV Dilaudid 1 mg while in the ER this was insufficient for pain control - escalated to a morphine MACHINE FUR CLEANER pump, continuous with intermittent (1mg with 0.5mg in 15min intervals) with 2mg IV morphine available q3h PRN - this analgesic regimen + IV hydration (2 x 1000ml n.s.) achieved optimal pain control, at which point the patient was switched to oral meds at home dosage oxycodone 10mg q6h prn Total Time Total Time Spent Total Time Spent (In Minutes): See attending documentation Discharge Plan Discharge Items Patient Disposition: Home - Self-Care Reason For Visit: GENERALIZED PAIN, SICKEL CELL CRISIS Discharge Diagnosis: Sickle cell pain crisis Activity: Per Instructions section Non-emergency contact: Primary Care Provider Call non-emergency contact if: you have any medication questions, your symptoms worsen and your pain is worsening Follow-up/Referrals: [facility] [Primary Care Provider] - Diet: Regular Addtl Attending Provider Instructions: Deaana cristina Rivero, You were admitted to the hospital for a sickle cell pain crisis, which we believe may have been triggered by dehydration. You were treated with IV fluids and IV pain medications, after which your pain improved. We monitored your level of pain until it was below your at-home oral regimen. Now that your pain has improved, we feel that you can be safely discharged home. In order to control your pain, you received 4 mg of IV morphine x 2 doses, 1 mg of IV Dilaudid in the ER this was insufficient. You were then escalated to a MACHINE FUR CLEANER pump (0.5 mg of morphine every 15 minutes), which improved your pain, after which point you were switched to oral medications at your home dose. 1. We sent a prescription of your home pain medication oxycodone 10 mg every 6 hours as needed to your pharmacy. Please take as directed. You will be receiving a short-term dose, so please reach out to your primary care physician for refills. However, if you are unable to contact your primary care physician before your prescription runs out, you may contact Dr. Sunshine at the [facility] at [phone] to schedule an appointment. 2. We made no other changes to the rest of your home medications. If you have any questions or concerns, please contact the hospital at [phone] and asked to speak to the nurse rehabilitation supervisor. As discussed with you this morning, I believe that it would be prudent for you to have an established local provider in the event that you are unable to contact your home PCP at [facility]. Should such an occasion arise, you may contact our [facility] clinic across the street at [facility] at [phone] to schedule an appointment with Dr. Sunshine. It has been our pleasure to care for you here at [facility]. If you have any questions or concerns about your care, you may reach out to us at [phone]. Thank you. Thank you for allowing us to participate in your care. Pending Studies at Discharge: No Stand-Alone Forms: My [facility], Smoking Cessation Medications and DC Order Prescriptions: New oxycodone 5 mg Tablet 10 mg PO Q6H MDD 40 mg PRN (Reason: pain) Qty: 40 0RF Continued folic acid 1 mg tablet 1 mg PO QAM ibuprofen 600 mg tablet 600 mg PO Q6 PRN (Reason: Pain) hydroxyurea 500 mg capsule 2,000 mg PO QAM oxycodone 10 mg tablet 10 mg PO Q6H PRN (Reason: pain) Qty: 30 0RF Rx Instructions: qid prn breakthrough pain naloxone [Narcan] 4 mg/actuation spray,non-aerosol 1 spray intranasal ONCE Qty: 2 1RF Discharge Orders: Discharge Order (Routine); Ordered 02/23/24 Ordered By: Brian Hale Admission Data Admit Date/Time: 02/21/24 13:35 Attending Provider: Brandon Arreaga Admit Provider: Tylor Krishna Primary Care Provider: [facility] Other Providers: Tylor Krishna Other Interventions: Discharge Summary Assessment (RN) Last Done: 02/23/24 16:41 Supervising Physician Co-Signing Physician Notes Attending attestation Pt seen and examined in concert with Dr. Sunshine. In agreement with the documented findings as noted in the resident documentation with any exceptions or additions as noted here. Significant improvement in pain control following MACHINE FUR CLEANER overnight, now MME requirement is less than normal PO regimen for mild flares. On examination, S1/S2 nl RRR no MCG. CTAB. Abd NT/ND BS+ve Sickle Cell with Crisis - continues to improve. At present, will transition to PO oxycodone 10mg q6h and encourage PO hydration with close monitoring for improvement. Counseling provided re: follow up with [facility] provider following flare for medication if needed or with outpatient provider locally if more convenient. Detailed pain management plan reviewed as above to attempt to limit difficulties with pain management on initial evaluation for crisis. Else see resident documentation as noted. Total attending physician time spent with this patient's care on the day of discharge: 35 minutes. Resident Activity Tracking Resident Involvement: Resident Care Provided Care Provided: Adult Hospital Medicine
== END 2024-02-23 18:34 | disposition home or self-care (01) | DRG 812 ==
LOC: ED 09:07 → SUATTDRO 13:35 → 2N 13:35

== ENCOUNTER 2024-05-01 01:49 | Inpatient (IN) ==
--- NOTE | 2024-05-01 02:17 | Emergency Department Note ---
Impression & Plan Sickle cell crisis, Asplenia, Chest pain, Alcohol intoxication ED Provider Note NAME: SEAN RUVALCABA AGE: 23 SEX: M : 2000 ARRIVES VIA: Walk-In INFORMANT: Patient ED PROVIDER(S): Pavan Thompson DO CHIEF COMPLAINT: Midthoracic back pain and chest pain HPI: Patient is a 23-year-old male who presents to the ER with a past medical history of sickle cell crisis, avascular necrosis of the jaw, and previous splenectomy for chest pain and back pain. He notes his symptoms started around 4 hours ago while he was at a bar crawl. They are in the middle of his chest feel like his typical sickle cell crisis. He also has pain in the mid thoracic back. It is not pleuritic or worse with breathing twisting turning or bending. He denies any leg pain or swelling. No history of diabetes, hypertension, hyperlipidemia or CAD. Denies any recent trips or travel. No coughing up blood or history of blood clots or clotting disorders. ADDITIONAL HISTORY OBTAINED: Per HPI Chronic Medical/Social Conditions Affecting Care: Per HPI PAST MEDICAL HISTORY:See Below PAST SURGICAL HISTORY:See Below FAMILY HISTORY:See Below SOCIAL HISTORY:See Below HOME MEDICATIONS:See Below ALLERGIES:See Below VITALS:See Below PHYSICAL EXAMINATION: GENERAL: Sitting up in bed, alert, with smell of alcohol on breath, slightly slurring words, sleepy EYE EXAM: normal conjunctiva. PERRL and EOM's grossly intact. OROPHARYNX: mucous membranes are moist NECK: supple, no nuchal rigidity, no adenopathy, non-tender LUNGS: Clear to auscultation. Normal chest wall mechanics HEART: no murmurs, S1 normal and S2 normal ABDOMEN: abdomen soft, non-tender, normo-active bowel sounds, no masses, no rebound or guarding. BACK: Back is symmetrical on inspection and there is no deformity, no midline tenderness, no CVA tenderness. SKIN: no rashes and no bruising UPPER EXTREMITIES: upper extremities are grossly normal. LOWER EXTREMITIES: No pitting edema. NEURO EXAM: Normal sensorium, cranial nerves II-XII grossly intact, normal speech, no gross weakness of arms, no gross weakness of legs. MEDICAL DECISION MAKING: Patient is a 23-year-old male with a past medical history of sickle cell crisis who presents to the ER for chest and back pain. IV was established and blood work was obtained. Labs show mild leukocytosis of 10.8 thousand. Hemoglobin at 9.5 fairly consistent with previous. Platelets at 438. Reticulocytes were up at 14%. BMP along with LFTs and bilirubin was remarkable for T. bili at 4.8 which actually improved from previous. Alcohol was elevated at 200. Viral panel testing was negative as he had a runny nose. Chest x-ray was clean without signs for acute chest syndrome. X-rays of thoracic spine showed an abnormality of the paraspinal region and consequently CTs of the chest and thoracic region were obtained and pending upon admission. CT of the thoracic spine did come back at [address] of the chest was still pending. Patient was given 3 separate doses of morphine as well as IV fluids. He was given 4 mg at a time as he was intoxicated and initially slurring his words but he was still having pain and consequently discussed with the hospitalist for further evaluation and management treatment. Consults/Care Managements Discussions: Per [facility] Triage Nursing notes reviewed. Limited review of prior medical records performed Vital Signs: reviewed and remarkable for normal vitals Differential diagnosis: Cardiac ischemia, aortic dissection, pulmonary embolism, pneumothorax, pneumonia, pericarditis, myocarditis, esophageal rupture, GERD, cholecystitis, pancreatitis, musculoskeletal, as well as other pathologies. ER treatment provided: See below Diagnostics interpreted by me include EKG and cardiac monitoring as listed below: -Cardiac Monitoring: An order was placed for continuous cardiac monitoring. The monitor shows a rate of 70 with sinus rhythm. -ECG: Sinus rhythm rate of 76 Normal axis No PVCs Right axis QTc 432 -Laboratory studies:Interpreted by me as stated above in MDM and shown below. Imaging studies: Xrays: As interpreted by me: Portable AP upright 1 view of the chest showed no focal infiltrate X-ray thoracic spine per radiology showed a questionable paraspinal abnormality CTs show: CT thoracic spine showed no acute pathology CT chest was pending on admission Procedures:none Critical Care: None Past Med/Surg History Problem List (Updated 05/01/24 @ 05:15 by Marti Mcgrath DO) Leukocytosis Sickle cell crisis Alcohol intoxication (Acute) Chest pain (Acute) UTI (urinary tract infection) Fever (Acute) Productive cough (Acute) Right-sided chest pain (Acute) Pneumonia (Acute) Medical History (Updated 05/01/24 @ 05:15 by Marti Mcgrath DO) 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 History of sickle cell disease Asplenia Asthma Surgical History History of tonsillectomy History of appendectomy History of splenectomy History of cholecystectomy Family History Other Hypertension Social History Smoking Status: Never smoker Tobacco Type: E-cigarettes / Vaping Second Hand Exposure: No; Do You Dip or Chew Tobacco: No; Hx Alcohol Use: Yes Alcohol type: beer Hx Substance Use: No Preferred Language: Ghanaian Communication Ability: Effective Double Back Operator Required: No Beliefs That Will Affect Care: None marital status: Single Current Living Situation: Other Current Living Situation Comment: apartment with roommates Feels Safe at Home: Yes Assistive Devices: None Allergies Allergies Allergy/AdvReac Type Severity Reaction Status Date / Time No Known Allergies Allergy Unverified 06/08/23 13:01 Home Meds Home Medications Medication Instructions Recorded Confirmed folic acid 1 mg tablet 1 mg PO QAM 02/08/23 05/01/24 ibuprofen 600 mg tablet 600 mg PO Q6 PRN Pain 02/08/23 05/01/24 hydroxyurea 500 mg capsule 2,000 mg PO QAM 03/16/23 05/01/24 Previous Rx's Medication Instructions Recorded oxycodone 10 mg tablet 10 mg PO Q6H PRN pain #30 tabs 06/12/23 naloxone 4 mg/actuation nasal 1 spray intranasal ONCE #2 ea 09/13/23 spray (Narcan) oxycodone 5 mg tablet 10 mg (2 x 5 mg) PO Q6H PRN pain 02/23/24 #40 tabs Results & Data (ED) Vital Signs Vital Signs - 24 hr 05/01/24 01:51 05/01/24 02:12 05/01/24 02:15 Temperature 36.8 C 36.6 C Temperature Source Temporal Artery Scan Oral Pulse Rate 81 72 Pulse Rate [Apical] 104 H Pulse Rate from SpO2 Sensor Pulse Rhythm Regular Pulse Strength Normal Respiratory Rate 22 24 Respiratory Effort / Characteristics Non-Labored Spontaneous Non-Labored Respiratory Depth Normal Respiratory Pattern Regular Regular Blood Pressure 108/65 Blood Pressure [Left Arm] 124/72 Blood Pressure Mean 79 Blood Pressure Mean [Left Arm] 89 Blood Pressure Position Sitting Pulse Oximetry 100 97 Oxygen Delivery Method Room Air Room Air Sepsis Recent Fever Within 48 Hours No Sepsis New/Unexplained Change in Mental Status No Sepsis Action Taken by Nursing No Action Required 05/01/24 02:15 05/01/24 03:22 05/01/24 03:30 Temperature Temperature Source Pulse Rate 104 H 80 84 Pulse Rate [Apical] Pulse Rate from SpO2 Sensor Pulse Rhythm Pulse Strength Respiratory Rate 19 17 Respiratory Effort / Characteristics Respiratory Depth Respiratory Pattern Blood Pressure 114/76 108/74 Blood Pressure [Left Arm] Blood Pressure Mean 84 92 Blood Pressure Mean [Left Arm] Blood Pressure Position Pulse Oximetry 97 99 99 Oxygen Delivery Method Room Air Room Air Room Air Sepsis Recent Fever Within 48 Hours Sepsis New/Unexplained Change in Mental Status Sepsis Action Taken by Nursing 05/01/24 04:00 05/01/24 04:00 05/01/24 04:31 Temperature Temperature Source Pulse Rate 77 Pulse Rate [Apical] 79 Pulse Rate from SpO2 Sensor 87 Pulse Rhythm Pulse Strength Respiratory Rate 20 18 16 Respiratory Effort / Characteristics Non-Labored Respiratory Depth Respiratory Pattern Regular Blood Pressure 121/76 118/62 Blood Pressure [Left Arm] 121/76 Blood Pressure Mean 90 78 Blood Pressure Mean [Left Arm] 91 Blood Pressure Position Pulse Oximetry 97 99 100 Oxygen Delivery Method Room Air Room Air Room Air Sepsis Recent Fever Within 48 Hours Sepsis New/Unexplained Change in Mental Status Sepsis Action Taken by Nursing Laboratory Data 05/01/24 02:15 05/01/24 02:15 Lab Results 05/01/24 05/01/24 Range/Units 02:15 03:00 WBC 10.89 H (4.8-10.8) K/ul RBC 2.82 L (4.70-6.10) M/uL Hgb 9.5 L (14.0-18.0) g/dl Hct 26.9 L (42.0-52.0) % MCV 95.4 (80.0-100.0) fL MCH 33.7 (25.0-34.0) pg MCHC 35.3 (32.0-36.0) g/dL RDW Std Deviation 69.1 H (36.4-46.3) fL RDW Coeff of Terrell 20.4 H (11.5-14.5) % Plt Count 438 H (130-400) K/uL MPV 9.3 L (9.4-12.4) fL Immature Gran % (Auto) 5.1 % Neut % (Auto) 40.6 % Lymph % (Auto) 36.9 % Posey % (Auto) 8.4 % Eos % (Auto) 8.3 % Baso % (Auto) 0.7 % Reticulocyte % (Auto) 14.11 H (0.50-2.00) % Neut # (Auto) 4.43 (1.40-6.50) K/uL Lymph # (Auto) 4.02 H (1.20-3.40) K/uL Posey # (Auto) 0.91 H (0.11-0.59) K/uL Eos # (Auto) 0.90 H (0.00-0.50) K/uL Baso # (Auto) 0.08 (0.00-0.20) K/uL Reticulocyte # 0.400 H (0.020-0.100) 10^6/uL Immature Gran # (Auto) 0.55 H (0.01-0.20) K/uL Absolute Nucleated RBC 0.41 H (0.00-0.12) K/uL Nucleated RBC % (auto) 3.8 % Polychromasia 2+ Pappenheimer Bodies 1+ Sickle Cells 1+ Target Cells 2+ Sodium 137 (136-145) mmol/L Potassium 3.8 (3.5-5.1) mmol/L Chloride 104 (98-107) mmol/L Carbon Dioxide 25 (21-32) mmol/L Anion Gap 8 (3-11) BUN 8 (6-23) mg/dl Creatinine 0.81 (0.6-1.4) mg/dl Est Cr Clr Drug Dosing 103.7 ml/min eGFR 128.64 BUN/Creatinine Ratio 9.9 L (10-20) Glucose 116 H (70-99(Fasting)) mg/dl Calcium 9.2 (8.6-10.3) mg/dl Total Bilirubin 4.8 H (0.2-1.0) mg/dl AST 20 (13-39) U/L ALT 11 (7-52) U/L Alkaline Phosphatase 87 (34-104) U/L Total Protein 7.8 (6.0-8.3) gm/dl Albumin 5.1 H (3.4-5.0) gm/dl Globulin 2.7 (2.5-4.0) gm/dl Albumin/Globulin Ratio 1.9 (0.9-2) Ethyl Alcohol mg/dL 199.1 H (<10.0) mg/dl Adenovirus (PCR) Not Detected (NotDetected) B. pertussis DNA (PCR) Not Detected (NotDetected) B.parapertussis DNA PCR Not Detected (NotDetected) C. pneumoniae DNA (PCR) Not Detected (NotDetected) Coronavirus OC43 (PCR) Not Detected (NotDetected) Coronavirus HKU1 (PCR) Not Detected (NotDetected) Coronavirus 229E (PCR) Not Detected (NotDetected) SARS-CoV-2 (PCR) Not Detected (NotDetected) Coronavirus NL63 (PCR) Not Detected (NotDetected) Human Metapneumovir PCR Not Detected (NotDetected) Influenza Type A (PCR) Not Detected (NotDetected) Influenza Type B (PCR) Not Detected (NotDetected) M. 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 Titration Stop: 05/15/24 14:34 Last Admin: 05/01/24 15:05 Dose: 30 mg Documented By: ELAINE Co-signed By: MIYA Hydroxyurea (Hydroxyurea 500 Mg Cap) 2,000 mg PO [facility] Stop: 05/31/24 08:59 Last Admin: 05/01/24 08:43 Dose: 2,000 mg Documented By: MIYA Co-signed By: ELAINE Sodium Chloride (1/2 Nss) 1,000 mls @ 125 mls/hr IV .Q8H [facility]–1983 Stop: 05/02/24 07:37 Last Admin: 05/01/24 20:51 Dose: 125 mls/hr Documented By: Infusion: 05/01/24 20:49 Dose: Infused Documented By: Admin: 05/01/24 08:05 Dose: 80 mls/hr Documented By: MADELEINE Ceftriaxone Sodium (Rocephin) 1,000 mg in 50 mls @ 100 mls/hr IV Q24H [facility] Stop: 05/03/24 07:59 Last Infusion: 05/01/24 08:16 Dose: Infused Documented By: Admin: 05/01/24 07:58 Dose: 100 mls/hr Documented By: MADELEINE Ondansetron HCl (Ondansetron Inj 2 Mg/Ml 2 Ml Vial) 4 mg IV Q6H PRN PRN Reason: Nausea And Vomiting Stop: 05/31/24 07:37 Last Admin: 05/01/24 08:47 Dose: 4 mg Documented By: MIYA Discontinued Medications Hydromorphone HCl (Hydromorphone Inj 2 Mg/Ml Syr/Vial) 2 mg IV NOW STA Stop: 05/01/24 14:35 Last Admin: 05/01/24 14:59 Dose: 2 mg Documented By: ELAINE Sodium Chloride (Nss) 1,000 mls @ 999 mls/hr IV .Q1H1M ONE Stop: 05/01/24 03:10 Last Infusion: 05/01/24 03:53 Dose: Infused Documented By: Admin: 05/01/24 02:21 Dose: 999 mls/hr Documented By: ELIDA Sodium Chloride (Nss) 1,000 mls @ 999 mls/hr IV .Q1H1M ONE Stop: 05/01/24 05:25 Last Infusion: 05/01/24 06:08 Dose: Infused Documented By: Admin: 05/01/24 05:02 Dose: 999 mls/hr Documented By: ELIDA Sodium Chloride (Nss) 1,000 mls @ 999 mls/hr IV .Q1H1M ONE Stop: 05/01/24 15:53 Last Infusion: 05/01/24 20:34 Dose: Infused Documented By: Admin: 05/01/24 15:00 Dose: 999 mls/hr Documented By: ELAINE Ioversol (Optiray 320 100ml) 91 ml IV ONCE ONE Stop: 05/01/24 04:53 Last Admin: 05/01/24 04:52 Dose: 91 ml Documented By: YO Morphine Sulfate (Morphine Sulfate 4 Mg/Ml 1 Ml Carp\Vial) 4 mg IV NOW STA Stop: 05/01/24 02:11 Last Admin: 05/01/24 02:26 Dose: 4 mg Documented By: ELIDA Morphine Sulfate (Morphine Sulfate 4 Mg/Ml 1 Ml Carp\Vial) 4 mg IV NOW STA Stop: 05/01/24 04:26 Last Admin: 05/01/24 04:48 Dose: 4 mg Documented By: ELIDA Morphine Sulfate (Morphine Sulfate 4 Mg/Ml 1 Ml Carp\Vial) 4 mg IV NOW STA Stop: 05/01/24 05:20 Last Admin: 05/01/24 05:23 Dose: 4 mg Documented By: ELIDA Morphine Sulfate (Morphine Sulfate 2 Mg/Ml Carp) 2 mg IV Q1H PRN PRN Reason: Pain (1,2,3,4,5) & Pre PT Stop: 05/15/24 07:37 Last Admin: 05/01/24 07:56 Dose: 2 mg Documented By: MADELEINE Morphine Sulfate (Morphine Sulfate 4 Mg/Ml 1 Ml Carp\Vial) 4 mg IV Q1H PRN PRN Reason: Pain (6,7,8,9,10) Stop: 05/15/24 07:37 Last Admin: 05/01/24 08:47 Dose: 4 mg Documented By: MIYA Morphine Sulfate (Morphine Sulfate Group Exercise Manager 30 Mg/30 Ml) 30 mg IV PRN PRN; Protocol PRN 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: 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 DRAW 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 Pain Titration Stop: 05/15/24 09:06 Last Admin: 05/01/24 12:43 Dose: 30 mg Documented By: MIYA Co-signed By: ELAINE Admin: 05/01/24 10:53 Dose: 30 mg Documented By: MIYA Co-signed By: AD Morphine Sulfate (Morphine Sulfate 4 Mg/Ml 1 Ml Carp\Vial) 4 mg IV NOW STA Stop: 05/01/24 09:08 Last Admin: 05/01/24 10:26 Dose: 4 mg Documented By: MIYA Morphine Sulfate (Morphine Sulfate 2 Mg/Ml Carp) 2 mg IV NOW STA Stop: 05/01/24 14:33 Last Admin: 05/01/24 15:08 Dose: Not Given Documented By: ELAINE Imaging Data Radiologist's Impression: Chest X-Ray 05/01/24 02:17 EXAM: XR chest 1V portable CLINICAL HISTORY: CP WTW TECHNIQUE: An X-ray image of the chest is obtained in AP projection. COMPARISON: CR study dated 01/31/2024. FINDINGS: Pulmonary Parenchyma: No evidence of consolidation, collapse, or focal opacities. No pulmonary nodules are identified. No evidence of pleural effusion or pleural thickening. Heart and Mediastinum: Cardio-thoracic ratio is within normal limits. No mediastinal widening or masses. No hilar or mediastinal lymphadenopathy. Bony Thorax: Slight sclerosis of both humeral heads. Biconcave appearance of visualized vertebrae. Evidence of right paraspinal soft tissue shadow for better assessment with CT. The bony thorax appears intact without fractures or deformities. Soft Tissues: Soft tissues overlying the chest wall are unremarkable. IMPRESSION: 1. No acute cardiopulmonary disease process. 2. Suspected right paraspinal soft tissue lesion for further assessment with CT. (New finding). 3. Mild cardiomegaly. 4. Biconcave vertebrae. (No gross interval changes). 5. Bilateral atelectatic bands as described. (No gross interval changes). Electronically signed by Jesus Alberto Salvador 05-01-2024 03:58 AM Thoracic Spine X-Ray 05/01/24 02:17 EXAM: XR thoracic spine 3V routine CLINICAL HISTORY: BACK PAIN BEST POSSIBLE IMAGES OBTAINED WTW TECHNIQUE: X-ray images of the thoracic spine were obtained in anteroposterior (AP), lateral and swimmers projections. COMPARISON: No prior studies are available for comparison. FINDINGS: Alignment: Mild scoliotic changes of the thoracic spine with convexity to the left. Vertebral Bodies: Biconcave appearance of superior and inferior endplates of the visualized vertebrae. Vertebral bodies are of normal height and morphology. No evidence of fractures, compression deformities, or significant osseous lesions. Intervertebral Disc Spaces: Intervertebral disc spaces are normal. No significant disc space narrowing or degeneration. Soft Tissues: Evidence of right paraspinal soft tissue lesion seen adjacent to the right aspect of T8-9 vertebrae. Additional Findings: No other lesions. IMPRESSION: 1. Diffuse biconcave appearance of superior and inferior endplates of the visualized vertebrae (codfish vertebrae), clinical correlation advised. 2. Evidence of right paraspinal soft tissue lesion seen adjacent to the right aspect of T8-9 vertebrae, MRI is advised. Disclaimer: A subtle bone abnormality or fracture may not be readily apparent on X-rays, thus clinical correlation and further imaging including follow-up CT, MRI, or follow-up X-rays are advised as needed. Electronically signed by Jesus Alberto Salvador 05-01-2024 03:[address] 05/01/24 04:30 EXAM: CT thoracic spine w con CLINICAL HISTORY: Paraspinal soft tissue mass 91 cc opti 320 TECHNIQUE: Multiple contiguous axial images were obtained through the thoracic spine with IV contrast. Sagittal and coronal reformatted images were obtained from the axial data. CT scan was performed according to ALARA (as low as reasonable achievable). COMPARISON: No FINDINGS: The alignment of the thoracic spine is maintained. Thoracic vertebral bodies are maintained in height and alignment. No vertebral destructive changes are seen. Diffuse heterogeneity in bone marrow is noted throughout the visualised bones with H shaped vertebrae. C7-T1: No disc bulge. No canal stenosis. No neuroforaminal narrowing. T1-T2: No disc bulge. No canal stenosis. No neuroforaminal narrowing. T2-T3: No disc bulge. No canal stenosis. No neuroforaminal narrowing. T3-T4: No disc bulge. No canal stenosis. No neuroforaminal narrowing. T4-T5: No disc bulge. No canal stenosis. No neuroforaminal narrowing. T5-T6: No disc bulge. No canal stenosis. No neuroforaminal narrowing. T6-T7: No disc bulge. No canal stenosis. No neuroforaminal narrowing. T7-T8: No disc bulge. No canal stenosis. No neuroforaminal narrowing. T8-T9: No disc bulge. No canal stenosis. No neuroforaminal narrowing. T9-T10: No disc bulge. No canal stenosis. No neuroforaminal narrowing. T10-T11: No disc bulge. No canal stenosis. No neuroforaminal narrowing. T11-T12: No disc bulge. No canal stenosis. No neuroforaminal narrowing. Paravertebral soft tissues are unremarkable. Visualized lung parenchyma appears unremarkable. No obvious evidence of soft tissue mass. IMPRESSION: 1. Diffuse bone marrow heterogenity with H shaped vertebral bodies, likely suggestive of a hematological disorder favoring sickle cell anemia in view of H shaped vertebrae. 2. No obvious evidence of soft tissue mass. Electronically signed by Bird Fonseca 05-01-2024 06:13 AM Discharge Plan Visit Data Chief Complaint: Illness Stated Complaint: SICKLE CELL PT ED Provider: Pavan Thompson Discharge Problem: Sickle cell crisis, Asplenia, Chest pain, Alcohol intoxication Patient Disposition: Admitted As Inpatient Discharge Instructions Interventions: ED Discharge Assessment Last Done: 05/01/24 08:17 Discharge Problem: Chest pain Qualifiers: Chest pain type: unspecified Qualified Code(s): R07.9 - Chest pain, unspecified Alcohol intoxication Qualifiers: Complication of substance-induced condition: with unspecified complication Q ualified Code(s): F10.929 - Alcohol use, unspecified with intoxication, unspecified
[2024-05-01] MEDS: SODIUM CHLORIDE 0.9% 1,000 ML IV ONE ×3 (02:21→15:00)
[2024-05-01] MEDS: MoRPHine SULFATE 4 MG/ML 1 ML CARP\\VIAL IV STA ×4 (02:26→10:26)
[2024-05-01 02:47] LABS: Hematocrit (blood only) 26.9 % (42.0-52.0); Hemoglobin 9.5 g/dl (14.0-18.0); Mean Corpuscular Hemoglobin 33.7 pg (25.0-34.0); Mean Corpuscular Hgb Conc 35.3 g/dL (32.0-36.0); Mean Corpuscular Volume 95.4 fL (80.0-100.0); Mean Platelet Volume 9.3 fL (9.4-12.4); Nucleated RBC # (auto) 0.41 K/uL (0.00-0.12); Nucleated RBC % (auto) 3.8 %; Platelet Count 438 K/uL (130-400); RDW Coefficient of Variation 20.4 % (11.5-14.5); RDW Standard Deviation 69.1 fL (36.4-46.3); Red Blood Count 2.82 M/uL (4.70-6.10); White Blood Count 10.89 K/ul (4.8-10.8)
[2024-05-01 03:02] LABS: Albumin Globulin Ratio 1.9 (0.9-2); Albumin Level 5.1 gm/dl (3.4-5.0); BUN Creatinine Ratio 9.9 (10-20); Bilirubin,Total 4.8 mg/dl (0.2-1.0); Calcium 9.2 mg/dl (8.6-10.3); Creatinine Clr Calc Pharmacy 103.7 ml/min; Globulin 2.7 gm/dl (2.5-4.0); Potassium 3.8 mmol/L (3.5-5.1); Total Protein 7.8 gm/dl (6.0-8.3)
[2024-05-01 03:14] LABS: Basophils # (auto) 0.08 K/uL (0.00-0.20); Basophils % (auto) 0.7 %; Eosinophils % (auto) 8.3 %; Immature Granulocytes # (auto) 0.55 K/uL (0.01-0.20); Immature Granulocytes % (auto) 5.1 %; Lymphocytes # (auto) 4.02 K/uL (1.20-3.40); Lymphocytes % (auto) 36.9 %; Monocytes # (auto) 0.91 K/uL (0.11-0.59); Monocytes % (auto) 8.4 %; Neutrophils # (auto) 4.43 K/uL (1.40-6.50); Neutrophils % (auto) 40.6 %; Pappenheimer Bodies 1+; Polychromasia 2+; Reticulocyte % 14.11 % (0.50-2.00); Sickle Cells 1+; Target Cells 2+
--- NOTE | 2024-05-01 03:38 | XRay Report ---
EXAM: XR thoracic spine 3V routine CLINICAL HISTORY: BACK PAIN BEST POSSIBLE IMAGES OBTAINED WTW TECHNIQUE: X-ray images of the thoracic spine were obtained in anteroposterior (AP), lateral and swimmers projections. COMPARISON: No prior studies are available for comparison. FINDINGS: Alignment: Mild scoliotic changes of the thoracic spine with convexity to the left. Vertebral Bodies: Biconcave appearance of superior and inferior endplates of the visualized vertebrae. Vertebral bodies are of normal height and morphology. No evidence of fractures, compression deformities, or significant osseous lesions. Intervertebral Disc Spaces: Intervertebral disc spaces are normal. No significant disc space narrowing or degeneration. Soft Tissues: Evidence of right paraspinal soft tissue lesion seen adjacent to the right aspect of T8-9 vertebrae. Additional Findings: No other lesions. IMPRESSION: 1. Diffuse biconcave appearance of superior and inferior endplates of the visualized vertebrae (codfish vertebrae), clinical correlation advised. 2. Evidence of right paraspinal soft tissue lesion seen adjacent to the right aspect of T8-9 vertebrae, MRI is advised. Disclaimer: A subtle bone abnormality or fracture may not be readily apparent on X-rays, thus clinical correlation and further imaging including follow-up CT, MRI, or follow-up X-rays are advised as needed. Electronically signed by Jesus Alberto Salvador 05-01-2024 03:37 AM
--- NOTE | 2024-05-01 03:58 | XRay Report ---
EXAM: XR chest 1V portable CLINICAL HISTORY: CP WTW TECHNIQUE: An X-ray image of the chest is obtained in AP projection. COMPARISON: CR study dated 01/31/2024. FINDINGS: Pulmonary Parenchyma: No evidence of consolidation, collapse, or focal opacities. No pulmonary nodules are identified. No evidence of pleural effusion or pleural thickening. Heart and Mediastinum: Cardio-thoracic ratio is within normal limits. No mediastinal widening or masses. No hilar or mediastinal lymphadenopathy. Bony Thorax: Slight sclerosis of both humeral heads. Biconcave appearance of visualized vertebrae. Evidence of right paraspinal soft tissue shadow for better assessment with CT. The bony thorax appears intact without fractures or deformities. Soft Tissues: Soft tissues overlying the chest wall are unremarkable. IMPRESSION: 1. No acute cardiopulmonary disease process. 2. Suspected right paraspinal soft tissue lesion for further assessment with CT. (New finding). 3. Mild cardiomegaly. 4. Biconcave vertebrae. (No gross interval changes). 5. Bilateral atelectatic bands as described. (No gross interval changes). Electronically signed by Jesus Alberto Salvador 05-01-2024 03:58 AM
[2024-05-01 04:13] LABS: Adenovirus PCR Not Detected (NotDetected); Bordetella parapertussis PCR Not Detected (NotDetected); Bordetella pertussis PCR Not Detected (NotDetected); Chlamydia pneumoniae PCR Not Detected (NotDetected); Coronavirus 229E PCR Not Detected (NotDetected); Coronavirus CoV-2 (COVID19)PCR Not Detected (NotDetected); Coronavirus HKU1 PCR Not Detected (NotDetected); Coronavirus NL63 PCR Not Detected (NotDetected); Coronavirus OC43PCR Not Detected (NotDetected); Human Metapneumovirus PCR Not Detected (NotDetected); Influenza A PCR Not Detected (NotDetected); Influenza B PCR Not Detected (NotDetected); Mycoplasma pneumoniae PCR Not Detected (NotDetected); Parainfluenza Virus 1 PCR Not Detected (NotDetected); Parainfluenza Virus 2 PCR Not Detected (NotDetected); Parainfluenza Virus 3 PCR Not Detected (NotDetected); Parainfluenza Virus 4 PCR Not Detected (NotDetected); Respiratory Syncytial VirusPCR Not Detected (NotDetected); Rhinovirus/Enterovirus PCR Not Detected (NotDetected)
[2024-05-01] MEDS: OPTIRAY 320 100ml IV ONE (04:52)
--- NOTE | 2024-05-01 05:19 | History & Physical Report ---
Date of Service May 01, 2024 Assessment & Plan (1) Sickle cell crisis: Plan: 23yo male with history of sickle cell disease, prior acute chest syndrome and asplenia presenting with acute pain in his back and chest which started this evening. Pain is consistent with prior sickle cell pain crises. Likely triggered by cold exposure, possible infection. -Admit to medical with telemetry -1/2 NSS at 80mL/hr x 24 hours -Pain control with Morphine 2-4 mg IV q hourly as needed -PRN Narcan available for respiratory depression/overdose -Zofran PRN nausea -Senna and Miralax PRN constipation -Continue home Folic Acid and Hydroxyurea (2) Chest pain: Plan: Patient with chest pain similar to prior pain crises -Management as above with Morphine PRN -CT of the chest obtained - read is pending -EKG ordered -Incentive spirometry q hourly while awake (3) Leukocytosis: Plan: Patient with elevated WBC count with presence of immature granulocytes. Denies fever, chills, malaise or other complaints concerning for infection. Patient is s/p splenectomy thus at increased risk for sepsis, especially secondary to encapsulated organisms. -Empiric Ceftriaxone for now -CT of the chest ordered -Monitor for developing infection Plan F/E/N - 1/2 NSS, electrolytes WNL, regular diet as tolerated Ppx - low risk for DVT Code - Full Dispo - Admit to medical with telemetry History of Present Illness Chief Complaint: sickle cell pain crisis Primary Care Provider: [facility] Inna is a 23yo male with history of sickle cell anemia presenting with acute pain crisis. Patient was out with friends this evening. When he left the bar and went out into the cold he began to develop pain in his chest and lower back. Pain tonight consistent with prior sickle cell pain crises. Patient has some mild nasal congestion otherwise denies fevers, chills, abdominal pain, nausea, vomiting or diarrhea. No additional complaints at this time. Does have history of acute chest syndrome - was admitted in June 2022 with PNA and ultimately transferred to tertiary care center for evaluation of ACS. In the ER he is afebrile, HD stable NAD Morphine with some relief provided Allergies Allergy/AdvReac Type Severity Reaction Status Date / Time No Known Allergies Allergy Unverified 06/08/23 13:01 Home Medications Medication Instructions Recorded Confirmed Type folic acid 1 mg tablet 1 mg PO QAM 02/08/23 09/12/23 History ibuprofen 600 mg tablet 600 mg PO Q6 PRN Pain 02/08/23 09/12/23 History hydroxyurea 500 mg capsule 2,000 mg PO QAM 03/16/23 09/12/23 History oxycodone 10 mg tablet 10 mg PO Q6H PRN pain #30 tabs 06/12/23 09/12/23 Rx naloxone 4 mg/actuation nasal 1 spray intranasal ONCE #2 ea 09/13/23 Rx spray (Narcan) oxycodone 5 mg tablet 10 mg (2 x 5 mg) PO Q6H PRN pain 02/23/24 Rx #40 tabs Past Med/Surg History Problem List (Updated 05/01/24 @ 05:15 by Marti Mcgrath DO) Leukocytosis Sickle cell crisis Alcohol intoxication (Acute) Chest pain (Acute) UTI (urinary tract infection) Fever (Acute) Productive cough (Acute) Right-sided chest pain (Acute) Pneumonia (Acute) Medical History (Updated 05/01/24 @ 05:15 by Marti Mcgrath DO) 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 History of sickle cell disease Asplenia Asthma Surgical History History of tonsillectomy History of appendectomy History of splenectomy History of cholecystectomy Family History Other Hypertension Social History Smoking Status: Current every day smoker Tobacco Type: E-cigarettes / Vaping Hx Alcohol Use: Yes Alcohol type: beer Hx Substance Use: No Preferred Language: Syriac Communication Ability: Effective Insurance Claim Approver Required: No Beliefs That Will Affect Care: None marital status: Single Current Living Situation: Other Current Living Situation Comment: apartement with housemates Feels Safe at Home: Yes Assistive Devices: None Review of Systems Review of Systems: All systems reviewed & are unremarkable except as noted in HPI & below Physical Exam Physical Exam: General: patient in discomfort, NAD, non-toxic in appearance, AA&O x 4 Skin: warm, dry, intact, no rashes or lesions HEENT: NC/AT, PERRL, EOMI, anicteric sclera, conjunctiva without injection, external ear normal to inspection and nontender, nares patent, dry mucus membranes, dentition intact, no oropharyngeal lesions, neck supple, trachea midline, no LAD, no thyromegaly, no JVD Heart: +S1/S2, regular, no m/r/g Lungs: equal air entry bilaterally, no rales/rhonchi/wheezes Abd: +BS, soft, NT/ND, no masses/organomegaly/ascites Ext: warm, 2+ pulses in UE/LE bilaterally, no clubbing/cyanosis or edema Neuro: nonfocal, patient AA&O x 4, speech intact, no facial droop, moving all extremities on command with equal strength 5/5 Results & Data Results & Data Vital Signs (Past 12 Hours) Vital Signs Temp Pulse Pulse Resp BP BP Pulse Ox 05/01/24 04:00 79 20 121/76 97 05/01/24 03:30 84 17 108/74 99 05/01/24 03:22 80 19 114/76 99 05/01/24 02:15 104 H 97 05/01/24 02:15 36.6 C 104 H 24 124/72 97 05/01/24 02:12 72 05/01/24 01:51 36.8 C 81 22 108/65 100 O2 Del Method 05/01/24 04:00 Room Air 05/01/24 03:30 Room Air 05/01/24 03:22 Room Air 05/01/24 02:15 Room Air 05/01/24 02:15 Room Air 05/01/24 02:12 05/01/24 01:51 Room Air Laboratory Results Laboratory Results WBC 10.89 K/ul (4.8-10.8) H 05/01/24 02:15 RBC 2.82 M/uL (4.70-6.10) L 05/01/24 02:15 Hgb 9.5 g/dl (14.0-18.0) L 05/01/24 02:15 Hct 26.9 % (42.0-52.0) L 05/01/24 02:15 MCV 95.4 fL (80.0-100.0) 05/01/24 02:15 MCH 33.7 pg (25.0-34.0) 05/01/24 02:15 MCHC 35.3 g/dL (32.0-36.0) 05/01/24 02:15 RDW Std Deviation 69.1 fL (36.4-46.3) H 05/01/24 02:15 RDW Coeff of Terrell 20.4 % (11.5-14.5) H 05/01/24 02:15 Plt Count 438 K/uL (130-400) H 05/01/24 02:15 MPV 9.3 fL (9.4-12.4) L 05/01/24 02:15 Immature Gran % (Auto) 5.1 % 05/01/24 02:15 Neut % (Auto) 40.6 % 05/01/24 02:15 Lymph % (Auto) 36.9 % 05/01/24 02:15 [place] % (Auto) 8.4 % 05/01/24 02:15 Eos % (Auto) 8.3 % 05/01/24 02:15 Baso % (Auto) 0.7 % 05/01/24 02:15 Reticulocyte % (Auto) 14.11 % (0.50-2.00) H 05/01/24 02:15 Neut # (Auto) 4.43 K/uL (1.40-6.50) 05/01/24 02:15 Lymph # (Auto) 4.02 K/uL (1.20-3.40) H 05/01/24 02:15 [place] # (Auto) 0.91 K/uL (0.11-0.59) H 05/01/24 02:15 Eos # (Auto) 0.90 K/uL (0.00-0.50) H 05/01/24 02:15 Baso # (Auto) 0.08 K/uL (0.00-0.20) 05/01/24 02:15 Reticulocyte # 0.400 10^6/uL (0.020-0.100) H 05/01/24 02:15 Immature Gran # (Auto) 0.55 K/uL (0.01-0.20) H 05/01/24 02:15 Absolute Nucleated RBC 0.41 K/uL (0.00-0.12) H 05/01/24 02:15 Nucleated RBC % (auto) 3.8 % 05/01/24 02:15 Polychromasia 2+ 05/01/24 02:15 Pappenheimer Bodies 1+ 05/01/24 02:15 Sickle Cells 1+ 05/01/24 02:15 Target Cells 2+ 05/01/24 02:15 Sodium 137 mmol/L (136-145) 05/01/24 02:15 Potassium 3.8 mmol/L (3.5-5.1) 05/01/24 02:15 Chloride 104 mmol/L (98-107) 05/01/24 02:15 Carbon Dioxide 25 mmol/L (21-32) 05/01/24 02:15 Anion Gap 8 (3-11) 05/01/24 02:15 BUN 8 mg/dl (6-23) 05/01/24 02:15 Creatinine 0.81 mg/dl (0.6-1.4) 05/01/24 02:15 Est Cr Clr Drug Dosing 103.7 ml/min 05/01/24 02:15 eGFR 128.64 05/01/24 02:15 BUN/Creatinine Ratio 9.9 (10-20) L 05/01/24 02:15 Glucose 116 mg/dl (70-99(Fasting)) H 05/01/24 02:15 Calcium 9.2 mg/dl (8.6-10.3) 05/01/24 02:15 Total Bilirubin 4.8 mg/dl (0.2-1.0) H 05/01/24 02:15 AST 20 U/L (13-39) 05/01/24 02:15 ALT 11 U/L (7-52) 05/01/24 02:15 Alkaline Phosphatase 87 U/L (34-104) 05/01/24 02:15 Total Protein 7.8 gm/dl (6.0-8.3) 05/01/24 02:15 Albumin 5.1 gm/dl (3.4-5.0) H 05/01/24 02:15 Globulin 2.7 gm/dl (2.5-4.0) 05/01/24 02:15 Albumin/Globulin Ratio 1.9 (0.9-2) 05/01/24 02:15 Ethyl Alcohol mg/dL 199.1 mg/dl (<10.0) H 05/01/24 02:15 Adenovirus (PCR) Not Detected (NotDetected) 05/01/24 03:00 B. pertussis DNA (PCR) Not Detected (NotDetected) 05/01/24 03:00 B.parapertussis DNA PCR Not Detected (NotDetected) 05/01/24 03:00 C. pneumoniae DNA (PCR) Not Detected (NotDetected) 05/01/24 03:00 Coronavirus OC43 (PCR) Not Detected (NotDetected) 05/01/24 03:00 Coronavirus HKU1 (PCR) Not Detected (NotDetected) 05/01/24 03:00 Coronavirus 229E (PCR) Not Detected (NotDetected) 05/01/24 03:00 SARS-CoV-2 (PCR) Not Detected (NotDetected) 05/01/24 03:00 Coronavirus NL63 (PCR) Not Detected (NotDetected) 05/01/24 03:00 Human Metapneumovir PCR Not Detected (NotDetected) 05/01/24 03:00 Influenza Type A (PCR) Not Detected (NotDetected) 05/01/24 03:00 Influenza Type B (PCR) Not Detected (NotDetected) 05/01/24 03:00 M. pneumoniae (PCR) Not Detected (NotDetected) 05/01/24 03:00 Parainfluenza 1 (PCR) Not Detected (NotDetected) 05/01/24 03:00 Parainfluenza 2 (PCR) Not Detected (NotDetected) 05/01/24 03:00 Parainfluenza 3 (PCR) Not Detected (NotDetected) 05/01/24 03:00 Parainfluenza 4 (PCR) Not Detected (NotDetected) 05/01/24 03:00 RSV (PCR) Not Detected (NotDetected) 05/01/24 03:00 Entero/Rhino (PCR) Not Detected (NotDetected) 05/01/24 03:00 Impressions Chest X-Ray 05/01/24 02:17 EXAM: XR chest 1V portable CLINICAL HISTORY: CP WTW TECHNIQUE: An X-ray image of the chest is obtained in AP projection. COMPARISON: CR study dated 01/31/2024. FINDINGS: Pulmonary Parenchyma: No evidence of consolidation, collapse, or focal opacities. No pulmonary nodules are identified. No evidence of pleural effusion or pleural thickening. Heart and Mediastinum: Cardio-thoracic ratio is within normal limits. No mediastinal widening or masses. No hilar or mediastinal lymphadenopathy. Bony Thorax: Slight sclerosis of both humeral heads. Biconcave appearance of visualized vertebrae. Evidence of right paraspinal soft tissue shadow for better assessment with CT. The bony thorax appears intact without fractures or deformities. Soft Tissues: Soft tissues overlying the chest wall are unremarkable. IMPRESSION: 1. No acute cardiopulmonary disease process. 2. Suspected right paraspinal soft tissue lesion for further assessment with CT. (New finding). 3. Mild cardiomegaly. 4. Biconcave vertebrae. (No gross interval changes). 5. Bilateral atelectatic bands as described. (No gross interval changes). Electronically signed by Jesus Alberto Salvador 05-01-2024 03:58 AM Thoracic Spine X-Ray 05/01/24 02:17 EXAM: XR thoracic spine 3V routine CLINICAL HISTORY: BACK PAIN BEST POSSIBLE IMAGES OBTAINED WTW TECHNIQUE: X-ray images of the thoracic spine were obtained in anteroposterior (AP), lateral and swimmers projections. COMPARISON: No prior studies are available for comparison. FINDINGS: Alignment: Mild scoliotic changes of the thoracic spine with convexity to the left. Vertebral Bodies: Biconcave appearance of superior and inferior endplates of the visualized vertebrae. Vertebral bodies are of normal height and morphology. No evidence of fractures, compression deformities, or significant osseous lesions. Intervertebral Disc Spaces: Intervertebral disc spaces are normal. No significant disc space narrowing or degeneration. Soft Tissues: Evidence of right paraspinal soft tissue lesion seen adjacent to the right aspect of T8-9 vertebrae. Additional Findings: No other lesions. IMPRESSION: 1. Diffuse biconcave appearance of superior and inferior endplates of the visualized vertebrae (codfish vertebrae), clinical correlation advised. 2. Evidence of right paraspinal soft tissue lesion seen adjacent to the right aspect of T8-9 vertebrae, MRI is advised. Disclaimer: A subtle bone abnormality or fracture may not be readily apparent on X-rays, thus clinical correlation and further imaging including follow-up CT, MRI, or follow-up X-rays are advised as needed. Electronically signed by Jesus Alberto Salvador 05-01-2024 03:[address] CHEST AND CT THORACIC SPINE OBTAINED - FORMAL READS PENDING PG Care Time/CCT Total # of Minutes Spent Total Time Spent with Patient: Total time spent is greater than 50% in coordination of care (as documented) at patient's floor/unit and/or counseling patient: Coding Level of Care Code 47411 INT INP/OBS CARE 2/55MIN Diagnoses Sickle cell crisis D57.00 Chest pain R07.9 Chest pain type: unspecified Leukocytosis D72.829 (2) Chest pain Chest pain type: unspecified Qualified Code(s): R07.9 - Chest pain, unspecified
--- NOTE | 2024-05-01 06:14 | CT Scan Report ---
EXAM: CT thoracic spine w con CLINICAL HISTORY: Paraspinal soft tissue mass 91 cc opti 320 TECHNIQUE: Multiple contiguous axial images were obtained through the thoracic spine with IV contrast. Sagittal and coronal reformatted images were obtained from the axial data. CT scan was performed according to ALARA (as low as reasonable achievable). COMPARISON: No FINDINGS: The alignment of the thoracic spine is maintained. Thoracic vertebral bodies are maintained in height and alignment. No vertebral destructive changes are seen. Diffuse heterogeneity in bone marrow is noted throughout the visualised bones with H shaped vertebrae. C7-T1: No disc bulge. No canal stenosis. No neuroforaminal narrowing. T1-T2: No disc bulge. No canal stenosis. No neuroforaminal narrowing. T2-T3: No disc bulge. No canal stenosis. No neuroforaminal narrowing. T3-T4: No disc bulge. No canal stenosis. No neuroforaminal narrowing. T4-T5: No disc bulge. No canal stenosis. No neuroforaminal narrowing. T5-T6: No disc bulge. No canal stenosis. No neuroforaminal narrowing. T6-T7: No disc bulge. No canal stenosis. No neuroforaminal narrowing. T7-T8: No disc bulge. No canal stenosis. No neuroforaminal narrowing. T8-T9: No disc bulge. No canal stenosis. No neuroforaminal narrowing. T9-T10: No disc bulge. No canal stenosis. No neuroforaminal narrowing. T10-T11: No disc bulge. No canal stenosis. No neuroforaminal narrowing. T11-T12: No disc bulge. No canal stenosis. No neuroforaminal narrowing. Paravertebral soft tissues are unremarkable. Visualized lung parenchyma appears unremarkable. No obvious evidence of soft tissue mass. IMPRESSION: 1. Diffuse bone marrow heterogenity with H shaped vertebral bodies, likely suggestive of a hematological disorder favoring sickle cell anemia in view of H shaped vertebrae. 2. No obvious evidence of soft tissue mass. Electronically signed by Bird Fonseca 05-01-2024 06:13 AM
--- NOTE | 2024-05-01 06:39 | CT Scan Report ---
EXAM: CT chest diagnostic w con CLINICAL HISTORY: Paraspinal soft tissue mass 91 cc opti 320 TECHNIQUE: Contiguous axial images were obtained from the neck base through the upper abdomen following intravenous administration of contrast material. If IV contrast material had not been administered, the likelihood of detecting abnormalities relevant to the patient's condition would have been substantially decreased. In addition, sagittal and coronal reconstructions were performed. CT scan was performed according to ALARA (as low as reasonable achievable). COMPARISON: None. FINDINGS: Fibrobronchiectatic changes are noted in the medial segment of right middle lobe. Few fibrotic bands are seen in superior basal and posterior basal segments of left lower lobe and apicoposterior segment of left upper lobe. No pulmonary nodules are seen. The central airways are patent. There are no pleural effusions. No pneumothorax is seen. No axillary, hilar, or mediastinal adenopathy is identified. The visualized thyroid is unremarkable. The heart, aorta, and pulmonary arteries are of normal size and configuration. No pericardial effusion is identified. Imaged portions of the upper abdomen are unremarkable. The visualized bones reveal H-shaped vertebral bodies. IMPRESSION: 1. Fibrobronchiectatic changes in right middle lobe with scattered fibrotic bands in left lung as described above. 2. H-shaped vertebral bodies - further evaluation recommended to assess for possibility of sickle cell disease. Electronically signed by Bird Fonseca 05-01-2024 06:39 AM
[2024-05-01] MEDS ORDERED: NALOXONE HCL 0.4 MG/1 ML VIAL/CARP IV PRN ×3 (07:38→14:35)
[2024-05-01] MEDS ORDERED: ACETAMINOPHEN 325 MG TAB PO PRN (07:38)
[2024-05-01] MEDS: MoRPHine SULFATE 2 MG/ML CARP IV PRN (07:56)
[2024-05-01] MEDS: cefTRIAXone SODIUM 1,000 MG/50 ML BAG IV SCH (07:58)
--- NOTE | 2024-05-01 08:00 | Hospitalist Progress Note ---
Date of Service May 01, 2024 Assessment & Plan (1) Sickle cell crisis: Plan: 23yo male with history of sickle cell disease, prior acute chest syndrome and asplenia presenting with acute pain in his back and chest which started this evening. Pain is consistent with prior sickle cell pain crises. Likely triggered by cold exposure, possible infection. - 1/2 NSS at 80mL/hr x 24 hours - Given 3 x 4 mg IV Morphine in ED, now on INSTRUMENT MECHANIC - Started w another 4mg morphine bolus Continuous + intermittent INSTRUMENT MECHANIC set per DC summary from 02/23/24 Initially morphine at 1mg + 0.5mg/15min Later changed to dilauded, same dosing - PRN Narcan available for respiratory depression/overdose - Nursing advised to ensure ETCO2 monitoring is in place - Continue home Folic Acid and Hydroxyurea - Hgb at baseline, Retic % 14.11, Tbili 4.8, EtOH 199.1; labs otherwise unremarkable - Zofran, Senna, Miralax available PRN - Dehydration is likely a significant trigger, as this and the previous admission followed a night of drinking. Once pt's pain improves and he is more cognizant, should discuss his particular risks a/w drinking. (2) Chest pain: Plan: Patient with chest pain similar to prior pain crises - CXR showed no acute processes, vertebrae & atelectatic bands w/o interval change, + new finding of R paraspinal soft tissue lesion - Follow-up chest CT showed fibrobronchiectatic changes in R middle lobe + scattered fibrotic bands in superior basal and posterior basal LLL and apicoposterior segment of HANY - EKG ordered showed sinus rhythm with 1st degree A-V block - Pain management as above, encourage incentive spirometry hourly while awake (3) Leukocytosis: Plan: - Elevated WBC count of 10.89 w left shift - Pt has h/o splenectomy, at increased risk vs encapsulated organisms - Has been afebrile, denies sick sx - Given 1 dose empiric ceftriaxone 12/8 AM - Continue to monitor for signs of developing infection Plan F/E/N - 1/2 NSS, electrolytes WNL, regular diet as tolerated Ppx - low risk for DVT Code - Full Admission and Anticipated Discharge Date Admission Date: May 01, 2024 Supervising Physician Co-Signing Physician Notes I personally examined the patient and verified all worthy points of history and exam, discussed case, and agree with decision making with Dr Sunshine patient seen multiple times in follow-up from early a.m. admission. Initially tense and rapid shallow breathingalthough he denied any chest pain or shortness of breath but noted it was just due to severe pain. In follow-up he noted the pain was a little bit better but objectively he looked about the same, and finally on third visit he was starting to note the pain was improving, and while he was still a little tachypneic at times he was able to be more conversive and noted very clearly that his pain was in his lower back and thighs and that was the intensity of the pain that was causing him to be tachypneic, that he had absolutely no chest pain or shortness of breath. He also noted that the pain control was starting to improve. Lungs are clear, no rales rhonchi or wheezes. Labs/imaging noted as well. Sickle cell with acute pain crisisI suspect precipitated by dehydration and cold exposureIV fluids given, increase maintenance rate. While we had to rapidly escalate his pain control over the course of the day, he is now starting to show improvement with the Dilaudid INSTRUMENT MECHANIC. I do not believe he has any infection, but because it was very difficult to get much of a history because his pain was so intense, we will leave him on the ceftriaxone at least empirically until we can evaluate things in more depth/be able to discuss things with him in more depth. Once he is feeling better, we will have to discussed the unfortunate reality that while he, of course, wants to be able to be a normal college student socially, alcohol is quite dehydrating and likely was what led to the current sickle cell acute pain crisisdue to the dehydration effect. No clear need for transfusion at this time, vital signs are stable. Continue IV fluids, INSTRUMENT MECHANIC, supportive care, and close vigilance. Subjective 8:00 pt was awake but unresponsive, occasionally grunting in pain but not saying words or 10:00 pt's pain improved sufficiently to communicate. told nurse pain is 12/10. is able to engage, make eye contact, and physically respond to questions. still not speaking very coherently 14:00 pt reports pain is now "just 10/10." Is able to recognize and engage w care team, whispers answers to questions, would like better pain control Physical Exam 2 Physical Exam: Gen: in significant pain and distress, but awake and alert HEENT: NCAT CV: RRR, no murmur Resp: Lungs clear, breathing somewhat labored w quick, shallow breaths Abd: Soft, NT/ND MSK: No gross deformities Skin: No rashes or lesions Results & Data Results & Data Vital Signs (Past 12 Hours) Vital Signs Temp Pulse Pulse Resp BP BP Pulse Ox 05/01/24 06:43 85 18 128/87 98 05/01/24 06:22 90 05/01/24 06:00 37.0 C 19 128/77 100 05/01/24 04:31 77 16 118/62 100 05/01/24 04:00 18 121/76 99 05/01/24 04:00 79 20 121/76 97 05/01/24 03:30 84 17 108/74 99 05/01/24 03:22 80 19 114/76 99 05/01/24 02:15 104 H 97 05/01/24 02:15 36.6 C 104 H 24 124/72 97 05/01/24 02:12 72 05/01/24 01:51 36.8 C 81 22 108/65 100 O2 Del Method 05/01/24 06:43 Room Air 05/01/24 06:22 05/01/24 06:00 Room Air 05/01/24 04:31 Room Air 05/01/24 04:00 Room Air 05/01/24 04:00 Room Air 05/01/24 03:30 Room Air 05/01/24 03:22 Room Air 05/01/24 02:15 Room Air 05/01/24 02:15 Room Air 05/01/24 02:12 05/01/24 01:51 Room Air Laboratory Results 05/01/24 02:15 05/01/24 02:15 Diagnostic Findings Chest X-Ray 05/01/24 02:17 FINDINGS: Pulmonary Parenchyma: No evidence of consolidation, collapse, or focal opacities. No pulmonary nodules are identified. No evidence of pleural effusion or pleural thickening. Heart and Mediastinum: Cardio-thoracic ratio is within normal limits. No mediastinal widening or masses. No hilar or mediastinal lymphadenopathy. Bony Thorax: Slight sclerosis of both humeral heads. Biconcave appearance of visualized vertebrae. Evidence of right paraspinal soft tissue shadow for better assessment with CT. The bony thorax appears intact without fractures or deformities. Soft Tissues: Soft tissues overlying the chest wall are unremarkable. IMPRESSION: 1. No acute cardiopulmonary disease process. 2. Suspected right paraspinal soft tissue lesion for further assessment with CT. (New finding). 3. Mild cardiomegaly. 4. Biconcave vertebrae. (No gross interval changes). 5. Bilateral atelectatic bands as described. (No gross interval changes). Electronically signed by Jesus Alberto Salvador 05-01-2024 03:58 AM Thoracic Spine X-Ray 05/01/24 02:17 FINDINGS: Alignment: Mild scoliotic changes of the thoracic spine with convexity to the left. Vertebral Bodies: Biconcave appearance of superior and inferior endplates of the visualized vertebrae. Vertebral bodies are of normal height and morphology. No evidence of fractures, compression deformities, or significant osseous lesions. Intervertebral Disc Spaces: Intervertebral disc spaces are normal. No significant disc space narrowing or degeneration. Soft Tissues: Evidence of right paraspinal soft tissue lesion seen adjacent to the right aspect of T8-9 vertebrae. Additional Findings: No other lesions. IMPRESSION: 1. Diffuse biconcave appearance of superior and inferior endplates of the visualized vertebrae (codfish vertebrae), clinical correlation advised. 2. Evidence of right paraspinal soft tissue lesion seen adjacent to the right aspect of T8-9 vertebrae, MRI is advised. Disclaimer: A subtle bone abnormality or fracture may not be readily apparent on X-rays, thus clinical correlation and further imaging including follow-up CT, MRI, or follow-up X-rays are advised as needed. Electronically signed by Jesus Alberto Salvador 05-01-2024 03:[address] diagnostic w con 05/01/24 04:30 CLINICAL HISTORY: Paraspinal soft tissue mass 91 cc opti 320 FINDINGS: Fibrobronchiectatic changes are noted in the medial segment of right middle lobe. Few fibrotic bands are seen in superior basal and posterior basal segments of left lower lobe and apicoposterior segment of left upper lobe. No pulmonary nodules are seen. The central airways are patent. There are no pleural effusions. No pneumothorax is seen. No axillary, hilar, or mediastinal adenopathy is identified. The visualized thyroid is unremarkable. The heart, aorta, and pulmonary arteries are of normal size and configuration. No pericardial effusion is identified. Imaged portions of the upper abdomen are unremarkable. The visualized bones reveal H-shaped vertebral bodies. IMPRESSION: 1. Fibrobronchiectatic changes in right middle lobe with scattered fibrotic bands in left lung as described above. 2. H-shaped vertebral bodies - further evaluation recommended to assess for possibility of sickle cell disease. Electronically signed by Bird Fonseca 05-01-2024 06:[address] w con 05/01/24 04:30 CLINICAL HISTORY: Paraspinal soft tissue mass 91 cc opti 320 FINDINGS: The alignment of the thoracic spine is maintained. Thoracic vertebral bodies are maintained in height and alignment. No vertebral destructive changes are seen. Diffuse heterogeneity in bone marrow is noted throughout the visualised bones with H shaped vertebrae. C7-T1: No disc bulge. No canal stenosis. No neuroforaminal narrowing. T1-T2: No disc bulge. No canal stenosis. No neuroforaminal narrowing. T2-T3: No disc bulge. No canal stenosis. No neuroforaminal narrowing. T3-T4: No disc bulge. No canal stenosis. No neuroforaminal narrowing. T4-T5: No disc bulge. No canal stenosis. No neuroforaminal narrowing. T5-T6: No disc bulge. No canal stenosis. No neuroforaminal narrowing. T6-T7: No disc bulge. No canal stenosis. No neuroforaminal narrowing. T7-T8: No disc bulge. No canal stenosis. No neuroforaminal narrowing. T8-T9: No disc bulge. No canal stenosis. No neuroforaminal narrowing. T9-T10: No disc bulge. No canal stenosis. No neuroforaminal narrowing. T10-T11: No disc bulge. No canal stenosis. No neuroforaminal narrowing. T11-T12: No disc bulge. No canal stenosis. No neuroforaminal narrowing. Paravertebral soft tissues are unremarkable. Visualized lung parenchyma appears unremarkable. No obvious evidence of soft tissue mass. IMPRESSION: 1. Diffuse bone marrow heterogenity with H shaped vertebral bodies, likely suggestive of a hematological disorder favoring sickle cell anemia in view of H shaped vertebrae. 2. No obvious evidence of soft tissue mass. Electronically signed by Bird Fonseca 05-01-2024 06:13 AM Resident Activity Tracking Resident Involvement: Resident Care Provided Care Provided: Adult [facility] (2) Chest pain Chest pain type: unspecified Qualified Code(s): R07.9 - Chest pain, unspecified
[2024-05-01] MEDS: SODIUM CHLORIDE 0.45 % 1,000 ML IV SCH (08:05)
--- NOTE | 2024-05-01 08:15 | Electrocardiogram Report ---
Test Reason : Blood Pressure : */* mmHG Vent. Rate : 76 BPM Atrial Rate : 76 BPM P-R Int : 246 ms QRS Dur : 88 ms QT Int : 384 ms P-R-T Axes : 61 112 63 degrees QTcB Int : 432 ms Sinus rhythm with 1st degree A-V block Abnormal ECG When compared with ECG of 12-Sep-2023 06:33, No significant change was found Confirmed by Ruiz Redmond ([id number]) on 05/01/2024 8:15:00 AM Referred By: REFERRED SELF Confirmed By: Ruiz Redmond
[2024-05-01] MEDS: HYDROXYUREA 500 MG CAP PO SCH (08:43)
[2024-05-01] MEDS: FOLIC ACID 1 MG TAB PO SCH (08:43)
[2024-05-01] MEDS: MoRPHine SULFATE 4 MG/ML 1 ML CARP\\VIAL IV PRN (08:47)
[2024-05-01] MEDS: ONDANSETRON INJ 2 MG/ML 2 ML VIAL IV PRN (08:47)
[2024-05-01] MEDS: MoRPHine SULFATE PCA 30 MG/30 ML IV PRN (10:53)
[2024-05-01] MEDS: HYDROmorphone INJ 2 MG/ML SYR/VIAL IV STA (14:59)
[2024-05-01] MEDS: HYDROmorphone PCA 30 MG/30 ML IV PRN (15:05)
[2024-05-01] MEDS: MoRPHine SULFATE 2 MG/ML CARP IV STA (15:08)
--- NOTE | 2024-05-02 07:27 | Hospitalist Progress Note ---
Date of Service May 02, 2024 Assessment & Plan (1) Sickle cell crisis: Plan: 23yo male with history of sickle cell disease and splenectomy presenting with acute pain in his lower thoracic-lumbar back. The pain is consistent with prior sickle cell pain crises. Physial examination demonstrated a lethargic patient with LE pain, which was mildly tender to palpation. He is still experiencing significant pain, so we are increasing pain medications. Dehydration is likely a trigger for his sickle cell crises. Patient would benefit from counseling of importance of maintaining proper hydration. - 1/2 NSS at 125mL/hr x 24 hours -SPEECH AND LANGUAGE TUTOR Hydromorphone 0.4mg/hr -SPEECH AND LANGUAGE TUTOR Hydromorphone 0.5mg with 10 minute pause. - PRN Narcan available for respiratory depression/overdose -Acetaminophen 1000mg Q8H -Zofran 4mg Q6H (2) Chest pain: Plan: Today patient reported he does not have chest pain and he never did have any chest pain. Below is his following chest pain work up: - CXR showed no acute processes, vertebrae & atelectatic bands w/o interval change, + new finding of R paraspinal soft tissue lesion - Follow-up chest CT showed fibrobronchiectatic changes in R middle lobe + scattered fibrotic bands in superior basal and posterior basal LLL and apicoposterior segment of HANY - EKG ordered showed sinus rhythm with 1st degree A-V block - Pain management as above, encourage incentive spirometry hourly while awake (3) Constipation: Plan: Patient has not had a BM since Thursday morning. He Has not eaten much since Thursday. He is not experiencing abdominal pain at this time. -Continue Miralax 15 gm BID. Admission and Anticipated Discharge Date Admission Date: May 01, 2024 Supervising Physician Co-Signing Physician Notes Attending Physician Supervision Note: I independently interviewed and examined the patient and verified the worthy history and physical, reviewed labs and image studies and agree with findings and care plan noted above. In pain this am 7/10 in the shins of his leg. Back pain improved. Also having pain in left elbow. no chest pain, shortness of breath. In some distress. CTA, RRR, Sickle cell crisis - exacerbated by excess alcohol drinking. -continue IVF, pain control - continuing to titrate up dilaudid SPEECH AND LANGUAGE TUTOR for pain control. Leukocytosis with h/o splenectomy - continue IV rocephin. No obvious source of infection. Reassess in am. 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 He states that his symptoms began on Thursday while he was drinking alcohol. He notes that dehydration has been a trigger for him in the past. The pain originated in his back and was a 10/10 prior to his admission to the ED. His pain has migrated to his legs, mostly localized in his calves bilaterally. The pain is now a 5/10 in his legs and only mild back pain. He states that he does not have chest pain currently, and did not have chest pain at all over the last 2 days. His pain is worse with certain positions such as sitting up with his legs hanging off the bed. He also states that he has not had a BM since Sat. (04/30/24) morning. He feels his heart rate increases and feels SOB if his pain gets too high, but otherwise denies chest pain, SOB, fever, cough, LE edema. Review of Systems Constitutional: He is fatigued from not sleeping, otherwise denies, fevers, chills Eyes: Denies eye pain, blurry vision, vision loss Ear, Nose, Mouth, Throat: Denies ear pain, hearing loss, throat pain, trouble swallowing. Respiratory: Has SOB only when pain is intense, denies cough, sputum production, hemoptysis Cardiovascular: Additional Comments: Denies chest pain, heart palpitations, leg swelling Gastrointestinal: States he is having constipation since thursday morning. Denies abdominal pain, hematochezia. Musculoskeletal: Pain is now localized into legs bilaterally, specifically calf. Neurologic: Denies headache, numbness/tingling in extremities. Physical Exam Constitutional: Patient appears lethargic, responds and speaks slowly. Eyes: PERRL Neck: Neck is supple, trachea midline, no lymphadenopathy or thyromegaly appreciated. Respiratory: Lungs CTAB without wheezes, rales, ronchi Cardiovascular: heart RRR without murmurs, rubs, gallops. No LE edema. No calf swelling or redness. Gastrointestinal (Abdomen): abdomen is nontender, nondistended, no hepatomegaly appreciated Musculoskeletal: No tenderness to palpation along spinous process, paraspinous. LE mildly tender to palpation bilaterally. Neurologic: Patient is lethargic. CN grossly intact. No focal neurolgical deficits appreciat ed. Results & Data Results & Data Vital Signs (Past 12 Hours) Vital Signs Temp Pulse Pulse Resp BP Pulse Ox O2 Del Method 05/02/24 04:00 36.9 C 102 H 18 129/80 98 Nasal Cannula 05/01/24 23:00 36.6 C 92 H 18 143/81 H 98 Nasal Cannula 05/01/24 21:43 87 05/01/24 20:50 Nasal Cannula O2 Flow Rate 05/02/24 04:00 2 05/01/24 23:00 2 05/01/24 21:43 05/01/24 20:50 2 Laboratory Results Labs: -WBC elevated at 12.82 -RBC low at 2.38 -Hgb low at 8.0 (14-18) -Hct low at 22.2 -Reticulocyte elevated at 12.34% -Bilirubin elevated at 4.3 -AST elevated at 54 -Alk phos elevated at 124 Resident Activity Tracking Resident Involvement: Resident Care Provided Care Provided: Adult Hospital Medicine (2) Chest pain Chest pain type: unspecified Qualified Code(s): R07.9 - Chest pain, unspecified
[2024-05-02 07:55] LABS: Albumin Globulin Ratio 1.5 (0.9-2); Albumin Level 4.2 gm/dl (3.4-5.0); BUN Creatinine Ratio 17.3 (10-20); Bilirubin,Total 4.3 mg/dl (0.2-1.0); Creatinine Clr Calc Pharmacy 152.3 ml/min; Globulin 2.8 gm/dl (2.5-4.0); Potassium 4.1 mmol/L (3.5-5.1)
[2024-05-02 08:07] LABS: Hematocrit (blood only) 22.2 % (42.0-52.0); Mean Corpuscular Hemoglobin 33.6 pg (25.0-34.0); Mean Corpuscular Volume 93.3 fL (80.0-100.0); Mean Platelet Volume 9.7 fL (9.4-12.4); Platelet Count 256 K/uL (130-400); RDW Coefficient of Variation 19.9 % (11.5-14.5); RDW Standard Deviation 64.8 fL (36.4-46.3); Red Blood Count 2.38 M/uL (4.70-6.10)
[2024-05-02 08:26] LABS: Nucleated RBC # (auto) 5.37 K/uL (0.00-0.12); Nucleated RBC % (auto) 41.9 %; Reticulocyte % 12.34 % (0.50-2.00); White Blood Count 12.82 K/ul (4.8-10.8)
[2024-05-02] MEDS: POLYETHYLENE (MIRALAX) 17 GM PACK PO PRN (08:26)
[2024-05-02] MEDS: SENNA 8.6 MG TAB PO PRN (08:26)
[2024-05-02] MEDS: SODIUM CHLORIDE 0.9% 1,000 ML IV SCH (08:30)
[2024-05-02] MEDS: ACETAMINOPHEN 500 MG TAB PO SCH (11:47)
[2024-05-02] MEDS: POLYETHYLENE (MIRALAX) 17 GM PACK PO SCH (20:08)
[2024-05-03 07:04] LABS: Basophils # (auto) 0.04 K/uL (0.00-0.20); Basophils % (auto) 0.4 %; Eosinophils # (auto) 0.13 K/uL (0.00-0.50); Eosinophils % (auto) 1.2 %; Hematocrit (blood only) 23.7 % (42.0-52.0); Hemoglobin 8.4 g/dl (14.0-18.0); Immature Granulocytes # (auto) 0.07 K/uL (0.01-0.20); Immature Granulocytes % (auto) 0.7 %; Lymphocytes # (auto) 1.07 K/uL (1.20-3.40); Lymphocytes % (auto) 10.2 %; Mean Corpuscular Hemoglobin 33.2 pg (25.0-34.0); Mean Corpuscular Hgb Conc 35.4 g/dL (32.0-36.0); Mean Corpuscular Volume 93.7 fL (80.0-100.0); Mean Platelet Volume 9.9 fL (9.4-12.4); Monocytes # (auto) 0.67 K/uL (0.11-0.59); Monocytes % (auto) 6.4 %; Neutrophils % (auto) 81.1 %; Platelet Count 210 K/uL (130-400); RDW Coefficient of Variation 18.6 % (11.5-14.5); RDW Standard Deviation 62.8 fL (36.4-46.3); Red Blood Count 2.53 M/uL (4.70-6.10)
--- NOTE | 2024-05-03 07:20 | Medical Student Progress Note ---
Date of Service May 03, 2024 Assessment & Plan (1) Sickle cell crisis: Plan: 23yo male with history of sickle cell disease and splenectomy presenting with acute pain in his lower thoracic-lumbar back. The pain is now only in his bilateral calves and is consistent with prior sickle cell pain crises. Physial examination demonstrated that he is less lethargic than yesterday and is improving. Dehydration is likely a trigger for his sickle cell crises. Patient would benefit from counseling of importance of maintaining proper hydration. - 1/2 NSS at 125mL/hr x 24 hours -PLANTING MATERIAL REMOVER Hydromorphone 0.4mg/hr -PLANTING MATERIAL REMOVER Hydromorphone 0.5mg with 10 minute pause. - PRN Narcan available for respiratory depression/overdose -Acetaminophen 1000mg Q8H -Zofran 4mg Q6H (2) Tachycardia: Plan: Patient has been tachycardic today. -EKG ordered. (3) Constipation: Plan: Patient has not had a BM since Thursday morning. He Has not eaten much since Thursday. He is not experiencing abdominal pain at this time. -Continue Miralax 15 gm BID. Admission and Anticipated Discharge Date Admission Date: May 01, [address] Lauren Gonzales addendum - Today patient reported he does not have chest pain and he never did have any chest pain. Below is his following chest pain work up: - CXR showed no acute processes, vertebrae & atelectatic bands w/o interval change, + new finding of R paraspinal soft tissue lesion - Follow-up chest CT showed fibrobronchiectatic changes in R middle lobe + scattered fibrotic bands in superior basal and posterior basal LLL and apicoposterior segment of HANY - EKG ordered showed sinus rhythm with 1st degree A-V block - Pain management as above, encourage incentive spirometry hourly while awake Attending Physician Supervision Note: I saw the patient with Jessee Milton and independently interviewed and examined the patient and verified the worthy history and physical, reviewed labs and image studies and agree with findings and care plan noted above. Pain improving. Needing less as needed pushes from PLANTING MATERIAL REMOVER. No chest pain. Laying in bed, awake oriented, no respiratory distress. Sickle cell crisis - exacerbated by excess alcohol drinking. -continue IVF, pain control - needing less prn doses from dilaudid PLANTING MATERIAL REMOVER. Leukocytosis with h/o splenectomy -WBC BC count has normalized. DC rocephin. 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 He states that his symptoms began on Thursday while he was drinking alcohol. He notes that dehydration has been a trigger for him in the past. The pain originated in his back and was a 10/10 prior to his admission to the ED. His pain is now mostly localized in his calves bilaterally. The pain is now a 4/10. He feels he will be able to finally eat/drink something today. He states he is not requesting pain medications as often as yesterday. Review of Systems Review of Systems: Constitutional Denies fever, chills HEENT Denies head pain, headaches. Denies eye pain, vision loss/changes, blurry vision, double vision. Denies ear pain, Denies sore throat or sore neck or sinus pain. Respiratory Denies SOB, cough, sputum production, CV Denies chest pain, heart palpitations, tachycardia, bradycardia, edema GI Denies abdominal pain, constipation, diarrhea, nausea, vomiting, h ematochezia Denies dysuria, increased urinary frequency, hematuria MSK Is only having pain is bilateral calves. Neuro Denies altered mental status, slurred speech, numbness or tingling Results & Data Vital Signs (Past 12 Hours) Vital Signs Temp Pulse Pulse Resp BP Pulse Ox O2 Del Method 05/03/24 04:00 36.8 C 100 H 18 126/80 100 Nasal Cannula 05/03/24 00:00 36.7 C 105 H 18 124/72 100 Nasal Cannula 05/02/24 22:20 99 H 05/02/24 20:00 Nasal Cannula O2 Flow Rate 05/03/24 04:00 2 05/03/24 00:00 2 05/02/24 22:20 05/02/24 20:00 2
[2024-05-03 07:27] LABS: Albumin Level 4.1 gm/dl (3.4-5.0); Bilirubin,Total 4.6 mg/dl (0.2-1.0); Calcium 9.3 mg/dl (8.6-10.3)
[2024-05-03 07:33] LABS: Albumin Globulin Ratio 1.5 (0.9-2); BUN Creatinine Ratio 12.7 (10-20); Globulin 2.8 gm/dl (2.5-4.0); Total Protein 6.9 gm/dl (6.0-8.3)
[2024-05-03 07:45] LABS: Nucleated RBC # (auto) 3.61 K/uL (0.00-0.12); Nucleated RBC % (auto) 34.4 %; White Blood Count 10.48 K/ul (4.8-10.8)
[2024-05-03 07:52] LABS: Pappenheimer Bodies 1+; Polychromasia 2+; Sickle Cells 1+; Target Cells 2+
[2024-05-03] MEDS: SODIUM CHLORIDE 0.9% 1,000 ML IV SCH (09:16)
[2024-05-03 12:43] LABS: Magnesium 1.7 mg/dl (1.7-2.4)
--- NOTE | 2024-05-03 13:35 | Electrocardiogram Report ---
Test Reason : Blood Pressure : */* mmHG Vent. Rate : 105 BPM Atrial Rate : 105 BPM P-R Int : 174 ms QRS Dur : 88 ms QT Int : 330 ms P-R-T Axes : 28 126 22 degrees QTcB Int : 436 ms Sinus tachycardia Right axis deviation Abnormal ECG When compared with ECG of 01-May-2024 05:15, SC interval has decreased Confirmed by Ruiz Redmond ([id number]) on 05/03/2024 1:34:46 PM Referred By: REFERRED SELF Confirmed By: Ruiz Redmond
[2024-05-03] MEDS: LABETALOL HCL IV 5 MG/ML 20ML IV STA ×2 (18:47→21:01)
--- NOTE | 2024-05-03 19:05 | Communication Note ---
Date of Service: May 03, 2024 Was called to bedside as patient was tachycardic in the [id number]. Patient denies any chest pain. Does state that he has some chills. Pain is well-co ntrolled at this time. Patient did then develop a fever after examination. Vitals: -Temperature of 39.4, hypotension at 96/59, tachycardic into the 150s, satting 97% on 2 L nasal cannula Labs: -Respiratory BioFire negative, nasal MRSA swab negative. -UA showed 1+ protein, blood, bilirubin, and trace leukocyte Estrace. -Pro-Gil 3.6, Lactate of 2.4, Magnesium of 1.5 -CMP showed a bilirubin of 8.4, AST of 43, alk phos of 221. -CBC showed a hemoglobin of 7.4, hematocrit of 20.3. Occasional sickle cells. -Troponin of 2472, 2-hour repeat 2334. Imaging: -EKG showed sinus tachycardia -Chest x-ray showed left lower lobe pneumonia new since prior exam. -Chest CTA showed left lower lobe pneumonia with small left pleural effusion. -Abdominal and pelvis CT left lower lobe pneumonia. Absent spleen. Extensive sclerotic changes which may represent sickle cell disease. Postoperative changes prior cholecystectomy Intervention: -Restarted ceftriaxone, then gave a dose of Zosyn for broader spectrum. -1 L bolus NSS. Continue on maintenance NSS. -Blood cultures collected and pending. -3 g of mag sulfate given. -Did discuss possibility of blood transfusion though patient declines at this time. Recheck of H&H at 1 AM showed hemoglobin of 6.9. Discussed with the patient bedside and he states that he does not want blood transfusions at this time. Wants to wait and see. -Will repeat lactate, troponin, and magnesium in morning labs. Will also add on phosphorus. -Will get echo in the a.m. -Discussed with stat radiology overnight. May consider overread of CTA of the chest in the AM. -Will consult hematology and cardiology.
[2024-05-03] MEDS: cefTRIAXone SODIUM 1,000 MG/50 ML BAG IV SCH (20:00)
[2024-05-03 20:17] LABS: Hematocrit (blood only) 20.3 % (42.0-52.0); Hemoglobin 7.4 g/dl (14.0-18.0); Mean Corpuscular Hemoglobin 33.3 pg (25.0-34.0); Mean Corpuscular Hgb Conc 36.5 g/dL (32.0-36.0); Mean Corpuscular Volume 91.4 fL (80.0-100.0); Mean Platelet Volume 9.1 fL (9.4-12.4); Nucleated RBC # (auto) 1.64 K/uL (0.00-0.12); Nucleated RBC % (auto) 29.7 %; Platelet Count 152 K/uL (130-400); RDW Coefficient of Variation 18.5 % (11.5-14.5); RDW Standard Deviation 60.3 fL (36.4-46.3); Red Blood Count 2.22 M/uL (4.70-6.10); White Blood Count 5.52 K/ul (4.8-10.8)
[2024-05-03 20:23] LABS: Albumin Globulin Ratio 1.4 (0.9-2); Albumin Level 3.7 gm/dl (3.4-5.0); BUN Creatinine Ratio 15.3 (10-20); Bilirubin,Total 8.4 mg/dl (0.2-1.0); Calcium 8.6 mg/dl (8.6-10.3); Creatinine Clr Calc Pharmacy 158.4 ml/min; Globulin 2.7 gm/dl (2.5-4.0); Magnesium 1.5 mg/dl (1.7-2.4); Potassium 3.7 mmol/L (3.5-5.1); Total Protein 6.4 gm/dl (6.0-8.3)
[2024-05-03 20:31] LABS: Troponin I High Sensitivity 2472.4 pg/ml (0-20)
[2024-05-03 20:37] LABS: Basophils # (auto) 0.02 K/uL (0.00-0.20); Basophils % (auto) 0.4 %; Eosinophils # (auto) 0.03 K/uL (0.00-0.50); Eosinophils % (auto) 0.5 %; Immature Granulocytes # (auto) 0.04 K/uL (0.01-0.20); Immature Granulocytes % (auto) 0.7 %; Lymphocytes # (auto) 0.23 K/uL (1.20-3.40); Lymphocytes % (auto) 4.2 %; Monocytes # (auto) 0.03 K/uL (0.11-0.59); Monocytes % (auto) 0.5 %; Neutrophils # (auto) 5.17 K/uL (1.40-6.50); Neutrophils % (auto) 93.7 %; Sickle Cells Occasional
[2024-05-03] MEDS: MAGNESIUM SULFATE / D5W 1 GM/100 ML BAG IV ONE (21:01)
[2024-05-03] MEDS: PIPERACILLIN/TAZOBACTAM 4.5 GM/100 ML BAG IV ONE (21:22)
[2024-05-03] MEDS: SODIUM CHLORIDE 0.9% 1,000 ML IV ONE (21:22)
[2024-05-03] MEDS: OPTIRAY 320 125ml IV ONE (23:06)
[2024-05-03 23:07] LABS: Appearance Urine Clear (Clear); Bacteria Urine Automated None Seen (None Seen); Bilirubin Urine 1+ (Negative); Blood Urine 1+ (Negative); Cast Urine Automated 0-2 /lpf (0-2); Color Urine Orange; Epithelial Cell Urine Auto 0-2 /hpf (0-2); Glucose Urine UA Negative (Negative); Ketones Urine Negative (Negative); Leukocyte Esterase Urine Trace (Negative); Nitrite Urine Negative (Negative); Protein Urine 1+ (Negative); RBC Urine Automated 0-2 /hpf (0-2); Specific Gravity Urine 1.011 (1.000-1.030); Urobilinogen Urine Negative (Negative); WBC Urine Automated 0-5 /hpf (0-5); pH Urine 5.5 (4.5-7.5)
[2024-05-03 23:29] LABS: Adenovirus PCR Not Detected (NotDetected); Bordetella parapertussis PCR Not Detected (NotDetected); Bordetella pertussis PCR Not Detected (NotDetected); Chlamydia pneumoniae PCR Not Detected (NotDetected); Coronavirus 229E PCR Not Detected (NotDetected); Coronavirus CoV-2 (COVID19)PCR Not Detected (NotDetected); Coronavirus HKU1 PCR Not Detected (NotDetected); Coronavirus NL63 PCR Not Detected (NotDetected); Coronavirus OC43PCR Not Detected (NotDetected); Human Metapneumovirus PCR Not Detected (NotDetected); Influenza A PCR Not Detected (NotDetected); Influenza B PCR Not Detected (NotDetected); Mycoplasma pneumoniae PCR Not Detected (NotDetected); Parainfluenza Virus 1 PCR Not Detected (NotDetected); Parainfluenza Virus 2 PCR Not Detected (NotDetected); Parainfluenza Virus 3 PCR Not Detected (NotDetected); Parainfluenza Virus 4 PCR Not Detected (NotDetected); Respiratory Syncytial VirusPCR Not Detected (NotDetected); Rhinovirus/Enterovirus PCR Not Detected (NotDetected)
--- NOTE | 2024-05-04 00:15 | XRay Report ---
Exam(s): XR CXR 1 VIEW EXAM: XR Chest, 1 View CLINICAL HISTORY: Reason for exam: worsening condition. TECHNIQUE: Frontal view of the chest. COMPARISON: 05/01/2024 FINDINGS: Lungs: Left lower lobe infiltrate likely of infectious or inflammatory etiology. Pleural space: Unremarkable. No pneumothorax. Heart: Unremarkable. No cardiomegaly. Mediastinum: Unremarkable. Normal mediastinal contour. Bones/joints: Unremarkable. No acute fracture. IMPRESSION: Left lower lobe pneumonia new since prior exam Electronically signed by: Pavan Rodriguez MD 05/04/24 00:14 AM
[2024-05-04] MEDS: MAGNESIUM SULFATE / D5W 1 GM/100 ML BAG IV SCH (00:34)
--- NOTE | 2024-05-04 00:46 | CT Scan Report ---
Exam(s): CTA CHEST IV Amt: 118 ml optiray 320 EXAM: CT Angiography Chest With Intravenous Contrast CLINICAL HISTORY: Reason for exam: PE. TECHNIQUE: Axial computed tomographic angiography images of the chest with intravenous contrast. CTDI is 14.25 mGy and DLP is 539.22 mGy-cm. Automated exposure control was utilized for the study. A dose lowering technique was utilized adhering to the principles of ALARA. MIP reconstructed images were created and reviewed. COMPARISON: No relevant prior studies available. FINDINGS: Pulmonary arteries: Unremarkable. No pulmonary embolism. Aorta: No acute findings. No thoracic aortic aneurysm. Lungs: Right basilar dependent atelectasis. No mass. Pleural space: Left lower lobe infiltrate likely of infectious or inflammatory etiology small left pleural effusion. No pneumothorax. Heart: Unremarkable. No cardiomegaly. No significant pericardial effusion. No evidence of RV dysfunction. Bones/joints: No acute fracture. No dislocation. Soft tissues: Unremarkable. Lymph nodes: Unremarkable. No enlarged lymph nodes. IMPRESSION: Left lower lobe pneumonia likely of infectious or inflammatory etiology small left pleural effusion. Electronically signed by: Pavan Rodriguez MD 05/04/24 00:44 AM
[2024-05-04 01:40] LABS: Hematocrit (blood only) 18.9 % (42.0-52.0); Hemoglobin 6.9 g/dl (14.0-18.0)
--- NOTE | 2024-05-04 03:03 | CT Scan Report ---
Exam(s): CT ABDOMEN + PELVIS W/WO Contrast IV Amt: 118 ml optiray 320 EXAM: CT Abdomen and Pelvis Without and With Intravenous Contrast CLINICAL HISTORY: Reason for exam: worsening condition. TECHNIQUE: Axial computed tomography images of the abdomen and pelvis without and with intravenous contrast. CTDI is 17 mGy and DLP is 539 mGy-cm. Automated exposure control was utilized for the study. A dose lowering technique was utilized adhering to the principles of ALARA. CONTRAST: Patient received 118 ml optiray 320 of IV contrast COMPARISON: No relevant prior studies available. FINDINGS: Lung bases: Unremarkable. No mass. No consolidation. Pleural space: Left lower lobe infiltrate likely infectious or inflammatory etiology with small likely reactive left pleural effusion. ABDOMEN: Liver: Unremarkable. No mass. Gallbladder and bile ducts: Postoperative changes prior cholecystectomy. No ductal dilation. Pancreas: Unremarkable. No mass. No ductal dilation. Spleen: Spleen is not clearly seen on this exam and may be surgically absent. Adrenals: Unremarkable. No mass. Kidneys and ureters: Unremarkable. No solid mass. No obstructing stones. No hydronephrosis. Stomach and bowel: Prominent fluid-filled loops of small bowel within the pelvis with slight mural hyperemia. Postoperative changes of the small bowel right lower quadrant. No obstruction. No mucosal thickening. PELVIS: Appendix: No findings to suggest acute appendicitis. Bladder: Unremarkable. No mass. No stones. Reproductive: Unremarkable as visualized. ABDOMEN and PELVIS: Intraperitoneal space: Unremarkable. No free air. No significant fluid collection. Bones/joints: Extensive sclerotic changes of the axial appendicular skeleton. H-shaped vertebral bodies present. No acute fracture. No dislocation. Soft tissues: Unremarkable. Vasculature: Unremarkable. No abdominal aortic aneurysm. Lymph nodes: Unremarkable. No enlarged lymph nodes. IMPRESSION: Left lower lobe pneumonia The spleen is not seen on this exam and may be surgically absent. Correlation recommended Extensive sclerotic changes throughout the axial and appendicular skeleton with H-shaped configuration of the vertebral bodies. Findings may represent the sequelae of sickle cell disease. Clinical correlation recommended Postoperative changes prior cholecystectomy Electronically signed by: Pavan Rodriguez MD 05/04/24 03:02 AM
[2024-05-04] MEDS: PIPERACILLIN/TAZOBACTAM 4.5 GM/100 ML BAG IV SCH ×2 (03:14→22:47)
[2024-05-04 06:26] LABS: Hematocrit (blood only) 19.7 % (42.0-52.0); Mean Corpuscular Hemoglobin 32.7 pg (25.0-34.0); Mean Corpuscular Hgb Conc 35.5 g/dL (32.0-36.0); Mean Corpuscular Volume 92.1 fL (80.0-100.0); Mean Platelet Volume 10.4 fL (9.4-12.4); Nucleated RBC # (auto) 1.01 K/uL (0.00-0.12); Nucleated RBC % (auto) 9.7 %; Platelet Count 161 K/uL (130-400); RDW Coefficient of Variation 18.7 % (11.5-14.5); RDW Standard Deviation 61.6 fL (36.4-46.3); Red Blood Count 2.14 M/uL (4.70-6.10); White Blood Count 10.39 K/ul (4.8-10.8)
[2024-05-04 07:21] LABS: Basophils # (auto) 0.02 K/uL (0.00-0.20); Basophils % (auto) 0.2 %; Eosinophils # (auto) 0.08 K/uL (0.00-0.50); Eosinophils % (auto) 0.8 %; Immature Granulocytes # (auto) 0.06 K/uL (0.01-0.20); Immature Granulocytes % (auto) 0.6 %; Lymphocytes % (auto) 13.5 %; Monocytes # (auto) 0.21 K/uL (0.11-0.59); Neutrophils # (auto) 8.62 K/uL (1.40-6.50); Neutrophils % (auto) 82.9 %; Polychromasia 3+; Sickle Cells 1+; Target Cells 3+; Tear Drop Cells 1+
[2024-05-04 07:24] LABS: Albumin Level 3.5 gm/dl (3.4-5.0); Bilirubin,Total 5.2 mg/dl (0.2-1.0); Calcium 8.5 mg/dl (8.6-10.3); Magnesium 2.3 mg/dl (1.7-2.4)
[2024-05-04 07:30] LABS: Albumin Globulin Ratio 1.3 (0.9-2); BUN Creatinine Ratio 15.6 (10-20); Creatinine Clr Calc Pharmacy 178.2 ml/min; Globulin 2.7 gm/dl (2.5-4.0); Phosphorus 3.2 mg/dl (2.5-4.9); Total Protein 6.2 gm/dl (6.0-8.3)
--- NOTE | 2024-05-04 08:13 | Electrocardiogram Report ---
Test Reason : Blood Pressure : */* mmHG Vent. Rate : 152 BPM Atrial Rate : 152 BPM P-R Int : 136 ms QRS Dur : 76 ms QT Int : 248 ms P-R-T Axes : 54 159 66 degrees QTcB Int : 394 ms Poor data quality, interpretation may be adversely affected Sinus tachycardia Right axis deviation Abnormal ECG When compared with ECG of 03-May-2024 09:25, HR has increased by 47 bpm Confirmed by Ruiz Redmond ([id number]) on 05/04/2024 8:13:18 AM Referred By: REFERRED SELF Confirmed By: Ruiz Redmond
--- NOTE | 2024-05-04 08:16 | Electrocardiogram Report ---
Test Reason : Blood Pressure : */* mmHG Vent. Rate : 130 BPM Atrial Rate : 130 BPM P-R Int : 162 ms QRS Dur : 90 ms QT Int : 286 ms P-R-T Axes : 52 117 67 degrees QTcB Int : 420 ms Poor data quality, interpretation may be adversely affected Sinus tachycardia Right axis deviation Nondiagnostic inferior Q waves Abnormal ECG When compared with ECG of 03-May-2024 20:41, HR has decreased by 22 bpm Confirmed by Ruiz Redmond ([id number]) on 05/04/2024 8:15:42 AM Referred By: REFERRED SELF Confirmed By: Ruiz Redmond
--- NOTE | 2024-05-04 08:44 | XCELERA ---
[id number]
--- NOTE | 2024-05-04 12:09 | Cardiology Consultation ---
Date of Consultation May 04, 2024 Assessment & Plan (1) Sickle cell crisis: (2) Demand ischemia: (3) Pneumonia: Plan 23-year-old with history of asthma and sickle cell anemia admitted 3 days ago, yesterday had fever and tachycardia, appears to have new left lower lobe pne umonia. Troponin elevation consistent with demand ischemia, with evidence of mild to moderate right heart strain on echocardiogram secondary to pulmonary process. Certainly concern is acute chest syndrome, however he denies any chest pain at any time, his oxygenation is normal, and he seems to be responding to therapy for pneumonia with improved hemodynamics (no longer tachycardic) and declining troponin. Continue to monitor closely for any recurrent symptoms which might suggest acute chest syndrome. Right heart findings are nonspecific and reflect cardiac response to his pulmonary pathology. Given young age and absence of diabetes or other major vascular risk factor, acute coronary syndrome is not a current consideration and there is no need for aspirin, heparinization, or similar interventions. Treatment of demand ischemia is addressing underlying pathology (sickle cell crisis and pneumonia) and optimizing volume status and hemodynamics where possible. Beyond continued close monitoring, no specific recommendations from a cardiac standpoint. Will continue to follow. History of Present Illness Reason for Consultation: Sickle cell crisis, elevated troponin, pneumonia Requesting Physician: Jessie Main MD Attending Physician: Jessie Main MD History of Present Illness 23-year-old man with history of asthma and sickle cell anemia, no cardiac history, admitted 05/01/2024 with pain consistent with sickle cell crisis, noted to have elevated troponin and evidence of right heart strain on echo. Of note, during a hospitalization here in 2022, he was transferred to [facility] for acute chest syndrome. At the time of his current admission, he notes only low back and lower extremity pain, denies any chest pain or dyspnea. ECG on admission showed sinus rhythm at 76 bpm with first-degree AV block. ECG yesterday was sinus tachycardia at 105 bpm, isoelectric ST segments. A second ECG yesterday showed sinus tachycardia 130 bpm with nondiagnostic inferior Q waves but isoelectric ST segments. Echocardiogram today showed EF 55 to 60% with borderline dilated right ventricle and mild to moderately reduced right ventricular systolic function, no significant valve disease, mild pulmonary hypertension, trivial posterior pericardial effusion. Chest CT yesterday showed left lower lobe pneumonia with small left pleural effusion. Troponin yesterday 2472, peaked at 2334, dropped to 677 today. He denied any chest pain at the time of admission or subsequently. Aside from lower extremity arthralgias, no other symptoms. No dyspnea, palpitations, or lightheadedness. Telemetry showed sinus rhythm with periods of sinus tachycardia yesterday. No dysrhythmias. Allergies Allergy/AdvReac Type Severity Reaction Status Date / Time No Known Allergies Allergy Unverified 06/08/23 13:01 Home Medications Medication Instructions Recorded Confirmed Type folic acid 1 mg tablet 1 mg PO QAM 02/08/23 05/01/24 History ibuprofen 600 mg tablet 600 mg PO Q6 PRN Pain 02/08/23 05/01/24 History hydroxyurea 500 mg capsule 2,000 mg PO QAM 03/16/23 05/01/24 History oxycodone 10 mg tablet 10 mg PO Q6H PRN pain #30 tabs 06/12/23 05/01/24 Rx naloxone 4 mg/actuation nasal 1 spray intranasal ONCE #2 ea 09/13/23 05/01/24 Rx spray (Narcan) oxycodone 5 mg tablet 10 mg (2 x 5 mg) PO Q6H PRN pain 02/23/24 05/01/24 Rx #40 tabs Patient History Medical History 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 History of sickle cell disease Asplenia Asthma Surgical History History of tonsillectomy History of appendectomy History of splenectomy History of cholecystectomy Family History Other Hypertension Social History Smoking Status: Never smoker Tobacco Type: E-cigarettes / Vaping Second Hand Exposure: No; Do You Dip or Chew Tobacco: No; Hx Alcohol Use: Yes Alcohol type: beer Hx Substance Use: No Preferred Language: Malaysian Communication Ability: Effective Neurology Stroke Physician Required: No Beliefs That Will Affect Care: None marital status: Single Current Living Situation: Other Current Living Situation Comment: apartment with roommates Feels Safe at Home: Yes Assistive Devices: None Physical Exam Physical Exam: Adult black male in no apparent distress. Fever to 102.9 yesterday, afebrile today. Normotensive. Pulse 96 bpm and regular. Skin: no ecchymoses or generalized lesions. HEENT: unremarkable. Neck: JVP at the clavicle at 90 degrees, no carotid bruits. Lungs: Crackles left base, otherwise clear, no obvious wheezing. No accessory muscle use. Cardiac: regular rhythm, normal S1-2, no murmur or rub. Abdomen: benign. Extremities: no edema, pulses intact. Neurologic: normal affect and conversation, nonfocal. Results & Data Laboratory Results Hemoglobin 7.0, normal white count, normal platelet count. Normal electrolytes, BUN 10, creatinine 0.64. Troponins as noted. Lactate 2.4 yesterday, 1.3 today. PG Care Time/CCT Total # of Minutes Spent Total Time Spent with Patient: Total time spent is greater than 50% in coordination of care (as documented) at patient's floor/unit and/or counseling patient: Coding Level of Care Code 93364 IN/OBS CONSULT LVL 4,60M Diagnoses Sickle cell crisis D57.00 Demand ischemia I24.89 Pneumonia J18.9
--- NOTE | 2024-05-04 13:35 | Medical Student Progress Note ---
Date of Service May 04, 2024 Assessment & Plan (1) Sickle cell crisis: Plan: 23yo male with history of sickle cell disease and splenectomy presenting with acute pain in his lower thoracic-lumbar back. The pain is now only in his bilateral calves and has reduced down to a 2/10. He is overall feeling better and is more talkative and less lethargic. - 1/2 NSS at 125mL/hr x 24 hours -TITLE COORDINATOR Hydromorphone 0.4mg/hr -TITLE COORDINATOR Hydromorphone 0.5mg with 10 minute pause. - PRN Narcan available for respiratory depression/overdose -Continue Hydroxyurea 200mg Qam -Acetaminophen 1000mg Q8H -Zofran 4mg Q6H -add DVT prophylaxis. (2) Pneumonia: Plan: -Patient's condition acutely deteriorated overnight. He called from the bedside and was found to be tachycardic, hypotensive, and reported having chills. He denies chest pain, SOB, Cough, fever, fatigue, at this time. -CXR and Chest CT showed evidence of left lower lobe pneumonia. However, pneumonia is often indistinguishable from acute chest syndrome on imaging.The absence of chest pain and other cardiac symptoms makes acute chest syndrome less likely at this time. Continue to monitor and prepare possible transfer if these symptoms do arise in this patient. -TTE was abnormal. Results showed EF of 55-60%, borderline left ventricular hypertrophy, borderline right ventricular dilation, no significant valvular disease, trivial posterior pericardial effusion. -Cardiology consulted -MRSA nares negative. -Blood Cultures Pending Plan: -Given dosage of Zosyn -Consider sputum culture -Monitor respiration status (3) Elevated troponin: Plan: Troponin: -677.1 (05/04/24) -2334.9 (05/03/24) -2472.4 (05/03/24) Cardiology consulted. They are less concerned for acute coronary syndrome. No need for aspirin or heparinization at this time. Elevated troponin likely due to demand ischemia from underlying pulmonary pathology from sickle cell and pneumonia. (4) Constipation: Plan: Patient has not had a BM since Thursday morning. He Has not eaten much since Thursday. He is not experiencing abdominal pain at this time. -Continue Miralax 17 gm BID. Admission and Anticipated Discharge Date Admission Date: May 01, 2024 Supervising Attestation Attending Physician Supervision Note: I saw the patient with Jessee Milton and independently interviewed and examined the patient and verified the worthy history and physical, reviewed labs and image studies and agree with findings and care plan noted above. Also reviewed the case with Dr. Lauren Gonzales. Pain continuing to improve and Needing less as needed pushes from TITLE COORDINATOR. No chest pain. No more fever since the one last night. Laying in bed, awake oriented, no respiratory distress. CTA, RRR Sickle cell crisis - exacerbated by pneumonia. Viral panel negative. -Bilirubin rise last night likely from hemolysis due to fever. -continue IVF, pain control - needing less prn doses from dilaudid TITLE COORDINATOR. -continue tylenol scheduled. -continue hydroxyurea. Pneumonia left lung with h/o splenectomy -WBC count has normalized. culture drawn last night - pending. continue rocephin to finish the course. Elevated Trop - consistent with demand ischemia Right heart dysfunction - Per cardio - likely residual Pul HTN d/t prior chest syndrome vs elevated HR. Fibrobronchiectatic RML changes on Chest CT - likely chronic. will need outpatient pulmonary evaluation. 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 He states that his symptoms began on Thursday while he was drinking alcohol. He notes that dehydration has been a trigger for him in the past. The pain originated in his back and was a 10/10 prior to his admission to the ED. New Events: Last night he called nursing due to feeling chills and shivering. He was found to be tachycardiac and hypotensive resulting in further workup. As of today he is feeling much better. He reports no symptoms other than is bilateral lower extremity pain which has decreased to a 2/10. He denies chest pain, heart palpitations, SOB, cough, sputum production, fever, fatigue, chills. When asked if he was sick prior to admission he stated no, but states his roommates were sick with a nasty cough prior to his admission, but he did not ever feel sick. Review of Systems Review of Systems: Constitutional Denies fever, chills, malaise HEENT Denies head pain, headaches. Denies eye pain, vision loss/changes, blurry vision, double vision. Denies ear pain, and hearing loss. Denies sore throat or sore neck or sinus pain. Respiratory Denies SOB, cough, sputum production, pleuritic chest pain, wheezing CV Denies chest pain, heart palpitations, tachycardia, bradycardia, edema GI Denies abdominal pain, diarrhea, nausea, vomiting, hematochezia Denies dysuria, increased urinary frequency, hematuria MSK 2/10 LE pain bilaterally. Denies joint pain, muscle pain, decreased ROM, Neuro Denies altered mental status, slurred speech, numbness or tingling Physical Exam Physical Exam: General: Alert and oriented X3, well appearing and in no acute distress HEENT: Normocephalic, atraumatic, PERRLA, moist mucous membranes, neck is supple, trachea midline, no lymphadenopathy or thyromegaly appreciated Respiratory: Chest is CTAB without wheezes, rales, or rhonchi Cardiovascular: Heart has RRR without murmurs, rubs, or gallops. No JVD, or lower extremity edema. Abdomen: Abdomen is soft, nontender, nondistended. No hepatomegaly appreciated. Normoactive bowel sounds. Neurologic: Cranial Nerves grossly intact, no focal neurological deficits. Psychiatric: Appropriate mood and affect. Results & Data Vital Signs (Past 12 Hours) Vital Signs Temp Pulse Pulse Resp BP BP Pulse Ox 05/04/24 03:47 05/04/24 02:48 37.1 C 92 H 18 108/63 99 05/04/24 01:33 37.1 C 100 H 25 H 118/60 98 05/04/24 00:28 117 H 05/03/24 22:19 37.6 C H 115 H 20 96/59 L 97 05/03/24 21:15 121 H 110/83 05/03/24 21:01 131 H 109/68 05/03/24 20:42 39.4 C H 136 H 21 104/62 92 05/03/24 19:30 37.3 C 140 H 20 135/74 95 05/03/24 19:20 137 H 05/03/24 19:15 140 H 135/74 O2 Del Method O2 Flow Rate 05/04/24 03:47 Nasal Cannula 2 05/04/24 02:48 Nasal Cannula 2 05/04/24 01:33 Nasal Cannula 2 05/04/24 00:28 05/03/24 22:19 Nasal Cannula 2 05/03/24 21:15 05/03/24 21:01 05/03/24 20:42 Nasal Cannula 2 05/03/24 19:30 Nasal Cannula 05/03/24 19:20 05/03/24 19:15 Resident Activity Tracking Resident Involvement: Resident Care Provided Care Provided: Adult Hospital Medicine Resident Supervision Co-Signing Physician Notes Patient with acute deterioration overnight tachycardic, febrile, slight hypotension - etiology unclear. Has improved significantly since starting antibiotics. Patient minimally tachycardic, pain controlled, no chest pain or SOB. #Elevated Troponin #Abnormal ECHO ECHO abnormal. Trop peaked around 2400. Discussed with Dr. Redmond. Likely residual pulmonary hypertension d/t prior acute chest syndrome. Right sided dysfunction may be contributing to elevated troponin. Could also be due to elevated rate (150s-170s). With sickle cell history would keep acute chest on the differential and if patient develops chest pain likely would need transfer to tertiary care center. #Pneumonia #Abnormal CT Chest Relatively asymptomatic. Continue broad spectrum antibiotics Zosyn for at least 24 hours. Follow blood cultures, adjust as indicated. #Pulmonary Hypertension #Pulmonary Fibrosis Discussed with radiology findings on 05/01 in comparison to 05/03. Fibrobronchiectatic changes indicating pulmonary fibrosis - likely chronic finding not commented on in 05/03 imaging. Would consider outpatient pulmonology referral. Patient will need local PCP for coordination of care #Sickle Cell Anemia #Sickle Cell Crisis Continue TITLE COORDINATOR for pain control. Continue hydroxyurea. Did consult hematology. Patient typically follows with [facility]. May benefit from local sliding joint maker as well. Trend H&H. Patient has declined transfusion. Currently stable but could revisit if necessary. #Alcohol use Would emphasize the importance of adequate hydration especially while drinking alcohol. #Constipation Likely multifactorial with dehydration and significant opioid use. Ordered MiraLax 17 gm BID, patient did refuse overnight. Continue for now, can escalate if needed. Case discussed with RAYMUNDO Milton and Dr. Main attending physician.
[2024-05-04] MEDS ORDERED: HYDROmorphone INJ 0.5 MG/0.5 ML SYR IV PRN (18:31)
[2024-05-04 23:29] LABS: Hematocrit (blood only) 18.6 % (42.0-52.0); Hemoglobin 6.5 g/dl (14.0-18.0); Mean Corpuscular Hemoglobin 32.2 pg (25.0-34.0); Mean Corpuscular Hgb Conc 34.9 g/dL (32.0-36.0); Mean Corpuscular Volume 92.1 fL (80.0-100.0); Mean Platelet Volume 10.3 fL (9.4-12.4); Nucleated RBC # (auto) 1.13 K/uL (0.00-0.12); Nucleated RBC % (auto) 12.3 %; Platelet Count 173 K/uL (130-400); RDW Coefficient of Variation 18.2 % (11.5-14.5); RDW Standard Deviation 59.4 fL (36.4-46.3); Red Blood Count 2.02 M/uL (4.70-6.10); White Blood Count 9.16 K/ul (4.8-10.8)
[2024-05-05 06:24] LABS: Hematocrit (blood only) 18.9 % (42.0-52.0); Hemoglobin 6.7 g/dl (14.0-18.0); Mean Corpuscular Hemoglobin 32.4 pg (25.0-34.0); Mean Corpuscular Hgb Conc 35.4 g/dL (32.0-36.0); Mean Corpuscular Volume 91.3 fL (80.0-100.0); Mean Platelet Volume 10.2 fL (9.4-12.4); Nucleated RBC % (auto) 16.5 %; Platelet Count 195 K/uL (130-400); RDW Coefficient of Variation 18.7 % (11.5-14.5); RDW Standard Deviation 61.1 fL (36.4-46.3); Red Blood Count 2.07 M/uL (4.70-6.10); White Blood Count 8.48 K/ul (4.8-10.8)
[2024-05-05 06:35] LABS: Albumin Globulin Ratio 1.2 (0.9-2); Albumin Level 3.5 gm/dl (3.4-5.0); BUN Creatinine Ratio 13.3 (10-20); Bilirubin,Total 3.2 mg/dl (0.2-1.0); Calcium 8.7 mg/dl (8.6-10.3); Creatinine Clr Calc Pharmacy 190.1 ml/min; Globulin 2.9 gm/dl (2.5-4.0); Potassium 3.7 mmol/L (3.5-5.1); Total Protein 6.4 gm/dl (6.0-8.3)
[2024-05-05] MEDS: oxyCODONE HCL IR 5 MG TAB (IMMEDIATE RELEASE) PO SCH (10:40)
--- NOTE | 2024-05-05 10:58 | Cardiology Progress Note ---
Date of Service May 05, 2024 Assessment & Plan (1) Sickle cell crisis: (2) Demand ischemia: (3) Pneumonia: Plan Clinically improving, no symptoms suggestive of acute chest syndrome or ongoing myocardial ischemia. As noted, suspect troponin elevation consistent with demand ischemia. Unclear whether his mild to moderate right heart strain on echocardiogram reflects underlying pulmonary hypertension (from prior acute chest syndrome) or response to most recent pulmonary insult (pneumonia). Just prior to discharge would obtain limited follow-up echocardiogram to reevaluate right heart and thereby help determine whether his right heart findings are chronic or transient. If discharge is not imminent, would wait a few days before obtaining echo to allow for cardiac recovery. No specific cardiac recommendations. Will continue to follow. Admission and Anticipated Discharge Date Admission Date: May 01, 2024 Subjective Gradually improving. Legs are less painful. No chest pain, dyspnea, palpitations, or lightheadedness. Telemetry showed sinus rhythm/sinus tachycardia in the 90-110 bpm range. No significant ectopy or dysrhythmias. Physical Exam Physical Exam: Appears reasonably comfortable. Afebrile. BP normotensive. Pulse 90 bpm and regular. Respirations 17 unlabored. Skin: no ecchymoses or generalized lesions. HEENT: unremarkable. Neck: JVP at the clavicle at 90 degrees, no carotid bruits. Lungs: Crackles left base, otherwise clear, no obvious wheezing. No accessory muscle use. Cardiac: regular rhythm, normal S1-2, no murmur or rub. Abdomen: benign. Extremities: no edema, pulses intact. Neurologic: normal affect and conversation, nonfocal. Results & Data Vital Signs (Past 12 Hours) Vital Signs Temp Pulse Pulse Resp BP Pulse Ox O2 Del Method 05/05/24 07:43 98.4 F 91 H 17 114/64 100 Nasal Cannula 05/05/24 02:40 98.2 F 97 H 18 114/72 98 Nasal Cannula 05/04/24 23:33 89 05/04/24 22:55 98.2 F 90 18 111/65 99 Nasal Cannula O2 Flow Rate 05/05/24 07:43 1.5 05/05/24 02:40 05/04/24 23:33 05/04/24 22:55 Laboratory Results Hemoglobin 6.7. Sodium 135, chloride 99, potassium 3.7, BUN 8, creatinine 0.6. PG Care Time/CCT Total # of Minutes Spent Total Time Spent with Patient: Total time spent is greater than 50% in coordination of care (as documented) at patient's floor/unit and/or counseling patient: Coding Level of Care Code 58829 SUB INP/OBS CARE 235MIN Diagnoses Sickle cell crisis D57.00 Demand ischemia I24.89 Pneumonia J18.9
--- NOTE | 2024-05-05 14:11 | Medical Student Progress Note ---
Date of Service May 05, 2024 Assessment & Plan (1) Sickle cell crisis: Plan: 23yo male with history of sickle cell disease and splenectomy presenting with acute pain in his lower thoracic-lumbar back. The pain is now only in his bilateral calves and has reduced down to a 2-3/10. He is overall feeling better and is more talkative and less lethargic. At this point his pain is stable enough to switch to oral pain medications so that he can continue pain ma nagement in an outpatient setting. We will work on decreasing hydromorphone dosage as we restart oxycodone. -Restart Oxycodone 10mg Q6H -SUPERVISOR CEREAL Hydromorphone 0.2mg/hr -SUPERVISOR CEREAL Hydromorphone 0.5mg with 10 minute pause. - PRN Narcan available for respiratory depression/overdose - 1/2 NSS at 125mL/hr x 24 hours -Continue Hydroxyurea 200mg Qam -Acetaminophen 1000mg Q8H -Zofran 4mg Q6H -Consult hematology to determine when Hgb level is stable enough to discharge. (2) Pneumonia: Plan: He is well-appearing and in NAD. Lung auscultation revealed left lower lobe crackles. -CXR and Chest CT showed evidence of left lower lobe pneumonia. However, pneumonia is often indistinguishable from acute chest syndrome on imaging. Given the context of sickle cell crisis in this patient keep pneumonia and acute chest syndrome in the differential at this time. The absence of chest pain and other cardiac symptoms makes acute chest syndrome less likely at this time. Continue to monitor and prepare possible transfer if these symptoms do arise in this patient. -TTE was abnormal. Results showed EF of 55-60%, borderline left ventricular hypertrophy, borderline right ventricular dilation, no significant valvular disease, trivial posterior pericardial effusion. -Cardiology consulted -MRSA nares negative. -Blood Cultures revealed no preliminary growth after 24hrs. Plan: -Zosyn discontinued, will start Augmentin BID -Monitor respiration status (3) Elevated troponin: Plan: Troponin: -677.1 (05/04/24) -2334.9 (05/03/24) -2472.4 (05/03/24) Cardiology consulted. They are not concerned for acute coronary syndrome. No need for aspirin or heparinization at this time. Elevated troponin likely due to demand ischemia from underlying pulmonary pathology from sickle cell and pneumonia. (4) Constipation: Plan: Patient has not had a BM since Thursday morning. He Has not eaten much since Thursday. He is not experiencing abdominal pain at this time. -Continue Miralax 15 gm BID. Admission and Anticipated Discharge Date Admission Date: May 01, 2024 Supervising Attestation Attending Physician Supervision Note: I saw the patient with Jessee Milton and independently interviewed and examined the patient and verified the worthy history and physical, reviewed labs and image studies and agree with findings and care plan noted above. Pain continuing to improve and Needing less as needed pushes from SUPERVISOR CEREAL. No chest pain. No more fever since the one last night. Laying in bed, awake oriented, no respiratory distress. CTA, RRR Sickle cell crisis - exacerbated by pneumonia. Viral panel negative. -Bilirubin continuing to drop. Hb stable around 6.5-7. -continue IVF, pain control - needing less prn doses from dilaudid SUPERVISOR CEREAL - cut SUPERVISOR [employer]EREAL continuous dose. still has prn push doses on. added oxycodone. -continue tylenol -continue hydroxyurea. Discussed with heme - ok to discharge with hb of 6-7. Pneumonia left lung with h/o splenectomy - continue rocephin to finish the course. Elevated Trop - consistent with demand ischemia Right heart dysfunction - Per cardio - likely residual Pul HTN d/t prior chest syndrome vs elevated HR. Fibrobronchiectatic RML changes on Chest CT - likely chronic. will need outpatient pulmonary evaluation. Assess for discharge in am. 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 He states that his symptoms began on Thursday (04/30/24) while he was drinking alcohol. He notes that dehydration has been a trigger for him in the past. The pain originated in his back and was a 10/10 prior to his admission to the ED. New Events: He is overall feeling better today. His pain is a 2-3/10 in his lower extremities bilaterally. He had a little bit of mucus this morning, but has not coughed since. He reports no other symptoms and hopes to switch to oral pain medications soon so he can begin the process of heading home. Review of Systems Review of Systems: Constitutional Denies fever, chills, malaise HEENT Denies head pain, headaches. Denies eye pain, vision loss/changes, blurry vision, double vision. Denies ear pain, and hearing loss. Denies sore throat or sore neck or sinus pain. Respiratory He had a little mucus this morning, Otherwise denies SOB, cough, pleuritic chest pain, wheezing CV Denies chest pain, heart palpitations, tachycardia, bradycardia, edema GI Denies abdominal pain, diarrhea, nausea, vomiting, hematochezia Denies dysuria, increased urinary frequency, hematuria MSK 2/10 LE pain bilaterally. Denies joint pain, muscle pain, decreased ROM, Neuro Denies altered mental status, slurred speech, numbness or tingling Physical Exam Physical Exam: General: Alert and oriented X3, well appearing and in no acute distress HEENT: Normocephalic, atraumatic, PERRLA, moist mucous membranes, neck is supple, trachea midline, no lymphadenopathy or thyromegaly appreciated Respiratory: Crackles auscultated in the left middle to lower lobe. Cardiovascular: Heart has RRR without murmurs, rubs, or gallops. No JVD, or lower extremity edema. Abdomen: Abdomen is soft, nontender, nondistended. No hepatomegaly appreciated. Normoactive bowel sounds. Neurologic: Cranial Nerves grossly intact, no focal neurological deficits. Psychiatric: Appropriate mood and affect. Results & Data Vital Signs (Past 12 Hours) Vital Signs Temp Pulse Pulse Resp BP Pulse Ox O2 Del Method 05/05/24 02:40 36.8 C 97 H 18 114/72 98 Nasal Cannula 05/04/24 23:33 89 05/04/24 22:55 36.8 C 90 18 111/65 99 Nasal Cannula 05/04/24 20:39 Nasal Cannula 05/04/24 19:56 36.8 C 86 18 99/54 L 98 Nasal Cannula O2 Flow Rate 05/05/24 02:40 05/04/24 23:33 05/04/24 22:55 05/04/24 20:39 1 05/04/24 19:56
[2024-05-05] MEDS: AMOXICILLIN/CLAVULANATE 875 MG TAB PO SCH (20:31)
[2024-05-06 07:06] LABS: Albumin Globulin Ratio 1.1 (0.9-2); Albumin Level 3.6 gm/dl (3.4-5.0); BUN Creatinine Ratio 16.9 (10-20); Bilirubin,Total 2.5 mg/dl (0.2-1.0); Calcium 8.8 mg/dl (8.6-10.3); Creatinine Clr Calc Pharmacy 193.6 ml/min; Globulin 3.3 gm/dl (2.5-4.0); Potassium 3.8 mmol/L (3.5-5.1); Total Protein 6.9 gm/dl (6.0-8.3)
[2024-05-06 07:13] LABS: Hematocrit (blood only) 18.9 % (42.0-52.0); Hemoglobin 6.7 g/dl (14.0-18.0); Mean Corpuscular Hemoglobin 32.2 pg (25.0-34.0); Mean Corpuscular Hgb Conc 35.4 g/dL (32.0-36.0); Mean Corpuscular Volume 90.9 fL (80.0-100.0); Mean Platelet Volume 10.1 fL (9.4-12.4); Nucleated RBC # (auto) 2.13 K/uL (0.00-0.12); Nucleated RBC % (auto) 31.8 %; Platelet Count 205 K/uL (130-400); RDW Coefficient of Variation 18.3 % (11.5-14.5); RDW Standard Deviation 58.4 fL (36.4-46.3); Red Blood Count 2.08 M/uL (4.70-6.10)
[2024-05-06 07:15] LABS: Anisocytosis Present; Basophils # (auto) 0.03 K/uL (0.00-0.20); Basophils % (auto) 0.4 %; Eosinophils # (auto) 0.11 K/uL (0.00-0.50); Eosinophils % (auto) 1.6 %; Immature Granulocytes # (auto) 0.05 K/uL (0.01-0.20); Immature Granulocytes % (auto) 0.7 %; Lymphocytes # (auto) 1.48 K/uL (1.20-3.40); Lymphocytes % (auto) 22.1 %; Monocytes # (auto) 0.75 K/uL (0.11-0.59); Monocytes % (auto) 11.2 %; Neutrophils # (auto) 4.28 K/uL (1.40-6.50); Polychromasia 2+; Stomatocytes 1+; Target Cells 3+; Tear Drop Cells 1+
[2024-05-06 07:44] VITALS: O2SAT 99
--- NOTE | 2024-05-06 08:28 | Medical Student Progress Note ---
Date of Service May 06, 2024 Assessment & Plan (1) Sickle cell crisis: Plan: 23yo male with history of sickle cell disease and splenectomy presenting with acute pain in his lower thoracic-lumbar back. The pain is now only in his bilateral calves and has reduced down to a 2/10. He is overall feeling better and is more talkative and less lethargic. At this point his pain is stable enough to switch to oral pain medications so that he can continue pain luc gement in an outpatient setting. His hydromorphone continuous drip has has been discontinued. He still has the prn push dose. Hematology stated he is safe to discharge at his current Hgb level as long as it remains stable and he is feeling better. Plan is to monitor his pain without continuous hydromorphone this morning. If his pain is stable, he will be ready to be discharged. -Restart Oxycodone 10mg Q6H -SHEET FED PRINTER Hydromorphone 0.5mg with 10 minute pause. - PRN Narcan available for respiratory depression/overdose - 1/2 NSS at 125mL/hr x 24 hours -Continue Hydroxyurea 200mg Qam -Acetaminophen 1000mg Q8H -Zofran 4mg Q6H (2) Pneumonia: Plan: He is well-appearing and in NAD. Lung auscultation revealed left lower lobe cr ackles. -CXR and Chest CT showed evidence of left lower lobe pneumonia. However, pneumonia is often indistinguishable from acute chest syndrome on imaging. Given the context of sickle cell crisis in this patient keep pneumonia and acute chest syndrome in the differential at this time. The absence of chest pain and other cardiac symptoms makes acute chest syndrome less likely at this time. -TTE was abnormal. Results showed EF of 55-60%, boarderline left ventricular hypertrophy, borderline right ventricular dilation, no significant valvular disease, trivial posterior pericardial effusion. -Cardiology consulted -MRSA nares negative. -Blood Cultures revealed no preliminary growth after 48hrs. Plan: -Continue Augmentin 875mg 1 tab BID (3) Elevated troponin: Plan: Troponin: -677.1 (05/04/24) -2334.9 (05/03/24) -2472.4 (05/03/24) Cardiology consulted. They are not concerned for acute coronary syndrome. No need for aspirin or heparinization at this time. Elevated troponin likely due to demand ischemia from underlying pulmonary pathology from sickle cell and pneumonia. (4) Constipation: Plan: Patient has not had a BM since Thursday morning. He Has not eaten much since Thursday. He is not experiencing abdominal pain at this time. -Continue Miralax 15 gm BID. 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 New Events: He is feeling really well today. His pain has decreased and he feels he is using the breakthrough pain meds less. He states he is feels he will have a bowel m ovement today. He wishes to get out of the hospital soon. Review of Systems Review of Systems: Constitutional Denies fever, chills, malaise HEENT Denies head pain, headaches. Denies eye pain, vision loss/changes, blurry vision, double vision. Denies ear pain, and hearing loss. Denies sore throat or sore neck or sinus pain. Respiratory He had a little mucus this morning, Otherwise denies SOB, cough, pleuritic chest pain, wheezing CV Denies chest pain, heart palpitations, tachycardia, bradycardia, edema GI Still experiencing constipation. Denies abdominal pain, diarrhea, nausea, vomiting, hematochezia Denies dysuria, increased urinary frequency, hematuria MSK 2/10 LE pain bilaterally. Denies joint pain, muscle pain, decreased ROM, Neuro Denies altered mental status, slurred speech, numbness or tingling Physical Exam Physical Exam: General: Alert and oriented X3, well appearing and in no acute distress HEENT: Normocephalic, atraumatic, PERRLA, moist mucous membranes, neck is supple, trachea midline, no lymphadenopathy or thyromegaly appreciated Respiratory: Crackles auscultated in the left middle to lower lobe. Cardiovascular: Heart has RRR without murmurs, rubs, or gallops. No JVD, or lower extremity edema. Abdomen: Abdomen is soft, nontender, nondistended. No hepatomegaly appreciated. Normoactive bowel sounds. Neurologic: Cranial Nerves grossly intact, no focal neurological deficits. Psychiatric: Appropriate mood and affect. Results & Data Vital Signs (Past 12 Hours) Vital Signs Temp Pulse Pulse Resp BP Pulse Ox O2 Del Method 05/06/24 02:39 36.8 C 95 H 18 118/67 98 Nasal Cannula 05/05/24 23:17 36.7 C 80 18 119/68 98 Nasal Cannula 05/05/24 21:44 104 H 05/05/24 21:15 Nasal Cannula 05/05/24 19:53 36.8 C 101 H 18 115/63 98 Nasal Cannula O2 Flow Rate 05/06/24 02:39 1 05/05/24 23:17 1 05/05/24 21:44 05/05/24 21:15 1 05/05/24 19:53 1
--- NOTE | 2024-05-06 11:39 | Cardiology Progress Note ---
Date of Service May 06, 2024 Assessment & Plan (1) Sickle cell crisis: (2) Demand ischemia: (3) Pneumonia: Plan Clinically improving, no symptoms suggestive of acute chest syndrome or ongoing myocardial ischemia. As noted, suspect troponin elevation consistent with demand ischemia. Will check limited follow-up echocardiogram today to reevaluate right heart to better determine whether mild RV dysfunction is is an acute or chronic finding. No specific cardiac recommendations. Admission and Anticipated Discharge Date Admission Date: May 01, 2024 Subjective No new complaints. Leg discomfort gradually improving. No chest symptoms. No dyspnea or palpitations. Telemetry showed sinus arrhythmia/mild sinus tachycardia in the 90-100 bpm range. Physical Exam Physical Exam: Appears reasonably comfortable. Afebrile. BP normotensive. Pulse 90 bpm and regular. Respirations 20 but unlabored. Skin: no ecchymoses or generalized lesions. HEENT: unremarkable. Neck: JVP at the clavicle at 90 degrees. Lungs: clear, no obvious wheezing. . Cardiac: regular rhythm, normal S1-2, no murmur or rub. Abdomen: benign. Extremities: no edema, pulses intact. Neurologic: normal affect and conversation, nonfocal. Results & Data Vital Signs (Past 12 Hours) Vital Signs Temp Pulse Pulse Resp BP Pulse Ox O2 Del Method 05/06/24 07:43 98.6 F 91 H 20 100/59 L 99 Nasal Cannula 05/06/24 07:15 98 H 05/06/24 02:39 98.2 F 95 H 18 118/67 98 Nasal Cannula O2 Flow Rate 05/06/24 07:43 1 05/06/24 07:15 05/06/24 02:39 1 Laboratory Results Hemoglobin 6.7. Sodium 135, potassium 3.8, BUN 10, creatinine 0.59. PG Care Time/CCT Total # of Minutes Spent Total Time Spent with Patient: Total time spent is greater than 50% in coordination of care (as documented) at patient's floor/unit and/or counseling patient: Coding Level of Care Code 08977 SUB INP/OBS CARE 06/18MIN Diagnoses Sickle cell crisis D57.00 Demand ischemia I24.89 Pneumonia J18.9
[2024-05-06 12:05] VITALS: BP 94/53; RESP 19; TEMP 97.9
--- NOTE | 2024-05-06 12:47 | Discharge Summary ---
Date of Service May 06, 2024 Admission HPI Per Admitting Provider Mat Keith is a 23yo male with history of sickle cell anemia presenting with acute pain crisis. Patient was out with friends this evening. When he left the bar and went out into the cold he began to develop pain in his chest and lower back. Pain tonight consistent with prior sickle cell pain crises. Patient has some mild nasal congestion otherwise denies fevers, chills, abdominal pain, nausea, vomiting or diarrhea. No additional complaints at this time. Does have history of acute chest syndrome - was admitted in June 2022 with PNA and ultimately transferred to tertiary care center for evaluation of ACS. In the ER he is afebrile, HD stable NAD Morphine with some relief provided Discharge Data Consultations 05/01/24 04:25 ED Decision to Admit Stat 05/04/24 03:36 Consult Cardiology Routine Consult Hematology Routine Hospital Course (1) Sickle cell crisis: 23yo male with history of sickle cell disease and splenectomy presenting with acute pain in his lower thoracic-lumbar back. The pain is now only in his bilateral calves and has reduced down to a 2/10. He is overall feeling better and is more talkative and less lethargic. At this point his pain is stable enough to switch to oral pain medications so that he can continue pain management in an outpatient setting. His hydromorphone continuous drip has has been discontinued. Hematology stated he is safe to discharge at his current Hgb level as long as it remains stable and he is feeling better. Plan is to monitor his pain without continuous hydromorphone this morning. If his pain is stable, he will be ready to be discharged. -Restart Oxycodone 10mg Q6H -Continue Hydroxyurea 200mg Qam (2) Pneumonia: He is well-appearing and in NAD. Lung auscultation revealed left lower lobe crackles. -CXR and Chest CT showed evidence of left lower lobe pneumonia. However, pneumonia is often indistinguishable from acute chest syndrome on imaging. Given the context of sickle cell crisis in this patient keep pneumonia and acute chest syndrome in the differential at this time. The absence of chest pain and other cardiac symptoms makes acute chest syndrome less likely at this time. -TTE was abnormal. Results showed EF of 55-60%, borderline left ventricular h ypertrophy, borderline right ventricular dilation, no significant valvular disease, trivial posterior pericardial effusion. -Cardiology consulted -MRSA nares negative. -Blood Cultures revealed no preliminary growth after 48hrs. Plan: -Continue Augmentin 875mg 1 tab BID for 7 days. (3) Elevated troponin: Troponin: -677.1 (05/04/24) -2334.9 (05/03/24) -2472.4 (05/03/24) Cardiology consulted. They are not concerned for acute coronary syndrome. No need for aspirin or heparinization at this time. Elevated troponin likely due to demand ischemia from underlying pulmonary pathology from sickle cell and pneumonia. Supervising Physician Co-Signing Physician Notes Attending Physician Supervision Note: I independently interviewed and examined the patient and verified the worthy history and physical, reviewed labs and image studies and agree with findings and care plan noted above. In pain this am 12/01 in the shins of his leg. Back pain improved. Also having pain in left elbow. no chest pain, shortness of breath. In some distress. CTA, RRR, Sickle cell crisis - exacerbated by excess alcohol drinking. -continue IVF, pain control - continuing to titrate up dilaudid CLOTHING EXAMINER for pain control. Leukocytosis with h/o splenectomy - continue IV rocephin. No obvious source of infection. Reassess in am.
--- NOTE | 2024-05-06 13:17 | Discharge Summary ---
Date of Service May 06, 2024 Admission HPI Per Admitting Provider Mat Keith is a 23yo male with history of sickle cell anemia presenting with acute pain crisis. Patient was out with friends this evening. When he left the bar and went out into the cold he began to develop pain in his chest and lower back. Pain tonight consistent with prior sickle cell pain crises. Patient has some mild nasal congestion otherwise denies fevers, chills, abdominal pain, nausea, vomiting or diarrhea. No additional complaints at this time. Does have history of acute chest syndrome - was admitted in June 2022 with PNA and ultimately transferred to tertiary care center for evaluation of ACS. In the ER he is afebrile, HD stable NAD Morphine with some relief provided Admission Exam Per Admitting Provider General: patient in discomfort, NAD, non-toxic in appearance, AA&O x 4 Skin: warm, dry, intact, no rashes or lesions HEENT: NC/AT, PERRL, EOMI, anicteric sclera, conjunctiva without injection, external ear normal to inspection and nontender, nares patent, dry mucus membranes, dentition intact, no oropharyngeal lesions, neck supple, trachea midline, no LAD, no thyromegaly, no JVD Heart: +S1/S2, regular, no m/r/g Lungs: equal air entry bilaterally, no rales/rhonchi/wheezes Abd: +BS, soft, NT/ND, no masses/organomegaly/ascites Ext: warm, 2+ pulses in UE/LE bilaterally, no clubbing/cyanosis or edema Neuro: nonfocal, patient AA&O x 4, speech intact, no facial droop, moving all extremities on command with equal strength 5/5 Principal Diagnosis Sickle Cell Crisis Pneumonia Discharge Exam General: Alert and oriented X3, well appearing and in no acute distress HEENT: Normocephalic, atraumatic, PERRLA, moist mucous membranes, neck is supple, trachea midline, no lymphadenopathy or thyromegaly appreciated Respiratory: Crackles auscultated in the left middle to lower lobe. Cardiovascular: Heart has RRR without murmurs, rubs, or gallops. No JVD, or lower extremity edema. Abdomen: Abdomen is soft, nontender, nondistended. No hepatomegaly appreciated. Normoactive bowel sounds. Neurologic: Cranial Nerves grossly intact, no focal neurological deficits. Psychiatric: Appropriate mood and affect. Discharge Data Allergies Allergy/AdvReac Type Severity Reaction Status Date / Time No Known Allergies Allergy Unverified 06/08/23 13:01 Consultations 05/01/24 04:25 ED Decision to Admit Stat 05/04/24 03:36 Consult Cardiology Routine Consult Hematology Routine Ordered Studies 05/01/24 04:30 CT chest diagnostic w con Stat CT thoracic spine w con Stat 05/03/24 20:53 CT angio chest PE protocol Stat 05/03/24 22:38 CT abdomen pelvis wo/w con Stat Hospital Course (1) Sickle cell crisis: 23yo male with history of sickle cell disease and splenectomy presenting with acute pain in his lower thoracic-lumbar back. The pain is now only in his bilateral calves and has reduced down to a 2/10. He is overall feeling better and is more talkative and less lethargic. At this point his pain is stable enough to switch to oral pain medications so that he can continue pain management in an outpatient setting. His hydromorphone continuous drip has has been discontinued. Hematology stated he is safe to discharge at his current Hgb level as long as it remains stable and he is feeling better. Plan is to monitor his pain without continuous hydromorphone this morning. If his pain is stable, he will be ready to be discharged. -Restart Oxycodone 10mg Q6H -Continue Hydroxyurea 200mg Qam (2) Pneumonia: He is well-appearing and in NAD. Lung auscultation revealed left lower lobe scrap bunch maker ckles. -CXR and Chest CT showed evidence of left lower lobe pneumonia. However, pneumonia is often indistinguishable from acute chest syndrome on imaging. Given the context of sickle cell crisis in this patient keep pneumonia and acute chest syndrome in the differential at this time. The absence of chest pain and other cardiac symptoms makes acute chest syndrome less likely at this time. -TTE was abnormal. Results showed EF of 55-60%, borderline left ventricular hypertrophy, borderline right ventricular dilation, no significant valvular disease, trivial posterior pericardial effusion. -Cardiology consulted -MRSA nares negative. -Blood Cultures revealed no preliminary growth after 48hrs. Plan: -Continue Augmentin 875mg 1 tab BID for a total of 5 days. Today is day 3/5.. (3) Elevated troponin: Troponin: -677.1 (05/04/24) -2334.9 (05/03/24) -2472.4 (05/03/24) Cardiology consulted. They are not concerned for acute coronary syndrome. No need for aspirin or heparinization at this time. Elevated troponin likely due to demand ischemia from underlying pulmonary pathology from sickle cell and pneumonia. Total Time Total Time Spent Total Time Spent (In Minutes): See attending documentation Discharge Plan Discharge Items Patient Disposition: Home - Self-Care Reason For Visit: SICKLE CELL PAIN CRISIS Discharge Diagnosis: Sickle Cell Pain Crisis Activity: Resume your previous activity Activity Comment: as tolerated Non-emergency contact: Primary Care Provider Call non-emergency contact if: you have any medication questions, your symptoms worsen and your pain is not controlled Follow-up/Referrals: [facility] [address] [Primary Care Provider] - Diet: Regular Addtl Attending Provider Instructions: You were admitted to the hospital for chest pain. You were treated with pain medications and IV fluids. You were also found to have pneumonia. You received 3 days of antibiotics while you in the hospital. You will take two more days when you get home. You should continue to take your other medications as usual. A discharge summary will be sent to your primary care physician to ensure continuity of care. Please bring this discharge summary with you to your next office appointment so that your provider can review it at that time. Follow-up appointments: Make a follow-up appointment with your PCP within the next week. It is very important that you follow up with them shortly after discharge from the hospital. Keep all your follow-up appointments as already scheduled. If you cannot make an appointment, notify your provider. Medications: Your medication list has been reviewed and reconciled upon discharge to ensure accuracy and continuity of care. An updated list of all your medications is included with your hospital discharge paperwork. Please review this list closely, and make note of any changes. We sent a new medication called amoxicillin-clavulanate to your pharmacy. Take amoxicillin-clavulanate (875mg) one tablet twice daily two days. You should take a dose tonight when you return home and then for the following two days. If you have any issues filling these prescriptions, please call [phone] and ask to leave a message for Dr. Stephen Doss. Take your medications as instructed; do not skip a dose of your medicines. Make sure all of your doctors know every medicine you are taking (including sjeb-nuq-skfvmqe medicines, vitamins, and supplements). Call your primary care provider before taking any new medicines (including lfak-djy-hofzsmn medicines, vitamins, and supplements), because some of these may interact with your current medications, or may make your symptoms worse. Tell your primary care provider if you cannot afford your medications. CONTACT YOUR PRIMARY CARE PROVIDER if you experience any of the following: Increased pain Shortness of breath Difficulty following your treatment plan, or difficulty taking medications CALL 911 OR GO TO THE EMERGENCY DEPARTMENT if you experience any of the following: Sudden, severe abdominal pain or nausea/vomiting Severe chest pain, or chest pain that radiates (moves) to your jaw or arm Sudden, severe shortness of breath or difficulty breathing Thank you for allowing us to participate in your care. Pending Studies at Discharge: No Stand-Alone Forms: [facility], Smoking Cessation Medications and DC Order Prescriptions: New amoxicillin-pot clavulanate 875-125 mg Tablet 1 tab PO BIDM Qty: 5 0RF Continued folic acid 1 mg tablet 1 mg PO QAM ibuprofen 600 mg tablet 600 mg PO Q6 PRN (Reason: Pain) Rx Instructions: otc, unable to verify hydroxyurea 500 mg capsule 2,000 mg PO QAM naloxone [Narcan] 4 mg/actuation spray,non-aerosol 1 spray intranasal ONCE Qty: 2 1RF Rx Instructions: no fill history available oxycodone 10 mg tablet 10 mg PO Q6H PRN (Reason: pain) Qty: 30 0RF Rx Instructions: no fill history available. qid prn breakthrough pain Discontinued oxycodone 5 mg Tablet 10 mg PO Q6H MDD 40 mg PRN (Reason: pain) Qty: 40 0RF Rx Instructions: filled 02/23/24 Discharge Orders: Discharge Order (Routine); Ordered 05/06/24 Ordered By: Stephen Doss Admission Data Admit Date/Time: 05/01/24 05:03 Attending Provider: Jessie Main Admit Provider: Marti Mcgrath Primary Care Provider: [facility] [address] Other Providers: Pavan Welch; Marti Mcgrath; Antonio Ace; Ruiz Redmond Other Interventions: Discharge Summary Assessment (RN) Last Done: 05/06/24 14:22 Supervising Physician Co-Signing Physician Notes Attending Physician Supervision Note: I saw the patient with Jessee Milton and independently interviewed and examined the patient and verified the worthy history and physical, reviewed labs and image studies and agree with findings and care plan noted above. Pain improved with no use of dilaudid. No chest pain. Laying in bed, no respiratory distress. Sickle cell crisis - exacerbated by pneumonia. Viral panel negative. -Bilirubin went us with fever but came down. Further outpatient follow up. -received IV hydration and pain control. Home on prn oxycodone. -continue hydroxyurea. Discussed with heme - ok to discharge with hb of 6-7. Pneumonia left lung with h/o splenectomy - Received rocephin and to augmentin on discharge to finish course. Elevated Trop - consistent with demand ischemia Right heart dysfunction - Evaluated by cardio - Resolved on recheck of limited echo on day of discharge. Fibrobronchiectatic RML changes on Chest CT - likely chronic. will need outpatient pulmonary evaluation.
--- NOTE | 2024-05-06 14:05 | XCELERA ---
[id number]
[2024-05-06 15:51] VITALS: PULSE 88
== END 2024-05-06 19:00 | disposition home or self-care (01) | DRG 811 ==
LOC: SUATTDRO → ED 01:49 → EDINP 05:03 → SUATTDRO 05:03 → 2N 08:17 → 2E 05-03 19:16

== ENCOUNTER 2025-01-27 10:34 | Inpatient (IN) ==
[2025-01-27] MEDS: SODIUM CHLORIDE 0.9% 1,000 ML IV SCH ×2 (12:13→16:01)
[2025-01-27] MEDS: ACETAMINOPHEN 1,000 MG/100 ML VIAL IV STA (12:14)
[2025-01-27] MEDS: MoRPHine SULFATE 4 MG/ML 1 ML CARP\\VIAL IV STA ×2 (12:14→16:01)
[2025-01-27 12:26] LABS: Hematocrit (blood only) 28.7 % (42.0-52.0); Hemoglobin 10.6 g/dl (14.0-18.0); Immature Granulocytes # (auto) 0.02 K/uL (0.01-0.20); Immature Granulocytes % (auto) 0.3 %; Mean Corpuscular Hemoglobin 38.8 pg (25.0-34.0); Mean Corpuscular Volume 105.1 fL (80.0-100.0); Platelet Count 306 K/uL (130-400); RDW Standard Deviation 74.3 fL (36.4-46.3); Red Blood Count 2.73 M/uL (4.70-6.10); Reticulocytes # 0.190 10^6/uL (0.020-0.100); White Blood Count 5.97 K/ul (4.8-10.8)
--- NOTE | 2025-01-27 12:36 | XRay Report ---
XR chest 1V portable CLINICAL HISTORY: Sepsis COMPARISON STUDY: 06/24/2024 FINDINGS: Single view portable chest at demonstrates an area of airspace opacity in the left upper lo be adjacent to the left axilla. The lung garcia are otherwise clear. There is no evidence of a pleura l effusion. No pneumothorax identified. Heart configuration shows mild cardiomegaly with left ventric ular prominence. IMPRESSION: New airspace opacity in the left upper lobe suspicious for pneumonia in the appropriate clinical context. Mild cardiomegaly with left ventricular prominence redemonstrated. ACT 112: Negative or not required by law. Electronically signed by: Flavia Shabazz M.D. 01/27/2025 12:35 PM
[2025-01-27 12:41] LABS: Appearance Urine Clear (Clear); Bacteria Urine Automated None Seen (None Seen); Cast Urine Automated 0-2 /lpf (0-2); Epithelial Cell Urine Auto 0-2 /hpf (0-2); Glucose Urine UA Negative (Negative); RBC Urine Automated 0-2 /hpf (0-2)
[2025-01-27 12:43] LABS: Anion Gap 6.0 (3-11); Blood Urea Nitrogen 8.0 mg/dl (6-23); Calcium 9.3 mg/dl (8.6-10.3); Carbon Dioxide 27.0 mmol/L (21-32); Chloride 101.0 mmol/L (98-107); Creatinine Clr Calc Pharmacy 126.8 ml/min; Glucose 94.0 mg/dl (70-99(Fasting)); Potassium 3.7 mmol/L (3.5-5.1); Sodium 134.0 mmol/L (136-145)
[2025-01-27 12:46] LABS: Alanine Aminotransferase 24.0 U/L (7-52); Alkaline Phosphatase 59.0 U/L (34-104); Bilirubin,Total 4.8 mg/dl (0.2-1.0); Magnesium 2.0 mg/dl (1.7-2.4); Total Protein 7.3 gm/dl (6.0-8.3)
[2025-01-27] MEDS: SODIUM CHLORIDE 0.9% 1,000 ML IV ONE (12:47)
[2025-01-27 12:58] LABS: INR 1.1 (0.9-1.1); Prothrombin Time 11.9 Seconds (9.0-12.0)
[2025-01-27 13:02] LABS: Creatine Kinase 3540.0 U/L (30-223)
[2025-01-27 13:27] LABS: Chlamydia pneumoniae PCR Not Detected (NotDetected); Coronavirus 229E PCR Not Detected (NotDetected); Coronavirus CoV-2 (COVID19)PCR DETECTED (NotDetected); Coronavirus HKU1 PCR Not Detected (NotDetected); Coronavirus NL63 PCR Not Detected (NotDetected); Coronavirus OC43PCR Not Detected (NotDetected); Human Metapneumovirus PCR Not Detected (NotDetected); Parainfluenza Virus 1 PCR Not Detected (NotDetected); Parainfluenza Virus 2 PCR Not Detected (NotDetected); Parainfluenza Virus 3 PCR Not Detected (NotDetected); Parainfluenza Virus 4 PCR Not Detected (NotDetected); Respiratory Syncytial VirusPCR Not Detected (NotDetected); Rhinovirus/Enterovirus PCR Not Detected (NotDetected)
[2025-01-27] MEDS: KETOROLAC TROMETHAMINE 15 MG/ML VIAL IV ONE (13:27)
[2025-01-27] MEDS: AZITHROMYCIN 250 MG TAB PO ONE (13:27)
[2025-01-27] MEDS: cefTRIAXone SODIUM 2,000 MG/50 ML BAG IV STA (13:27)
--- NOTE | 2025-01-27 15:17 | Emergency Department Note ---
Impression & Plan Pneumonia, COVID-19, Rhabdomyolysis ED Provider Note ED Provider Note NAME: SEAN RUVALCABA AGE:24 SEX: Male : 2000 ARRIVES VIA: private vehicle INFORMANT: Patient ED PROVIDER(s): Zuri Chu DO CHIEF COMPLAINT: muscle aches, fever HPI: This is a 24-year-old male who presents to the emergency department due to concern for muscle aches, URI symptoms and fever. Patient states he was lifting the beginning of the week and felt soreness from this. He states he was trying to drink plenty of water as he thought it was from his lifting. He states that 2 nights ago he developed nasal congestion and rhinorrhea. Last night he then developed a fever and took some Tylenol. He states his temperature was 101.2. He states this morning he had a fever again and came in for additional evaluation. 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 Patient does take hydroxyurea and folic acid daily. 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 Patient states he has previously been admitted for acute chest syndrome. He states his hemoglobin levels have been running around 10 recently. No other recent travel or change in activities. He states he has had a normal appetite this week, no change in urine or stools. He states he does have some mild chest discomfort along the lateral left ribs, denies any difficulty breathing or worsening cough. PAST MEDICAL HISTORY:See Below PAST SURGICAL HISTORY:See Below FAMILY HISTORY:See Below SOCIAL HISTORY:See Below HOME MEDICATIONS:See Below ALLERGIES:See Below VITALS:See Below PHYSICAL EXAMINATION: GENERAL: alert, well appearing, well nourished, no distress, non-toxic EYE EXAM: normal conjunctiva, PERRL and EOM's grossly intact OROPHARYNX: no exudate, no erythema, lips, buccal mucosa, and tongue normal and mucous membranes are moist NECK: supple, no nuchal rigidity, no adenopathy, non-tender LUNGS: Clear to auscultation. Normal chest wall mechanics, no w/r/r HEART: no murmurs, S1 normal and S2 normal ABDOMEN: abdomen soft, non-tender, normo-active bowel sounds, no masses, no rebound or guarding. BACK: Back is symmetrical on inspection and there is no deformity, no midline tenderness SKIN: no rashes, petechiae, orbruising UPPER EXTREMITIES: upper extremities are grossly normal. FROM, nml pulses b/l. LOWER EXTREMITIES: No pitting edema. FROM, nml pulses b/l. Compartments soft, no joint effusions. NEURO EXAM: Normal sensorium, cranial nerves II-XII grossly intact, normal speech, no facial droop,nogross weakness of arms, no gross weakness of legs. Gross sensation intact. No ataxia. Vital Signs: reviewed and remarkable Differential Diagnosis: SS crisis, acute chest syndrome, pna, URI, dehydration, kalpesh, rhabdomyolysis, bacteremia/sepsis, acute pain crises, pericarditis/myocarditis, PE, as well as others were considered MEDICAL DECISION MAKING: This is a 24 yo male with a hx of SS dz who presents to the ER with concern for increased muscle soreness since lifting this week and development of a fever last night. Vital signs stable on arrival here. Labs drawn and sent, IV established, EKG and CXR performed and interpreted at bedside, and patient placed on telemetry. Blood cultures sent additionally and nasal swab obtained for viral panel. Given muscle soreness CK added to labs. H/H stable and at baseline compared to prior per patient. Patient given 2 L of IVF and then changed to maintenance rate. CK elevated suggesting component of rhabdo. Biofire positive for covid explaining his fever and URI symptoms. Patient also noted to have pneumonia on cxr. He was started on IV antibiotics. Patient given IV tylenol, IV morphine, and IV toradol for pain with improvement. We discussed all results and need for further inpatient evaluation. He verbalized understanding and was in agreement. Case discussed with the hospitalist team for additional evaluation and mgmt. Consultation(s): 1505: Discussed with Dr. Rojas, [place] hospitalist team, for additional evaluation and mgmt. ER Treatment Provided: See below Diagnostics Interpreted By Me: -ECG: Sinus tachycardia 101, regular axis, normal intervals, T wave inversion in lead III, no other acute ST/T wave changes -Cardiac Monitoring: An order was placed for continuous cardiac monitoring. The monitor shows a rate of 92 with normal sinus rhythm. -Laboratory studies: As stated above and show below. 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 Substance Use Type Other:: vapes nicotine Preferred Language: Mohawk Communication Ability: Effective Hr Internship Required: No Beliefs That Will Affect Care: None marital status: Single Current Living Situation: Other Current Living Situation Comment: Apartment with roomates Feels Safe at Home: Yes Assistive Devices: None Allergies Allergies Allergy/AdvReac Type Severity Reaction Status Date / Time No Known Allergies Allergy Unverified 01/27/25 14:39 Home Meds Home Medications Medication Instructions Recorded Confirmed folic acid 1 mg tablet 1 mg PO QAM 02/08/23 01/27/25 hydroxyurea 500 mg capsule 2,000 mg PO QAM 03/16/23 01/27/25 Results & Data (ED) Vital Signs Vital Signs - 24 hr 01/27/25 10:41 01/27/25 12:31 01/27/25 12:31 Temperature 37.9 C H Temperature Source Oral Pulse Rate 112 H 95 H Pulse Rate [Apical] 95 H Respiratory Rate 20 25 H 25 H Respiratory Effort / Characteristics Non-Labored Spontaneous Respiratory Depth Normal Respiratory Pattern Regular Blood Pressure 127/72 Blood Pressure [Right Arm] 117/72 Blood Pressure Mean 90 Blood Pressure Mean [Right Arm] 87 Pulse Oximetry 99 97 97 Oxygen Delivery Method Room Air Room Air Room Air Sepsis Recent Fever Within 48 Hours No Sepsis New/Unexplained Change in Mental Status N/A Sepsis Action Taken by Nursing No Action Required 01/27/25 12:39 01/27/25 12:54 01/27/25 13:25 Temperature 37.0 C Temperature Source Oral Pulse Rate 95 H Pulse Rate [Apical] 87 Respiratory Rate 18 Respiratory Effort / Characteristics Respiratory Depth Respiratory Pattern Blood Pressure Blood Pressure [Right Arm] 112/54 L Blood Pressure Mean Blood Pressure Mean [Right Arm] 73 Pulse Oximetry 98 Oxygen Delivery Method Room Air Sepsis Recent Fever Within 48 Hours Sepsis New/Unexplained Change in Mental Status Sepsis Action Taken by Nursing 01/27/25 13:36 01/27/25 14:04 01/27/25 14:40 Temperature Temperature Source Pulse Rate Pulse Rate [Apical] 71 86 100 H Respiratory Rate 24 22 20 Respiratory Effort / Characteristics Respiratory Depth Respiratory Pattern Blood Pressure Blood Pressure [Right Arm] 117/69 119/67 96/65 L Blood Pressure Mean Blood Pressure Mean [Right Arm] 85 84 75 Pulse Oximetry 98 100 98 Oxygen Delivery Method Room Air Room Air Room Air Sepsis Recent Fever Within 48 Hours Sepsis New/Unexplained Change in Mental Status Sepsis Action Taken by Nursing 01/27/25 15:00 Temperature Temperature Source Pulse Rate Pulse Rate [Apical] 96 H Respiratory Rate 21 Respiratory Effort / Characteristics Non-Labored Spontaneous Respiratory Depth Normal Respiratory Pattern Blood Pressure Blood Pressure [Right Arm] 109/63 Blood Pressure Mean Blood Pressure Mean [Right Arm] 78 Pulse Oximetry 97 Oxygen Delivery Method Room Air Sepsis Recent Fever Within 48 Hours Sepsis New/Unexplained Change in Mental Status Sepsis Action Taken by Nursing Laboratory Data 01/28/25 06:53 01/28/25 12:36 Lab Results 01/27/25 01/27/25 01/27/25 Range/Units 12:00 12:07 12:20 WBC 5.97 (4.8-10.8) K/ul RBC 2.73 L (4.70-6.10) M/uL Hgb 10.6 L (14.0-18.0) g/dl Hct 28.7 L (42.0-52.0) % MCV 105.1 H (80.0-100.0) fL MCH 38.8 H (25.0-34.0) pg MCHC 36.9 H (32.0-36.0) g/dL RDW Std Deviation 74.3 H (36.4-46.3) fL RDW Coeff of Terrell 19.3 H (11.5-14.5) % Plt Count 306 (130-400) K/uL MPV 9.4 (9.4-12.4) fL Immature Gran % (Auto) 0.3 % Neut % (Auto) 84.1 % Lymph % (Auto) 8.4 % Adams % (Auto) 5.7 % Eos % (Auto) 1.0 % Baso % (Auto) 0.5 % Reticulocyte % (Auto) 7.11 H (0.50-2.00) % Neut # (Auto) 5.02 (1.40-6.50) K/uL Lymph # (Auto) 0.50 L (1.20-3.40) K/uL Adams # (Auto) 0.34 (0.11-0.59) K/uL Eos # (Auto) 0.06 (0.00-0.50) K/uL Baso # (Auto) 0.03 (0.00-0.20) K/uL Reticulocyte # 0.190 H (0.020-0.100) 10^6/uL Immature Gran # (Auto) 0.02 (0.01-0.20) K/uL Absolute Nucleated RBC 0.11 (0.00-0.12) K/uL Nucleated RBC % (auto) 1.8 % PT 11.9 (9.0-12.0) Seconds INR 1.1 (0.9-1.1) Sodium 134 L (136-145) mmol/L Potassium 3.7 (3.5-5.1) mmol/L Chloride 101 (98-107) mmol/L Carbon Dioxide 27 (21-32) mmol/L Anion Gap 6 (3-11) BUN 8 (6-23) mg/dl Creatinine 0.83 (0.6-1.4) mg/dl Est Cr Clr Drug Dosing 126.8 ml/min eGFR 126.91 BUN/Creatinine Ratio 9.6 L (10-20) Glucose 94 (70-99(Fasting)) mg/dl Lactate 1.2 (0.4-2.0) mmol/L Calcium 9.3 (8.6-10.3) mg/dl Magnesium 2.0 (1.7-2.4) mg/dl Total Bilirubin 4.8 H (0.2-1.0) mg/dl Direct Bilirubin 0.7 H (0-0.2) mg/dl AST 67 H (13-39) U/L ALT 24 (7-52) U/L Alkaline Phosphatase 59 (34-104) U/L Total Creatine Kinase 3540 H (30-223) U/L Troponin I High Sens 4.7 (0-20) pg/ml Total Protein 7.3 (6.0-8.3) gm/dl Albumin 4.4 (3.4-5.0) gm/dl Procalcitonin 0.37 (0-0.5) ng/ml Urine Color [place] Urine Appearance Clear (Clear) Urine pH 6.5 (4.5-7.5) Ur Specific [place] 1.013 (1.000-1.030) Urine Protein Trace H (Negative) Urine Glucose (UA) Negative (Negative) Urine Ketones Negative (Negative) Urine Blood Negative (Negative) Urine Nitrite Negative (Negative) Urine Bilirubin Negative (Negative) Urine Urobilinogen Negative (Negative) Ur Leukocyte Esterase 1+ H (Negative) Urine WBC (Auto) 11-20 H (0-5) /hpf Urine RBC (Auto) 0-2 (0-2) /hpf U Hyaline Cast (Auto) 0-2 (0-2) /lpf U Epithel Cells (Auto) 0-2 (0-2) /hpf Urine Bacteria (Auto) None Seen (None Seen) Urine Comment Adenovirus (PCR) Not Detected (NotDetected) B. pertussis DNA (PCR) Not Detected (NotDetected) B.parapertussis DNA PCR Not Detected (NotDetected) C. pneumoniae DNA (PCR) Not Detected (NotDetected) Coronavirus OC43 (PCR) Not Detected (NotDetected) Coronavirus HKU1 (PCR) Not Detected (NotDetected) Coronavirus 229E (PCR) Not Detected (NotDetected) SARS-CoV-2 (PCR) DETECTED A (NotDetected) Coronavirus NL63 (PCR) Not Detected (NotDetected) Human Metapneumovir PCR Not Detected (NotDetected) Influenza Type A (PCR) Not Detected (NotDetected) Influenza Type B (PCR) Not Detected (NotDetected) M. pneumoniae (PCR) Not Detected (NotDetected) Parainfluenza 1 (PCR) Not Detected (NotDetected) Parainfluenza 2 (PCR) Not Detected (NotDetected) Parainfluenza 3 (PCR) Not Detected (NotDetected) Parainfluenza 4 (PCR) Not Detected (NotDetected) RSV (PCR) Not Detected (NotDetected) Entero/Rhino (PCR) Not Detected (NotDetected) Administered Medications Acetaminophen (Acetaminophen 325 Mg Tab) 650 mg PO Q4H PRN PRN Reason: pain/fever Stop: 02/26/25 16:02 Last Admin: 01/27/25 22:27 Dose: 650 mg Documented By: KIYA Cyclobenzaprine HCl (Cyclobenzaprine Hcl 5 Mg Tab) 5 mg PO TID [facility] Stop: 02/27/25 13:59 Last Admin: 01/28/25 21:31 Dose: 5 mg Documented By: Admin: 01/28/25 13:20 Dose: 5 mg Documented By: DANIEL Folic Acid (Folic Acid 1 Mg Tab) 1 mg PO [facility] Stop: 02/27/25 08:59 Last Admin: 01/28/25 09:45 Dose: 1 mg Documented By: DANIEL Hydroxyurea (Hydroxyurea 500 Mg Cap) 2,000 mg PO [facility] Stop: 02/27/25 08:59 Last Admin: 01/28/25 09:45 Dose: 2,000 mg Documented By: DANIEL Co-signed By: BERT Sodium Chloride (Nss) 1,000 mls @ 200 mls/hr IV .Q5H [facility] Stop: 01/31/25 12:44 Last Admin: 01/28/25 23:11 Dose: 200 mls/hr Documented By: Infusion: 01/28/25 23:11 Dose: Infused Documented By: Admin: 01/28/25 17:55 Dose: 200 mls/hr Documented By: Infusion: 01/28/25 17:52 Dose: Infused Documented By: Admin: 01/28/25 12:52 Dose: 200 mls/hr Documented By: DANIEL Morphine Sulfate (Morphine Sulfate 4 Mg/Ml 1 Ml Carp\Vial) 4 mg IV Q3H PRN PRN Reason: Pain (6,7,8,9,10) Stop: 02/10/25 20:28 Last Admin: 01/28/25 21:32 Dose: 4 mg Documented By: Admin: 01/28/25 18:04 Dose: 4 mg Documented By: Admin: 01/28/25 13:21 Dose: 4 mg Documented By: Admin: 01/28/25 08:33 Dose: 4 mg Documented By: Admin: 01/28/25 03:53 Dose: 4 mg Documented By: Admin: 01/28/25 00:16 Dose: 4 mg Documented By: Admin: 01/27/25 20:36 Dose: 4 mg Documented By: ALBERTO Polyethylene Glycol (Polyethylene (Miralax) 17 Gm Pack) 17 gm PO DAILY PRN PRN Reason: Constipation Stop: 02/26/25 22:05 Last Admin: 01/28/25 13:23 Dose: 17 gm Documented By: Admin: 01/27/25 22:22 Dose: 17 gm Documented By: KIYA Discontinued Medications Azithromycin (Azithromycin 250 Mg Tab) 500 mg PO NOW ONE Stop: 01/27/25 13:08 Last Admin: 01/27/25 13:27 Dose: 500 mg Documented By: DOMENIC Sodium Chloride (Nss) 1,000 mls @ 999 mls/hr IV .Q1H1M [facility] Stop: 01/27/25 13:30 Last Infusion: 01/27/25 14:42 Dose: Infused Documented By: Admin: 01/27/25 13:28 Dose: 999 mls/hr Documented By: Infusion: 01/27/25 13:10 Dose: Infused Documented By: AVJeremiah Admin: 01/27/25 12:13 Dose: 999 mls/hr Documented By: ONI Acetaminophen (Ofirmev) 1,000 mg in 100 mls @ 400 mls/hr IV NOW STA Stop: 01/27/25 11:33 Last Infusion: 01/27/25 12:46 Dose: Infused Documented By: Admin: 01/27/25 12:14 Dose: 400 mls/hr Documented By: ONI Sodium Chloride (Nss) 1,000 mls @ 999 mls/hr IV .Q1H1M ONE Stop: 01/27/25 13:29 Last Admin: 01/27/25 12:47 Dose: Not Given Documented By: DOMENIC Ceftriaxone Sodium (Rocephin) 2,000 mg in 50 mls @ 100 mls/hr IV NOW STA Stop: 01/27/25 13:36 Last Infusion: 01/27/25 14:04 Dose: Infused Documented By: Admin: 01/27/25 13:27 Dose: 100 mls/hr Documented By: DOMENIC Sodium Chloride (Nss) 1,000 mls @ 125 mls/hr IV .Q8H [facility] Stop: 01/30/25 14:59 Last Infusion: 01/28/25 12:52 Dose: Infused Documented By: Admin: 01/28/25 08:33 Dose: 125 mls/hr Documented By: Infusion: 01/28/25 08:16 Dose: Infused Documented By: Admin: 01/28/25 00:16 Dose: 125 mls/hr Documented By: Infusion: 01/28/25 00:01 Dose: Infused Documented By: Admin: 01/27/25 16:01 Dose: 125 mls/hr Documented By: MATILDA Ketorolac Tromethamine (Ketorolac Tromethamine 15 Mg/Ml Vial) 10 mg IV NOW ONE Stop: 01/27/25 13:11 Last Admin: 01/27/25 13:27 Dose: 10 mg Documented By: DOMENIC Morphine Sulfate (Morphine Sulfate 4 Mg/Ml 1 Ml Carp\Vial) 4 mg IV NOW STA Stop: 01/27/25 11:20 Last Admin: 01/27/25 12:14 Dose: 4 mg Documented By: ONI Morphine Sulfate (Morphine Sulfate 4 Mg/Ml 1 Ml Carp\Vial) 4 mg IV NOW STA Stop: 01/27/25 15:59 Last Admin: 01/27/25 16:01 Dose: 4 mg Documented By: MATILDA Imaging Data Radiologist's Impression: Chest X-Ray 01/27/25 11:19 XR chest 1V portable CLINICAL HISTORY: Sepsis COMPARISON STUDY: 06/24/2024 FINDINGS: Single view portable chest at demonstrates an area of airspace opacity in the left upper lobe adjacent to the left axilla. The lung garcia are otherwise clear. There is no evidence of a pleural effusion. No pneumothorax identified. Heart configuration shows mild cardiomegaly with left ventricular prominence. IMPRESSION: New airspace opacity in the left upper lobe suspicious for pneumonia in the appropriate clinical context. Mild cardiomegaly with left ventricular prominence redemonstrated. ACT 112: Negative or not required by law. Electronically signed by: Flavia Shabazz M.D. 01/27/2025 12:35 PM Discharge Plan Visit Data Chief Complaint: Pain (Generalized) Stated Complaint: SICKLE CELL DISEASE, FEVER 101.4, MUSCLE SORNESS ED Provider: Zuri Chu Discharge Problem: Pneumonia, COVID-19, Rhabdomyolysis Patient Disposition: Admitted As Inpatient Condition: Fair Discharge Instructions Interventions: ED Discharge Assessment Last Done: 01/27/25 21:20
[2025-01-27] MEDS ORDERED: MELATONIN 3 MG TAB PO PRN (16:03)
[2025-01-27] MEDS ORDERED: ONDANSETRON INJ 2 MG/ML 2 ML VIAL IV PRN (16:03)
--- NOTE | 2025-01-27 16:21 | History & Physical Report ---
Date of Service January 27, 2025 Assessment & Plan (1) Rhabdomyolysis: Plan: Mr. Mat Keith is a 24 yo male with hx of sickle cell, acute chest syndrome, hx of splenectomy. He was hospitalized in May 2023 and apr 2024 for acute sickle cell crisis his hematology was in [facility] ([facility]), but he switching to adult hematology at [facility]. on 01/27/2025, he presented with leg pain, shoulder pain, he's been having strenous workout for 5-6 days, and found to has rhabdoyolysis and CK > 3500 in addition, his CXR show PNA and he's covid positive, his EKG show ST change ST change 1. acute rhabdomyolysis 2. ST change in the EKG 3. lower extremity pain 4. sickle cell disease 1. acute rhabdomyolysis. IV NS at 150cc/hours discussed avoiding weight lifting for 3-4 weeks trend K and mag level 2. ST change in the EKG trend troponin level and repeat EKG f/u on echocardiogram no chest pain, no shortness of breath 3. lower extremity pain most likely related to rhabdomyolysis from strenous workup duplex US to r/o DVT 4. sickle cell crisis hospitalized in May and apr 2024 he was following with Hematology at [facility] ([facility]) but he's planning to located plugger with [facility] network he on hydroxyurea (2) COVID-19: (3) Pneumonia: History of Present Illness Chief Complaint: rhabdomyolysis chest pain diffuse muscle achiness (leg pain, b/l shoulder pain) ST change in the inferior lead Primary Care Provider: ALEX SANCHEZ Mr. Mat Keith is a 24 yo male with PMH of sickle cell disease, hx of acute chest pain syndrome. he has splenectomy as infant at [facility] ([place]) his prior hematology is a [facility], but he's trying to transition to adult hematology at [facility]. on 01/27/2025, he's presented to ED with 3 days of worsening leg pain, shoulder pain and found to has rhabdomyolysis of 3540. in addition, his CXR concern for pneumonia and he's covid positive. his EKG show ST change in the inferior lead. on interview, he denied any shortness of breath, no sputum production no chest pressure no abdominal pain, no nausea, no vomiting no dizziness Allergies Allergy/AdvReac Type Severity Reaction Status Date / Time No Known Allergies Allergy Unverified 01/27/25 14:39 Home Medications Medication Instructions Recorded Confirmed Type folic acid 1 mg tablet 1 mg PO QAM 02/08/23 01/27/25 History hydroxyurea 500 mg capsule 2,000 mg PO QAM 03/16/23 01/27/25 History Past Med/Surg History Problem List (Updated 01/27/25 @ 15:46 by Zuri Chu DO) Rhabdomyolysis (Acute) COVID-19 (Acute) Acute chest syndrome (Acute) UTI (urinary tract infection) Fever (Acute) Productive cough (Acute) Right-sided chest pain (Acute) Pneumonia (Acute) Medical History 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 History of sickle cell disease Asplenia Asthma Surgical History History of tonsillectomy History of appendectomy History of splenectomy History of cholecystectomy Family History Other Hypertension Social History Smoking Status: Never smoker Tobacco Type: E-cigarettes / Vaping Second Hand Exposure: No; Do You Dip or Chew Tobacco: No; Hx Alcohol Use: Yes Alcohol type: beer Hx Substance Use: No Preferred Language: Iraqi Communication Ability: Effective Healthcare Receptionist Required: No Beliefs That Will Affect Care: None marital status: Single Current Living Situation: Other Current Living Situation Comment: apartment with roommates Feels Safe at Home: Yes Assistive Devices: None Review of Systems Review of Systems: Constitutional: No Weight Change, No Fever, No Chills, No Night Sweats, ENT/Mouth: No Nasal Congestion, No Sinus Pain, No sore throat, No Rhinorrhea, No Swallowing Changes Cardiovascular: No Chest Pain, No SOB, No PND, , No Edema, No Palpitations Respiratory: No Cough, No Sputum, No Wheezing, No Smoke Exposure, No Dyspnea Gastrointestinal: No Nausea, No Vomiting, No Diarrhea, No Constipation, No Pain, No Heartburn, No Anorexia, No Dysphagia, No Hematochezia, No Melena, No Flatulence, No Jaundice Genitourinary: + for dark urine Musculoskeletal: + for leg pain, muscle achiness, + for b/l shoulder pain Skin: No Skin Lesions, No Pruritis, No Hair Changes, No Breast/Skin Changes, No Nipple Discharge Neuro: No Weakness, No Numbness, No Paresthesias, No Loss of Consciousness Heme/Lymph: for sicke cell Physical Exam Physical Exam: VITALS: Reviewed. WEIGHT/BMI reviewed. GEN: Healthy appearing, well-developed, NAD. -Head: NC/AT; -Eyes: PERRL, EOMI. No discharge or redn ess; NECK: Supple, with no masses. CV: RRR, no m/r/g. LUNGS: CTAB, no w/r/c. ABD: Soft, NT/ND, NBS, no masses or organomegaly. non-tender + for scar from splenectomy : N/A MSK: + for calf tenderness; Results & Data Results & Data Vital Signs (Past 12 Hours) Vital Signs Temp Pulse Pulse Resp BP BP Pulse Ox 01/27/25 15:00 96 H 21 109/63 97 01/27/25 14:40 100 H 20 96/65 L 98 01/27/25 14:04 86 22 119/67 100 01/27/25 13:36 71 24 117/69 98 01/27/25 13:25 95 H 01/27/25 12:54 87 18 112/54 L 98 01/27/25 12:39 37.0 C 01/27/25 12:31 95 H 25 H 117/72 97 01/27/25 12:31 95 H 25 H 97 01/27/25 10:41 37.9 C H 112 H 20 127/72 99 O2 Del Method 01/27/25 15:00 Room Air 01/27/25 14:40 Room Air 01/27/25 14:04 Room Air 01/27/25 13:36 Room Air 01/27/25 13:25 01/27/25 12:54 Room Air 01/27/25 12:39 01/27/25 12:31 Room Air 01/27/25 12:31 Room Air 01/27/25 10:41 Room Air Laboratory Results Laboratory Results - last 72 hr 01/27/25 01/27/25 01/27/25 12:00 12:07 12:20 WBC 5.97 RBC 2.73 L Hgb 10.6 L Hct 28.7 L MCV 105.1 H MCH 38.8 H MCHC 36.9 H RDW Std Deviation 74.3 H RDW Coeff of Terrell 19.3 H Plt Count 306 MPV 9.4 Immature Gran % (Auto) 0.3 Neut % (Auto) 84.1 Lymph % (Auto) 8.4 [place] % (Auto) 5.7 Eos % (Auto) 1.0 Baso % (Auto) 0.5 Reticulocyte % (Auto) 7.11 H Neut # (Auto) 5.02 Lymph # (Auto) 0.50 L [place] # (Auto) 0.34 Eos # (Auto) 0.06 Baso # (Auto) 0.03 Reticulocyte # 0.190 H Immature Gran # (Auto) 0.02 Absolute Nucleated RBC 0.11 Nucleated RBC % (auto) 1.8 PT 11.9 INR 1.1 Sodium 134 L Potassium 3.7 Chloride 101 Carbon Dioxide 27 Anion Gap 6 BUN 8 Creatinine 0.83 Est Cr Clr Drug Dosing 126.8 eGFR 126.91 BUN/Creatinine Ratio 9.6 L Glucose 94 Lactate 1.2 Calcium 9.3 Magnesium 2.0 Total Bilirubin 4.8 H Direct Bilirubin 0.7 H AST 67 H ALT 24 Alkaline Phosphatase 59 Total Creatine Kinase 3540 H Troponin I High Sens 4.7 Total Protein 7.3 Albumin 4.4 Procalcitonin 0.37 Urine Color [place] Urine Appearance Clear Urine pH 6.5 Ur Specific [place] 1.013 Urine Protein Trace H Urine Glucose (UA) Negative Urine Ketones Negative Urine Blood Negative Urine Nitrite Negative Urine Bilirubin Negative Urine Urobilinogen Negative Ur Leukocyte Esterase 1+ H Urine WBC (Auto) 11-20 H Urine RBC (Auto) 0-2 U Hyaline Cast (Auto) 0-2 U Epithel Cells (Auto) 0-2 Urine Bacteria (Auto) None Seen Urine Comment Adenovirus (PCR) Not Detected B. pertussis DNA (PCR) Not Detected B.parapertussis DNA PCR Not Detected C. pneumoniae DNA (PCR) Not Detected Coronavirus OC43 (PCR) Not Detected Coronavirus HKU1 (PCR) Not Detected Coronavirus 229E (PCR) Not Detected SARS-CoV-2 (PCR) DETECTED A Coronavirus NL63 (PCR) Not Detected Human Metapneumovir PCR Not Detected Influenza Type A (PCR) Not Detected Influenza Type B (PCR) Not Detected M. pneumoniae (PCR) Not Detected Parainfluenza 1 (PCR) Not Detected Parainfluenza 2 (PCR) Not Detected Parainfluenza 3 (PCR) Not Detected Parainfluenza 4 (PCR) Not Detected RSV (PCR) Not Detected Entero/Rhino (PCR) Not Detected Medications Administered Current Inpatient Medications Acetaminophen (Acetaminophen 325 Mg Tab) 650 mg PO Q4H PRN PRN Reason: pain/fever Stop: 02/26/25 16:02 Sodium Chloride (Nss) 1,000 mls @ 125 mls/hr IV .Q8H KHURRAM Stop: 01/30/25 14:59 Last Admin: 01/27/25 16:01 Dose: 125 mls/hr Melatonin (Melatonin 3 Mg Tab) 3 mg PO HS PRN PRN Reason: Insomnia Stop: 02/26/25 16:02 Ondansetron HCl (Ondansetron Inj 2 Mg/Ml 2 Ml Vial) 4 mg IV Q6H PRN PRN Reason: Nausea Stop: 02/26/25 16:02 Code Status & VTE Plan Code Status full code PG Care Time/CCT Total # of Minutes Spent Total Time Spent with Patient: Total time spent is greater than 50% in coordination of care (as documented) at patient's floor/unit and/or counseling patient: Coding Level of Care Code 43048 INT INP/OBS CARE 1/40MIN Diagnoses Rhabdomyolysis M62.82 COVID-19 U07.1 Pneumonia J18.9 Time Spent (min) 40
--- NOTE | 2025-01-27 17:55 | Electrocardiogram Report ---
Test Reason : Blood Pressure : */* mmHG Vent. Rate : 101 BPM Atrial Rate : 101 BPM P-R Int : 174 ms QRS Dur : 90 ms QT Int : 328 ms P-R-T Axes : -28 170 -15 degrees QTcB Int : 425 ms Sinus tachycardia Indeterminate axis Possible Right ventricular hypertrophy possible Inferior infarct , age undetermined Abnormal ECG When compared with ECG of 24-Jun-2024 00:40, Non-specific change in ST segment in Inferior leads T wave inversion now evident in Inferior leads Confirmed by Brandon Nixon ([id number]) on 01/27/2025 5:55:22 PM Referred By: REFERRED SELF Confirmed By: Brandon Nixon
[2025-01-27] MEDS: MoRPHine SULFATE 4 MG/ML 1 ML CARP\\VIAL IV PRN (20:36)
[2025-01-27] MEDS: POLYETHYLENE (MIRALAX) 17 GM PACK PO PRN (22:22)
[2025-01-27] MEDS: ACETAMINOPHEN 325 MG TAB PO PRN (22:27)
[2025-01-28 07:29] LABS: Hematocrit (blood only) 23.4 % (42.0-52.0); Hemoglobin 8.5 g/dl (14.0-18.0); Mean Corpuscular Hemoglobin 38.6 pg (25.0-34.0); Mean Corpuscular Volume 106.4 fL (80.0-100.0); Platelet Count 234 K/uL (130-400); RDW Standard Deviation 72.3 fL (36.4-46.3); Red Blood Count 2.20 M/uL (4.70-6.10); White Blood Count 5.57 K/ul (4.8-10.8)
[2025-01-28 07:41] LABS: Anion Gap 5.0 (3-11); Blood Urea Nitrogen 5.0 mg/dl (6-23); Calcium 8.3 mg/dl (8.6-10.3); Carbon Dioxide 24.0 mmol/L (21-32); Chloride 107.0 mmol/L (98-107); Creatinine Clr Calc Pharmacy 179.3 ml/min; Glucose 93.0 mg/dl (70-99(Fasting)); Potassium 3.8 mmol/L (3.5-5.1); Sodium 136.0 mmol/L (136-145)
[2025-01-28 08:25] LABS: Magnesium 1.8 mg/dl (1.7-2.4)
[2025-01-28] MEDS: FOLIC ACID 1 MG TAB PO SCH (09:45)
[2025-01-28] MEDS: HYDROXYUREA 500 MG CAP PO SCH (09:45)
[2025-01-28] MEDS: SODIUM CHLORIDE 0.9% 1,000 ML IV SCH (12:52)
[2025-01-28 13:08] LABS: Anion Gap 5.0 (3-11); Blood Urea Nitrogen 5.0 mg/dl (6-23); Calcium 8.4 mg/dl (8.6-10.3); Carbon Dioxide 27.0 mmol/L (21-32); Chloride 104.0 mmol/L (98-107); Creatinine Clr Calc Pharmacy 187.8 ml/min; Glucose 89.0 mg/dl (70-99(Fasting)); Potassium 3.9 mmol/L (3.5-5.1); Sodium 136.0 mmol/L (136-145)
[2025-01-28] MEDS: CYCLOBENZAPRINE HCL 5 MG TAB PO SCH (13:20)
[2025-01-28 13:29] LABS: Alanine Aminotransferase 28.0 U/L (7-52); Albumin Globulin Ratio 1.4 (0.9-2); Alkaline Phosphatase 46.0 U/L (34-104); Bilirubin,Total 2.7 mg/dl (0.2-1.0); Creatine Kinase 4071.0 U/L (30-223); Globulin 2.6 gm/dl (2.5-4.0); Magnesium 1.9 mg/dl (1.7-2.4); Total Protein 6.3 gm/dl (6.0-8.3)
--- NOTE | 2025-01-28 14:40 | Ultrasound Report ---
Examination: Doppler venous ultrasound of the lower extremity Comparison: None Technique: Grayscale evaluation with compression, spectral flow, and color Doppler assessment of the deep venous system of the leg, from the groin to the knee, as well as the lower leg Findings: The external iliac, common femoral, femoral, popliteal, peroneal and anterior and posterior tibial veins demonstrate normal compressibility and blood flow. Impression: No evidence for DVT of the bilateral lower extremity Electronically signed by Brandon Valdez 01-28-2025 2:40 PM
--- NOTE | 2025-01-28 15:09 | Hospitalist Progress Note ---
Date of Service January 28, 2025 Assessment & Plan (1) Rhabdomyolysis: Plan: Mr. Mat Keith is a 24 yo male with hx of sickle cell, acute chest syndrome, hx of splenectomy. He was hospitalized in May 2023 and apr 2024 for acute sickle cell crisis his hematology was in [facility] ([facility]), but he switching to adult hematology at [facility]. on 01/27/2025, he presented with leg pain, shoulder pain, he's been having strenous workout for 5-6 days, and found to has rhabdoyolysis and CK > 3500 in addition, his CXR show PNA and he's covid positive, his EKG show ST change ST change 1. acute rhabdomyolysis 2. ST change in the EKG 3. lower extremity pain 4. sickle cell disease 1. acute rhabdomyolysis. IV NS at 200cc/hours. discussed avoiding weight lifting for 3-4 weeks trend K and mag level flexeril for pain control; monitor for Matilde, hypokalemia, hypocalcemia 2. ST change in the EKG trend troponin level and repeat EKG f/u on echocardiogram he continue to denied any chest pain 3. lower extremity pain most likely related to rhabdomyolysis from strenous workup duplex US to r/o DVT 4. sickle cell crisis hospitalized in May and apr 2024 he was following with Hematology at [facility] ([facility]) but he's planning to located clinical aide with [facility] network he on hydroxyurea (2) COVID-19: (3) Pneumonia: Admission and Anticipated Discharge Date Admission Date: January 27, 2025 Subjective he still has significant leg pain and IV fluid increased to 200cc/hours for his covid, on room air; denied any respiratory symptoms or sore throat no chest pain, no nause and no vomiting suspect his leg pain is related to rhabdomyolysis he's stated his pain is different from his sickle cell Physical Exam Physical Exam: VITALS: Reviewed. WEIGHT/BMI reviewed. GEN: Healthy appearing, well-developed, NAD. -Head: NC/AT; -Eyes: PERRL, EOMI. No discharge or redn ess; -Ears: External ears are normal. Normal TMs. -Nose: Normal nares. -Mouth and throat: MMM. Normal gums, muc gia, palate,. Good dentition. CV: RRR, no m/r/g. LUNGS: CTAB, no w/r/c. ABD: Soft, NT/ND, NBS, no masses or organomegaly. : N/A SKIN: Warm, well perfused. No skin rashes or abnormal lesions. MSK: no deformity; tender to palpation NEURO: Ambulating with no limitations. Normal muscle strength and tone. No focal deficits. Results & Data Results & Data Vital Signs (Past 12 Hours) Vital Signs Temp Pulse Pulse Resp BP BP Pulse Ox 01/28/25 11:50 37.0 C 78 18 110/70 99 01/28/25 07:23 90 01/28/25 07:15 37.1 C 75 18 101/60 98 01/28/25 03:45 36.8 C 76 16 107/62 98 O2 Del Method 01/28/25 11:50 Room Air 01/28/25 07:23 01/28/25 07:15 Room Air 01/28/25 03:45 Room Air Laboratory Results Laboratory Results - last 72 hr 01/27/25 01/27/25 01/27/25 12:00 12:07 12:20 WBC 5.97 RBC 2.73 L Hgb 10.6 L Hct 28.7 L MCV 105.1 H MCH 38.8 H MCHC 36.9 H RDW Std Deviation 74.3 H RDW Coeff of Terrell 19.3 H Plt Count 306 MPV 9.4 Immature Gran % (Auto) 0.3 Neut % (Auto) 84.1 Lymph % (Auto) 8.4 [place] % (Auto) 5.7 Eos % (Auto) 1.0 Baso % (Auto) 0.5 Reticulocyte % (Auto) 7.11 H Neut # (Auto) 5.02 Lymph # (Auto) 0.50 L [place] # (Auto) 0.34 Eos # (Auto) 0.06 Baso # (Auto) 0.03 Reticulocyte # 0.190 H Immature Gran # (Auto) 0.02 Absolute Nucleated RBC 0.11 Nucleated RBC % (auto) 1.8 PT 11.9 INR 1.1 Sodium 134 L Potassium 3.7 Chloride 101 Carbon Dioxide 27 Anion Gap 6 BUN 8 Creatinine 0.83 Est Cr Clr Drug Dosing 126.8 eGFR 126.91 BUN/Creatinine Ratio 9.6 L Glucose 94 Lactate 1.2 Calcium 9.3 Ionized Calcium Phosphorus Magnesium 2.0 Total Bilirubin 4.8 H Direct Bilirubin 0.7 H AST 67 H ALT 24 Alkaline Phosphatase 59 Total Creatine Kinase 3540 H Troponin I High Sens 4.7 Total Protein 7.3 Albumin 4.4 Globulin Albumin/Globulin Ratio Procalcitonin 0.37 Urine Color [place] Urine Appearance Clear Urine pH 6.5 Ur Specific [place] 1.013 Urine Protein Trace H Urine Glucose (UA) Negative Urine Ketones Negative Urine Blood Negative Urine Nitrite Negative Urine Bilirubin Negative Urine Urobilinogen Negative Ur Leukocyte Esterase 1+ H Urine WBC (Auto) 11-20 H Urine RBC (Auto) 0-2 U Hyaline Cast (Auto) 0-2 U Epithel Cells (Auto) 0-2 Urine Bacteria (Auto) None Seen Urine Comment Adenovirus (PCR) Not Detected B. pertussis DNA (PCR) Not Detected B.parapertussis DNA PCR Not Detected C. pneumoniae DNA (PCR) Not Detected Coronavirus OC43 (PCR) Not Detected Coronavirus HKU1 (PCR) Not Detected Coronavirus 229E (PCR) Not Detected SARS-CoV-2 (PCR) DETECTED A Coronavirus NL63 (PCR) Not Detected Human Metapneumovir PCR Not Detected Influenza Type A (PCR) Not Detected Influenza Type B (PCR) Not Detected M. pneumoniae (PCR) Not Detected Parainfluenza 1 (PCR) Not Detected Parainfluenza 2 (PCR) Not Detected Parainfluenza 3 (PCR) Not Detected Parainfluenza 4 (PCR) Not Detected RSV (PCR) Not Detected Entero/Rhino (PCR) Not Detected 01/28/25 01/28/25 01/28/25 06:53 07:47 12:36 WBC 5.57 RBC 2.20 L Hgb 8.5 L Hct 23.4 L MCV 106.4 H MCH 38.6 H MCHC 36.3 H RDW Std Deviation 72.3 H RDW Coeff of [place]rell 19.0 H Plt Count 234 MPV 9.5 Immature Gran % (Auto) Neut % (Auto) Lymph % (Auto) [place] % (Auto) Eos % (Auto) Baso % (Auto) Reticulocyte % (Auto) Neut # (Auto) Lymph # (Auto) [place] # (Auto) Eos # (Auto) Baso # (Auto) Reticulocyte # Immature Gran # (Auto) Absolute Nucleated RBC 0.06 Nucleated RBC % (auto) 1.1 PT INR Sodium 136 136 Potassium 3.8 3.9 Chloride 107 104 Carbon Dioxide 24 27 Anion Gap 5 5 BUN 5 L 5 L Creatinine 0.66 0.63 Est Cr Clr Drug Dosing 179.3 187.8 eGFR 136.00 137.93 BUN/Creatinine Ratio 7.6 L 7.9 L Glucose 93 89 Lactate Calcium 8.3 L 8.4 L Ionized Calcium Phosphorus 3.3 Magnesium 1.8 1.9 Total Bilirubin 2.7 H Direct Bilirubin AST 101 H ALT 28 Alkaline Phosphatase 46 Total Creatine Kinase 4071 H Troponin I High Sens 10.4 D 6.9 Total Protein 6.3 Albumin 3.7 Globulin 2.6 Albumin/Globulin Ratio 1.4 Procalcitonin Urine Color Urine Appearance Urine pH Ur Specific [place] Urine Protein Urine Glucose (UA) Urine Ketones Urine Blood Urine Nitrite Urine Bilirubin Urine Urobilinogen Ur Leukocyte Esterase Urine WBC (Auto) Urine RBC (Auto) U Hyaline Cast (Auto) U Epithel Cells (Auto) Urine Bacteria (Auto) Urine Comment Adenovirus (PCR) B. pertussis DNA (PCR) B.parapertussis DNA PCR C. pneumoniae DNA (PCR) Coronavirus OC43 (PCR) Coronavirus HKU1 (PCR) Coronavirus 229E (PCR) SARS-CoV-2 (PCR) Coronavirus NL63 (PCR) Human Metapneumovir PCR Influenza Type A (PCR) Influenza Type B (PCR) M. pneumoniae (PCR) Parainfluenza 1 (PCR) Parainfluenza 2 (PCR) Parainfluenza 3 (PCR) Parainfluenza 4 (PCR) RSV (PCR) Entero/Rhino (PCR) 01/28/25 12:39 WBC RBC Hgb Hct MCV MCH MCHC RDW Std Deviation RDW Coeff of Terrell Plt Count MPV Immature Gran % (Auto) Neut % (Auto) Lymph % (Auto) [place] % (Auto) Eos % (Auto) Baso % (Auto) Reticulocyte % (Auto) Neut # (Auto) Lymph # (Auto) [place] # (Auto) Eos # (Auto) Baso # (Auto) Reticulocyte # Immature Gran # (Auto) Absolute Nucleated RBC Nucleated RBC % (auto) PT INR Sodium Potassium Chloride Carbon Dioxide Anion Gap BUN Creatinine Est Cr Clr Drug Dosing eGFR BUN/Creatinine Ratio Glucose Lactate Calcium Ionized Calcium 1.18 Phosphorus Magnesium Total Bilirubin Direct Bilirubin AST ALT Alkaline Phosphatase Total Creatine Kinase Troponin I High Sens Total Protein Albumin Globulin Albumin/Globulin Ratio Procalcitonin Urine Color Urine Appearance Urine pH Ur Specific [place] Urine Protein Urine Glucose (UA) Urine Ketones Urine Blood Urine Nitrite Urine Bilirubin Urine Urobilinogen Ur Leukocyte Esterase Urine WBC (Auto) Urine RBC (Auto) U Hyaline Cast (Auto) U Epithel Cells (Auto) Urine Bacteria (Auto) Urine Comment Adenovirus (PCR) B. pertussis DNA (PCR) B.parapertussis DNA PCR C. pneumoniae DNA (PCR) Coronavirus OC43 (PCR) Coronavirus HKU1 (PCR) Coronavirus 229E (PCR) SARS-CoV-2 (PCR) Coronavirus NL63 (PCR) Human Metapneumovir PCR Influenza Type A (PCR) Influenza Type B (PCR) M. pneumoniae (PCR) Parainfluenza 1 (PCR) Parainfluenza 2 (PCR) Parainfluenza 3 (PCR) Parainfluenza 4 (PCR) RSV (PCR) Entero/Rhino (PCR) PG Care Time/CCT Total # of Minutes Spent Total Time Spent with Patient: Total time spent is greater than 50% in coordination of care (as documented) at patient's floor/unit and/or counseling patient: Coding Level of Care Code 24463 SUB INP/OBS CARE 06/18MIN Diagnoses Rhabdomyolysis M62.82 COVID-19 U07.1 Pneumonia J18.9 Time Spent (min) 25
[2025-01-29 06:38] LABS: Hematocrit (blood only) 21.9 % (42.0-52.0); Hemoglobin 8.2 g/dl (14.0-18.0); Mean Corpuscular Hemoglobin 38.9 pg (25.0-34.0); Mean Corpuscular Volume 103.8 fL (80.0-100.0); Platelet Count 255 K/uL (130-400); RDW Standard Deviation 69.2 fL (36.4-46.3); Red Blood Count 2.11 M/uL (4.70-6.10); White Blood Count 5.11 K/ul (4.8-10.8)
[2025-01-29 07:18] LABS: Anion Gap 4.0 (3-11); Blood Urea Nitrogen 5.0 mg/dl (6-23); Calcium 8.1 mg/dl (8.6-10.3); Carbon Dioxide 27.0 mmol/L (21-32); Chloride 107.0 mmol/L (98-107); Creatinine Clr Calc Pharmacy 201.4 ml/min; Glucose 129.0 mg/dl (70-99(Fasting)); Potassium 3.7 mmol/L (3.5-5.1); Sodium 138.0 mmol/L (136-145)
[2025-01-29 07:55] LABS: Creatine Kinase 2843.0 U/L (30-223)
--- NOTE | 2025-01-29 11:06 | Hospitalist Progress Note ---
Date of Service January 29, 2025 Assessment & Plan (1) Rhabdomyolysis: Plan: Mr. Mat Keith is a 24 yo male with hx of sickle cell, acute chest syndrome, hx of splenectomy. He was hospitalized in May 2023 and apr 2024 for acute sickle cell crisis his hematology was in [facility] ([facility]), but he switching to adult hematology at [place]. on 01/27/2025, he presented with leg pain, shoulder pain, he's been having strenous workout for 5-6 days, and found to has rhabdoyolysis and CK > 3500 in addition, his CXR show PNA and he's covid positive, his EKG show ST change ST change 1. acute rhabdomyolysis 2. ST change in the EKG 3. lower extremity pain 4. sickle cell disease 1. acute rhabdomyolysis. increased IV fluid from 200cc/hour--> 300 cc/hours. discussed avoiding weight lifting for 3-4 weeks trend K and mag level pain control with flexeril 10mg tID monitor for Matilde, hypokalemia, hypocalcemia 2. ST change in the EKG no chest pain, on shortness of breath trend troponin level and repeat EKG f/u on echocardiogram he continue to denied any chest pain 3. lower extremity pain most likely related to rhabdomyolysis from strenous workup duplex US to r/o DVT 4. 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 he on hydroxyurea (2) COVID-19: (3) Pneumonia: Admission and Anticipated Discharge Date Admission Date: January 27, 2025 Subjective lower calf pain remained significant, IV fluid increased to 300cc/hours, no chest pain, no shortness of breath denied respiratory symptoms, requested that his covid test to be repeat discussed that he need isolation while here he denied chest pain, denied shortness of breath we discussed that [facility] been notified, I reviewed his reticulocyte, CBC, CMP level with [facility] cross covering provider Physical Exam Physical Exam: VITALS: Reviewed. WEIGHT/BMI reviewed. GEN: Healthy appearing, well-developed, NAD. -Head: NC/AT; NECK: Supple, with no masses. CV: RRR, no m/r/g. LUNGS: CTAB, no w/r/c. ABD: Soft, NT/ND, NBS, no masses or organomegaly. SKIN: Warm, well perfused. No skin rashes or abnormal lesions. MSK: + for calf tenderness; no crepitus noted. Results & Data Results & Data Vital Signs (Past 12 Hours) Vital Signs Temp Pulse Pulse Resp BP Pulse Ox O2 Del Method 01/29/25 08:01 36.3 C L 80 16 102/60 98 Room Air 01/29/25 07:17 88 01/29/25 03:27 37.5 C 81 16 98/55 L 96 Room Air 01/28/25 23:16 37.1 C 84 18 143/90 H 98 Room Air Laboratory Results Laboratory Results - last 72 hr 01/27/25 01/27/25 01/27/25 12:00 12:07 12:20 WBC 5.97 RBC 2.73 L Hgb 10.6 L Hct 28.7 L MCV 105.1 H MCH 38.8 H MCHC 36.9 H RDW Std Deviation 74.3 H RDW Coeff of Terrell 19.3 H Plt Count 306 MPV 9.4 Immature Gran % (Auto) 0.3 Neut % (Auto) 84.1 Lymph % (Auto) 8.4 Dickinson % (Auto) 5.7 Eos % (Auto) 1.0 Baso % (Auto) 0.5 Reticulocyte % (Auto) 7.11 H Neut # (Auto) 5.02 Lymph # (Auto) 0.50 L Dickinson # (Auto) 0.34 Eos # (Auto) 0.06 Baso # (Auto) 0.03 Reticulocyte # 0.190 H Immature Gran # (Auto) 0.02 Absolute Nucleated RBC 0.11 Nucleated RBC % (auto) 1.8 PT 11.9 INR 1.1 Sodium 134 L Potassium 3.7 Chloride 101 Carbon Dioxide 27 Anion Gap 6 BUN 8 Creatinine 0.83 Est Cr Clr Drug Dosing 126.8 eGFR 126.91 BUN/Creatinine Ratio 9.6 L Glucose 94 Lactate 1.2 Calcium 9.3 Ionized Calcium Phosphorus Magnesium 2.0 Total Bilirubin 4.8 H Direct Bilirubin 0.7 H AST 67 H ALT 24 Alkaline Phosphatase 59 Total Creatine Kinase 3540 H Troponin I High Sens 4.7 Total Protein 7.3 Albumin 4.4 Globulin Albumin/Globulin Ratio Procalcitonin 0.37 Urine Color Brule Urine Appearance Clear Urine pH 6.5 Ur Specific [place] 1.013 Urine Protein Trace H Urine Glucose (UA) Negative Urine Ketones Negative Urine Blood Negative Urine Nitrite Negative Urine Bilirubin Negative Urine Urobilinogen Negative Ur Leukocyte Esterase 1+ H Urine WBC (Auto) 11-20 H Urine RBC (Auto) 0-2 U Hyaline Cast (Auto) 0-2 U Epithel Cells (Auto) 0-2 Urine Bacteria (Auto) None Seen Urine Comment Adenovirus (PCR) Not Detected B. pertussis DNA (PCR) Not Detected B.parapertussis DNA PCR Not Detected C. pneumoniae DNA (PCR) Not Detected Coronavirus OC43 (PCR) Not Detected Coronavirus HKU1 (PCR) Not Detected Coronavirus 229E (PCR) Not Detected SARS-CoV-2 (PCR) DETECTED A Coronavirus NL63 (PCR) Not Detected Human Metapneumovir PCR Not Detected Influenza Type A (PCR) Not Detected Influenza Type B (PCR) Not Detected M. pneumoniae (PCR) Not Detected Parainfluenza 1 (PCR) Not Detected Parainfluenza 2 (PCR) Not Detected Parainfluenza 3 (PCR) Not Detected Parainfluenza 4 (PCR) Not Detected RSV (PCR) Not Detected Entero/Rhino (PCR) Not Detected 01/28/25 01/28/25 01/28/25 06:53 07:47 12:36 WBC 5.57 RBC 2.20 L Hgb 8.5 L Hct 23.4 L MCV 106.4 H MCH 38.6 H MCHC 36.3 H RDW Std Deviation 72.3 H RDW Coeff of Terrell 19.0 H Plt Count 234 MPV 9.5 Immature Gran % (Auto) Neut % (Auto) Lymph % (Auto) Dickinson % (Auto) Eos % (Auto) Baso % (Auto) Reticulocyte % (Auto) Neut # (Auto) Lymph # (Auto) Dickinson # (Auto) Eos # (Auto) Baso # (Auto) Reticulocyte # Immature Gran # (Auto) Absolute Nucleated RBC 0.06 Nucleated RBC % (auto) 1.1 PT INR Sodium 136 136 Potassium 3.8 3.9 Chloride 107 104 Carbon Dioxide 24 27 Anion Gap 5 5 BUN 5 L 5 L Creatinine 0.66 0.63 Est Cr Clr Drug Dosing 179.3 187.8 eGFR 136.00 137.93 BUN/Creatinine Ratio 7.6 L 7.9 L Glucose 93 89 Lactate Calcium 8.3 L 8.4 L Ionized Calcium Phosphorus 3.3 Magnesium 1.8 1.9 Total Bilirubin 2.7 H Direct Bilirubin AST 101 H ALT 28 Alkaline Phosphatase 46 Total Creatine Kinase 4071 H Troponin I High Sens 10.4 D 6.9 Total Protein 6.3 Albumin 3.7 Globulin 2.6 Albumin/Globulin Ratio 1.4 Procalcitonin Urine Color Urine Appearance Urine pH Ur Specific [place] Urine Protein Urine Glucose (UA) Urine Ketones Urine Blood Urine Nitrite Urine Bilirubin Urine Urobilinogen Ur Leukocyte Esterase Urine WBC (Auto) Urine RBC (Auto) U Hyaline Cast (Auto) U Epithel Cells (Auto) Urine Bacteria (Auto) Urine Comment Adenovirus (PCR) B. pertussis DNA (PCR) B.parapertussis DNA PCR C. pneumoniae DNA (PCR) Coronavirus OC43 (PCR) Coronavirus HKU1 (PCR) Coronavirus 229E (PCR) SARS-CoV-2 (PCR) Coronavirus NL63 (PCR) Human Metapneumovir PCR Influenza Type A (PCR) Influenza Type B (PCR) M. pneumoniae (PCR) Parainfluenza 1 (PCR) Parainfluenza 2 (PCR) Parainfluenza 3 (PCR) Parainfluenza 4 (PCR) RSV (PCR) Entero/Rhino (PCR) 01/28/25 01/29/25 12:39 06:13 WBC 5.11 RBC 2.11 L Hgb 8.2 L Hct 21.9 L MCV 103.8 H MCH 38.9 H MCHC 37.4 H RDW Std Deviation 69.2 H RDW Coeff of Terrell 18.2 H Plt Count 255 MPV 9.7 Immature Gran % (Auto) Neut % (Auto) Lymph % (Auto) Dickinson % (Auto) Eos % (Auto) Baso % (Auto) Reticulocyte % (Auto) Neut # (Auto) Lymph # (Auto) Dickinson # (Auto) Eos # (Auto) Baso # (Auto) Reticulocyte # Immature Gran # (Auto) Absolute Nucleated RBC 0.04 Nucleated RBC % (auto) 0.8 PT INR Sodium 138 Potassium 3.7 Chloride 107 Carbon Dioxide 27 Anion Gap 4 BUN 5 L Creatinine 0.53 L Est Cr Clr Drug Dosing 201.4 eGFR 145.32 BUN/Creatinine Ratio 9.4 L Glucose 129 H Lactate Calcium 8.1 L Ionized Calcium 1.18 1.17 Phosphorus Magnesium Total Bilirubin Direct Bilirubin AST ALT Alkaline Phosphatase Total Creatine Kinase 2843 H Troponin I High Sens Total Protein Albumin Globulin Albumin/Globulin Ratio Procalcitonin Urine Color Urine Appearance Urine pH Ur Specific [place] Urine Protein Urine Glucose (UA) Urine Ketones Urine Blood Urine Nitrite Urine Bilirubin Urine Urobilinogen Ur Leukocyte Esterase Urine WBC (Auto) Urine RBC (Auto) U Hyaline Cast (Auto) U Epithel Cells (Auto) Urine Bacteria (Auto) Urine Comment Adenovirus (PCR) B. pertussis DNA (PCR) B.parapertussis DNA PCR C. pneumoniae DNA (PCR) Coronavirus OC43 (PCR) Coronavirus HKU1 (PCR) Coronavirus 229E (PCR) SARS-CoV-2 (PCR) Coronavirus NL63 (PCR) Human Metapneumovir PCR Influenza Type A (PCR) Influenza Type B (PCR) M. pneumoniae (PCR) Parainfluenza 1 (PCR) Parainfluenza 2 (PCR) Parainfluenza 3 (PCR) Parainfluenza 4 (PCR) RSV (PCR) Entero/Rhino (PCR) Diagnostic Findings Chest X-Ray 01/27/25 11:19 XR chest 1V portable CLINICAL HISTORY: Sepsis COMPARISON STUDY: 06/24/2024 FINDINGS: Single view portable chest at demonstrates an area of airspace opacity in the left upper lobe adjacent to the left axilla. The lung garcia are otherwise clear. There is no evidence of a pleural effusion. No pneumothorax identified. Heart configuration shows mild cardiomegaly with left ventricular prominence. IMPRESSION: New airspace opacity in the left upper lobe suspicious for pneumonia in the appropriate clinical context. Mild cardiomegaly with left ventricular prominence redemonstrated. ACT 112: Negative or not required by law. Electronically signed by: Flavia Shabazz M.D. 01/27/2025 12:35 PM Venous Doppler Study 01/28/25 12:24 Examination: Doppler venous ultrasound of the lower extremity Comparison: None Technique: Grayscale evaluation with compression, spectral flow, and color Doppler assessment of the deep venous system of the leg, from the groin to the knee, as well as the lower leg Findings: The external iliac, common femoral, femoral, popliteal, peroneal and anterior and posterior tibial veins demonstrate normal compressibility and blood flow. Impression: No evidence for DVT of the bilateral lower extremity Electronically signed by Brandon Valdez 01-28-2025 2:40 PM PG Care Time/CCT Total # of Minutes Spent Total Time Spent with Patient: Total time spent is greater than 50% in coordination of care (as documented) at patient's floor/unit and/or counseling patient: Coding Level of Care Code 14194 SUB INP/OBS CARE 1/25MIN Diagnoses Rhabdomyolysis M62.82 COVID-19 U07.1 Pneumonia J18.9 Time Spent (min) 25
[2025-01-29] MEDS: MoRPHine SULFATE 2 MG/ML CARP IV PRN (11:27)
[2025-01-29] MEDS: SODIUM CHLORIDE 0.9% 1,000 ML IV SCH (11:28)
[2025-01-29] MEDS: CYCLOBENZAPRINE HCL 10 MG TAB PO SCH (14:50)
[2025-01-29 16:46] LABS: Influenza A virus by PCR Negative (Neg); Influenza B virus by PCR Negative (Neg); SARS CoV2 RNA(COVID-19) Ceph POSITIVE (Negative)
[2025-01-29] MEDS: SENNA 8.6 MG TAB PO SCH (16:55)
[2025-01-30 08:56] LABS: Hematocrit (blood only) 24.9 % (42.0-52.0); Hemoglobin 9.1 g/dl (14.0-18.0); Mean Corpuscular Hemoglobin 37.9 pg (25.0-34.0); Mean Corpuscular Volume 103.8 fL (80.0-100.0); Platelet Count 299 K/uL (130-400); RDW Standard Deviation 70.8 fL (36.4-46.3); Red Blood Count 2.40 M/uL (4.70-6.10); White Blood Count 6.87 K/ul (4.8-10.8)
[2025-01-30 09:13] LABS: Anion Gap 6.0 (3-11); Blood Urea Nitrogen 6.0 mg/dl (6-23); Calcium 8.8 mg/dl (8.6-10.3); Carbon Dioxide 26.0 mmol/L (21-32); Chloride 105.0 mmol/L (98-107); Creatinine Clr Calc Pharmacy 221.9 ml/min; Glucose 92.0 mg/dl (70-99(Fasting)); Potassium 4.0 mmol/L (3.5-5.1); Sodium 137.0 mmol/L (136-145)
[2025-01-30 12:42] LABS: Creatine Kinase 1164.0 U/L (30-223)
--- NOTE | 2025-01-30 17:45 | Hospitalist Progress Note ---
Date of Service January 30, 2025 Assessment & Plan (1) Rhabdomyolysis: Plan: Mr. Mat Keith is a 24 yo male with hx of sickle cell, acute chest syndrome, hx of splenectomy. He was hospitalized in May 2023 and apr 2024 for acute sickle cell crisis his hematology was in [facility] ([facility] but he switching to adult hematology at [place]. on 01/27/2025, he presented with leg pain, shoulder pain, he's been having strenous workout for 5-6 days, and found to has rhabdoyolysis and CK > 3500 in addition, his CXR show PNA and he's covid positive, his EKG show ST change ST change 1. acute rhabdomyolysis 2. ST change in the EKG 3. lower extremity pain 4. sickle cell disease dc barrier ongoing pain and inability to fully bearing wait need IV fluid for another 24-48 hours 1. acute rhabdomyolysis. still has pain, c/w IV fluid at 300cc/hours no respiratory distress discussed avoiding weight lifting for 3-4 weeks trend K and mag level pain control with flexeril 10mg tID 2. ST change in the EKG no chest pain, on shortness of breath trend troponin level and repeat EKG f/u on echocardiogram he continue to denied any chest pain 3. lower extremity pain most likely related to rhabdomyolysis from strenuous workup duplex US to r/o DVT 4. 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 Ace notified lab review, vital sign reviewed Physical Exam Physical Exam: VITALS: Reviewed. WEIGHT/BMI reviewed. GEN: Healthy appearing, well-developed, NAD. -Head: NC/AT; -Mouth and throat: MMM. Normal gums, muc gia, palate,. Good dentition. NECK: Supple, with no masses. CV: RRR, no m/r/g. LUNGS: CTAB, no w/r/c. ABD: Soft, NT/ND, NBS, no masses or organomegaly. : N/A MSK: tenderness to palpitation; no crepitus noted. NEURO: AAox3 Results & Data Results & Data Vital Signs (Past 12 Hours) Vital Signs Temp Pulse Pulse Resp BP Pulse Ox O2 Del Method 01/30/25 13:30 76 01/30/25 12:20 36.4 C L 80 16 111/72 96 Room Air 01/30/25 12:00 01/30/25 08:00 Room Air 01/30/25 07:55 78 01/30/25 07:32 36.9 C 87 16 98/58 L 100 Room Air O2 Del Method 01/30/25 13:30 01/30/25 12:20 01/30/25 12:00 Room Air 01/30/25 08:00 01/30/25 07:55 01/30/25 07:32 Laboratory Results Laboratory Results - last 72 hr 01/28/25 01/28/25 01/28/25 06:53 07:47 12:36 WBC 5.57 RBC 2.20 L Hgb 8.5 L Hct 23.4 L MCV 106.4 H MCH 38.6 H MCHC 36.3 H RDW Std Deviation 72.3 H RDW Coeff of Terrell 19.0 H Plt Count 234 MPV 9.5 Absolute Nucleated RBC 0.06 Nucleated RBC % (auto) 1.1 Sodium 136 136 Potassium 3.8 3.9 Chloride 107 104 Carbon Dioxide 24 27 Anion Gap 5 5 BUN 5 L 5 L Creatinine 0.66 0.63 Est Cr Clr Drug Dosing 179.3 187.8 eGFR 136.00 137.93 BUN/Creatinine Ratio 7.6 L 7.9 L Glucose 93 89 Calcium 8.3 L 8.4 L Ionized Calcium Phosphorus 3.3 Magnesium 1.8 1.9 Total Bilirubin 2.7 H AST 101 H ALT 28 Alkaline Phosphatase 46 Total Creatine Kinase 4071 H Troponin I High Sens 10.4 D 6.9 Total Protein 6.3 Albumin 3.7 Globulin 2.6 Albumin/Globulin Ratio 1.4 SARS-CoV-2 (PCR) Influenza Type A (PCR) Influenza Type B (PCR) RSV (RT-PCR) 01/28/25 01/29/25 01/29/25 12:39 06:13 Unknown WBC 5.11 RBC 2.11 L Hgb 8.2 L Hct 21.9 L MCV 103.8 H MCH 38.9 H MCHC 37.4 H RDW Std Deviation 69.2 H RDW Coeff of Terrell 18.2 H Plt Count 255 MPV 9.7 Absolute Nucleated RBC 0.04 Nucleated RBC % (auto) 0.8 Sodium 138 Potassium 3.7 Chloride 107 Carbon Dioxide 27 Anion Gap 4 BUN 5 L Creatinine 0.53 L Est Cr Clr Drug Dosing 201.4 eGFR 145.32 BUN/Creatinine Ratio 9.4 L Glucose 129 H Calcium 8.1 L Ionized Calcium 1.18 1.17 Phosphorus Magnesium Total Bilirubin AST ALT Alkaline Phosphatase Total Creatine Kinase 2843 H Troponin I High Sens Total Protein Albumin Globulin Albumin/Globulin Ratio SARS-CoV-2 (PCR) POSITIVE A Influenza Type A (PCR) Negative Influenza Type B (PCR) Negative RSV (RT-PCR) Negative 01/30/25 01/30/25 08:33 12:02 WBC 6.87 RBC 2.40 L Hgb 9.1 L Hct 24.9 L MCV 103.8 H MCH 37.9 H MCHC 36.5 H RDW Std Deviation 70.8 H RDW Coeff of Terrell 18.6 H Plt Count 299 MPV 9.7 Absolute Nucleated RBC 0.03 Nucleated RBC % (auto) 0.4 Sodium 137 Potassium 4.0 Chloride 105 Carbon Dioxide 26 Anion Gap 6 BUN 6 Creatinine 0.51 L Est Cr Clr Drug Dosing 221.9 eGFR 147.01 BUN/Creatinine Ratio 11.8 Glucose 92 Calcium 8.8 Ionized Calcium 1.17 Phosphorus Magnesium Total Bilirubin AST ALT Alkaline Phosphatase Total Creatine Kinase 1164 H Troponin I High Sens 3.7 Total Protein Albumin Globulin Albumin/Globulin Ratio SARS-CoV-2 (PCR) Influenza Type A (PCR) Influenza Type B (PCR) RSV (RT-PCR) PG Care Time/CCT Total # of Minutes Spent Total Time Spent with Patient: Total time spent is greater than 50% in coordination of care (as documented) at patient's floor/unit and/or counseling patient: Coding Level of Care Code 98386 SUB INP/OBS CARE 06/18MIN Diagnoses Rhabdomyolysis M62.82 COVID-19 U07.1 Pneumonia J18.9 Time Spent (min) 25
[2025-01-31 06:38] LABS: Hematocrit (blood only) 21.3 % (42.0-52.0); Hemoglobin 7.7 g/dl (14.0-18.0); Mean Corpuscular Hemoglobin 37.2 pg (25.0-34.0); Mean Corpuscular Volume 102.9 fL (80.0-100.0); Platelet Count 275 K/uL (130-400); RDW Standard Deviation 68.5 fL (36.4-46.3); Red Blood Count 2.07 M/uL (4.70-6.10); White Blood Count 4.42 K/ul (4.8-10.8)
[2025-01-31 07:02] LABS: Anion Gap 6.0 (3-11); Blood Urea Nitrogen 6.0 mg/dl (6-23); Calcium 8.3 mg/dl (8.6-10.3); Carbon Dioxide 26.0 mmol/L (21-32); Chloride 107.0 mmol/L (98-107); Creatine Kinase 607.0 U/L (30-223); Creatinine Clr Calc Pharmacy 216.6 ml/min; Glucose 98.0 mg/dl (70-99(Fasting)); Potassium 3.9 mmol/L (3.5-5.1); Sodium 139.0 mmol/L (136-145)
[2025-01-31 08:46] VITALS: TEMP 97.9
[2025-01-31 11:45] VITALS: RESP 18; O2SAT 100
[2025-01-31 12:45] VITALS: BP 113/70; PULSE 95
--- NOTE | 2025-01-31 17:18 | Discharge Summary ---
Discharge Summary Date of Service January 31, 2025 Principal Dx & Hospital Course #1 = Principal Diagnosis (1) Rhabdomyolysis: Mr. Mat Keith is a 24 yo male with hx of sickle cell, acute chest syndrome, hx of splenectomy. He was hospitalized in May 2023 and apr 2024 for acute sickle cell crisis his hematology was in [facility] ([facility]), but he switching to adult hematology at [place]. on 01/27/2025, he presented with leg pain, shoulder pain, he's been having strenous workout for 5-6 days, and found to has rhabdoyolysis and CK > 3500 in addition, his CXR show PNA and he's covid positive, his EKG show ST change ST change 1. acute rhabdomyolysis 2. ST change in the EKG 3. lower extremity pain 4. sickle cell disease dc barrier ongoing pain and inability to fully bearing wait need IV fluid for another 24-48 hours 1. acute rhabdomyolysis. still has pain, c/w IV fluid at 300cc/hours no respiratory distress discussed avoiding weight lifting for 3-4 weeks trend K and mag level pain control with flexeril 10mg tID 2. ST change in the EKG no chest pain, on shortness of breath trend troponin level and repeat EKG f/u on echocardiogram he continue to denied any chest pain 3. lower extremity pain most likely related to rhabdomyolysis from strenuous workup duplex US to r/o DVT 4. 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 Mat Keith is a 24 yo male with PMH of sickle cell disease, hx of acute chest pain syndrome. he has splenectomy as at [facility] ([facility]) his [facility] hematology [facility], but he's trying to transition to adult hematology at [facility]. on 01/27/2025, he's presented to ED with 3 days of worsening leg pain, shoulder pain and found to has rhabdomyolysis of 3540. in addition, his CXR concern for pneumonia and he's covid positive. his EKG show ST change in the inferior lead. on interview, he denied any shortness of breath, no sputum production no chest pressure no abdominal pain, no nausea, no vomiting no dizziness Discharge Plan Discharge Items Patient Disposition: Home - Self-Care Reason For Visit: RHABDOMYOLYSIS, EKG CHANGE Discharge Diagnosis: rhabdomyolysis, lower extremity pain covid infection Condition on Discharge: Fair Activity: Per Instructions section Lifting: Gradually increase as tolerated Non-emergency contact: Primary Care Provider Call non-emergency contact if: your symptoms worsen and you have a fever Follow-up/Referrals: Julian Foley Jr, MD [Primary Care Provider] - Diet: Regular Addtl Attending Provider Instructions: recheck for for covid tomorrow isolation for 5 days wear mask if you have symptoms avoid exposure to cold Pending Studies at Discharge: No Studies:: repeat covid Stand-Alone Forms: [employer] Work/School Release, Smoking Cessation Medications and DC Order Prescriptions: Continued folic acid 1 mg tablet 1 mg PO QAM hydroxyurea 500 mg capsule 2,000 mg PO QAM Discharge Orders: Discharge Order (Routine); Ordered 01/31/25 Ordered By: Abelardo Noonan/Other Patient Handouts: Rhabdomyolysis, 2019 Novel Coronavirus Admission Data Admit Date/Time: 01/27/25 16:03 Attending Provider: Abelardo Rojas Admit Provider: Abelardo Rojas Primary Care Provider: Julian Foley Jr Other Providers: Abelardo Rojas; Antonio Ace Other Interventions: Discharge Summary Assessment (RN) Last Done: 01/31/25 12:44 Hospital Stay Data Consultations 01/27/25 15:45 ED Decision to Admit Stat 01/30/25 13:17 Consult Hematology Routine Diagnostic Imagining Performed 01/28/25 12:24 US venous duplex leg [US venous doppler LE BI] Urgent Pending Results Patient Have Any Pending Studies at Discharge: No Discharge Instructions Given to Patient (Per Discharging Provider) recheck for for covid tomorrow isolation for 5 days wear mask if you have symptoms avoid exposure to cold Coding Diagnoses Rhabdomyolysis M62.82 COVID-19 U07.1 Pneumonia J18.9
--- NOTE | 2025-01-31 17:22 | Discharge Summary ---
Discharge Summary Date of Service January 31, 2025 Principal Dx & Hospital Course #1 = Principal Diagnosis (1) Rhabdomyolysis: Hospital course Mr. Keith is a 24 yo male with hx of sickle cell, acute chest syndrome, splenectomy at an agent he was having strenuous with lower extremity and presented to our hospital with leg pain and rhabdomolysis with CK of 3500 given his intractable leg pain and hx of sickle cell, he was admitted for IV fluid he's was incidentally covid postivie but denied any shortness of breath, sore throat or congestion no white count, no fever. he's remained on IV fluid, on 01/30/2025, his was still having significant pain and inability to bear weight and decision is another 24 hours of IV fluid. on 02/01/2024, his CK level is below 500 and his leg pain improved he was dc home on 01/31/2025, he will need covid isolation until (02/02/2025) he was recommended to wear mask when he's out in crowded area. was recommended to retest for covid infection prior to return to class. Mr. Mat Keith is a 24 yo male with hx of sickle cell, acute chest syndrome, hx of splenectomy. He was hospitalized in May 2023 and apr 2024 for acute sickle cell crisis his hematology was in [facility] ([facility] but he switching to adult hematology at [place]. on 01/27/2025, he presented with leg pain, shoulder pain, he's been having strenous workout for 5-6 days, and found to has rhabdoyolysis and CK > 3500 in addition, his CXR show PNA and he's covid positive, his EKG show ST change ST change 1. acute rhabdomyolysis 2. ST change in the EKG 3. lower extremity pain 4. sickle cell disease dc barrier ongoing pain and inability to fully bearing wait need IV fluid for another 24-48 hours 1. acute rhabdomyolysis. still has pain, c/w IV fluid at 300cc/hours no respiratory distress discussed avoiding weight lifting for 3-4 weeks trend K and mag level pain control with flexeril 10mg tID 2. ST change in the EKG no chest pain, on shortness of breath trend troponin level and repeat EKG f/u on echocardiogram he continue to denied any chest pain 3. lower extremity pain most likely related to rhabdomyolysis from strenuous workup duplex US to r/o DVT 4. sickle cell crisis hospitalized in May and apr 2024 he was following with Hematology at [facility] ([place]) but he's planning to located [place] [facility] with [facility] he on hydroxyurea (2) COVID-19: (3) Pneumonia: Admission HPI Per Admitting Provider Mr. Mat Keith is a 24 yo male with PMH of sickle cell disease, hx of acute chest pain syndrome. he has splenectomy as at [facility] ([place]) his [facility], but he's trying to transition to adult hematology at [facility]. on 01/27/2025, he's presented to ED with 3 days of worsening leg pain, shoulder pain and found to has rhabdomyolysis of 3540. in addition, his CXR concern for pneumonia and he's covid positive. his EKG show ST change in the inferior lead. on interview, he denied any shortness of breath, no sputum production no chest pressure no abdominal pain, no nausea, no vomiting no dizziness Discharge Exam VITALS: Reviewed. WEIGHT/BMI reviewed. GEN: Healthy appearing, well-developed, NAD. PSYCH: Good Judgment. AOx3. Normal memory, mood, and affect. HEENT -Head: NC/AT; CV: RRR, no m/r/g. LUNGS: CTAB, no w/r/c. ABD: Soft, NT/ND, NBS, no masses or organomegaly. : N/A SKIN: Warm, well perfused. No skin rashes or abnormal lesions. MSK: No deformities, Normal gait. non-tender to palpation no crepitus noted EXT: No clubbing, cyanosis, or edema. NEURO: AAOx3 Discharge Plan Discharge Items Patient Disposition: Home - Self-Care Reason For Visit: RHABDOMYOLYSIS, EKG CHANGE Discharge Diagnosis: rhabdomyolysis, lower extremity pain covid infection Condition on Discharge: Fair Activity: Per Instructions section Lifting: Gradually increase as tolerated Non-emergency contact: Primary Care Provider Call non-emergency contact if: your symptoms worsen and you have a fever Follow-up/Referrals: Julian Foley Jr, MD [Primary Care Provider] - Diet: Regular Addtl Attending Provider Instructions: recheck for for covid tomorrow isolation for 5 days wear mask if you have symptoms avoid exposure to cold Pending Studies at Discharge: No Studies:: repeat covid Stand-Alone Forms: My [facility], Work/School Release, Smoking Cessation Medications and DC Order Prescriptions: Continued folic acid 1 mg tablet 1 mg PO QAM hydroxyurea 500 mg capsule 2,000 mg PO QAM Discharge Orders: Discharge Order (Routine); Ordered 01/31/25 Ordered By: Abelardo Noonan/Other Patient Handouts: Rhabdomyolysis, 2019 Novel Coronavirus Admission Data Admit Date/Time: 01/27/25 16:03 Attending Provider: Abelardo Rojas Admit Provider: Abelardo Rojas Primary Care Provider: Julian Foley Jr Other Providers: Abelardo Rojas; Antonio Ace Other Interventions: Discharge Summary Assessment (RN) Last Done: 01/31/25 12:44 Hospital Stay Data Consultations 01/27/25 15:45 ED Decision to Admit Stat 01/30/25 13:17 Consult Hematology Routine Diagnostic Imagining Performed 01/28/25 12:24 US venous duplex leg [US venous doppler LE BI] Urgent Pending Results Patient Have Any Pending Studies at Discharge: No Discharge Instructions Given to Patient (Per Discharging Provider) recheck for for covid tomorrow isolation for 5 days wear mask if you have symptoms avoid exposure to cold Total Time Total Time Spent Total Time Spent (In Minutes): 25 Coding Level of Care Code 81170 IN/OBS DISCH 30 MIN/LESS Diagnoses Rhabdomyolysis M62.82 COVID-19 U07.1 Pneumonia J18.9 Time Spent (min) 25
== END 2025-01-31 13:26 | disposition home or self-care (01) | DRG 557 ==
LOC: SUATTDRO → ED 10:34 → EDINP 16:03 → 2W 21:20